=== PATIENT | female | born 1930 | race Caucasian/White ===

== ENCOUNTER 2019-09-23 18:20 | Inpatient (IN) | payer MEDICARE, BC ==
[~2019-09-23] VITALS: Ht 154.9 cm; Wt 51.6 kg
[2019-09-23 18:20] VITALS: BP 178/72
[~2019-09-23 18:20] MED LIST: AMLO5TAB10 PO; CALC1TAB PO; CHOL10003 PO; HYDR-2761 PO; IBUP-1060 PO; LEVO50TA5 PO; LOSA-73 PO; LYSI500T3 PO; MULT1TAB6 PO; NITR50CA11 PO; OMEG-33 PO; RALO60TA PO; TRIA15OI TP; VITA100T5 PO; VITA1TAB19 PO
--- NOTE | 2019-09-23 18:55 | PDOC1 ---
History and Physical Date of Admission Date of Admission DATE: 09/23/19 TIME: 18:54 Identification/Chief Complaint Chief Complaint direct admit [facility] due to severe anemia hgb 6.3, transfused and transferred Past Medical History Past Medical History november 2015 pt had a left hip replacement at [facility]. During her post-hospital stay at [place] she developed a pressure ulcer of the sacrum. Cardiovascular: HTN CENTRAL NERVOUS SYSTEM: Dementia Psych: Depression Renal/: No pertinent hx Family History Family History: Hypertension Social History Smoke: No ALCOHOL: none Drugs: None Current Medications Current Medications Active Scripts Active Reported Macrodantin (Nitrofurantoin Macrocrystal) 50 Mg Capsule 1 Cap PO DAILY Evista (Raloxifene Hcl) 60 Mg Tablet 1 Tab PO DAILY Triamcinolone Acetonide 0.1% Oint (Triamcinolone Acetonide) 15 Gm Oint...g. 1 Gregg TP BID MIX WITH EUCERIN DIRECTED BY PHYSICIAN Ibuprofen 800 Mg Tablet 800 Mg PO PRN Q6HRS PRN B Complex (Vitamin B Complex) 1 Each Tablet 1 Each PO Yorkshire 3 1,000 Mg Softgel (Yorkshire-3 Fatty Acids/Fish Oil) 1 Each Capsule 1 Each PO Vitamin E (Vitamin E Acid Succinate) 100 Unit Tablet 100 Unit PO Lysine 500 Mg Tablet 500 Mg PO Vitamin D3 (Cholecalciferol (Vitamin D3)) 1,000 Unit Tablet 1,000 Unit PO Centrum Complete Multivit Tab (Multivitamin/Iron/Folic Acid) 1 Each Tablet 1 Each PO Caltrate 600 + D Tablet (Calcium Carbonate/Vitamin D3) 1 Each Tablet 1 Each PO Losartan Potassium 50 Mg Tablet 50 Mg PO DAILY Evista (Raloxifene Hcl) 60 Mg Tablet 60 Mg PO DAILY Hydrocodone-Apap 5-325 (Hydrocodone Bit/Acetaminophen) 1 Each Tablet 1-2 Tab PO Q4-6HRS Levothyroxine Sodium 50 Mcg Tablet 50 Mcg PO DAILYAC Allergies Allergies: Coded Allergies: Penicillins (Unverified Allergy, Intermediate, 08/29/14) Sulfa (Sulfonamide Antibiotics) (Unverified Allergy, Intermediate, 08/29/14) clarithromycin (Unverified Allergy, Intermediate, 08/29/14) morphine (Unverified Allergy, Intermediate, 08/29/14) ROS Review of System notes some weight loss , 14 PT ROS OTHERWISE NEG General: YES: Fatigue, Malaise, Appetite; No: Chills, Night Sweats, Other PSYCHOLOGICAL ROS: YES: Anxiety; No: Behavioral Disorder, Concentration difficultie, Decreased libido, Depression, Disorientation, Hallucinations, Hostility, Irritablity, Memory difficulties, Mood Swings, Obsessive thoughts, Physical abuse, Sexual abuse, Sleep disturbances, Suicidal ideation, Other HEENT: No: Heacaches, Visual Changes, Hearing change, Nasal congestion, Nasal discharge, Oral lesions, Sinus pain, Sore Throat, Epistaxis, Sneezing, Snoring, Tinnitus, Vertigo, Vocal changes, Other Hematological and Lymphatic: No: Bleeding Problems, Blood Clots, Blood Transfusions, Brusing, Night Sweats, Pallor, Swollen Lymph Nodes, Other ENDOCRINE: No: Breast Changes, Galactorrhea, Hair Pattern Changes, Hot Flashes, Malaise/lethargy, Mood Swings, Palpitations, Polydipsia/polyuria, Skin Changes, Temperature Intolerance, Unexpected Weight Changes, Other Breast: No New/Changing Breast Lumps, No Nipple changes, No Nipple discharge, No Other Respiratory: No: Cough, Hemoptysis, Orthopnea, Pleuritic Pain, Shortness of breath, SOB with excertion, Sputum Changes, Stridor, Tachypnea, Wheezing, Other Cardiovascular: No Chest Pain, No Palpitations, No Orthopnea, No Paroxysmal Noc. Dyspnea, No Edema, No Lt Headedness, No Other Gastrointestinal: No Nausea, No Vomiting, No Abdominal Pain, No Diarrhea, No Constipation, No Melena, No Hematochezia, No Other Genitourinary: No Dysuria, No Frequency, No Incontinence, No Hematuria, No Retention, No Discharge, No Urgency, No Pain, No Flank Pain, No Other, No , No , No , No , No , No , No Musculoskeletal: Yes Joint Stiffness Neurological: No Behavorial Changes, No Bowel/Bladder ControlChng, No Confusion, No Dizziness, No Gait Disturbance, No Headaches, No Impaired Coord/balance, No Memory Loss, No Numbness/Tingling, No Seizures, No Speech Problems, No Tremors, No Visual Changes, No Weakness, No Other Skin: Yes Dry Skin; No Eczema, No Hair Changes, No Lumps, No Mole Changes, No Mottling, No Nail Changes, No Pruritus, No Rash, No Skin Lesion Changes, No Other, No Acne Physical Exam Physical Exam mild cachexia, supra clavicular wasting General: Alert, Oriented X3, Cooperative, No acute distress HEENT: Atraumatic, PERRLA Lungs: Clear to auscultation Heart: S1S2, RRR, no thrills Breasts: Not examined Abdomen: Normal bowel sounds, Soft, Other (thin) Rectal Exam: not examined PELVIC: Examination not indicated Extremities: No cyanosis, No edema Neuro: Normal speech, Cranial nerves 3-12 NL Psych/Mental Status: Mental status NL, Mood NL VTE Prophylaxis Ordered VTE Prophylaxis Devices: Yes VTE Pharmacological Prophylaxi: Contraindicated Assessment/Plan Assessment/Plan impression 1. severe anemia GUIAC STOOL NEG X 1 IN ER 2. weight loss 3. Generalized weakness 4. COGNITIVE DECLINE, cannot recall transfusion 2 hrs ago in [place] plan transfuse GI CONSULT IV PROTONIX IV FLUIDS CT ABDOMEN // PELVIS EXCLUDE MASS CEA fe panel RETIC COUNT CVC BED pt/ot D/W ER DR [place] of Admission Dx: Justifications for Admission: Justification of Admission Dx: Yes CHF: Hemodynamic Instability Comminuty Aquired Pneumonia: Dehydration Chronic Renal Failure: Intravenous Infusions Sepsis: Dehydration TWILA KULKARNI MD Sep 23, 2019 18:54
[2019-09-23 19:00] VITALS: BP 178/72
[2019-09-23] MEDS ORDERED: guaiFENesin ORAL 200 MG/10 ML LIQUID. PO PRN (19:00)
[2019-09-23] MEDS ORDERED: ALBUTEROL SULFATE 2.5 MG/3 ML NEBU. NEB PRN (19:00)
[2019-09-23] MEDS ORDERED: ONDANSETRON PF 4 MG/2 ML VIAL. IV PRN (19:00)
[2019-09-23] MEDS ORDERED: 0.9 % SODIUM CHLORIDE 10 ML DISP.SYRIN. IV PRN (19:00)
[2019-09-23] MEDS ORDERED: DOCUSATE SODIUM 100 MG CAPSULE. PO PRN (19:00)
--- NOTE | 2019-09-23 19:30 | NUR ---
Admit from [facility] via EMS prior to shift change. Alert. Forgetful. Pleasant. Denies complaints. Lives at [facility] in [place]. Admit for anemia. Hgb 6.3, Hct 20 at [facility]. 1unit PRBC given at [facility]. Dr Chadwick here to see patient and write orders. Orientated to room and call light. Reviewed POC to include Lab draws, Tele monitor and not to get out of bed without assist. Patient verbalized understanding. Resting in bed with call light at hand.
[2019-09-23] MEDS ORDERED: ACET325T9 PO (20:22)
[2019-09-23] MEDS ORDERED: hydrALAZINE 20 MG/ML VIAL. IVP PRN (22:45)
[2019-09-23 23:00] VITALS: BP 122/58
[2019-09-23] MEDS: IV NORMAL SALINE 1000ML BAG 1,000 ML IV SCH (23:25)
[2019-09-24 02:54] LABS: HEMATOCRIT 22.9 % (36.0-47.0); HEMOGLOBIN 7.6 g/dL (12.0-15.5); MEAN CORPUSCULAR HEMOGLOBIN 26 pg (25-35); MEAN CORPUSCULAR HGB CONC 33 g/dL (31-37); MEAN CORPUSCULAR VOLUME 77 fL (79-100); PLATELET COUNT 564 x10^3/uL (140-400); RED BLOOD COUNT 2.96 x10^6/uL (3.50-5.40); WHITE BLOOD COUNT 11.1 x10^3/uL (4.0-11.0)
[2019-09-24 03:01] VITALS: BP 148/69
[2019-09-24 03:34] LABS: % EOS 1 % (0-5); % LYMPHS 24 % (24-48); % MONOS 8 % (0-10); % SEGS 67 % (35-66); CALCIUM 8.3 mg/dL (8.5-10.1); CREATININE 0.8 mg/dL (0.6-1.0); GFR 67.7; PLT ESTIMATE INCREASED (ADEQUATE)
[2019-09-24 03:35] LABS: ANISOCYTOSIS MOD; HYPOCHROMIA SLIGHT
[2019-09-24 07:00] VITALS: BP 131/60
[2019-09-24] MEDS: PANTOPRAZOLE IV PUSH 40 MG VIAL. IVP SCH (07:21)
[2019-09-24] MEDS: ACETAMINOPHEN 325 MG TABLET. PO PRN (07:25)
[2019-09-24] MEDS: LEVOTHYROXINE 50 MCG TABLET PO SCH (07:26)
[2019-09-24] MEDS: VITAMIN B COMPLEX TABLET. PO SCH (08:00)
[2019-09-24] MEDS: CHOLECALCIFEROL (VITAMIN D3) 1,000 UNIT TABLET PO SCH (08:00)
[2019-09-24] MEDS: CALCIUM CARB/VIT D3 500/200 TABLET. PO SCH ×2 (08:00→17:00)
[2019-09-24] MEDS: MULTIVITAMIN with MINERAL TABLET. PO SCH (09:00)
[2019-09-24] MEDS: LOSARTAN POTASSIUM 50 MG TABLET. PO SCH (09:00)
[2019-09-24] MEDS: OMEGA-3 FATTY ACIDS/FISH OIL 1,000 MG CAPSULE. PO SCH (09:00)
[2019-09-24] MEDS: RALOXIFENE 60 MG TABLET. PO SCH (09:00)
--- NOTE | 2019-09-24 09:03 | NUR ---
AM meds: held am meds as pt is scheduled for CT. Will continue to monitor.
[2019-09-24] MEDS ORDERED: CONTRAST GIVEN. MC PRN (09:30)
[2019-09-24] MEDS ORDERED: IOHEXOL 240 MG/ML 50ML VIAL. IV ONE (09:30)
[2019-09-24] MEDS ORDERED: IOHEXOL 240 MG/ML 50ML VIAL. PO ONE (10:30)
--- NOTE | 2019-09-24 10:50 | PDOC2 ---
GI CONSULT Date of Service: DATE: 09/24/19 TIME: 10:50 Reason For Consult: anemia HPI: HPI: 89 y/o female transferred from [facility]. Presented there for evaluation of lower abdominal pain. Noted w/ DELORES. Pain (she describes as "just in my abdomen") has occurred off and on for a couple months. No aggravating or alleviating factors (except maybe Tylenol for a short period). Lost weight, then gained some, then lost some. No reflux/heartburn, dysphagia, n/v. change in appetite, diarrhea, constipation, hematochezia, melena, or bloating. No previous EGD or colonoscopy. No GB, liver, pancreas, or PUD history. Doesn't think she takes NSAIDs. Not forthcoming with history but answers questions appropriately. Says she uses oxygen at home but is unclear of any pulmonary diagnosis. Some mention of cognitive decline in chart; A & O x 3 during interview. Drinking contrast for CT when I saw - since has been done w/ report noting large ascending colonic mass without bowel obstruction showing findings suspicious for extracolonic tumoral spread. Additional findings include cholelithiasis, splenic calcifications, mild nodular fullness of left adrenal gland, mild right hydroureter and hydronephrosis w/ nonobstructing 2 mm right kidney stone. PMH: PMH: per chart - HTN, COPD, pulm fibrosis, osteoporosis, depression, hypothyroidism, rosacea, ?dementia L hip fx/surgery, unilateral salpingectomy and appendectomy FH: Family History: No pertinent hx Social History: Smoke: Quit ALCOHOL: none Drugs: None ROS: GEN: Denies fevers, chills, sweats HEENT: Denies blurred vision, sore throat CV: Denies chest pain RESP: Denies shortness of air, cough GI: Per HPI : Denies hematuria, dysuria ENDO: +weight loss NEURO: Denies confusion, dizziness MSK: Denies weakness, joint pain/swelling SKIN: Denies jaundice, pruritus Vitals: Vitals: Vital Signs Date Time Temp Pulse Resp B/P (MAP) Pulse Ox O2 Delivery O2 Flow Rate FiO2 09/24/19 07:00 98.1 92 18 131/60 (83) 97 Nasal Cannula 1.0 98.1 Labs: Labs: Laboratory Tests Test 09/24/19 02:00 White Blood Count 11.1 x10^3/uL (4.0-11.0) Red Blood Count 2.96 x10^6/uL (3.50-5.40) Hemoglobin 7.6 g/dL (12.0-15.5) Hematocrit 22.9 % (36.0-47.0) Mean Corpuscular Volume 77 fL (79-100) Mean Corpuscular Hemoglobin 26 pg (25-35) Mean Corpuscular Hemoglobin Concent 33 g/dL (31-37) Red Cell Distribution Width 21.0 % (11.5-14.5) Platelet Count 564 x10^3/uL (140-400) Neutrophils (%) (Auto) % (31-73) Lymphocytes (%) (Auto) % (24-48) Monocytes (%) (Auto) % (0-9) Eosinophils (%) (Auto) % (0-3) Basophils (%) (Auto) % (0-3) Neutrophils # (Auto) x10^3/uL (1.8-7.7) Lymphocytes # (Auto) x10^3/uL (1.0-4.8) Monocytes # (Auto) x10^3/uL (0.0-1.1) Eosinophils # (Auto) x10^3/uL (0.0-0.7) Basophils # (Auto) x10^3/uL (0.0-0.2) Segmented Neutrophils % 67 % (35-66) Lymphocytes % 24 % (24-48) Monocytes % 8 % (0-10) Eosinophils % 1 % (0-5) Platelet Estimate Increased (ADEQUATE) Hypochromasia Slight Anisocytosis Mod Absolute Reticulocyte Count 0.053 x10^6/uL (0.020-0.120) Percent Reticulocyte Count 1.8 % (0.5-2.3) Immature Reticulocyte Fraction 0.51 (0.20-0.60) Sodium Level 132 mmol/L (136-145) Potassium Level 4.0 mmol/L (3.5-5.1) Chloride Level 100 mmol/L (98-107) Carbon Dioxide Level 28 mmol/L (21-32) Anion Gap 4 (6-14) Blood Urea Nitrogen 13 mg/dL (7-20) Creatinine 0.8 mg/dL (0.6-1.0) Estimated GFR (Cockcroft-Gault) 67.7 Glucose Level 70 mg/dL (70-99) Calcium Level 8.3 mg/dL (8.5-10.1) Iron Level 27 ug/dL (50-170) Total Iron Binding Capacity 269 ug/dL (250-450) Iron Saturation 10 % (15-34) Allergies: Coded Allergies: Penicillins (Verified Allergy, Intermediate, 09/24/19) Sulfa (Sulfonamide Antibiotics) (Verified Allergy, Intermediate, 09/24/19) clarithromycin (Verified Allergy, Intermediate, 09/24/19) morphine (Verified Allergy, Intermediate, 09/24/19) Medications: Current Medications Medications (Trade) Dose Ordered Sig/Elier Route PRN Reason Start Time Stop Time Status Last Admin Dose Admin Sodium Chloride 1,000 ml @ 55 mls/hr [id number] IV 09/23/19 18:55 09/23/19 23:25 Acetaminophen (Tylenol) 650 mg PRN Q4HRS PRN PO TEMP OVER 100.4F OR MILD PAIN 09/23/19 19:00 09/24/19 07:25 Pantoprazole Sodium (PROTONIX VIAL for IV PUSH) 40 mg DAILYAC IVP 09/24/19 07:30 09/24/19 07:21 Levothyroxine Sodium (Synthroid) 50 mcg DAILYAC PO 09/24/19 07:30 09/24/19 07:26 Iohexol (Omnipaque 240 Mg/ml) 30 ml 1X ONCE PO 09/24/19 10:30 09/24/19 10:35 DC 09/24/19 10:37 Imaging: Imaging: CT A/P FINDINGS: The absence of IV contrast limits evaluation of soft tissue pathology. LOWER CHEST: Small bilateral pleural effusions. LIVER: Unremarkable BILIARY SYSTEM: Gallbladder contains a 1 cm stone at its neck.. Bile ducts are not dilated. PANCREAS: Unremarkable SPLEEN: Scattered splenic calcifications. Normal size. ADRENALS: Mild diffuse nodular fullness of the left adrenal gland, suggestive of an abnormal measuring 1.5 cm diameter. Normal-appearing right adrenal gland. KIDNEYS & URETERS: Mild right hydroureter and hydronephrosis. Nonobstructing 2 mm stone in the inferior pole right kidney. Left kidney and ureter are unremarkable. BLADDER: Unremarkable REPRODUCTIVE ORGANS: Unremarkable GASTROINTESTINAL: There is abnormal wall thickening in the ascending colon with pericolonic soft tissue stranding and luminal narrowing, suspicious for a large ascending colonic mass and extracolonic mesenteric soft tissuespread. The appendix is not well seen. No evidence of bowel obstruction or perforation with abscess formation. . MESENTERY/PERITONEUM/RETROPERITONEUM: Trace intraperitoneal free fluid. No free air. VASCULAR: Unremarkable LYMPH NODES: No adenopathy OSSEOUS & SOFT TISSUES: Unremarkable IMPRESSION: Large ascending colonic mass without bowel obstruction showing findings suspicious for extracolonic tumoral spread. Further characterization by abdominal MRI or contrast-enhanced CT imaging can be pursued if clinically jessica anted. Differential considerations include lymphoma versus adenocarcinoma of the large bowel. PE: GEN: NAD HEENT: Atraumatic, PERRL LUNGS: diminished HEART: RRR ABD: decreased BS, fullness/firmness to right lower/mid abdomen, uncomfortable mostly to right EXTREMITY: No edema SKIN: No rashes, no jaundice NEURO/PSYCH: A & O 3, quiet, anxious A/P: A/P: Abd pain, weight loss DELORES - improved w/ transfusion Ascending colon mass - additional CT findings as above CRC screen - none Cholelithiasis - incidental finding -- Will review CT w/ Dr. Covington. DAVID BURGOS Sep 24, 2019 10:50
[2019-09-24 11:00] VITALS: BP 122/60
--- NOTE | 2019-09-24 11:04 | RAD ---
EXAM: CT Abdomen and Pelvis without IV contrast INDICATION: Reason: abnormal weight loss, anemia / Spl. Instructions: OMNI 240 30 MLS / History: TECHNIQUE: Multi-detector row CT images were acquired from the lung bases through the abdomen and pelvis without the use of IV contrast. Sagittal and coronal images were acquired from the transaxial data. All CT scans performed at this facility utilize dose optimization techniques as appropriate to the exam, including the following: Automated exposure control and adjustment of the mA and/or KV according to patient size (this includes techniques or standardized protocols for targeted exams where dose is indication/reason for exam). ORAL CONTRAST: Administered COMPARISON: None FINDINGS: The absence of IV contrast limits evaluation of soft tissue pathology. LOWER CHEST: Small bilateral pleural effusions. LIVER: Unremarkable BILIARY SYSTEM: Gallbladder contains a 1 cm stone at its neck.. Bile ducts are not dilated. PANCREAS: Unremarkable SPLEEN: Scattered splenic calcifications. Normal size. ADRENALS: Mild diffuse nodular fullness of the left adrenal gland, suggestive of an abnormal measuring 1.5 cm diameter. Normal-appearing right adrenal gland. KIDNEYS & URETERS: Mild right hydroureter and hydronephrosis. Nonobstructing 2 mm stone in the inferior pole right kidney. Left kidney and ureter are unremarkable. BLADDER: Unremarkable REPRODUCTIVE ORGANS: Unremarkable GASTROINTESTINAL: There is abnormal wall thickening in the ascending colon with pericolonic soft tissue stranding and luminal narrowing, suspicious for a large ascending colonic mass and extracolonic mesenteric soft tissue spread. The appendix is not well seen. No evidence of bowel obstruction or perforation with abscess formation. . MESENTERY/PERITONEUM/RETROPERITONEUM: Trace intraperitoneal free fluid. No free air. VASCULAR: Unremarkable LYMPH NODES: No adenopathy OSSEOUS & SOFT TISSUES: Unremarkable IMPRESSION: Large ascending colonic mass without bowel obstruction showing findings suspicious for extracolonic tumoral spread. Further characterization by abdominal MRI or contrast-enhanced CT imaging can be pursued if clinically warranted. Differential considerations include lymphoma versus adenocarcinoma of the large bowel. Electronically signed by: Bettina Arauz MD (09/24/2019 11:01 AM) [id number]
--- NOTE | 2019-09-24 11:12 | NUR ---
AM meds: Pt asked to wait until after she ate to take her meds. Took meds to patient after she ate cereal, she refused medicine. Will continue to monitor pt.
--- NOTE | 2019-09-24 12:40 | NUR ---
SS following for discharge planning. SS reviewed pt chart and discussed with pt RN. Pt is from [facility], , and is currently requiring oxygen. Pt has home oxygen. PT/OT evaluated and recommended home. [facility] requesting COVID19 test prior to returning. Pt having CT scan today. SS will continue to follow for discharge planning.
--- NOTE | 2019-09-24 13:39 | PDOC ---
[employer] PROGRESS NOTE Date of Service DOS: DATE: 09/24/19 TIME: 12:54 Chief Complaint Chief Complaint Acute blood loss anemia - likely 2/2 potential GI malignancy Right colon mass Small bilateral pleural effusions Cholelilthiasis - Gallbladder contains a 1 cm stone at its neck Hyponatremia Nephrolithiasis nonobstructive Adrenal mass History of Present Illness History of Present Illness Mr Henson 89 y/o female with PMHc COPD, pulmonary fibrosis on home O2, HTN, Osteoporosis, depression, hypothyroidism, mild cognitive impairment who lives in Assisted Living in [place], [place] who was transferred from [facility] for evaluation of lower abdominal pain and low hemoglobin that was 5 outpatient, was noted to be 6.3 inpatient at [facility]. As she was tachycardic and symptomatic she was given 1 unit packed red blood cell transfusion and transferred to [facility] for further care as they do not have GI services [facility]. Labs upon arrival to [facility] after transfusion WBC 1.1, Hb 7.6, platelets 564, MCV 70, NA 132, K4, BUN 13, CR 0.8, glucose 70. She does c/o abdominal pain intermittently for 2 months. No previous EGD or colonoscopy. No cancer history in her mother father, her sister did have breast cancer and her brother has history of lymphoma non- Hodgkin's type. No prostate or colon cancer history in her family but she does not know all of their history. CT abdomen reveals large ascending colonic mass without bowel obstruction showing findings suspicious for extracolonic tumoral spread. Additional findings include cholelithiasis, splenic calcifications, mild nodular fullness of left adrenal gland, mild right hydroureter and hydronephrosis w/ nonobstructing 2 mm right kidney stone. She has no obstructive symptoms and no pain currently. She tolerated p.o. well. I discussed bedtime bedside with Angela the findings on her CT and offered options of biopsy and discussed risk and benefits. She is hesitant go through with a diagnostic procedure given that she is also hesitant to have surgery or chemotherapy if this is indeed a malignancy and wants her sons Toro and Finn involved in the decision-making. She has also made it clear that she is a DNR/DNI. She is more worried about having pain and controlling that and is leaning toward not having a diagnostic procedure. I have discussed with radiology the findings and they note that even though there is some invasion outside the lumen of the colon is very thick and very high risk for bowel perforation if biopsied from external IR approach and he would recommend pursuing colonoscopy if patient and family wish for a pathologic diagnosis. Vitals/I&O Vitals/I&O: Vital Signs Date Time Temp Pulse Resp B/P (MAP) Pulse Ox O2 Delivery O2 Flow Rate FiO2 09/24/19 11:00 98.5 96 18 122/60 (80) 99 Nasal Cannula 1.0 98.5 I & O 09/23/19 09/23/19 09/24/19 15:00 23:00 07:00 Intake Total 100 ml 400 ml Balance 100 ml 400 ml Physical Exam General: Alert, Oriented X3, Cooperative, No acute distress Heart: Regular rate, Normal S1, Normal S2 Lungs: Clear Abdomen: Normal bowel sounds, Soft, Other (thin) Extremities: No cyanosis, No edema Labs Labs: Laboratory Tests Test 09/24/19 02:00 White Blood Count 11.1 x10^3/uL (4.0-11.0) Red Blood Count 2.96 x10^6/uL (3.50-5.40) Hemoglobin 7.6 g/dL (12.0-15.5) Hematocrit 22.9 % (36.0-47.0) Mean Corpuscular Volume 77 fL (79-100) Mean Corpuscular Hemoglobin 26 pg (25-35) Mean Corpuscular Hemoglobin Concent 33 g/dL (31-37) Red Cell Distribution Width 21.0 % (11.5-14.5) Platelet Count 564 x10^3/uL (140-400) Neutrophils (%) (Auto) % (31-73) Lymphocytes (%) (Auto) % (24-48) Monocytes (%) (Auto) % (0-9) Eosinophils (%) (Auto) % (0-3) Basophils (%) (Auto) % (0-3) Neutrophils # (Auto) x10^3/uL (1.8-7.7) Lymphocytes # (Auto) x10^3/uL (1.0-4.8) Monocytes # (Auto) x10^3/uL (0.0-1.1) Eosinophils # (Auto) x10^3/uL (0.0-0.7) Basophils # (Auto) x10^3/uL (0.0-0.2) Segmented Neutrophils % 67 % (35-66) Lymphocytes % 24 % (24-48) Monocytes % 8 % (0-10) Eosinophils % 1 % (0-5) Platelet Estimate Increased (ADEQUATE) Hypochromasia Slight Anisocytosis Mod Absolute Reticulocyte Count 0.053 x10^6/uL (0.020-0.120) Percent Reticulocyte Count 1.8 % (0.5-2.3) Immature Reticulocyte Fraction 0.51 (0.20-0.60) Sodium Level 132 mmol/L (136-145) Potassium Level 4.0 mmol/L (3.5-5.1) Chloride Level 100 mmol/L (98-107) Carbon Dioxide Level 28 mmol/L (21-32) Anion Gap 4 (6-14) Blood Urea Nitrogen 13 mg/dL (7-20) Creatinine 0.8 mg/dL (0.6-1.0) Estimated GFR (Cockcroft-Gault) 67.7 Glucose Level 70 mg/dL (70-99) Calcium Level 8.3 mg/dL (8.5-10.1) Iron Level 27 ug/dL (50-170) Total Iron Binding Capacity 269 ug/dL (250-450) Iron Saturation 10 % (15-34) Comment Review of Relevant I have reviewed the following items kun (where applicable) has been applied. Medications: Current Medications Medications (Trade) Dose Ordered Sig/Elier Route PRN Reason Start Time Stop Time Status Last Admin Dose Admin Sodium Chloride 1,000 ml @ 55 mls/hr [id number] IV 09/23/19 18:55 09/23/19 23:25 Acetaminophen (Tylenol) 650 mg PRN Q4HRS PRN PO TEMP OVER 100.4F OR MILD PAIN 09/23/19 19:00 09/24/19 07:25 Pantoprazole Sodium (PROTONIX VIAL for IV PUSH) 40 mg DAILYAC IVP 09/24/19 07:30 09/24/19 07:21 Levothyroxine Sodium (Synthroid) 50 mcg DAILYAC PO 09/24/19 07:30 09/24/19 07:26 Iohexol (Omnipaque 240 Mg/ml) 30 ml 1X ONCE PO 09/24/19 10:30 09/24/19 10:35 DC 09/24/19 10:37 Justicifation of Admission Dx: Justifications for Admission: Justification of Admission Dx: Yes CHF: Hemodynamic Instability Comminuty Aquired Pneumonia: Dehydration Chronic Renal Failure: Intravenous Infusions Sepsis: Dehydration DEX DAVALOS MD Sep 24, 2019 13:39
[2019-09-24 15:00] VITALS: BP 157/67
--- NOTE | 2019-09-24 16:45 | NUR ---
Assumed care of patient this afternoon. Patient has family at bedside discussing POC. No complaints of pain or SOB.
[2019-09-24] MEDS: IV NORMAL SALINE 1000ML BAG 1,000 ML IV SCH (17:12)
[2019-09-24 19:35] VITALS: BP 128/59
[2019-09-24 23:00] VITALS: BP 141/63
[2019-09-25 03:00] VITALS: BP 131/73
[2019-09-25] MEDS: ACETAMINOPHEN 325 MG TABLET. PO PRN ×2 (03:59→17:14)
[2019-09-25 05:03] LABS: ALBUMIN 2.2 g/dL (3.4-5.0); ALBUMIN/GLOBULIN RATIO 0.6 (1.0-1.7); CALCIUM 8.1 mg/dL (8.5-10.1); CREATININE 0.6 mg/dL (0.6-1.0); GFR 94.3; POTASSIUM 3.6 mmol/L (3.5-5.1); TOTAL BILIRUBIN 0.5 mg/dL (0.2-1.0); TOTAL PROTEIN 5.9 g/dL (6.4-8.2)
[2019-09-25 06:57] LABS: HEMATOCRIT 26.6 % (36.0-47.0); HEMOGLOBIN 8.5 g/dL (12.0-15.5); MEAN CORPUSCULAR HEMOGLOBIN 25 pg (25-35); MEAN CORPUSCULAR HGB CONC 32 g/dL (31-37); MEAN CORPUSCULAR VOLUME 77 fL (79-100); PLATELET COUNT 630 x10^3/uL (140-400); RED BLOOD COUNT 3.44 x10^6/uL (3.50-5.40); RED CELL DISTRIBUTION WIDTH 21.5 % (11.5-14.5); WHITE BLOOD COUNT 11.5 x10^3/uL (4.0-11.0)
[2019-09-25 07:00] VITALS: BP 134/61
[2019-09-25 08:28] LABS: % EOS 1 % (0-5); % LYMPHS 24 % (24-48); % MONOS 7 % (0-10); % SEGS 68 % (35-66); PLT ESTIMATE INCREASED (ADEQUATE)
[2019-09-25] MEDS: VITAMIN B COMPLEX TABLET. PO SCH (09:17)
[2019-09-25] MEDS: RALOXIFENE 60 MG TABLET. PO SCH (09:17)
[2019-09-25] MEDS: MULTIVITAMIN with MINERAL TABLET. PO SCH (09:17)
[2019-09-25] MEDS: OMEGA-3 FATTY ACIDS/FISH OIL 1,000 MG CAPSULE. PO SCH (09:17)
[2019-09-25] MEDS: LEVOTHYROXINE 50 MCG TABLET PO SCH (09:17)
[2019-09-25] MEDS: LOSARTAN POTASSIUM 50 MG TABLET. PO SCH (09:17)
[2019-09-25] MEDS: CHOLECALCIFEROL (VITAMIN D3) 1,000 UNIT TABLET PO SCH (09:18)
[2019-09-25] MEDS: PANTOPRAZOLE IV PUSH 40 MG VIAL. IVP SCH (09:18)
[2019-09-25] MEDS: CALCIUM CARB/VIT D3 500/200 TABLET. PO SCH ×2 (09:18→17:14)
[2019-09-25 10:33] VITALS: BP 152/77
[2019-09-25] MEDS: IV NORMAL SALINE 1000ML BAG 1,000 ML IV SCH (11:32)
--- NOTE | 2019-09-25 12:32 | PDOC ---
[employer] PROGRESS NOTE Date of Service DOS: DATE: 09/25/19 TIME: 12:29 Chief Complaint Chief Complaint Acute blood loss anemia - likely 2/2 potential GI malignancy Right colon mass - plans for surgery Small bilateral pleural effusions Cholelilthiasis - Gallbladder contains a 1 cm stone at its neck Hyponatremia Nephrolithiasis nonobstructive Adrenal mass History of Present Illness History of Present Illness Mr Henson 89 y/o female with PMHc COPD, pulmonary fibrosis on home O2, HTN, Osteoporosis, depression, hypothyroidism, mild cognitive impairment who lives in Assisted Living in [place], [place] who was transferred from [facility] for evaluation of lower abdominal pain and low hemoglobin that was 5 outpatient, was noted to be 6.3 inpatient at [facility]. As she was tachycardic and symptomatic she was given 1 unit packed red blood cell transfusion and transferred to [facility] for further care as they do not have GI services [facility]. Labs upon arrival to [facility] after transfusion WBC 1.1, Hb 7. 6, platelets 564, MCV 70, NA 132, K4, BUN 13, CR 0.8, glucose 70. She does c/o abdominal pain intermittently for 2 months. No previous EGD or colonoscopy. No cancer history in her mother father, her sister did have breast cancer and her brother has history of lymphoma non- Hodgkin's type. No prostate or colon cancer history in her family but she does not know all of their history. CT abdomen reveals large ascending colonic mass without bowel obstruction showing findings suspicious for extracolonic tumoral spread. Additional findings include cholelithiasis, splenic calcifications, mild nodular fullness of left adrenal gland, mild right hydroureter and hydronephrosis w/ nonobstructing 2 mm right kidney stone. 09/23: She has no obstructive symptoms and no pain currently. She tolerated p.o. well. I discussed bedtime bedside with Angela the findings on her CT and offered options of biopsy and discussed risk and benefits. She is hesitant go through with a diagnostic procedure given that she is also hesitant to have surgery or chemotherapy if this is indeed a malignancy and wants her sons Toro and Finn involved in the decision-making. She has also made it clear that she is a DNR/DNI. She is more worried about having pain and controlling that and is leaning toward not having a diagnostic procedure. I have discussed with radiology the findings and they note that even though there is some invasion outside the lumen of the colon is very thick and very high risk for bowel perforation if biopsied from external IR approach and he would recommend pursuing colonoscopy if patient and family wish for a pathologic diagnosis. Still tachycardic. Hb 8.5. Hypoxic on 1L NCO2. Has an appetite and passing flatus. Pain is controlled. I discussed with surgery that is feasible and plan to do a right hemicolectomy, during the week, and should remain inpatient for monitoring of her hemoglobin. Plan: Cont inpatient Tentative plans for surgery in the next 4 days Tentative plans for family meeting Friday with Surgery - will coordinate this Finn Jared Vitals/I&O Vitals/I&O: Vital Signs Date Time Temp Pulse Resp B/P (MAP) Pulse Ox O2 Delivery O2 Flow Rate FiO2 09/25/19 10:33 98.1 102 18 152/77 (102) 98 Nasal Cannula 1.0 98.1 I & O 09/24/19 09/24/19 09/25/19 15:00 23:00 07:00 Intake Total 480 ml 240 ml 200 ml Balance 480 ml 240 ml 200 ml Physical Exam General: Alert, Oriented X3, Cooperative, No acute distress Heart: Regular rate, Normal S1, Normal S2 Lungs: Clear Abdomen: Normal bowel sounds, Soft, Other (thin) Extremities: No cyanosis, No edema Labs Labs: Laboratory Tests Test 09/25/19 04:00 White Blood Count 11.5 x10^3/uL (4.0-11.0) Red Blood Count 3.44 x10^6/uL (3.50-5.40) Hemoglobin 8.5 g/dL (12.0-15.5) Hematocrit 26.6 % (36.0-47.0) Mean Corpuscular Volume 77 fL (79-100) Mean Corpuscular Hemoglobin 25 pg (25-35) Mean Corpuscular Hemoglobin Concent 32 g/dL (31-37) Red Cell Distribution Width 21.5 % (11.5-14.5) Platelet Count 630 x10^3/uL (140-400) Neutrophils (%) (Auto) % (31-73) Lymphocytes (%) (Auto) % (24-48) Monocytes (%) (Auto) % (0-9) Eosinophils (%) (Auto) % (0-3) Basophils (%) (Auto) % (0-3) Neutrophils # (Auto) x10^3/uL (1.8-7.7) Lymphocytes # (Auto) x10^3/uL (1.0-4.8) Monocytes # (Auto) x10^3/uL (0.0-1.1) Eosinophils # (Auto) x10^3/uL (0.0-0.7) Basophils # (Auto) x10^3/uL (0.0-0.2) Segmented Neutrophils % 68 % (35-66) Lymphocytes % 24 % (24-48) Monocytes % 7 % (0-10) Eosinophils % 1 % (0-5) Platelet Estimate Increased (ADEQUATE) Sodium Level 133 mmol/L (136-145) Potassium Level 3.6 mmol/L (3.5-5.1) Chloride Level 99 mmol/L (98-107) Carbon Dioxide Level 26 mmol/L (21-32) Anion Gap 8 (6-14) Blood Urea Nitrogen 7 mg/dL (7-20) Creatinine 0.6 mg/dL (0.6-1.0) Estimated GFR (Cockcroft-Gault) 94.3 BUN/Creatinine Ratio 12 (6-20) Glucose Level 84 mg/dL (70-99) Calcium Level 8.1 mg/dL (8.5-10.1) Total Bilirubin 0.5 mg/dL (0.2-1.0) Aspartate Amino Transf (AST/SGOT) 27 U/L (15-37) Alanine Aminotransferase (ALT/SGPT) 26 U/L (14-59) Alkaline Phosphatase 290 U/L (46-116) Total Protein 5.9 g/dL (6.4-8.2) Albumin 2.2 g/dL (3.4-5.0) Albumin/Globulin Ratio 0.6 (1.0-1.7) Comment Review of Relevant I have reviewed the following items kun (where applicable) has been applied. Justicifation of Admission Dx: Justifications for Admission: Justification of Admission Dx: Yes CHF: Hemodynamic Instability Comminuty Aquired Pneumonia: Dehydration Chronic Renal Failure: Intravenous Infusions Sepsis: Dehydration DEX DAVALOS MD Sep 25, 2019 12:32
[2019-09-25 14:35] VITALS: BP 151/67
--- NOTE | 2019-09-25 16:25 | PDOC2 ---
CONSULT Date of Consult Date of Consult DATE: 09/25/19 TIME: 16:20 Reason for Consult Reason for Consult: colon mass Referring Physician Referring Physician: Dr Chacon Identification/Chief Complaint Chief Complaint anemia Source Source: Chart review, Patient History of Present Illness Reason for Visit: Tx from [facility] with anemia and abdominal pain. Imaging showing colonic mass. Surgical eval for ostomy. Dr Partida reviewed with Pt Currently denies abdominal pain No previous endoscopy Past Medical History Cardiovascular: HTN CENTRAL NERVOUS SYSTEM: Dementia Psych: Depression Renal/: No pertinent hx Family History Family History: Hypertension Social History Quit ALCOHOL: none Drugs: None Current Medications Current Medications Current Medications Sodium Chloride (Normal Saline Flush) 3 ml QSHIFT PRN IV AFTER MEDS AND BLOOD DRAWS; Start 09/23/19 at 19:00 Sodium Chloride 1,000 ml @ 55 mls/hr [id number] IV Last administered on 09/25/19at 11:32; Start 09/23/19 at 18:55 Ondansetron HCl (Zofran) 4 mg PRN Q4HRS PRN IV NAUSEA/VOMITING; Start 09/23/19 at 19:00 Acetaminophen (Tylenol) 650 mg PRN Q4HRS PRN PO TEMP OVER 100.4F OR MILD PAIN Last administered on 09/25/19at 03:59; Start 09/23/19 at 19:00 Docusate Sodium (Colace) 100 mg PRN BID PRN PO HARD STOOLS; Start 09/23/19 at 19:00 Albuterol Sulfate (Ventolin Neb Soln) 2.5 mg PRN Q4HRS PRN NEB SHORTNESS OF BREATH; Start 09/23/19 at 19:00 Guaifenesin (Robitussin) 200 mg PRN Q4HRS PRN PO COUGH; Start 09/23/19 at 19:00 Pantoprazole Sodium (PROTONIX VIAL for IV PUSH) 40 mg DAILYAC IVP Last administered on 09/25/19 09:18; Start 09/24/19 at 07:30; Stop 09/25/19 at 10:49; Status DC Vitamin D (Vitamin D3) 1,000 unit DAILY08 PO Last administered on 09/25/19 09:18; Start 09/24/19 at 08:00 Levothyroxine Sodium (Synthroid) 50 mcg DAILYAC PO Last administered on 09/25/19 09:17; Start 09/24/19 at 07:30 Losartan Potassium (Cozaar) 50 mg DAILY PO Last administered on 09/25/19 09:17; Start 09/24/19 at 09:00 Raloxifene HCl (Evista) 60 mg DAILY PO Last administered on 09/25/19 09:17; Start 09/24/19 at 09:00 Vitamin B Complex (Joseph B) 1 tab DAILY08 PO Last administered on 09/25/19 09:17; Start 09/24/19 at 08:00 Calcium/Vitamin D (Oscal D 500mg/ 200uts) 1 tab BIDWMEALS PO Last administered on 09/25/19 09:18; Start 09/24/19 at 08:00 Multivitamins (Thera M Plus) 1 tab DAILY PO Last administered on 09/25/19 09:17; Start 09/24/19 at 09:00 Fish Oil (Fish Oil) 1,000 mg DAILY PO Last administered on 09/25/19 09:17; Start 09/24/19 at 09:00 Hydralazine HCl (Apresoline Inj) 10 mg PRN Q4HRS PRN IVP ELEVATED BP, SEE COMMENTS; Start 09/23/19 at 22:45 Iohexol (Omnipaque 240 Mg/ml) 30 ml 1X ONCE IV ; Start 09/24/19 at 09:30; Stop 09/24/19 at 09:31; Status Cancel Info (CONTRAST GIVEN -- Rx MONITORING) 1 each PRN DAILY PRN MC SEE COMMENTS; Start 09/24/19 at 09:30; Stop 09/26/19 at 09:29; Status Cancel Iohexol (Omnipaque 240 Mg/ml) 30 ml 1X ONCE PO Last administered on 09/24/19at 10:37; Start 09/24/19 at 10:30; Stop 09/24/19 at 10:35; Status DC Pantoprazole Sodium (Protonix) 40 mg DAILYAC PO ; Start 09/26/19 at 07:30 Active Scripts Active Reported Tylenol (Acetaminophen) 325 Mg Tablet 650 Mg PO Q4HRS PRN Macrodantin (Nitrofurantoin Macrocrystal) 50 Mg Capsule 1 Cap PO DAILY Evista (Raloxifene Hcl) 60 Mg Tablet 1 Tab PO DAILY Triamcinolone Acetonide 0.1% Oint (Triamcinolone Acetonide) 15 Gm Oint...g. 1 Gregg TP BID MIX WITH EUCERIN DIRECTED BY PHYSICIAN Ibuprofen 800 Mg Tablet 800 Mg PO PRN Q6HRS PRN B Complex (Vitamin B Complex) 1 Each Tablet 1 Each PO [place] 3 1,000 Mg Softgel ([place]-3 Fatty Acids/Fish Oil) 1 Each Capsule 1 Each PO Vitamin E (Vitamin E Acid Succinate) 100 Unit Tablet 100 Unit PO Lysine 500 Mg Tablet 500 Mg PO Vitamin D3 (Cholecalciferol (Vitamin D3)) 1,000 Unit Tablet 1,000 Unit PO Centrum Complete Multivit Tab (Multivitamin/Iron/Folic Acid) 1 Each Tablet 1 Each PO Caltrate 600 + D Tablet (Calcium Carbonate/Vitamin D3) 1 Each Tablet 1 Each PO Losartan Potassium 50 Mg Tablet 50 Mg PO DAILY Evista (Raloxifene Hcl) 60 Mg Tablet 60 Mg PO DAILY Hydrocodone-Apap 5-325 (Hydrocodone Bit/Acetaminophen) 1 Each Tablet 1-2 Tab PO Q4-6HRS Levothyroxine Sodium 50 Mcg Tablet 50 Mcg PO DAILYAC Allergies Allergies: Coded Allergies: Penicillins (Verified Allergy, Intermediate, 09/24/19) Sulfa (Sulfonamide Antibiotics) (Verified Allergy, Intermediate, 09/24/19) clarithromycin (Verified Allergy, Intermediate, 09/24/19) morphine (Verified Allergy, Intermediate, 09/24/19) ROS General: No: Chills, Other (fevers) PSYCHOLOGICAL ROS: No: Anxiety, Depression Eyes: No Blurry vision, No Double vision HEENT: No: Heacaches, Sore Throat Hematological and Lymphatic: YES: Bleeding Problems; No: Blood Clots Respiratory: No: Cough, Shortness of breath Cardiovascular: No Chest Pain, No Palpitations Gastrointestinal: Yes Other (see hpi) Genitourinary: No Dysuria, No Hematuria Musculoskeletal: Yes Joint Pain, Yes Muscular Weakness Neurological: Yes Memory Loss; No Impaired Coord/balance Skin: No Pruritus, No Rash Physical Exam General: Alert, Cooperative, No acute distress HEENT: Atraumatic, PERRLA Lungs: Clear to auscultation, Normal air movement Heart: Regular rate, Normal S1, Normal S2 Abdomen: Soft, No tenderness, No hepatosplenomegaly Extremities: No clubbing, No cyanosis Skin: No rashes, No breakdown Neuro: Normal speech, Sensation intact Psych/Mental Status: Mental status NL, Mood NL MUSCULOSKELETAL: No deformity, No swelling Vitals VITALS Vital Signs Date Time Temp Pulse Resp B/P (MAP) Pulse Ox O2 Delivery O2 Flow Rate FiO2 09/25/19 14:35 98.4 101 18 151/67 (95) 97 Room Air 98.4 09/25/19 10:33 1.0 Labs Labs Laboratory Tests Test 09/24/19 02:00 09/25/19 04:00 White Blood Count 11.1 x10^3/uL (4.0-11.0) 11.5 x10^3/uL (4.0-11.0) Red Blood Count 2.96 x10^6/uL (3.50-5.40) 3.44 x10^6/uL (3.50-5.40) Hemoglobin 7.6 g/dL (12.0-15.5) 8.5 g/dL (12.0-15.5) Hematocrit 22.9 % (36.0-47.0) 26.6 % (36.0-47.0) Mean Corpuscular Volume 77 fL (79-100) 77 fL (79-100) Mean Corpuscular Hemoglobin 26 pg (25-35) 25 pg (25-35) Mean Corpuscular Hemoglobin Concent 33 g/dL (31-37) 32 g/dL (31-37) Red Cell Distribution Width 21.0 % (11.5-14.5) 21.5 % (11.5-14.5) Platelet Count 564 x10^3/uL (140-400) 630 x10^3/uL (140-400) Neutrophils (%) (Auto) % (31-73) % (31-73) Lymphocytes (%) (Auto) % (24-48) % (24-48) Monocytes (%) (Auto) % (0-9) % (0-9) Eosinophils (%) (Auto) % (0-3) % (0-3) Basophils (%) (Auto) % (0-3) % (0-3) Neutrophils # (Auto) x10^3/uL (1.8-7.7) x10^3/uL (1.8-7.7) Lymphocytes # (Auto) x10^3/uL (1.0-4.8) x10^3/uL (1.0-4.8) Monocytes # (Auto) x10^3/uL (0.0-1.1) x10^3/uL (0.0-1.1) Eosinophils # (Auto) x10^3/uL (0.0-0.7) x10^3/uL (0.0-0.7) Basophils # (Auto) x10^3/uL (0.0-0.2) x10^3/uL (0.0-0.2) Segmented Neutrophils % 67 % (35-66) 68 % (35-66) Lymphocytes % 24 % (24-48) 24 % (24-48) Monocytes % 8 % (0-10) 7 % (0-10) Eosinophils % 1 % (0-5) 1 % (0-5) Platelet Estimate Increased (ADEQUATE) Increased (ADEQUATE) Hypochromasia Slight Anisocytosis Mod Absolute Reticulocyte Count 0.053 x10^6/uL (0.020-0.120) Percent Reticulocyte Count 1.8 % (0.5-2.3) Immature Reticulocyte Fraction 0.51 (0.20-0.60) Sodium Level 132 mmol/L (136-145) 133 mmol/L (136-145) Potassium Level 4.0 mmol/L (3.5-5.1) 3.6 mmol/L (3.5-5.1) Chloride Level 100 mmol/L (98-107) 99 mmol/L (98-107) Carbon Dioxide Level 28 mmol/L (21-32) 26 mmol/L (21-32) Anion Gap 4 (6-14) 8 (6-14) Blood Urea Nitrogen 13 mg/dL (7-20) 7 mg/dL (7-20) Creatinine 0.8 mg/dL (0.6-1.0) 0.6 mg/dL (0.6-1.0) Estimated GFR (Cockcroft-Gault) 67.7 94.3 Glucose Level 70 mg/dL (70-99) 84 mg/dL (70-99) Calcium Level 8.3 mg/dL (8.5-10.1) 8.1 mg/dL (8.5-10.1) Iron Level 27 ug/dL (50-170) Total Iron Binding Capacity 269 ug/dL (250-450) Iron Saturation 10 % (15-34) BUN/Creatinine Ratio 12 (6-20) Total Bilirubin 0.5 mg/dL (0.2-1.0) Aspartate Amino Transf (AST/SGOT) 27 U/L (15-37) Alanine Aminotransferase (ALT/SGPT) 26 U/L (14-59) Alkaline Phosphatase 290 U/L (46-116) Total Protein 5.9 g/dL (6.4-8.2) Albumin 2.2 g/dL (3.4-5.0) Albumin/Globulin Ratio 0.6 (1.0-1.7) Laboratory Tests Test 09/25/19 04:00 White Blood Count 11.5 x10^3/uL (4.0-11.0) Red Blood Count 3.44 x10^6/uL (3.50-5.40) Hemoglobin 8.5 g/dL (12.0-15.5) Hematocrit 26.6 % (36.0-47.0) Mean Corpuscular Volume 77 fL (79-100) Mean Corpuscular Hemoglobin 25 pg (25-35) Mean Corpuscular Hemoglobin Concent 32 g/dL (31-37) Red Cell Distribution Width 21.5 % (11.5-14.5) Platelet Count 630 x10^3/uL (140-400) Neutrophils (%) (Auto) % (31-73) Lymphocytes (%) (Auto) % (24-48) Monocytes (%) (Auto) % (0-9) Eosinophils (%) (Auto) % (0-3) Basophils (%) (Auto) % (0-3) Neutrophils # (Auto) x10^3/uL (1.8-7.7) Lymphocytes # (Auto) x10^3/uL (1.0-4.8) Monocytes # (Auto) x10^3/uL (0.0-1.1) Eosinophils # (Auto) x10^3/uL (0.0-0.7) Basophils # (Auto) x10^3/uL (0.0-0.2) Segmented Neutrophils % 68 % (35-66) Lymphocytes % 24 % (24-48) Monocytes % 7 % (0-10) Eosinophils % 1 % (0-5) Platelet Estimate Increased (ADEQUATE) Sodium Level 133 mmol/L (136-145) Potassium Level 3.6 mmol/L (3.5-5.1) Chloride Level 99 mmol/L (98-107) Carbon Dioxide Level 26 mmol/L (21-32) Anion Gap 8 (6-14) Blood Urea Nitrogen 7 mg/dL (7-20) Creatinine 0.6 mg/dL (0.6-1.0) Estimated GFR (Cockcroft-Gault) 94.3 BUN/Creatinine Ratio 12 (6-20) Glucose Level 84 mg/dL (70-99) Calcium Level 8.1 mg/dL (8.5-10.1) Total Bilirubin 0.5 mg/dL (0.2-1.0) Aspartate Amino Transf (AST/SGOT) 27 U/L (15-37) Alanine Aminotransferase (ALT/SGPT) 26 U/L (14-59) Alkaline Phosphatase 290 U/L (46-116) Total Protein 5.9 g/dL (6.4-8.2) Albumin 2.2 g/dL (3.4-5.0) Albumin/Globulin Ratio 0.6 (1.0-1.7) Assessment/Plan Assessment/Plan Colon mass Dr Partida reviewed with pt, will attempt to meet with family friday to discuss surgical option for right colon DANTE VALDIVIA MECH[employer]ICAL SERVICE SPECIALIST Sep 25, 2019 16:25
[2019-09-25 19:59] VITALS: BP 141/63
[2019-09-25 23:02] VITALS: BP 139/70
[2019-09-26 03:15] VITALS: BP 148/60
[2019-09-26] MEDS: ACETAMINOPHEN 325 MG TABLET. PO PRN ×2 (03:31→20:10)
[2019-09-26] MEDS: IV NORMAL SALINE 1000ML BAG 1,000 ML IV SCH ×2 (03:31→04:56)
[2019-09-26 07:00] VITALS: BP 114/63
--- NOTE | 2019-09-26 08:34 | PDOC ---
[employer] PROGRESS NOTE Date of Service DOS: DATE: 09/26/19 TIME: 08:33 Chief Complaint Chief Complaint Acute blood loss anemia - likely 2/2 potential GI malignancy Right colon mass - plans for surgery Small bilateral pleural effusions Cholelilthiasis - Gallbladder contains a 1 cm stone at its neck Hyponatremia - will monitor Nephrolithiasis nonobstructive Adrenal mass FEN - general diet PPX - lovenox CODE - DNR/DNI Dispo -inpatient for pre-operative care History of Present Illness History of Present Illness Mr Henson 89 y/o female with PMHc COPD, pulmonary fibrosis on home O2, HTN, Osteoporosis, depression, hypothyroidism, mild cognitive impairment who lives in Assisted Living in [place], [place] who was transferred from [facility] for evaluation of lower abdominal pain and low hemoglobin that was 5 outpatient, was noted to be 6.3 inpatient at [facility]. As she was tachycardic and symptomatic she was given 1 unit packed red blood cell transfusion and transferred to [facility] for further care as they do not have GI services [facility]. Labs upon arrival to [facility] after transfusion WBC 1.1, Hb 7.6, platelets 564, MCV 70, NA 132, K4, BUN 13, CR 0.8, glucose 70. She does c/o abdominal pain intermittently for 2 months. No previous EGD or colonoscopy. No cancer history in her mother father, her sister did have breast cancer and her brother has history of lymphoma non-Hodgk in's type. No prostate or colon cancer history in her family but she does not know all of their history. CT abdomen reveals large ascending colonic mass without bowel obstruction showing findings suspicious for extracolonic tumoral spread. Additional findings include cholelithiasis, splenic calcifications, mild nodular fullness of left adrenal gland, mild right hydroureter and hydronephrosis w/ nonobstructing 2 mm right kidney stone. 09/23: She has no obstructive symptoms and no pain currently. She tolerated p.o. well. She has also made it clear that she is a DNR/DNI. 09/24: Still tachycardic. Hb 8.5. Hypoxic on 1L NCO2. Has an appetite and passing flatus. Pain is controlled. D/w general surgery possible plans later this week for surgery Afebrile. Overnight no events. Has a voracious appetite. Family notes that she has been taking 15 mg of Remeron and they think that she started having memory issues recently after starting this. Plan: Cont inpatient Tentative plans for surgery in the next 3 days Tentative plans for family meeting Friday with Surgery - will coordinate this Finn Jared Vitals/I&O Vitals/I&O: Vital Signs Date Time Temp Pulse Resp B/P (MAP) Pulse Ox O2 Delivery O2 Flow Rate FiO2 09/26/19 07:00 98.4 87 16 114/63 (80) 100 Nasal Cannula 2.0 98.4 I & O0 09/25/19 09/25/19 09/26/19 15:00 23:00 07:00 Intake Total 180 ml 550 ml Output Total 400 ml Balance 180 ml 150 ml Physical Exam General: Alert, Cooperative, No acute distress Heart: Regular rate, Normal S1, Normal S2 Lungs: Clear Abdomen: Soft, No tenderness, No hepatosplenomegaly Extremities: No clubbing, No cyanosis Skin: No rashes, No breakdown Comment Review of Relevant I have reviewed the following items kun (where applicable) has been applied. Justicifation of Admission Dx: Justifications for Admission: Justification of Admission Dx: Yes CHF: Hemodynamic Instability Comminuty Aquired Pneumonia: Dehydration Chronic Renal Failure: Intravenous Infusions Sepsis: Dehydration DEX DAVALOS MD Sep 26, 2019 08:34
[2019-09-26] MEDS: OMEGA-3 FATTY ACIDS/FISH OIL 1,000 MG CAPSULE. PO SCH (08:37)
[2019-09-26] MEDS: VITAMIN B COMPLEX TABLET. PO SCH (08:37)
[2019-09-26] MEDS: MULTIVITAMIN with MINERAL TABLET. PO SCH (08:37)
[2019-09-26] MEDS: LOSARTAN POTASSIUM 50 MG TABLET. PO SCH (08:37)
[2019-09-26] MEDS: PANTOPRAZOLE 40 MG TABLET.DR. PO SCH (08:37)
[2019-09-26] MEDS: CALCIUM CARB/VIT D3 500/200 TABLET. PO SCH ×2 (08:37→18:07)
[2019-09-26] MEDS: RALOXIFENE 60 MG TABLET. PO SCH (08:37)
[2019-09-26] MEDS: CHOLECALCIFEROL (VITAMIN D3) 1,000 UNIT TABLET PO SCH (08:37)
[2019-09-26] MEDS: LEVOTHYROXINE 50 MCG TABLET PO SCH (08:38)
[2019-09-26 10:53] VITALS: BP 147/69
--- NOTE | 2019-09-26 12:57 | PDOC ---
DANTE VALDIVIA SCALEMAN 09/26/19 1257: SURGICAL PROGRESS NOTE DATE: 09/26/19 TIME: 12:56 Subjective no complaints has been sleeping Vital Signs Vital Signs Date Time Temp Pulse Resp B/P (MAP) Pulse Ox O2 Delivery O2 Flow Rate FiO2 09/26/19 10:53 97.9 90 20 147/69 (95) 100 Nasal Cannula 3.0 97.9 I&O Intake and Output 09/26/19 07:00 Intake Total 730 ml Output Total 400 ml Balance 330 ml Intake Oral 730 ml Output Urine Total 400 ml # Voids 4 General: Alert, Cooperative Abdomen: Soft, No tenderness Labs Laboratory Tests Test 09/25/19 04:00 09/26/19 10:40 White Blood Count 11.5 x10^3/uL (4.0-11.0) Red Blood Count 3.44 x10^6/uL (3.50-5.40) Hemoglobin 8.5 g/dL (12.0-15.5) Hematocrit 26.6 % (36.0-47.0) Mean Corpuscular Volume 77 fL (79-100) Mean Corpuscular Hemoglobin 25 pg (25-35) Mean Corpuscular Hemoglobin Concent 32 g/dL (31-37) Red Cell Distribution Width 21.5 % (11.5-14.5) Platelet Count 630 x10^3/uL (140-400) Neutrophils (%) (Auto) % (31-73) Lymphocytes (%) (Auto) % (24-48) Monocytes (%) (Auto) % (0-9) Eosinophils (%) (Auto) % (0-3) Basophils (%) (Auto) % (0-3) Neutrophils # (Auto) x10^3/uL (1.8-7.7) Lymphocytes # (Auto) x10^3/uL (1.0-4.8) Monocytes # (Auto) x10^3/uL (0.0-1.1) Eosinophils # (Auto) x10^3/uL (0.0-0.7) Basophils # (Auto) x10^3/uL (0.0-0.2) Segmented Neutrophils % 68 % (35-66) Lymphocytes % 24 % (24-48) Monocytes % 7 % (0-10) Eosinophils % 1 % (0-5) Platelet Estimate Increased (ADEQUATE) Sodium Level 133 mmol/L (136-145) Potassium Level 3.6 mmol/L (3.5-5.1) Chloride Level 99 mmol/L (98-107) Carbon Dioxide Level 26 mmol/L (21-32) Anion Gap 8 (6-14) Blood Urea Nitrogen 7 mg/dL (7-20) Creatinine 0.6 mg/dL (0.6-1.0) Estimated GFR (Cockcroft-Gault) 94.3 BUN/Creatinine Ratio 12 (6-20) Glucose Level 84 mg/dL (70-99) Calcium Level 8.1 mg/dL (8.5-10.1) Total Bilirubin 0.5 mg/dL (0.2-1.0) Aspartate Amino Transf (AST/SGOT) 27 U/L (15-37) Alanine Aminotransferase (ALT/SGPT) 26 U/L (14-59) Alkaline Phosphatase 290 U/L (46-116) Total Protein 5.9 g/dL (6.4-8.2) Albumin 2.2 g/dL (3.4-5.0) Albumin/Globulin Ratio 0.6 (1.0-1.7) SARS-CoV-2 Antigen (Rapid) Negative (NEGATIVE) Laboratory Tests Test 09/26/19 10:40 SARS-CoV-2 Antigen (Rapid) Negative (NEGATIVE) Assessment/Plan Dr Partida will discuss with family tomorrow Justicifation of Admission Dx: Justifications for Admission: Justification of Admission Dx: Yes CHF: Hemodynamic Instability Comminuty Aquired Pneumonia: Dehydration Chronic Renal Failure: Intravenous Infusions Sepsis: Dehydration NANDA PARTIDA MD 09/27/19 1324: SURGICAL PROGRESS NOTE Assessment/Plan Agree with above DANTE VALDIVIA SCALEMAN Sep 26, 2019 12:57 NANDA PARTIDA MD Sep 27, 2019 13:24
[2019-09-26 15:00] VITALS: BP 133/57
[2019-09-26 19:30] VITALS: BP 135/63
[2019-09-26 23:00] VITALS: BP 155/76
[2019-09-27 03:10] VITALS: BP 146/77
[2019-09-27 04:59] LABS: BASO # 0.1 x10^3/uL (0.0-0.2); BASO % 1 % (0-3); EOS % 0 % (0-3); HEMATOCRIT 24.7 % (36.0-47.0); HEMOGLOBIN 8.3 g/dL (12.0-15.5); LYMPH # 4.7 x10^3/uL (1.0-4.8); LYMPH % 49 % (24-48); MEAN CORPUSCULAR HEMOGLOBIN 26 pg (25-35); MEAN CORPUSCULAR HGB CONC 34 g/dL (31-37); MEAN CORPUSCULAR VOLUME 77 fL (79-100); MONO # 0.7 x10^3/uL (0.0-1.1); MONO % 7 % (0-9); NEUT # 4.2 x10^3/uL (1.8-7.7); NEUT % 43 % (31-73); PLATELET COUNT 544 x10^3/uL (140-400); RED BLOOD COUNT 3.21 x10^6/uL (3.50-5.40); RED CELL DISTRIBUTION WIDTH 22.6 % (11.5-14.5); WHITE BLOOD COUNT 9.7 x10^3/uL (4.0-11.0)
[2019-09-27 05:17] LABS: ALBUMIN/GLOBULIN RATIO 0.6 (1.0-1.7); CALCIUM 7.7 mg/dL (8.5-10.1); CREATININE 0.7 mg/dL (0.6-1.0); POTASSIUM 3.6 mmol/L (3.5-5.1); TOTAL BILIRUBIN 0.4 mg/dL (0.2-1.0); TOTAL PROTEIN 5.5 g/dL (6.4-8.2)
[2019-09-27 07:00] VITALS: BP 155/78
[2019-09-27] MEDS: CHOLECALCIFEROL (VITAMIN D3) 1,000 UNIT TABLET PO SCH (08:53)
[2019-09-27] MEDS: LOSARTAN POTASSIUM 50 MG TABLET. PO SCH (08:54)
[2019-09-27] MEDS: CALCIUM CARB/VIT D3 500/200 TABLET. PO SCH ×2 (08:54→21:48)
[2019-09-27] MEDS: OMEGA-3 FATTY ACIDS/FISH OIL 1,000 MG CAPSULE. PO SCH (08:54)
[2019-09-27] MEDS: VITAMIN B COMPLEX TABLET. PO SCH (08:54)
[2019-09-27] MEDS: MULTIVITAMIN with MINERAL TABLET. PO SCH (08:54)
[2019-09-27] MEDS: LEVOTHYROXINE 50 MCG TABLET PO SCH (08:54)
[2019-09-27] MEDS: PANTOPRAZOLE 40 MG TABLET.DR. PO SCH (08:54)
[2019-09-27] MEDS: RALOXIFENE 60 MG TABLET. PO SCH (08:55)
--- NOTE | 2019-09-27 10:16 | PDOC ---
Date of Service: DATE: 09/27/19 TIME: 10:14 Subjective: Subjective: Says pain is better. Is eating and stooling. Objective: Vital Signs: Vital Signs Date Time Temp Pulse Resp B/P (MAP) Pulse Ox O2 Delivery O2 Flow Rate FiO2 09/27/19 08:54 90 09/27/19 07:00 98.0 20 155/78 (103) 95 Nasal Cannula 2.0 98.0 Labs: Laboratory Tests Test 09/26/19 10:40 09/27/19 04:35 SARS-CoV-2 Antigen (Rapid) Negative White Blood Count 9.7 x10^3/uL Red Blood Count 3.21 x10^6/uL Hemoglobin 8.3 g/dL Hematocrit 24.7 % Mean Corpuscular Volume 77 fL Mean Corpuscular Hemoglobin 26 pg Mean Corpuscular Hemoglobin Concent 34 g/dL Red Cell Distribution Width 22.6 % Platelet Count 544 x10^3/uL Neutrophils (%) (Auto) 43 % Lymphocytes (%) (Auto) 49 % Monocytes (%) (Auto) 7 % Eosinophils (%) (Auto) 0 % Basophils (%) (Auto) 1 % Neutrophils # (Auto) 4.2 x10^3/uL Lymphocytes # (Auto) 4.7 x10^3/uL Monocytes # (Auto) 0.7 x10^3/uL Eosinophils # (Auto) 0.0 x10^3/uL Basophils # (Auto) 0.1 x10^3/uL Sodium Level 134 mmol/L Potassium Level 3.6 mmol/L Chloride Level 102 mmol/L Carbon Dioxide Level 28 mmol/L Anion Gap 4 Blood Urea Nitrogen 7 mg/dL Creatinine 0.7 mg/dL Estimated GFR (Cockcroft-Gault) 79.0 BUN/Creatinine Ratio 10 Glucose Level 77 mg/dL Calcium Level 7.7 mg/dL Total Bilirubin 0.4 mg/dL Aspartate Amino Transf (AST/SGOT) 34 U/L Alanine Aminotransferase (ALT/SGPT) 25 U/L Alkaline Phosphatase 277 U/L Total Protein 5.5 g/dL Albumin 2.0 g/dL Albumin/Globulin Ratio 0.6 PE: GEN: NAD LUNGS: CTAB HEART: RRR ABD: non-tender NEURO/PSYCH: A & O 3, calm A/P: DELORES, right colon mass - declines colonoscopy COVID negative -- Await discussion w/ surgery/family. Justicifation of Admission Dx: Justifications for Admission: Justification of Admission Dx: Yes CHF: Hemodynamic Instability Comminuty Aquired Pneumonia: Dehydration Chronic Renal Failure: Intravenous Infusions Sepsis: Dehydration DAVID BURGOS Sep 27, 2019 10:16
[2019-09-27 11:00] VITALS: BP 148/57
[2019-09-27] MEDS: HYDROcodone/APAP 5/325MG 1 TAB TABLET PO PRN (11:07)
--- NOTE | 2019-09-27 12:06 | NUR ---
SS following up with discharge planning. SS reviewed pt chart and discussed with pt RN. Pt is currently requiring oxygen. COVID19 negative. Pt is from [facility]. PT/OT recommended long-term unit. Per RN, possible need for surgery for right colon mass and ileostomy. Surgery to meet with family today to discuss. SS will continue to follow for discharge planning.
--- NOTE | 2019-09-27 12:20 | PDOC ---
[employer] PROGRESS NOTE Date of Service DOS: DATE: 09/27/19 TIME: 12:11 Chief Complaint Chief Complaint Acute blood loss anemia - likely 2/2 potential GI malignancy Right colon mass - plans for surgery Small bilateral pleural effusions Cholelilthiasis - Gallbladder contains a 1 cm stone at its neck Hyponatremia - will monitor Nephrolithiasis nonobstructive Adrenal mass History of Present Illness History of Present Illness 09/27/2019 Patient seen and examined Laying in bed, NAD Plans for surgery discussed with patient Hgb 8.3 Chart reviewed Discussed with RN Mr Henson 89 y/o female with PMHc COPD, pulmonary fibrosis on home O2, HTN, Osteoporosis, depression, hypothyroidism, mild cognitive impairment who lives in Assisted Living in [place], [place] who was transferred from [facility] for evaluation of lower abdominal pain and low hemoglobin that was 5 outpatient, was noted to be 6.3 inpatient at [facility]. As she was tachycardic and symptomatic she was given 1 unit packed red blood cell transfusion and transferred to [facility] for further care as they do not have GI services [facility]. Labs upon arrival to [facility] after transfusion WBC 1.1, Hb 7.6, platelets 564, MCV 70, NA 132, K4, BUN 13, CR 0.8, glucose 70. She does c/o abdominal pain intermittently for 2 months. No previous EGD or colonoscopy. No cancer history in her mother father, her sister did have breast cancer and her brother has history of lymphoma non- Hodgkin's type. No prostate or colon cancer history in her family but she does not know all of their history. CT abdomen reveals large ascending colonic mass without bowel obstruction showing findings suspicious for extracolonic tumoral spread. Additional findings include cholelithiasis, splenic calcifications, mild nodular fullness of left adrenal gland, mild right hydroureter and hydronephrosis w/ nonobstructing 2 mm right kidney stone. 09/23: She has no obstructive symptoms and no pain currently. She tolerated p.o. well. She has also made it clear that she is a DNR/DNI. 09/24: Still tachycardic. Hb 8.5. Hypoxic on 1L NCO2. Has an appetite and passing flatus. Pain is controlled. D/w general surgery possible plans later this week for surgery Afebrile. Overnight no events. Has a voracious appetite. Family notes that she has been taking 15 mg of Remeron and they think that she started having memory issues recently after starting this. Plan: Cont inpatient Tentative plans for surgery in the next 3 days Tentative plans for family meeting Friday with Surgery - will coordinate this Finn Jared Vitals/I&O Vitals/I&O: Vital Signs Date Time Temp Pulse Resp B/P (MAP) Pulse Ox O2 Delivery O2 Flow Rate FiO2 09/27/19 11:00 98.2 64 20 148/57 (87) 100 Nasal Cannula 2.0 98.2 I & O 09/26/19 09/26/19 09/27/19 15:00 23:00 07:00 Intake Total 270 ml 100 ml Balance 270 ml 100 ml Physical Exam General: Alert, Cooperative, No acute distress Heart: Regular rate, Normal S1, Normal S2 Lungs: Clear Abdomen: Soft, No tenderness Extremities: No clubbing, No cyanosis Skin: No rashes, No breakdown Labs Labs: Laboratory Tests Test 09/27/19 04:35 White Blood Count 9.7 x10^3/uL (4.0-11.0) Red Blood Count 3.21 x10^6/uL (3.50-5.40) Hemoglobin 8.3 g/dL (12.0-15.5) Hematocrit 24.7 % (36.0-47.0) Mean Corpuscular Volume 77 fL (79-100) Mean Corpuscular Hemoglobin 26 pg (25-35) Mean Corpuscular Hemoglobin Concent 34 g/dL (31-37) Red Cell Distribution Width 22.6 % (11.5-14.5) Platelet Count 544 x10^3/uL (140-400) Neutrophils (%) (Auto) 43 % (31-73) Lymphocytes (%) (Auto) 49 % (24-48) Monocytes (%) (Auto) 7 % (0-9) Eosinophils (%) (Auto) 0 % (0-3) Basophils (%) (Auto) 1 % (0-3) Neutrophils # (Auto) 4.2 x10^3/uL (1.8-7.7) Lymphocytes # (Auto) 4.7 x10^3/uL (1.0-4.8) Monocytes # (Auto) 0.7 x10^3/uL (0.0-1.1) Eosinophils # (Auto) 0.0 x10^3/uL (0.0-0.7) Basophils # (Auto) 0.1 x10^3/uL (0.0-0.2) Sodium Level 134 mmol/L (136-145) Potassium Level 3.6 mmol/L (3.5-5.1) Chloride Level 102 mmol/L (98-107) Carbon Dioxide Level 28 mmol/L (21-32) Anion Gap 4 (6-14) Blood Urea Nitrogen 7 mg/dL (7-20) Creatinine 0.7 mg/dL (0.6-1.0) Estimated GFR (Cockcroft-Gault) 79.0 BUN/Creatinine Ratio 10 (6-20) Glucose Level 77 mg/dL (70-99) Calcium Level 7.7 mg/dL (8.5-10.1) Total Bilirubin 0.4 mg/dL (0.2-1.0) Aspartate Amino Transf (AST/SGOT) 34 U/L (15-37) Alanine Aminotransferase (ALT/SGPT) 25 U/L (14-59) Alkaline Phosphatase 277 U/L (46-116) Total Protein 5.5 g/dL (6.4-8.2) Albumin 2.0 g/dL (3.4-5.0) Albumin/Globulin Ratio 0.6 (1.0-1.7) Review of Systems Review of Systems: Pertinent as per HPI, otherwise 10 point review of systems is negative. Assessment and Plan Assessmemt and Plan ASSESSMENT Acute blood loss anemia - likely 2/2 potential GI malignancy Right colon mass - plans for surgery Small bilateral pleural effusions Cholelilthiasis - Gallbladder contains a 1 cm stone at its neck Hyponatremia - will monitor Nephrolithiasis nonobstructive Adrenal mass PLAN Cardiac monitoring Surgery for right colon mass Trend labs DVT prophylaxis PT/OT Appreciate subspecialist input DNR/DNI Comment Review of Relevant I have reviewed the following items kun (where applicable) has been applied. Medications: Current Medications Medications (Trade) Dose Ordered Sig/Elier Route PRN Reason Start Time Stop Time Status Last Admin Dose Admin Acetaminophen/ Hydrocodone Bitart (Lortab 5/325) 1 tab PRN Q4HRS PRN PO MODERATE PAIN 8/10/20 10:45 09/27/19 11:07 Justicifation of Admission Dx: Justifications for Admission: Justification of Admission Dx: Yes CHF: Hemodynamic Instability Comminuty Aquired Pneumonia: Dehydration Chronic Renal Failure: Intravenous Infusions Sepsis: Dehydration YARED AKINS III DO Sep 27, 2019 12:20
--- NOTE | 2019-09-27 12:35 | PDOC ---
DANTE VALDIVIA [employer] TECHNICIAN 09/27/19 1235: SURGICAL PROGRESS NOTE DATE: 09/27/19 TIME: 12:33 Subjective resting some abdominal pain nurse called son to come for meeting today to discuss surgery Vital Signs Vital Signs Date Time Temp Pulse Resp B/P (MAP) Pulse Ox O2 Delivery O2 Flow Rate FiO2 09/27/19 11:00 98.2 64 20 148/57 (87) 100 Nasal Cannula 2.0 98.2 I&O Intake and Output 09/27/19 07:00 Intake Total 370 ml Balance 370 ml Intake Oral 370 ml # Voids 5 General: Alert, Oriented X3, Cooperative Abdomen: Soft, Other (mild ttp lower abdomen ) Labs Laboratory Tests Test 09/26/19 10:40 09/27/19 04:35 Coronavirus (PCR) Not detected (Not Detected) SARS-CoV-2 Antigen (Rapid) Negative (NEGATIVE) White Blood Count 9.7 x10^3/uL (4.0-11.0) Red Blood Count 3.21 x10^6/uL (3.50-5.40) Hemoglobin 8.3 g/dL (12.0-15.5) Hematocrit 24.7 % (36.0-47.0) Mean Corpuscular Volume 77 fL (79-100) Mean Corpuscular Hemoglobin 26 pg (25-35) Mean Corpuscular Hemoglobin Concent 34 g/dL (31-37) Red Cell Distribution Width 22.6 % (11.5-14.5) Platelet Count 544 x10^3/uL (140-400) Neutrophils (%) (Auto) 43 % (31-73) Lymphocytes (%) (Auto) 49 % (24-48) Monocytes (%) (Auto) 7 % (0-9) Eosinophils (%) (Auto) 0 % (0-3) Basophils (%) (Auto) 1 % (0-3) Neutrophils # (Auto) 4.2 x10^3/uL (1.8-7.7) Lymphocytes # (Auto) 4.7 x10^3/uL (1.0-4.8) Monocytes # (Auto) 0.7 x10^3/uL (0.0-1.1) Eosinophils # (Auto) 0.0 x10^3/uL (0.0-0.7) Basophils # (Auto) 0.1 x10^3/uL (0.0-0.2) Sodium Level 134 mmol/L (136-145) Potassium Level 3.6 mmol/L (3.5-5.1) Chloride Level 102 mmol/L (98-107) Carbon Dioxide Level 28 mmol/L (21-32) Anion Gap 4 (6-14) Blood Urea Nitrogen 7 mg/dL (7-20) Creatinine 0.7 mg/dL (0.6-1.0) Estimated GFR (Cockcroft-Gault) 79.0 BUN/Creatinine Ratio 10 (6-20) Glucose Level 77 mg/dL (70-99) Calcium Level 7.7 mg/dL (8.5-10.1) Total Bilirubin 0.4 mg/dL (0.2-1.0) Aspartate Amino Transf (AST/SGOT) 34 U/L (15-37) Alanine Aminotransferase (ALT/SGPT) 25 U/L (14-59) Alkaline Phosphatase 277 U/L (46-116) Total Protein 5.5 g/dL (6.4-8.2) Albumin 2.0 g/dL (3.4-5.0) Albumin/Globulin Ratio 0.6 (1.0-1.7) Laboratory Tests Test 09/27/19 04:35 White Blood Count 9.7 x10^3/uL (4.0-11.0) Red Blood Count 3.21 x10^6/uL (3.50-5.40) Hemoglobin 8.3 g/dL (12.0-15.5) Hematocrit 24.7 % (36.0-47.0) Mean Corpuscular Volume 77 fL (79-100) Mean Corpuscular Hemoglobin 26 pg (25-35) Mean Corpuscular Hemoglobin Concent 34 g/dL (31-37) Red Cell Distribution Width 22.6 % (11.5-14.5) Platelet Count 544 x10^3/uL (140-400) Neutrophils (%) (Auto) 43 % (31-73) Lymphocytes (%) (Auto) 49 % (24-48) Monocytes (%) (Auto) 7 % (0-9) Eosinophils (%) (Auto) 0 % (0-3) Basophils (%) (Auto) 1 % (0-3) Neutrophils # (Auto) 4.2 x10^3/uL (1.8-7.7) Lymphocytes # (Auto) 4.7 x10^3/uL (1.0-4.8) Monocytes # (Auto) 0.7 x10^3/uL (0.0-1.1) Eosinophils # (Auto) 0.0 x10^3/uL (0.0-0.7) Basophils # (Auto) 0.1 x10^3/uL (0.0-0.2) Sodium Level 134 mmol/L (136-145) Potassium Level 3.6 mmol/L (3.5-5.1) Chloride Level 102 mmol/L (98-107) Carbon Dioxide Level 28 mmol/L (21-32) Anion Gap 4 (6-14) Blood Urea Nitrogen 7 mg/dL (7-20) Creatinine 0.7 mg/dL (0.6-1.0) Estimated GFR (Cockcroft-Gault) 79.0 BUN/Creatinine Ratio 10 (6-20) Glucose Level 77 mg/dL (70-99) Calcium Level 7.7 mg/dL (8.5-10.1) Total Bilirubin 0.4 mg/dL (0.2-1.0) Aspartate Amino Transf (AST/SGOT) 34 U/L (15-37) Alanine Aminotransferase (ALT/SGPT) 25 U/L (14-59) Alkaline Phosphatase 277 U/L (46-116) Total Protein 5.5 g/dL (6.4-8.2) Albumin 2.0 g/dL (3.4-5.0) Albumin/Globulin Ratio 0.6 (1.0-1.7) Assessment/Plan d/w GI would rec colonoscopy prior to surgery--tentative Wed or --Dr Partida will discuss with family today Justicifation of Admission Dx: Justifications for Admission: Justification of Admission Dx: Yes CHF: Hemodynamic Instability Comminuty Aquired Pneumonia: Dehydration Chronic Renal Failure: Intravenous Infusions Sepsis: Dehydration NANDA PARTIDA MD 09/27/19 1520: SURGICAL PROGRESS NOTE Assessment/Plan Pt seen and examined by myself; comfortable, denies pain, having stools, abdomen soft, nontender; Family present; I discussed current situation and options including surgery vs observation. The patient is interested in an attempted resection if possible. I discussed with Dr Covington and recommend preoperative colonoscopy; he will try to do tomorrow; Plan for surgery to follow (Fri or pending OR availability) DANTE VALDIVIA APRN Sep 27, 2019 12:35 NANDA PARTIDA MD Sep 27, 2019 15:20
[2019-09-27] MEDS ORDERED: MAGNESIUM CITRATE 296 ML SOLUTION. PO ONE (14:00)
[2019-09-27 15:00] VITALS: BP 143/67
[2019-09-27] MEDS: IV NORMAL SALINE 1000ML BAG 1,000 ML IV SCH (15:22)
[2019-09-27] MEDS ORDERED: POLYETHYLENE GLYCOL 3350 BTL 238 GM POWDER PO ONE (16:00)
[2019-09-27] MEDS ORDERED: BISACODYL 5 MG TABLET.DR. PO ONE (16:00)
[2019-09-27 19:40] VITALS: BP 154/69
[2019-09-27 23:15] VITALS: BP 160/78
[2019-09-28] VITALS (12 sets, daily range): BP systolic 92–176; BP diastolic 47–79
[2019-09-28 05:26] LABS: BASO # 0.1 x10^3/uL (0.0-0.2); BASO % 0 % (0-3); EOS % 0 % (0-3); HEMATOCRIT 23.7 % (36.0-47.0); HEMOGLOBIN 7.7 g/dL (12.0-15.5); LYMPH # 4.6 x10^3/uL (1.0-4.8); LYMPH % 36 % (24-48); MEAN CORPUSCULAR HEMOGLOBIN 25 pg (25-35); MEAN CORPUSCULAR HGB CONC 32 g/dL (31-37); MEAN CORPUSCULAR VOLUME 77 fL (79-100); MONO # 0.8 x10^3/uL (0.0-1.1); MONO % 7 % (0-9); NEUT # 7.3 x10^3/uL (1.8-7.7); NEUT % 57 % (31-73); PLATELET COUNT 525 x10^3/uL (140-400); RED BLOOD COUNT 3.07 x10^6/uL (3.50-5.40); RED CELL DISTRIBUTION WIDTH 22.3 % (11.5-14.5); WHITE BLOOD COUNT 12.8 x10^3/uL (4.0-11.0)
[2019-09-28 05:44] LABS: CALCIUM 7.6 mg/dL (8.5-10.1); CREATININE 0.6 mg/dL (0.6-1.0); GFR 94.3; POTASSIUM 3.2 mmol/L (3.5-5.1)
[2019-09-28] MEDS ORDERED: IV RINGERS,LACTATED 1000ML 1,000 ML IV SCH (07:00)
[2019-09-28] MEDS ORDERED: PROCHLORPERAZINE 10 MG/2 ML VIAL. IV PRN (07:00)
[2019-09-28] MEDS: PANTOPRAZOLE 40 MG TABLET.DR. PO SCH (07:30)
[2019-09-28] MEDS: LEVOTHYROXINE 50 MCG TABLET PO SCH (07:30)
[2019-09-28] MEDS: VITAMIN B COMPLEX TABLET. PO SCH (08:00)
[2019-09-28] MEDS: CHOLECALCIFEROL (VITAMIN D3) 1,000 UNIT TABLET PO SCH (08:00)
[2019-09-28] MEDS ORDERED: IV RINGERS,LACTATED 1000ML 1,000 ML IV ONE (08:00)
[2019-09-28] MEDS: CALCIUM CARB/VIT D3 500/200 TABLET. PO SCH ×2 (08:00→17:00)
[2019-09-28] MEDS: OMEGA-3 FATTY ACIDS/FISH OIL 1,000 MG CAPSULE. PO SCH (09:00)
[2019-09-28] MEDS: RALOXIFENE 60 MG TABLET. PO SCH (09:00)
[2019-09-28] MEDS: MULTIVITAMIN with MINERAL TABLET. PO SCH (09:00)
[2019-09-28] MEDS: LOSARTAN POTASSIUM 50 MG TABLET. PO SCH (09:00)
[2019-09-28] MEDS: IV NORMAL SALINE 1000ML BAG 1,000 ML IV SCH (09:28)
--- NOTE | 2019-09-28 10:13 | PDOC ---
SURGICAL PROGRESS NOTE DATE: 09/28/19 TIME: 10:12 Subjective unable to articulate where she is or date Vital Signs Vital Signs Date Time Temp Pulse Resp B/P (MAP) Pulse Ox O2 Delivery O2 Flow Rate FiO2 09/28/19 07:00 97.9 91 20 135/63 (87) 100 Nasal Cannula 2.0 97.9 I&O Intake and Output 09/28/19 07:00 Intake Total 650 ml Balance 650 ml Intake Oral 650 ml # Voids 10 # Bowel Movements 14 General: No acute distress, Other (confusion) Abdomen: Soft, No tenderness Labs Laboratory Tests Test 09/26/19 10:40 09/27/19 04:35 09/28/19 04:00 Coronavirus (PCR) Not detected (Not Detected) SARS-CoV-2 Antigen (Rapid) Negative (NEGATIVE) White Blood Count 9.7 x10^3/uL (4.0-11.0) 12.8 x10^3/uL (4.0-11.0) Red Blood Count 3.21 x10^6/uL (3.50-5.40) 3.07 x10^6/uL (3.50-5.40) Hemoglobin 8.3 g/dL (12.0-15.5) 7.7 g/dL (12.0-15.5) Hematocrit 24.7 % (36.0-47.0) 23.7 % (36.0-47.0) Mean Corpuscular Volume 77 fL (79-100) 77 fL (79-100) Mean Corpuscular Hemoglobin 26 pg (25-35) 25 pg (25-35) Mean Corpuscular Hemoglobin Concent 34 g/dL (31-37) 32 g/dL (31-37) Red Cell Distribution Width 22.6 % (11.5-14.5) 22.3 % (11.5-14.5) Platelet Count 544 x10^3/uL (140-400) 525 x10^3/uL (140-400) Neutrophils (%) (Auto) 43 % (31-73) 57 % (31-73) Lymphocytes (%) (Auto) 49 % (24-48) 36 % (24-48) Monocytes (%) (Auto) 7 % (0-9) 7 % (0-9) Eosinophils (%) (Auto) 0 % (0-3) 0 % (0-3) Basophils (%) (Auto) 1 % (0-3) 0 % (0-3) Neutrophils # (Auto) 4.2 x10^3/uL (1.8-7.7) 7.3 x10^3/uL (1.8-7.7) Lymphocytes # (Auto) 4.7 x10^3/uL (1.0-4.8) 4.6 x10^3/uL (1.0-4.8) Monocytes # (Auto) 0.7 x10^3/uL (0.0-1.1) 0.8 x10^3/uL (0.0-1.1) Eosinophils # (Auto) 0.0 x10^3/uL (0.0-0.7) 0.0 x10^3/uL (0.0-0.7) Basophils # (Auto) 0.1 x10^3/uL (0.0-0.2) 0.1 x10^3/uL (0.0-0.2) Sodium Level 134 mmol/L (136-145) 135 mmol/L (136-145) Potassium Level 3.6 mmol/L (3.5-5.1) 3.2 mmol/L (3.5-5.1) Chloride Level 102 mmol/L (98-107) 102 mmol/L (98-107) Carbon Dioxide Level 28 mmol/L (21-32) 28 mmol/L (21-32) Anion Gap 4 (6-14) 5 (6-14) Blood Urea Nitrogen 7 mg/dL (7-20) 7 mg/dL (7-20) Creatinine 0.7 mg/dL (0.6-1.0) 0.6 mg/dL (0.6-1.0) Estimated GFR (Cockcroft-Gault) 79.0 94.3 BUN/Creatinine Ratio 10 (6-20) Glucose Level 77 mg/dL (70-99) 87 mg/dL (70-99) Calcium Level 7.7 mg/dL (8.5-10.1) 7.6 mg/dL (8.5-10.1) Total Bilirubin 0.4 mg/dL (0.2-1.0) Aspartate Amino Transf (AST/SGOT) 34 U/L (15-37) Alanine Aminotransferase (ALT/SGPT) 25 U/L (14-59) Alkaline Phosphatase 277 U/L (46-116) Total Protein 5.5 g/dL (6.4-8.2) Albumin 2.0 g/dL (3.4-5.0) Albumin/Globulin Ratio 0.6 (1.0-1.7) Laboratory Tests Test 09/28/19 04:00 White Blood Count 12.8 x10^3/uL (4.0-11.0) Red Blood Count 3.07 x10^6/uL (3.50-5.40) Hemoglobin 7.7 g/dL (12.0-15.5) Hematocrit 23.7 % (36.0-47.0) Mean Corpuscular Volume 77 fL (79-100) Mean Corpuscular Hemoglobin 25 pg (25-35) Mean Corpuscular Hemoglobin Concent 32 g/dL (31-37) Red Cell Distribution Width 22.3 % (11.5-14.5) Platelet Count 525 x10^3/uL (140-400) Neutrophils (%) (Auto) 57 % (31-73) Lymphocytes (%) (Auto) 36 % (24-48) Monocytes (%) (Auto) 7 % (0-9) Eosinophils (%) (Auto) 0 % (0-3) Basophils (%) (Auto) 0 % (0-3) Neutrophils # (Auto) 7.3 x10^3/uL (1.8-7.7) Lymphocytes # (Auto) 4.6 x10^3/uL (1.0-4.8) Monocytes # (Auto) 0.8 x10^3/uL (0.0-1.1) Eosinophils # (Auto) 0.0 x10^3/uL (0.0-0.7) Basophils # (Auto) 0.1 x10^3/uL (0.0-0.2) Sodium Level 135 mmol/L (136-145) Potassium Level 3.2 mmol/L (3.5-5.1) Chloride Level 102 mmol/L (98-107) Carbon Dioxide Level 28 mmol/L (21-32) Anion Gap 5 (6-14) Blood Urea Nitrogen 7 mg/dL (7-20) Creatinine 0.6 mg/dL (0.6-1.0) Estimated GFR (Cockcroft-Gault) 94.3 Glucose Level 87 mg/dL (70-99) Calcium Level 7.6 mg/dL (8.5-10.1) Assessment/Plan colonoscopy today tentative plan for OR later this week Justicifation of Admission Dx: Justifications for Admission: Justification of Admission Dx: Yes CHF: Hemodynamic Instability Comminuty Aquired Pneumonia: Dehydration Chronic Renal Failure: Intravenous Infusions Sepsis: Dehydration DANTE VALDIVIA WOOL WASHER Sep 28, 2019 10:13
[2019-09-28] MEDS ORDERED: PROPOFOL 10 MG/ML (20ML) VIAL. IV ONE (11:51)
--- NOTE | 2019-09-28 12:35 | PDOC4 ---
PROCEDURE Procedure Colonoscopy with biopsies/tattooing Indication: DELORES/abnormal CT/right colon lesion Meds: per anesthesia Findings: ZACHARY normal. -'Scope advanced to ~hepatic flexure. At this point near-obstructing mass; hard to appreciate totally due to angulation. Biopsies taken and 2 tattoos placed distal to lesion ~2cm. Mucosa normal to this level. Scattered diverticula throughout. Retroflex normal. We were not able to reach the cecum. Pankaj. well. 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 Diverticulosis. REC: continue clears. Await path. OR at discretion of surgical service. BOZENA RYAN MD Sep 28, 2019 12:35
--- NOTE | 2019-09-28 12:41 | PDOC ---
PROGRESS NOTES Date of Service: DATE: 09/28/19 TIME: 12:40 Chief Complaint Chief Complaint Acute blood loss anemia - likely 2/2 potential GI malignancy Right colon mass - plans for surgery Small bilateral pleural effusions Cholelilthiasis - Gallbladder contains a 1 cm stone at its neck Hyponatremia - will monitor Nephrolithiasis nonobstructive Adrenal mass History of Present Illness History of Present Illness 09/27, surg planned this week, cont current, 09/27/2019 Patient seen and examined Laying in bed, NAD Plans for surgery discussed with patient Hgb 8.3 Chart reviewed Discussed with RN Mr Henson 89 y/o female with PMHc COPD, pulmonary fibrosis on home O2, HTN, Osteoporosis, depression, hypothyroidism, mild cognitive impairment who lives in [facility]isted Living in [place], [place] who was transferred from [facility] for evaluation of lower abdominal pain and low hemoglobin that was 5 outpatient, was noted to be 6.3 inpatient at [facility]. As she was tachycardic and symptomatic she was given 1 unit packed red blood cell transfusion and transferred to [facility] for further care as they do not have GI services [facility]. Labs upon arrival to [facility] after transfusion WBC 1.1, Hb 7.6, platelets 564, MCV 70, NA 132, K4, BUN 13, CR 0.8, glucose 70. She does c/o abdominal pain intermittently for 2 months. No previous EGD or colonoscopy. No cancer history in her mother father, her sister did have breast cancer and her brother has history of lymphoma non- Hodgkin's type. No prostate or colon cancer history in her family but she does not know all of their history. CT abdomen reveals large ascending colonic mass without bowel obstruction mario wing findings suspicious for extracolonic tumoral spread. Additional findings include cholelithiasis, splenic calcifications, mild nodular fullness of left adrenal gland, mild right hydroureter and hydronephrosis w/ nonobstructing 2 mm right kidney stone. 09/23: She has no obstructive symptoms and no pain currently. She tolerated p.o. well. She has also made it clear that she is a DNR/DNI. 09/24: Still tachycardic. Hb 8.5. Hypoxic on 1L NCO2. Has an appetite and passing flatus. Pain is controlled. D/w general surgery possible plans later this week for surgery Afebrile. Overnight no events. Has a voracious appetite. Family notes that she has been taking 15 mg of Remeron and they think that she started having memory issues recently after starting this. Plan: Cont inpatient Tentative plans for surgery in the next 3 days Tentative plans for family meeting Friday with Surgery - will coordinate this Finn Jared Vitals Vitals Vital Signs Date Time Temp Pulse Resp B/P (MAP) Pulse Ox O2 Delivery O2 Flow Rate FiO2 09/28/19 12:28 98 87 18 125/58 97 Nasal Cannula 98.0 09/28/19 10:52 2.0 Physical Exam General: No acute distress, Other (confusion) Heart: Regular rate, Normal S1, Normal S2 Lungs: Clear Abdomen: Soft, No tenderness Extremities: No clubbing, No cyanosis Skin: No rashes, No breakdown Labs LABS Laboratory Tests Test 09/28/19 04:00 White Blood Count 12.8 x10^3/uL (4.0-11.0) Red Blood Count 3.07 x10^6/uL (3.50-5.40) Hemoglobin 7.7 g/dL (12.0-15.5) Hematocrit 23.7 % (36.0-47.0) Mean Corpuscular Volume 77 fL (79-100) Mean Corpuscular Hemoglobin 25 pg (25-35) Mean Corpuscular Hemoglobin Concent 32 g/dL (31-37) Red Cell Distribution Width 22.3 % (11.5-14.5) Platelet Count 525 x10^3/uL (140-400) Neutrophils (%) (Auto) 57 % (31-73) Lymphocytes (%) (Auto) 36 % (24-48) Monocytes (%) (Auto) 7 % (0-9) Eosinophils (%) (Auto) 0 % (0-3) Basophils (%) (Auto) 0 % (0-3) Neutrophils # (Auto) 7.3 x10^3/uL (1.8-7.7) Lymphocytes # (Auto) 4.6 x10^3/uL (1.0-4.8) Monocytes # (Auto) 0.8 x10^3/uL (0.0-1.1) Eosinophils # (Auto) 0.0 x10^3/uL (0.0-0.7) Basophils # (Auto) 0.1 x10^3/uL (0.0-0.2) Sodium Level 135 mmol/L (136-145) Potassium Level 3.2 mmol/L (3.5-5.1) Chloride Level 102 mmol/L (98-107) Carbon Dioxide Level 28 mmol/L (21-32) Anion Gap 5 (6-14) Blood Urea Nitrogen 7 mg/dL (7-20) Creatinine 0.6 mg/dL (0.6-1.0) Estimated GFR (Cockcroft-Gault) 94.3 Glucose Level 87 mg/dL (70-99) Calcium Level 7.6 mg/dL (8.5-10.1) Comment Review of Relevant I have reviewed the following items kun (where applicable) has been applied. Labs Laboratory Tests Test 09/27/19 04:35 09/28/19 04:00 White Blood Count 9.7 x10^3/uL (4.0-11.0) 12.8 x10^3/uL (4.0-11.0) Red Blood Count 3.21 x10^6/uL (3.50-5.40) 3.07 x10^6/uL (3.50-5.40) Hemoglobin 8.3 g/dL (12.0-15.5) 7.7 g/dL (12.0-15.5) Hematocrit 24.7 % (36.0-47.0) 23.7 % (36.0-47.0) Mean Corpuscular Volume 77 fL (79-100) 77 fL (79-100) Mean Corpuscular Hemoglobin 26 pg (25-35) 25 pg (25-35) Mean Corpuscular Hemoglobin Concent 34 g/dL (31-37) 32 g/dL (31-37) Red Cell Distribution Width 22.6 % (11.5-14.5) 22.3 % (11.5-14.5) Platelet Count 544 x10^3/uL (140-400) 525 x10^3/uL (140-400) Neutrophils (%) (Auto) 43 % (31-73) 57 % (31-73) Lymphocytes (%) (Auto) 49 % (24-48) 36 % (24-48) Monocytes (%) (Auto) 7 % (0-9) 7 % (0-9) Eosinophils (%) (Auto) 0 % (0-3) 0 % (0-3) Basophils (%) (Auto) 1 % (0-3) 0 % (0-3) Neutrophils # (Auto) 4.2 x10^3/uL (1.8-7.7) 7.3 x10^3/uL (1.8-7.7) Lymphocytes # (Auto) 4.7 x10^3/uL (1.0-4.8) 4.6 x10^3/uL (1.0-4.8) Monocytes # (Auto) 0.7 x10^3/uL (0.0-1.1) 0.8 x10^3/uL (0.0-1.1) Eosinophils # (Auto) 0.0 x10^3/uL (0.0-0.7) 0.0 x10^3/uL (0.0-0.7) Basophils # (Auto) 0.1 x10^3/uL (0.0-0.2) 0.1 x10^3/uL (0.0-0.2) Sodium Level 134 mmol/L (136-145) 135 mmol/L (136-145) Potassium Level 3.6 mmol/L (3.5-5.1) 3.2 mmol/L (3.5-5.1) Chloride Level 102 mmol/L (98-107) 102 mmol/L (98-107) Carbon Dioxide Level 28 mmol/L (21-32) 28 mmol/L (21-32) Anion Gap 4 (6-14) 5 (6-14) Blood Urea Nitrogen 7 mg/dL (7-20) 7 mg/dL (7-20) Creatinine 0.7 mg/dL (0.6-1.0) 0.6 mg/dL (0.6-1.0) Estimated GFR (Cockcroft-Gault) 79.0 94.3 BUN/Creatinine Ratio 10 (6-20) Glucose Level 77 mg/dL (70-99) 87 mg/dL (70-99) Calcium Level 7.7 mg/dL (8.5-10.1) 7.6 mg/dL (8.5-10.1) Total Bilirubin 0.4 mg/dL (0.2-1.0) Aspartate Amino Transf (AST/SGOT) 34 U/L (15-37) Alanine Aminotransferase (ALT/SGPT) 25 U/L (14-59) Alkaline Phosphatase 277 U/L (46-116) Total Protein 5.5 g/dL (6.4-8.2) Albumin 2.0 g/dL (3.4-5.0) Albumin/Globulin Ratio 0.6 (1.0-1.7) Laboratory Tests Test 09/28/19 04:00 White Blood Count 12.8 x10^3/uL (4.0-11.0) Red Blood Count 3.07 x10^6/uL (3.50-5.40) Hemoglobin 7.7 g/dL (12.0-15.5) Hematocrit 23.7 % (36.0-47.0) Mean Corpuscular Volume 77 fL (79-100) Mean Corpuscular Hemoglobin 25 pg (25-35) Mean Corpuscular Hemoglobin Concent 32 g/dL (31-37) Red Cell Distribution Width 22.3 % (11.5-14.5) Platelet Count 525 x10^3/uL (140-400) Neutrophils (%) (Auto) 57 % (31-73) Lymphocytes (%) (Auto) 36 % (24-48) Monocytes (%) (Auto) 7 % (0-9) Eosinophils (%) (Auto) 0 % (0-3) Basophils (%) (Auto) 0 % (0-3) Neutrophils # (Auto) 7.3 x10^3/uL (1.8-7.7) Lymphocytes # (Auto) 4.6 x10^3/uL (1.0-4.8) Monocytes # (Auto) 0.8 x10^3/uL (0.0-1.1) Eosinophils # (Auto) 0.0 x10^3/uL (0.0-0.7) Basophils # (Auto) 0.1 x10^3/uL (0.0-0.2) Sodium Level 135 mmol/L (136-145) Potassium Level 3.2 mmol/L (3.5-5.1) Chloride Level 102 mmol/L (98-107) Carbon Dioxide Level 28 mmol/L (21-32) Anion Gap 5 (6-14) Blood Urea Nitrogen 7 mg/dL (7-20) Creatinine 0.6 mg/dL (0.6-1.0) Estimated GFR (Cockcroft-Gault) 94.3 Glucose Level 87 mg/dL (70-99) Calcium Level 7.6 mg/dL (8.5-10.1) Medications Current Medications Sodium Chloride (Normal Saline Flush) 3 ml QSHIFT PRN IV AFTER MEDS AND BLOOD DRAWS; Start 09/23/19 at 19:00 Sodium Chloride 1,000 ml @ 55 mls/hr [id number] IV Last administered on 09/28/19 09:28; Start 09/23/19 at 18:55 Ondansetron HCl (Zofran) 4 mg PRN Q4HRS PRN IV NAUSEA/VOMITING; Start 09/23/19 at 19:00 Acetaminophen (Tylenol) 650 mg PRN Q4HRS PRN PO TEMP OVER 100.4F OR MILD PAIN Last administered on 09/26/19at 20:10; Start 09/23/19 at 19:00 Docusate Sodium (Colace) 100 mg PRN BID PRN PO HARD STOOLS; Start 09/23/19 at 19:00 Albuterol Sulfate (Ventolin Neb Soln) 2.5 mg PRN Q4HRS PRN NEB SHORTNESS OF BREATH; Start 09/23/19 at 19:00 Guaifenesin (Robitussin) 200 mg PRN Q4HRS PRN PO COUGH; Start 09/23/19 at 19:00 Pantoprazole Sodium (PROTONIX VIAL for IV PUSH) 40 mg DAILYAC IVP Last administered on 09/25/19 09:18; Start 09/24/19 at 07:30; Stop 09/25/19 at 10:49; Status DC Vitamin D (Vitamin D3) 1,000 unit DAILY08 PO Last administered on 09/27/19 08:53; Start 09/24/19 at 08:00 Levothyroxine Sodium (Synthroid) 50 mcg DAILYAC PO Last administered on 09/27/19 08:54; Start 09/24/19 at 07:30 Losartan Potassium (Cozaar) 50 mg DAILY PO Last administered on 09/27/19 08:54; Start 09/24/19 at 09:00 Raloxifene HCl (Evista) 60 mg DAILY PO Last administered on 09/27/19 08:55; Start 09/24/19 at 09:00 Vitamin B Complex (Joseph B) 1 tab DAILY08 PO Last administered on 09/27/19 08:54; Start 09/24/19 at 08:00 Calcium/Vitamin D (Oscal D 500mg/ 200uts) 1 tab BIDWMEALS PO Last administered on 09/27/19 21:48; Start 09/24/19 at 08:00 Multivitamins (Thera M Plus) 1 tab DAILY PO Last administered on 09/27/19 08:54; Start 09/24/19 at 09:00 Fish Oil (Fish Oil) 1,000 mg DAILY PO Last administered on 09/27/19 08:54; Start 09/24/19 at 09:00 Hydralazine HCl (Apresoline Inj) 10 mg PRN Q4HRS PRN IVP ELEVATED BP, SEE COMMENTS; Start 09/23/19 at 22:45 Iohexol (Omnipaque 240 Mg/ml) 30 ml 1X ONCE IV ; Start 09/24/19 at 09:30; Stop 09/24/19 at 09:31; Status Cancel Info (CONTRAST GIVEN -- Rx MONITORING) 1 each PRN DAILY PRN MC SEE COMMENTS; Start 09/24/19 at 09:30; Stop 09/26/19 at 09:29; Status Cancel Iohexol (Omnipaque 240 Mg/ml) 30 ml 1X ONCE PO Last administered on 09/24/19at 10:37; Start 09/24/19 at 10:30; Stop 09/24/19 at 10:35; Status DC Pantoprazole Sodium (Protonix) 40 mg DAILYAC PO Last administered on 09/27/19 08:54; Start 09/26/19 at 07:30 Acetaminophen/ Hydrocodone Bitart (Lortab 5/325) 1 tab PRN Q4HRS PRN PO MODERATE PAIN Last administered on 09/27/19 11:07; Start 09/27/19 at 10:45 Magnesium Citrate (Citroma) 296 ml 1X ONCE PO Last administered on 09/27/19at 15:22; Start 09/27/19 at 14:00; Stop 09/27/19 at 14:01; Status DC Polyethylene Glycol (miraLAX Powder BULK BOTTLE) 238 gm 1X ONCE PO Last administered on 09/27/19at 16:14; Start 09/27/19 at 16:00; Stop 09/27/19 at 16:01; Status DC Bisacodyl (Dulcolax Tab) 10 mg 1X ONCE PO Last administered on 09/27/19at 21:48; Start 09/27/19 at 16:00; Stop 09/27/19 at 16:01; Status DC Ringer's Solution 1,000 ml @ 30 mls/hr Q24H IV Last administered on 09/28/19at 10:56; Start 09/28/19 at 07:00; Stop 09/28/19 at 18:59 Prochlorperazine Edisylate (Compazine) 5 mg PACU PRN PRN IV NAUSEA, MRX1; Start 09/28/19 at 07:00; Stop 09/28/19 at 20:00 Ringer's Solution 1,000 ml @ 75 mls/hr 1X ONCE IV ; Start 09/28/19 at 08:00; Stop 09/28/19 at 21:19 Propofol (Diprivan) 200 mg STK-MED ONCE IV ; Start 09/28/19 at 11:51; Stop 09/28/19 at 11:51; Status DC Active Scripts Active Reported Tylenol (Acetaminophen) 325 Mg Tablet 650 Mg PO Q4HRS PRN Macrodantin (Nitrofurantoin Macrocrystal) 50 Mg Capsule 1 Cap PO DAILY Evista (Raloxifene Hcl) 60 Mg Tablet 1 Tab PO DAILY Triamcinolone Acetonide 0.1% Oint (Triamcinolone Acetonide) 15 Gm Oint...g. 1 Gregg TP BID MIX WITH EUCERIN DIRECTED BY PHYSICIAN Ibuprofen 800 Mg Tablet 800 Mg PO PRN Q6HRS PRN B Complex (Vitamin B Complex) 1 Each Tablet 1 Each PO Goodspring 3 1,000 Mg Softgel (Goodspring-3 Fatty Acids/Fish Oil) 1 Each Capsule 1 Each PO Vitamin E (Vitamin E Acid Succinate) 100 Unit Tablet 100 Unit PO Lysine 500 Mg Tablet 500 Mg PO Vitamin D3 (Cholecalciferol (Vitamin D3)) 1,000 Unit Tablet 1,000 Unit PO Centrum Complete Multivit Tab (Multivitamin/Iron/Folic Acid) 1 Each Tablet 1 Each PO Caltrate 600 + D Tablet (Calcium Carbonate/Vitamin D3) 1 Each Tablet 1 Each PO Losartan Potassium 50 Mg Tablet 50 Mg PO DAILY Evista (Raloxifene Hcl) 60 Mg Tablet 60 Mg PO DAILY Hydrocodone-Apap 5-325 (Hydrocodone Bit/Acetaminophen) 1 Each Tablet 1-2 Tab PO Q4-6HRS Levothyroxine Sodium 50 Mcg Tablet 50 Mcg PO DAILYAC Vitals/I & O Vital Sign - Last 24 Hours 09/27/19 09/27/19 09/27/19 09/27/19 15:00 19:40 20:00 23:15 Temp 98.2 98.3 98.2 98.2 98.3 98.2 Pulse 112 93 93 Resp 24 22 20 B/P (MAP) 143/67 (92) 154/69 (97) 160/78 (105) Pulse Ox 99 96 97 O2 Delivery Nasal Cannula Nasal Cannula Nasal Cannula Nasal Cannula O2 Flow Rate 2.0 2.0 2.0 2.0 09/28/19 09/28/19 09/28/19 09/28/19 03:15 07:00 08:00 10:52 Temp 98.3 97.9 98.3 97.9 Pulse 105 91 Resp 20 B/P (MAP) 169/76 (107) 135/63 (87) Pulse Ox 97 100 O2 Delivery Nasal Cannula Nasal Cannula Nasal Cannula Nasal Cannula O2 Flow Rate 2.0 2.0 2.0 2.0 09/28/19 09/28/19 10:54 12:28 Temp 99.4 98 99.4 98.0 Pulse 112 87 Resp 18 B/P (MAP) 125/58 Pulse Ox 100 97 O2 Delivery Nasal Cannula Intake and Output 09/27/19 09/27/19 09/28/19 14:59 22:59 06:59 Intake Total 350 ml 300 ml Balance 350 ml 300 ml Nutrition Consultation Dietary Evaluation: Recommendations by RD: Dietary education by RD, Increase Calorie Intake, Prot ein supplementation Comments: REC continue w/regular diet as ordered as liberalized diet may promote increased calorie/protein intake, honor food preferences, and provide snacks as requested REC Ensure (chocolate) w/dinner trays (per pt preference) Expected Outcomes/Goals: PO intake to meet >75% est needs Malnutrition Findings: Food and Nutrition Intake (Sev: <50% est energy req 5days Body Fat Depletion (Non Severe: Mod to Severe Weight Status: Appropriate Justicifation of Admission Dx: Justifications for Admission: Justification of Admission Dx: Yes CHF: Hemodynamic Instability Comminuty Aquired Pneumonia: Dehydration Chronic Renal Failure: Intravenous Infusions Sepsis: Dehydration CUAUHTEMOC ANGEL MD Sep 28, 2019 12:41
--- NOTE | 2019-09-28 14:27 | NUR ---
SS following up with discharge planning. SS reviewed pt chart and discussed with pt RN. COVID19 negative. Pt had colonoscopy today and scheduled for surgery potentially tomorrow. Pt currently requiring oxygen. SS will continue to follow for discharge planning.
--- NOTE | 2019-09-28 15:57 | NUR ---
Have reviewed and agree with documentation by Ana Sarabia, biology intern
[2019-09-29] VITALS (17 sets, daily range): BP systolic 136–202; BP diastolic 55–86
[2019-09-29] MEDS: IV NORMAL SALINE 1000ML BAG 1,000 ML IV SCH ×2 (03:23→18:17)
[2019-09-29 06:03] LABS: BASO # 0.1 x10^3/uL (0.0-0.2); BASO % 1 % (0-3); EOS % 0 % (0-3); HEMATOCRIT 23.1 % (36.0-47.0); HEMOGLOBIN 7.5 g/dL (12.0-15.5); LYMPH # 4.9 x10^3/uL (1.0-4.8); LYMPH % 50 % (24-48); MEAN CORPUSCULAR HEMOGLOBIN 25 pg (25-35); MEAN CORPUSCULAR HGB CONC 32 g/dL (31-37); MEAN CORPUSCULAR VOLUME 77 fL (79-100); MONO # 0.5 x10^3/uL (0.0-1.1); MONO % 5 % (0-9); NEUT # 4.4 x10^3/uL (1.8-7.7); NEUT % 44 % (31-73); PLATELET COUNT 518 x10^3/uL (140-400); RED BLOOD COUNT 2.99 x10^6/uL (3.50-5.40); RED CELL DISTRIBUTION WIDTH 22.6 % (11.5-14.5); WHITE BLOOD COUNT 9.8 x10^3/uL (4.0-11.0)
[2019-09-29 06:18] LABS: CALCIUM 7.7 mg/dL (8.5-10.1); CREATININE 0.6 mg/dL (0.6-1.0); GFR 94.3; POTASSIUM 3.7 mmol/L (3.5-5.1)
[2019-09-29] MEDS ORDERED: MORPHINE SULFATE 2 MG/ML VIAL. IV PRN (07:00)
[2019-09-29] MEDS ORDERED: fentaNYL PF VIAL 100 MCG/2 ML VIAL IV PRN ×2 (07:00)
[2019-09-29] MEDS ORDERED: IV RINGERS,LACTATED 1000ML 1,000 ML IV SCH (07:00)
[2019-09-29] MEDS ORDERED: HYDROmorphone 2 MG/ML VIAL IV PRN (07:00)
[2019-09-29] MEDS ORDERED: PROCHLORPERAZINE 10 MG/2 ML VIAL. IV PRN (07:00)
[2019-09-29] MEDS: LEVOTHYROXINE 50 MCG TABLET PO SCH (07:30)
[2019-09-29] MEDS: PANTOPRAZOLE 40 MG TABLET.DR. PO SCH (07:30)
[2019-09-29] MEDS: CHOLECALCIFEROL (VITAMIN D3) 1,000 UNIT TABLET PO SCH (08:00)
[2019-09-29] MEDS: VITAMIN B COMPLEX TABLET. PO SCH (08:00)
[2019-09-29] MEDS: CALCIUM CARB/VIT D3 500/200 TABLET. PO SCH ×2 (08:00→16:32)
[2019-09-29] MEDS ORDERED: ePHEDrine PF IN SALINE 50 MG/10 ML SYRINGE. IV ONE (08:40)
[2019-09-29] MEDS ORDERED: PHENYLEPHRINE in 0.9% NACL PF 1 MG/10 ML SYRINGE. IV ONE (08:40)
[2019-09-29] MEDS ORDERED: LIDOCAINE 2% PF 5 ML VIAL. ONE (08:40)
[2019-09-29] MEDS ORDERED: ONDANSETRON PF 4 MG/2 ML VIAL. ONE (08:40)
[2019-09-29] MEDS ORDERED: PROPOFOL 10 MG/ML (20ML) VIAL. IV ONE (08:40)
[2019-09-29] MEDS ORDERED: DEXAMETHASONE SOD PHOS 4 MG/ML VIAL ONE (08:40)
[2019-09-29] MEDS ORDERED: ETOMIDATE 20 MG/10 ML VIAL. IV ONE (08:40)
[2019-09-29] MEDS ORDERED: fentaNYL PF VIAL 100 MCG/2 ML VIAL ONE (08:41)
[2019-09-29] MEDS ORDERED: ROCURONIUM 50 MG/5 ML VIAL. ONE (08:41)
[2019-09-29] MEDS ORDERED: SUCCINYLCHOLINE 200 MG/10 ML VIAL. ONE (08:41)
[2019-09-29] MEDS ORDERED: PHENYLEPHRINE 10 MG/ML VIAL. ONE (08:41)
[2019-09-29] MEDS: MULTIVITAMIN with MINERAL TABLET. PO SCH (09:00)
[2019-09-29] MEDS: RALOXIFENE 60 MG TABLET. PO SCH (09:00)
[2019-09-29] MEDS: LOSARTAN POTASSIUM 50 MG TABLET. PO SCH (09:00)
[2019-09-29] MEDS: OMEGA-3 FATTY ACIDS/FISH OIL 1,000 MG CAPSULE. PO SCH (09:00)
--- NOTE | 2019-09-29 09:38 | NUR ---
SW following. Discussed with RN, pt having surgery today. PT/OT to work with pt after surgery. SW will continue to follow.
[2019-09-29 09:52] LABS: % BANDS 2 % (0-9); % EOS 1 % (0-5); % LYMPHS 26 % (24-48); % MONOS 1 % (0-10); % SEGS 70 % (35-66); PLT ESTIMATE INCREASED (ADEQUATE)
--- NOTE | 2019-09-29 10:25 | PDOC ---
Date of Service: DATE: 09/29/19 TIME: 10:23 Subjective: Subjective: Waiting for surgery. Objective: Vital Signs: Vital Signs Date Time Temp Pulse Resp B/P (MAP) Pulse Ox O2 Delivery O2 Flow Rate FiO2 09/29/19 07:00 97.8 94 16 138/66 (90) 97 Nasal Cannula 2.0 97.8 Labs: Laboratory Tests Test 09/29/19 05:00 White Blood Count 9.8 x10^3/uL Red Blood Count 2.99 x10^6/uL Hemoglobin 7.5 g/dL Hematocrit 23.1 % Mean Corpuscular Volume 77 fL Mean Corpuscular Hemoglobin 25 pg Mean Corpuscular Hemoglobin Concent 32 g/dL Red Cell Distribution Width 22.6 % Platelet Count 518 x10^3/uL Neutrophils (%) (Auto) 44 % Lymphocytes (%) (Auto) 50 % Monocytes (%) (Auto) 5 % Eosinophils (%) (Auto) 0 % Basophils (%) (Auto) 1 % Neutrophils # (Auto) 4.4 x10^3/uL Lymphocytes # (Auto) 4.9 x10^3/uL Monocytes # (Auto) 0.5 x10^3/uL Eosinophils # (Auto) 0.0 x10^3/uL Basophils # (Auto) 0.1 x10^3/uL Segmented Neutrophils % 70 % Band Neutrophils % 2 % Lymphocytes % 26 % Monocytes % 1 % Eosinophils % 1 % Platelet Estimate Increased Sodium Level 138 mmol/L Potassium Level 3.7 mmol/L Chloride Level 104 mmol/L Carbon Dioxide Level 27 mmol/L Anion Gap 7 Blood Urea Nitrogen 6 mg/dL Creatinine 0.6 mg/dL Estimated GFR (Cockcroft-Gault) 94.3 Glucose Level 65 mg/dL Calcium Level 7.7 mg/dL Imaging: Colonoscopy with biopsies/tattooing Indication: DELORES/abnormal CT/right colon lesion ZACHARY normal. -'Scope advanced to ~hepatic flexure. At this point near-obstructing mass; hard to appreciate totally due to angulation. Biopsies taken and 2 tattoos placed distal to lesion ~2cm. Mucosa normal to this level. Scattered diverticula throughout. Retroflex normal. We were not able to reach the cecum. 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 Diverticulosis. REC: continue clears. Await path. OR at discretion of surgical service. 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 Justicifation of Admission Dx: Justifications for Admission: Justification of Admission Dx: Yes CHF: Hemodynamic Instability Comminuty Aquired Pneumonia: Dehydration Chronic Renal Failure: Intravenous Infusions Sepsis: Dehydration DAVID BURGOS Sep 29, 2019 10:25
--- NOTE | 2019-09-29 11:33 | PDOC ---
PROGRESS NOTES Date of Service: DATE: 09/29/19 TIME: 11:31 Chief Complaint Chief Complaint Acute blood loss anemia - likely 2/2 potential GI malignancy Right colon mass - plans for surgery Small bilateral pleural effusions Cholelilthiasis - Gallbladder contains a 1 cm stone at its neck Hyponatremia - will monitor Nephrolithiasis nonobstructive Adrenal mass History of Present Illness History of Present Illness 09/28, hgb stable - in surg for colon resection, ostomy placement Mr Henson 89 y/o female with PMHc COPD, pulmonary fibrosis on home O2, HTN, Osteoporosis, depression, hypothyroidism, mild cognitive impairment who lives in Assisted Living in [place], [place] who was transferred from [facility] for evaluation of lower abdominal pain and low hemoglobin that was 5 outpatient, was noted to be 6.3 inpatient at [facility]. As she was tachycardic and symptomatic she was given 1 unit packed red blood cell transfusion and transferred to [facility] for further care as they do not have GI services [facility]. Labs upon arrival to [facility] after transfusion WBC 1.1, Hb 7.6, platelets 564, MCV 70, NA 132, K4, BUN 13, CR 0.8, glucose 70. She does c/o abdominal pain intermittently for 2 months. No previous EGD or colonoscopy. No cancer history in her mother father, her sister did have breast cancer and her brother has history of lymphoma non- Hodgkin's type. No prostate or colon cancer history in her family but she does not know all of their history. CT abdomen reveals large ascending colonic mass without bowel obstruction showing findings suspicious for extracolonic tumoral spread. Additional findings include cholelithiasis, splenic calcifications, mild nodular fullness of left adrenal gland, mild right hydroureter and hydronephrosis w/ nonobstructing 2 mm right kidney stone. Finn Jared Vitals Vitals Vital Signs Date Time Temp Pulse Resp B/P (MAP) Pulse Ox O2 Delivery O2 Flow Rate FiO2 09/29/19 10:48 97.8 97 18 170/73 (105) 96 Nasal Cannula 2.0 97.8 Physical Exam General: Alert, No acute distress, Other (confusion) Heart: Regular rate, Normal S1, Normal S2 Lungs: Clear Abdomen: Soft, No tenderness Extremities: No clubbing, No cyanosis Skin: No rashes, No breakdown Labs LABS Laboratory Tests Test 09/29/19 05:00 White Blood Count 9.8 x10^3/uL (4.0-11.0) Red Blood Count 2.99 x10^6/uL (3.50-5.40) Hemoglobin 7.5 g/dL (12.0-15.5) Hematocrit 23.1 % (36.0-47.0) Mean Corpuscular Volume 77 fL (79-100) Mean Corpuscular Hemoglobin 25 pg (25-35) Mean Corpuscular Hemoglobin Concent 32 g/dL (31-37) Red Cell Distribution Width 22.6 % (11.5-14.5) Platelet Count 518 x10^3/uL (140-400) Neutrophils (%) (Auto) 44 % (31-73) Lymphocytes (%) (Auto) 50 % (24-48) Monocytes (%) (Auto) 5 % (0-9) Eosinophils (%) (Auto) 0 % (0-3) Basophils (%) (Auto) 1 % (0-3) Neutrophils # (Auto) 4.4 x10^3/uL (1.8-7.7) Lymphocytes # (Auto) 4.9 x10^3/uL (1.0-4.8) Monocytes # (Auto) 0.5 x10^3/uL (0.0-1.1) Eosinophils # (Auto) 0.0 x10^3/uL (0.0-0.7) Basophils # (Auto) 0.1 x10^3/uL (0.0-0.2) Segmented Neutrophils % 70 % (35-66) Band Neutrophils % 2 % (0-9) Lymphocytes % 26 % (24-48) Monocytes % 1 % (0-10) Eosinophils % 1 % (0-5) Platelet Estimate Increased (ADEQUATE) Sodium Level 138 mmol/L (136-145) Potassium Level 3.7 mmol/L (3.5-5.1) Chloride Level 104 mmol/L (98-107) Carbon Dioxide Level 27 mmol/L (21-32) Anion Gap 7 (6-14) Blood Urea Nitrogen 6 mg/dL (7-20) Creatinine 0.6 mg/dL (0.6-1.0) Estimated GFR (Cockcroft-Gault) 94.3 Glucose Level 65 mg/dL (70-99) Calcium Level 7.7 mg/dL (8.5-10.1) Comment Review of Relevant I have reviewed the following items kun (where applicable) has been applied. Labs Laboratory Tests Test 09/28/19 04:00 09/29/19 05:00 White Blood Count 12.8 x10^3/uL (4.0-11.0) 9.8 x10^3/uL (4.0-11.0) Red Blood Count 3.07 x10^6/uL (3.50-5.40) 2.99 x10^6/uL (3.50-5.40) Hemoglobin 7.7 g/dL (12.0-15.5) 7.5 g/dL (12.0-15.5) Hematocrit 23.7 % (36.0-47.0) 23.1 % (36.0-47.0) Mean Corpuscular Volume 77 fL (79-100) 77 fL (79-100) Mean Corpuscular Hemoglobin 25 pg (25-35) 25 pg (25-35) Mean Corpuscular Hemoglobin Concent 32 g/dL (31-37) 32 g/dL (31-37) Red Cell Distribution Width 22.3 % (11.5-14.5) 22.6 % (11.5-14.5) Platelet Count 525 x10^3/uL (140-400) 518 x10^3/uL (140-400) Neutrophils (%) (Auto) 57 % (31-73) 44 % (31-73) Lymphocytes (%) (Auto) 36 % (24-48) 50 % (24-48) Monocytes (%) (Auto) 7 % (0-9) 5 % (0-9) Eosinophils (%) (Auto) 0 % (0-3) 0 % (0-3) Basophils (%) (Auto) 0 % (0-3) 1 % (0-3) Neutrophils # (Auto) 7.3 x10^3/uL (1.8-7.7) 4.4 x10^3/uL (1.8-7.7) Lymphocytes # (Auto) 4.6 x10^3/uL (1.0-4.8) 4.9 x10^3/uL (1.0-4.8) Monocytes # (Auto) 0.8 x10^3/uL (0.0-1.1) 0.5 x10^3/uL (0.0-1.1) Eosinophils # (Auto) 0.0 x10^3/uL (0.0-0.7) 0.0 x10^3/uL (0.0-0.7) Basophils # (Auto) 0.1 x10^3/uL (0.0-0.2) 0.1 x10^3/uL (0.0-0.2) Sodium Level 135 mmol/L (136-145) 138 mmol/L (136-145) Potassium Level 3.2 mmol/L (3.5-5.1) 3.7 mmol/L (3.5-5.1) Chloride Level 102 mmol/L (98-107) 104 mmol/L (98-107) Carbon Dioxide Level 28 mmol/L (21-32) 27 mmol/L (21-32) Anion Gap 5 (6-14) 7 (6-14) Blood Urea Nitrogen 7 mg/dL (7-20) 6 mg/dL (7-20) Creatinine 0.6 mg/dL (0.6-1.0) 0.6 mg/dL (0.6-1.0) Estimated GFR (Cockcroft-Gault) 94.3 94.3 Glucose Level 87 mg/dL (70-99) 65 mg/dL (70-99) Calcium Level 7.6 mg/dL (8.5-10.1) 7.7 mg/dL (8.5-10.1) Segmented Neutrophils % 70 % (35-66) Band Neutrophils % 2 % (0-9) Lymphocytes % 26 % (24-48) Monocytes % 1 % (0-10) Eosinophils % 1 % (0-5) Platelet Estimate Increased (ADEQUATE) Laboratory Tests Test 09/29/19 05:00 White Blood Count 9.8 x10^3/uL (4.0-11.0) Red Blood Count 2.99 x10^6/uL (3.50-5.40) Hemoglobin 7.5 g/dL (12.0-15.5) Hematocrit 23.1 % (36.0-47.0) Mean Corpuscular Volume 77 fL (79-100) Mean Corpuscular Hemoglobin 25 pg (25-35) Mean Corpuscular Hemoglobin Concent 32 g/dL (31-37) Red Cell Distribution Width 22.6 % (11.5-14.5) Platelet Count 518 x10^3/uL (140-400) Neutrophils (%) (Auto) 44 % (31-73) Lymphocytes (%) (Auto) 50 % (24-48) Monocytes (%) (Auto) 5 % (0-9) Eosinophils (%) (Auto) 0 % (0-3) Basophils (%) (Auto) 1 % (0-3) Neutrophils # (Auto) 4.4 x10^3/uL (1.8-7.7) Lymphocytes # (Auto) 4.9 x10^3/uL (1.0-4.8) Monocytes # (Auto) 0.5 x10^3/uL (0.0-1.1) Eosinophils # (Auto) 0.0 x10^3/uL (0.0-0.7) Basophils # (Auto) 0.1 x10^3/uL (0.0-0.2) Segmented Neutrophils % 70 % (35-66) Band Neutrophils % 2 % (0-9) Lymphocytes % 26 % (24-48) Monocytes % 1 % (0-10) Eosinophils % 1 % (0-5) Platelet Estimate Increased (ADEQUATE) Sodium Level 138 mmol/L (136-145) Potassium Level 3.7 mmol/L (3.5-5.1) Chloride Level 104 mmol/L (98-107) Carbon Dioxide Level 27 mmol/L (21-32) Anion Gap 7 (6-14) Blood Urea Nitrogen 6 mg/dL (7-20) Creatinine 0.6 mg/dL (0.6-1.0) Estimated GFR (Cockcroft-Gault) 94.3 Glucose Level 65 mg/dL (70-99) Calcium Level 7.7 mg/dL (8.5-10.1) Medications Current Medications Sodium Chloride (Normal Saline Flush) 3 ml QSHIFT PRN IV AFTER MEDS AND BLOOD DRAWS; Start 09/23/19 at 19:00 Sodium Chloride 1,000 ml @ 55 mls/hr [id number] IV Last administered on 09/29/19 03:23; Start 09/23/19 at 18:55 Ondansetron HCl (Zofran) 4 mg PRN Q4HRS PRN IV NAUSEA/VOMITING; Start 09/23/19 at 19:00 Acetaminophen (Tylenol) 650 mg PRN Q4HRS PRN PO TEMP OVER 100.4F OR MILD PAIN Last administered on 09/26/19at 20:10; Start 09/23/19 at 19:00 Docusate Sodium (Colace) 100 mg PRN BID PRN PO HARD STOOLS; Start 09/23/19 at 19:00 Albuterol Sulfate (Ventolin Neb Soln) 2.5 mg PRN Q4HRS PRN NEB SHORTNESS OF BREATH; Start 09/23/19 at 19:00 Guaifenesin (Robitussin) 200 mg PRN Q4HRS PRN PO COUGH; Start 09/23/19 at 19:00 Pantoprazole Sodium (PROTONIX VIAL for IV PUSH) 40 mg DAILYAC IVP Last administered on 09/25/19 09:18; Start 09/24/19 at 07:30; Stop 09/25/19 at 10:49; Status DC Vitamin D (Vitamin D3) 1,000 unit DAILY08 PO Last administered on 09/27/19 08:53; Start 09/24/19 at 08:00 Levothyroxine Sodium (Synthroid) 50 mcg DAILYAC PO Last administered on 09/27/19 08:54; Start 09/24/19 at 07:30 Losartan Potassium (Cozaar) 50 mg DAILY PO Last administered on 09/27/19 08:54; Start 09/24/19 at 09:00 Raloxifene HCl (Evista) 60 mg DAILY PO Last administered on 09/27/19 08:55; Start 09/24/19 at 09:00 Vitamin B Complex (Joseph B) 1 tab DAILY08 PO Last administered on 09/27/19 08:54; Start 09/24/19 at 08:00 Calcium/Vitamin D (Oscal D 500mg/ 200uts) 1 tab BIDWMEALS PO Last administered on 09/27/19 21:48; Start 09/24/19 at 08:00 Multivitamins (Thera M Plus) 1 tab DAILY PO Last administered on 09/27/19at 08:54; Start 09/24/19 at 09:00 Fish Oil (Fish Oil) 1,000 mg DAILY PO Last administered on 09/27/19at 08:54; Start 09/24/19 at 09:00 Hydralazine HCl (Apresoline Inj) 10 mg PRN Q4HRS PRN IVP ELEVATED BP, SEE COMMENTS; Start 09/23/19 at 22:45 Iohexol (Omnipaque 240 Mg/ml) 30 ml 1X ONCE IV ; Start 09/24/19 at 09:30; Stop 09/24/19 at 09:31; Status Cancel Info (CONTRAST GIVEN -- Rx MONITORING) 1 each PRN DAILY PRN MC SEE COMMENTS; Start 09/24/19 at 09:30; Stop 09/26/19 at 09:29; Status Cancel Iohexol (Omnipaque 240 Mg/ml) 30 ml 1X ONCE PO Last administered on 09/24/19at 10:37; Start 09/24/19 at 10:30; Stop 09/24/19 at 10:35; Status DC Pantoprazole Sodium (Protonix) 40 mg DAILYAC PO Last administered on 09/27/19at 08:54; Start 09/26/19 at 07:30 Acetaminophen/ Hydrocodone Bitart (Lortab 5/325) 1 tab PRN Q4HRS PRN PO MODERATE PAIN Last administered on 09/27/19at 11:07; Start 09/27/19 at 10:45 Magnesium Citrate (Citroma) 296 ml 1X ONCE PO Last administered on 09/27/19at 15:22; Start 09/27/19 at 14:00; Stop 09/27/19 at 14:01; Status DC Polyethylene Glycol (miraLAX Powder BULK BOTTLE) 238 gm 1X ONCE PO Last administered on 09/27/19at 16:14; Start 09/27/19 at 16:00; Stop 09/27/19 at 16:01; Status DC Bisacodyl (Dulcolax Tab) 10 mg 1X ONCE PO Last administered on 09/27/19at 21:48; Start 09/27/19 at 16:00; Stop 09/27/19 at 16:01; Status DC Ringer's Solution 1,000 ml @ 30 mls/hr Q24H IV Last administered on 09/28/19at 10:56; Start 09/28/19 at 07:00; Stop 09/28/19 at 18:59; Status DC Prochlorperazine Edisylate (Compazine) 5 mg PACU PRN PRN IV NAUSEA, MRX1; Start 09/28/19 at 07:00; Stop 09/28/19 at 20:00; Status DC Ringer's Solution 1,000 ml @ 75 mls/hr 1X ONCE IV ; Start 09/28/19 at 08:00; Stop 09/28/19 at 21:19; Status DC Propofol (Diprivan) 200 mg STK-MED ONCE IV ; Start 09/28/19 at 11:51; Stop 09/28/19 at 11:51; Status DC Fentanyl Citrate (Fentanyl 2ml Vial) 25 mcg PRN Q5MIN PRN IV MILD PAIN 1-3; Start 09/29/19 at 07:00; Stop 09/30/19 at 06:59 Fentanyl Citrate (Fentanyl 2ml Vial) 50 mcg PRN Q5MIN PRN IV MODERATE TO SEVERE PAIN; Start 09/29/19 at 07:00; Stop 09/30/19 at 06:59 Morphine Sulfate (Morphine Sulfate) 1 mg PRN Q10MIN PRN IV SEVERE PAIN 7-10; Start 09/29/19 at 07:00; Stop 09/30/19 at 06:59 Ringer's Solution 1,000 ml @ 30 mls/hr Q24H IV ; Start 09/29/19 at 07:00; Stop 09/29/19 at 18:59 Hydromorphone HCl (Dilaudid) 0.5 mg PRN Q10MIN PRN IV SEV PAIN, Second choice; Start 09/29/19 at 07:00; Stop 09/30/19 at 06:59 Prochlorperazine Edisylate (Compazine) 5 mg PACU PRN PRN IV NAUSEA, MRX1; Start 09/29/19 at 07:00; Stop 09/30/19 at 06:59 Levofloxacin/ Dextrose 100 ml @ 100 mls/hr 1X PREOP PRN IV PRIOR TO PROCEDURE; Start 09/29/19 at 06:00; Stop 09/29/19 at 18:00 Metronidazole 100 ml @ 100 mls/hr 1X PREOP PRN IV PRIOR TO PROCEDURE; Start 09/29/19 at 06:00; Stop 09/29/19 at 18:00 Propofol (Diprivan) 200 mg STK-MED ONCE IV ; Start 09/29/19 at 08:40; Stop 09/29/19 at 08:40; Status DC Lidocaine HCl (Lidocaine Pf 2% Vial) 5 ml STK-MED ONCE .ROUTE ; Start 09/29/19 at 08:40; Stop 09/29/19 at 08:40; Status DC Etomidate (Amidate) 20 mg STK-MED ONCE IV ; Start 09/29/19 at 08:40; Stop 09/29/19 at 08:41; Status DC Dexamethasone Sodium Phosphate (Decadron) 4 mg STK-MED ONCE .ROUTE ; Start 09/29/19 at 08:40; Stop 09/29/19 at 08:41; Status DC Ondansetron HCl (Zofran) 4 mg STK-MED ONCE .ROUTE ; Start 09/29/19 at 08:40; Stop 09/29/19 at 08:41; Status DC Phenylephrine HCl (PHENYLEPHRINE in 0.9% NACL PF) 1 mg STK-MED ONCE IV ; Start 09/29/19 at 08:40; Stop 09/29/19 at 08:41; Status DC Ephedrine Sulfate (ePHEDrine PF IN SALINE SYRINGE) 50 mg STK-MED ONCE IV ; Start 09/29/19 at 08:40; Stop 09/29/19 at 08:41; Status DC Succinylcholine Chloride (Anectine) 200 mg STK-MED ONCE .ROUTE ; Start 09/29/19 at 08:41; Stop 09/29/19 at 08:41; Status DC Rocuronium Ernest (Zemuron) 50 mg STK-MED ONCE .ROUTE ; Start 09/29/19 at 08:41; Stop 09/29/19 at 08:41; Status DC Fentanyl Citrate (Fentanyl 2ml Vial) 100 mcg STK-MED ONCE .ROUTE ; Start 09/29/19 at 08:41; Stop 09/29/19 at 08:42; Status DC Phenylephrine HCl (Cas-Synephrine Inj) 10 mg STK-MED ONCE .ROUTE ; Start 09/29/19 at 08:41; Stop 09/29/19 at 08:42; Status DC Active Scripts Active Reported Tylenol (Acetaminophen) 325 Mg Tablet 650 Mg PO Q4HRS PRN Macrodantin (Nitrofurantoin Macrocrystal) 50 Mg Capsule 1 Cap PO DAILY Evista (Raloxifene Hcl) 60 Mg Tablet 1 Tab PO DAILY Triamcinolone Acetonide 0.1% Oint (Triamcinolone Acetonide) 15 Gm Oint...g. 1 Gregg TP BID MIX WITH EUCERIN DIRECTED BY PHYSICIAN Ibuprofen 800 Mg Tablet 800 Mg PO PRN Q6HRS PRN B Complex (Vitamin B Complex) 1 Each Tablet 1 Each PO [place] 3 1,000 Mg Softgel ([place]-3 Fatty Acids/Fish Oil) 1 Each Capsule 1 Each PO Vitamin E (Vitamin E Acid Succinate) 100 Unit Tablet 100 Unit PO Lysine 500 Mg Tablet 500 Mg PO Vitamin D3 (Cholecalciferol (Vitamin D3)) 1,000 Unit Tablet 1,000 Unit PO Centrum Complete Multivit Tab (Multivitamin/Iron/Folic Acid) 1 Each Tablet 1 Each PO Caltrate 600 + D Tablet (Calcium Carbonate/Vitamin D3) 1 Each Tablet 1 Each PO Losartan Potassium 50 Mg Tablet 50 Mg PO DAILY Evista (Raloxifene Hcl) 60 Mg Tablet 60 Mg PO DAILY Hydrocodone-Apap 5-325 (Hydrocodone Bit/Acetaminophen) 1 Each Tablet 1-2 Tab PO Q4-6HRS Levothyroxine Sodium 50 Mcg Tablet 50 Mcg PO DAILYAC Vitals/I & O Vital Sign - Last 24 Hours 09/28/19 09/28/19 09/28/19 09/28/19 12:28 12:44 12:55 13:12 Temp 98 98.0 Pulse 87 96 96 94 Resp 18 18 18 B/P (MAP) 125/58 144/65 155/67 140/64 (89) Pulse Ox 97 100 100 O2 Delivery Nasal Cannula Nasal Cannula Nasal Cannula O2 Flow Rate 2.0 2.0 09/28/19 09/28/19 09/28/19 09/28/19 13:27 13:42 13:57 14:12 Pulse 88 84 90 92 B/P (MAP) 153/64 (93) 143/64 (90) 150/66 (94) 142/61 (88) 09/28/19 09/28/19 09/28/19 09/28/19 14:42 15:00 19:00 20:00 Temp 98.0 98.0 98.0 98.0 Pulse 100 95 98 Resp 20 18 B/P (MAP) 155/71 (99) 138/67 (90) 176/79 (111) Pulse Ox 99 99 O2 Delivery Nasal Cannula Nasal Cannula Nasal Cannula O2 Flow Rate 2.0 2.0 2.0 09/28/19 09/29/19 09/29/19 09/29/19 23:20 03:50 07:00 08:00 Temp 98.4 98.6 97.8 98.4 98.6 97.8 Pulse 96 103 94 Resp 18 18 16 B/P (MAP) 131/61 (84) 136/68 (90) 138/66 (90) Pulse Ox 99 97 97 O2 Delivery Nasal Cannula Nasal Cannula Nasal Cannula Nasal Cannula O2 Flow Rate 2.0 2.0 2.0 2.0 09/29/19 09/29/19 10:44 10:48 Temp 99.1 97.8 99.1 97.8 Pulse 95 97 Resp 18 18 B/P (MAP) 171/78 170/73 (105) Pulse Ox 98 96 O2 Delivery Nasal Cannula Nasal Cannula O2 Flow Rate 2.0 2.0 Intake and Output 09/28/19 09/28/19 09/29/19 15:00 23:00 07:00 Intake Total 400 ml 1000 ml Balance 400 ml 1000 ml Nutrition Consultation Dietary Evaluation: Recommendations by RD: Dietary education by RD, Increase Calorie Intake, Protein supplementation Comments: Add Ensure Clear to dinner tray tonight. REC resume regular diet with chocolate Ensure as able p/s Expected Outcomes/Goals: PO intake to meet >75% est needs- goal met at times, goal on-going Malnutrition Findings: Food and Nutrition Intake (Sev: <50% est energy req 5days Body Fat Depletion (Non Severe: Mod to Severe Weight Status: Appropriate Justicifation of Admission Dx: Justifications for Admission: Justification of Admission Dx: Yes CHF: Hemodynamic Instability Comminuty Aquired Pneumonia: Dehydration Chronic Renal Failure: Intravenous Infusions Sepsis: Dehydration CUAUHTEMOC ANGEL MD Sep 29, 2019 11:33
[2019-09-29] MEDS ORDERED: HYDROmorphone 2 MG/ML VIAL ONE (12:03)
[2019-09-29] MEDS ORDERED: SEVOFLURANE > 120 MINUTES. IH ONE (13:04)
[2019-09-29] MEDS ORDERED: GLYCOPYRROLATE 1 MG/5 ML VIAL. ONE (13:23)
[2019-09-29] MEDS ORDERED: NEOSTIGMINE METHYLSULFATE 5 MG/5 ML SYRINGE. ONE (13:23)
--- NOTE | 2019-09-29 13:49 | PDOC4 ---
Operative Note Operative Note Operative Note: Preoperative Diagnosis: Right colon tumor Postoperative Diagnosis: Same Procedure: Right colon resection Surgeon: Jaquan [employer] Worker: WESLEY Servin Anesthesia: General EBL: 50 mL Specimen: Right colon to pathology Drains: Yale drain to subcutaneous tissue Complications: None Indication: The patient is an 89-year-old female presented with abdominal pain. Her evaluation revealed a large a sending colon tumor. The plan is to proceed to surgery for resection of the tumor. The risks of surgery were discussed at length with her and the family. The risks include bleeding, infection, anastomotic leak, pain, anesthetic risk, hernia formation, potential need for additional surgery procedure. She understands and would like to proceed. Description: The patient was taken to the operating room and placed supine in the operating table. General anesthesia was performed. The abdomen was prepped with ChloraPrep and draped in a standard surgical manner. A vertical midline incision was made the skin with a scalpel. Cautery dissection was carried down to the fascia. The fascia and peritoneum were opened for the length of the incision. The Omni retractor was used for the remainder of the case to facilitate exposure. As expected there was a large tumor involving the right colon. There was no clear hepatic or omental metastasis. We began freeing up the lateral peritoneal attachments of the right colon. The hepatic flexure attachments were taken down using the LigaSure. The distal ileum was divided with a GALLO-75 stapling device. The transverse colon was similarly divided distal to the tumor with a GALLO-75. The mesentery of the right colon was then dissected. Blood vessels were ligated with 2-0 Vicryl and divided. The LigaSure device assisted with mesenteric dissection. The right colon was then completely excised and sent to pathology. Gross pathologic evaluation confirmed a large tumor involving the right colon with some extension directly into the proximal transverse colon. A side to side, functional end-to-end anastomosis was then developed between the distal ileum and transverse colon. Openings were made in the antimesenteric side of both limbs of the bowel. A GALLO-75 stapling device was then placed into the bowel and deployed creating the anastomosis. The common enterotomy was closed with 3-0 PDS in a running fashion. All of the padma were reinforced with 3-0 Vicryls placed in the seromuscular layer. The mesenteric defect was closed with 2-0 Vicryl. The abdominal cavity was irrigated sterile saline which was then suctioned. The anastomosis appeared patent under no tension. Hemostasis was good and no other abnormalities were noted. The fascia was approximated with 1 PDS. A Yale drain was left in subcutaneous tissue which exited inferiorly. This was secured to the skin with 3-0 Vicryl. The subcutaneous tissues were closed with 3-0 Vicryl and skin approximated with 4-0 Monocryl. A sterile dressing was then applied. The patient tolerated the procedure well and was sent to the recovery room in stable condition. At the end of the case all counts were correct. NANDA MILLER MD Sep 29, 2019 13:49
--- NOTE | 2019-09-29 14:50 | NUR ---
Patient arrived back to room after surgery at 1450. Patient drowsy. Midline abdominal incision dressing CDI. Family at bedside. Will continue to monitor.
[2019-09-29] MEDS: HYDROmorphone 2 MG/ML VIAL IVP PRN ×2 (18:24→22:00)
[2019-09-30] MEDS: HYDROmorphone 2 MG/ML VIAL IVP PRN ×4 (02:35→19:43)
[2019-09-30 03:18] VITALS: BP 113/52
[2019-09-30 05:28] LABS: BASO # 0.1 x10^3/uL (0.0-0.2); BASO % 0 % (0-3); EOS % 0 % (0-3); HEMATOCRIT 26.6 % (36.0-47.0); HEMOGLOBIN 8.2 g/dL (12.0-15.5); LYMPH # 3.1 x10^3/uL (1.0-4.8); LYMPH % 18 % (24-48); MEAN CORPUSCULAR HEMOGLOBIN 25 pg (25-35); MEAN CORPUSCULAR HGB CONC 31 g/dL (31-37); MEAN CORPUSCULAR VOLUME 80 fL (79-100); MONO # 1.1 x10^3/uL (0.0-1.1); MONO % 6 % (0-9); NEUT % 75 % (31-73); PLATELET COUNT 489 x10^3/uL (140-400); WHITE BLOOD COUNT 17.3 x10^3/uL (4.0-11.0)
[2019-09-30 05:42] LABS: CALCIUM 8.3 mg/dL (8.5-10.1); CREATININE 0.6 mg/dL (0.6-1.0); GFR 94.3; POTASSIUM 4.2 mmol/L (3.5-5.1)
[2019-09-30 07:00] VITALS: BP 129/59
[2019-09-30] MEDS: PANTOPRAZOLE 40 MG TABLET.DR. PO SCH (07:30)
[2019-09-30] MEDS: LEVOTHYROXINE 50 MCG TABLET PO SCH (07:30)
[2019-09-30] MEDS: CALCIUM CARB/VIT D3 500/200 TABLET. PO SCH ×2 (07:43→14:24)
[2019-09-30] MEDS: CHOLECALCIFEROL (VITAMIN D3) 1,000 UNIT TABLET PO SCH (07:43)
[2019-09-30] MEDS: VITAMIN B COMPLEX TABLET. PO SCH (07:43)
[2019-09-30] MEDS: LOSARTAN POTASSIUM 50 MG TABLET. PO SCH (07:44)
[2019-09-30] MEDS: RALOXIFENE 60 MG TABLET. PO SCH (07:44)
[2019-09-30] MEDS: MULTIVITAMIN with MINERAL TABLET. PO SCH (07:45)
[2019-09-30] MEDS: OMEGA-3 FATTY ACIDS/FISH OIL 1,000 MG CAPSULE. PO SCH (07:45)
--- NOTE | 2019-09-30 10:14 | NUR ---
SS following up with discharge planning. SS reviewed pt chart and discussed with pt RN. Pt is from [facility]. Pt had right colon resection on 09/29/2019. Pt is currently requiring oxygen and is COVID19 negative. Pt currently NPO. PT/OT being ordered for re-evaluation. SS will phone and fax referral to [facility] once PT/OT re-evaluations are completed. SS will continue to follow for discharge planning.
--- NOTE | 2019-09-30 10:17 | PDOC ---
DANTE VALDIVIA ADMINISTRATIVE PROJECT COORDINATOR 09/30/19 1017: SURGICAL PROGRESS NOTE DATE: 09/30/19 TIME: 10:16 Subjective denies pain no nausea Vital Signs Vital Signs Date Time Temp Pulse Resp B/P (MAP) Pulse Ox O2 Delivery O2 Flow Rate FiO2 09/30/19 08:58 16 100 Nasal Cannula 2.0 09/30/19 07:44 101 129/59 09/30/19 07:00 98.8 98.8 I&O Intake and Output 09/30/19 07:00 Intake Total 1100 ml Output Total 425 ml Balance 675 ml Intake Oral 0 ml IV Total 1100 ml Output Urine Total 375 ml Estimated Blood Loss 50 ml PATIENT HAS A GELLER: Yes General: Alert, Cooperative, No acute distress Abdomen: Soft, Other (ND, dressing dry) Labs Laboratory Tests Test 09/29/19 05:00 09/30/19 04:35 White Blood Count 9.8 x10^3/uL (4.0-11.0) 17.3 x10^3/uL (4.0-11.0) Red Blood Count 2.99 x10^6/uL (3.50-5.40) 3.30 x10^6/uL (3.50-5.40) Hemoglobin 7.5 g/dL (12.0-15.5) 8.2 g/dL (12.0-15.5) Hematocrit 23.1 % (36.0-47.0) 26.6 % (36.0-47.0) Mean Corpuscular Volume 77 fL (79-100) 80 fL (79-100) Mean Corpuscular Hemoglobin 25 pg (25-35) 25 pg (25-35) Mean Corpuscular Hemoglobin Concent 32 g/dL (31-37) 31 g/dL (31-37) Red Cell Distribution Width 22.6 % (11.5-14.5) 23.0 % (11.5-14.5) Platelet Count 518 x10^3/uL (140-400) 489 x10^3/uL (140-400) Neutrophils (%) (Auto) 44 % (31-73) 75 % (31-73) Lymphocytes (%) (Auto) 50 % (24-48) 18 % (24-48) Monocytes (%) (Auto) 5 % (0-9) 6 % (0-9) Eosinophils (%) (Auto) 0 % (0-3) 0 % (0-3) Basophils (%) (Auto) 1 % (0-3) 0 % (0-3) Neutrophils # (Auto) 4.4 x10^3/uL (1.8-7.7) 13.0 x10^3/uL (1.8-7.7) Lymphocytes # (Auto) 4.9 x10^3/uL (1.0-4.8) 3.1 x10^3/uL (1.0-4.8) Monocytes # (Auto) 0.5 x10^3/uL (0.0-1.1) 1.1 x10^3/uL (0.0-1.1) Eosinophils # (Auto) 0.0 x10^3/uL (0.0-0.7) 0.0 x10^3/uL (0.0-0.7) Basophils # (Auto) 0.1 x10^3/uL (0.0-0.2) 0.1 x10^3/uL (0.0-0.2) Segmented Neutrophils % 70 % (35-66) Band Neutrophils % 2 % (0-9) Lymphocytes % 26 % (24-48) Monocytes % 1 % (0-10) Eosinophils % 1 % (0-5) Platelet Estimate Increased (ADEQUATE) Sodium Level 138 mmol/L (136-145) 140 mmol/L (136-145) Potassium Level 3.7 mmol/L (3.5-5.1) 4.2 mmol/L (3.5-5.1) Chloride Level 104 mmol/L (98-107) 106 mmol/L (98-107) Carbon Dioxide Level 27 mmol/L (21-32) 25 mmol/L (21-32) Anion Gap 7 (6-14) 9 (6-14) Blood Urea Nitrogen 6 mg/dL (7-20) 11 mg/dL (7-20) Creatinine 0.6 mg/dL (0.6-1.0) 0.6 mg/dL (0.6-1.0) Estimated GFR (Cockcroft-Gault) 94.3 94.3 Glucose Level 65 mg/dL (70-99) 78 mg/dL (70-99) Calcium Level 7.7 mg/dL (8.5-10.1) 8.3 mg/dL (8.5-10.1) Laboratory Tests Test 09/30/19 04:35 White Blood Count 17.3 x10^3/uL (4.0-11.0) Red Blood Count 3.30 x10^6/uL (3.50-5.40) Hemoglobin 8.2 g/dL (12.0-15.5) Hematocrit 26.6 % (36.0-47.0) Mean Corpuscular Volume 80 fL (79-100) Mean Corpuscular Hemoglobin 25 pg (25-35) Mean Corpuscular Hemoglobin Concent 31 g/dL (31-37) Red Cell Distribution Width 23.0 % (11.5-14.5) Platelet Count 489 x10^3/uL (140-400) Neutrophils (%) (Auto) 75 % (31-73) Lymphocytes (%) (Auto) 18 % (24-48) Monocytes (%) (Auto) 6 % (0-9) Eosinophils (%) (Auto) 0 % (0-3) Basophils (%) (Auto) 0 % (0-3) Neutrophils # (Auto) 13.0 x10^3/uL (1.8-7.7) Lymphocytes # (Auto) 3.1 x10^3/uL (1.0-4.8) Monocytes # (Auto) 1.1 x10^3/uL (0.0-1.1) Eosinophils # (Auto) 0.0 x10^3/uL (0.0-0.7) Basophils # (Auto) 0.1 x10^3/uL (0.0-0.2) Sodium Level 140 mmol/L (136-145) Potassium Level 4.2 mmol/L (3.5-5.1) Chloride Level 106 mmol/L (98-107) Carbon Dioxide Level 25 mmol/L (21-32) Anion Gap 9 (6-14) Blood Urea Nitrogen 11 mg/dL (7-20) Creatinine 0.6 mg/dL (0.6-1.0) Estimated GFR (Cockcroft-Gault) 94.3 Glucose Level 78 mg/dL (70-99) Calcium Level 8.3 mg/dL (8.5-10.1) Problem List POD#1 right colon resection await bowel function Justicifation of Admission Dx: Justifications for Admission: Justification of Admission Dx: Yes CHF: Hemodynamic Instability Comminuty Aquired Pneumonia: Dehydration Chronic Renal Failure: Intravenous Infusions Sepsis: Dehydration NANDA MILLER MD 09/30/19 1139: SURGICAL PROGRESS NOTE Assessment/Plan Agree with above DANTE VALDIVIA ADMINISTRATIVE PROJECT COORDINATOR Sep 30, 2019 10:17 NANDA MILLER MD Sep 30, 2019 11:39
[2019-09-30 10:37] VITALS: BP 181/71
[2019-09-30] MEDS: IV NORMAL SALINE 1000ML BAG 1,000 ML IV SCH (12:04)
--- NOTE | 2019-09-30 12:24 | PDOC ---
Date of Service: DATE: 09/30/19 TIME: 12:22 Subjective: Subjective: Doing the best she can. Has pain. Objective: Vital Signs: Vital Signs Date Time Temp Pulse Resp B/P (MAP) Pulse Ox O2 Delivery O2 Flow Rate FiO2 09/30/19 12:03 100 Nasal Cannula 2.0 09/30/19 10:37 98.4 98 16 181/71 (107) 98.4 Labs: Laboratory Tests Test 09/30/19 04:35 White Blood Count 17.3 x10^3/uL Red Blood Count 3.30 x10^6/uL Hemoglobin 8.2 g/dL Hematocrit 26.6 % Mean Corpuscular Volume 80 fL Mean Corpuscular Hemoglobin 25 pg Mean Corpuscular Hemoglobin Concent 31 g/dL Red Cell Distribution Width 23.0 % Platelet Count 489 x10^3/uL Neutrophils (%) (Auto) 75 % Lymphocytes (%) (Auto) 18 % Monocytes (%) (Auto) 6 % Eosinophils (%) (Auto) 0 % Basophils (%) (Auto) 0 % Neutrophils # (Auto) 13.0 x10^3/uL Lymphocytes # (Auto) 3.1 x10^3/uL Monocytes # (Auto) 1.1 x10^3/uL Eosinophils # (Auto) 0.0 x10^3/uL Basophils # (Auto) 0.1 x10^3/uL Sodium Level 140 mmol/L Potassium Level 4.2 mmol/L Chloride Level 106 mmol/L Carbon Dioxide Level 25 mmol/L Anion Gap 9 Blood Urea Nitrogen 11 mg/dL Creatinine 0.6 mg/dL Estimated GFR (Cockcroft-Gault) 94.3 Glucose Level 78 mg/dL Calcium Level 8.3 mg/dL PE: GEN: NAD, son present LUNGS: CTAB HEART: RRR ABD: soft NEURO/PSYCH: A & O 3 A/P: 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 Justicifation of Admission Dx: Justifications for Admission: Justification of Admission Dx: Yes CHF: Hemodynamic Instability Comminuty Aquired Pneumonia: Dehydration Chronic Renal Failure: Intravenous Infusions Sepsis: Dehydration DAVID BURGOS Sep 30, 2019 12:24
--- NOTE | 2019-09-30 12:48 | PDOC ---
PROGRESS NOTES Date of Service: DATE: 09/30/19 TIME: 12:47 Chief Complaint Chief Complaint Acute blood loss anemia - likely 2/2 potential GI malignancy Right colon mass - plans for surgery Small bilateral pleural effusions Cholelilthiasis - Gallbladder contains a 1 cm stone at its neck Hyponatremia - will monitor Nephrolithiasis nonobstructive Adrenal mass History of Present Illness History of Present Illness 09/29,. pain OK, dry mouth, looks comfortable lefft hand swollen today, IV changed to the right, no event otherwsie surg yesterday will given venofer IV today, DELORES 09/28, hgb stable - in surg for colon resection, ostomy placement Mr Henson 89 y/o female with PMHc COPD, pulmonary fibrosis on home O2, HTN, Osteoporosis, depression, hypothyroidism, mild cognitive impairment who lives in Assisted Living in [place], [place] who was transferred from [facility] for evaluation of lower abdominal pain and low hemoglobin that was 5 outpatient, was noted to be 6.3 inpatient at [facility]. As she was tachycardic and symptomatic she was given 1 unit packed red blood cell transfusion and transferred to [facility] for further care as they do not have GI services [facility]. Labs upon arrival to [facility] after transfusion WBC 1.1, Hb 7.6, platelets 564, MCV 70, NA 132, K4, BUN 13, CR 0.8, glucose 70. She does c/o abdominal pain intermittently for 2 months. No previous EGD or colonoscopy. No cancer history in her mother father, her sister did have breast cancer and her brother has history of lymphoma non-H odgkin's type. No prostate or colon cancer history in her family but she does not know all of their history. CT abdomen reveals large ascending colonic mass without bowel obstruction showing findings suspicious for extracolonic tumoral spread. Additional findings include cholelithiasis, splenic calcifications, mild nodular fullness of left adrenal gland, mild right hydroureter and hydronephrosis w/ nonobstructing 2 mm right kidney stone. Finn Jared Vitals Vitals Vital Signs Date Time Temp Pulse Resp B/P (MAP) Pulse Ox O2 Delivery O2 Flow Rate FiO2 09/30/19 12:33 16 100 Nasal Cannula 2.0 09/30/19 10:37 98.4 98 181/71 (107) 98.4 Physical Exam General: Alert, Cooperative, No acute distress Heart: Regular rate, Normal S1, Normal S2 Lungs: Clear Abdomen: Soft, Other (ND, dressing dry) Extremities: No clubbing, No cyanosis Skin: No rashes, No breakdown Labs LABS Laboratory Tests Test 09/30/19 04:35 White Blood Count 17.3 x10^3/uL (4.0-11.0) Red Blood Count 3.30 x10^6/uL (3.50-5.40) Hemoglobin 8.2 g/dL (12.0-15.5) Hematocrit 26.6 % (36.0-47.0) Mean Corpuscular Volume 80 fL (79-100) Mean Corpuscular Hemoglobin 25 pg (25-35) Mean Corpuscular Hemoglobin Concent 31 g/dL (31-37) Red Cell Distribution Width 23.0 % (11.5-14.5) Platelet Count 489 x10^3/uL (140-400) Neutrophils (%) (Auto) 75 % (31-73) Lymphocytes (%) (Auto) 18 % (24-48) Monocytes (%) (Auto) 6 % (0-9) Eosinophils (%) (Auto) 0 % (0-3) Basophils (%) (Auto) 0 % (0-3) Neutrophils # (Auto) 13.0 x10^3/uL (1.8-7.7) Lymphocytes # (Auto) 3.1 x10^3/uL (1.0-4.8) Monocytes # (Auto) 1.1 x10^3/uL (0.0-1.1) Eosinophils # (Auto) 0.0 x10^3/uL (0.0-0.7) Basophils # (Auto) 0.1 x10^3/uL (0.0-0.2) Sodium Level 140 mmol/L (136-145) Potassium Level 4.2 mmol/L (3.5-5.1) Chloride Level 106 mmol/L (98-107) Carbon Dioxide Level 25 mmol/L (21-32) Anion Gap 9 (6-14) Blood Urea Nitrogen 11 mg/dL (7-20) Creatinine 0.6 mg/dL (0.6-1.0) Estimated GFR (Cockcroft-Gault) 94.3 Glucose Level 78 mg/dL (70-99) Calcium Level 8.3 mg/dL (8.5-10.1) Comment Review of Relevant I have reviewed the following items kun (where applicable) has been applied. Labs Laboratory Tests Test 09/29/19 05:00 09/30/19 04:35 White Blood Count 9.8 x10^3/uL (4.0-11.0) 17.3 x10^3/uL (4.0-11.0) Red Blood Count 2.99 x10^6/uL (3.50-5.40) 3.30 x10^6/uL (3.50-5.40) Hemoglobin 7.5 g/dL (12.0-15.5) 8.2 g/dL (12.0-15.5) Hematocrit 23.1 % (36.0-47.0) 26.6 % (36.0-47.0) Mean Corpuscular Volume 77 fL (79-100) 80 fL (79-100) Mean Corpuscular Hemoglobin 25 pg (25-35) 25 pg (25-35) Mean Corpuscular Hemoglobin Concent 32 g/dL (31-37) 31 g/dL (31-37) Red Cell Distribution Width 22.6 % (11.5-14.5) 23.0 % (11.5-14.5) Platelet Count 518 x10^3/uL (140-400) 489 x10^3/uL (140-400) Neutrophils (%) (Auto) 44 % (31-73) 75 % (31-73) Lymphocytes (%) (Auto) 50 % (24-48) 18 % (24-48) Monocytes (%) (Auto) 5 % (0-9) 6 % (0-9) Eosinophils (%) (Auto) 0 % (0-3) 0 % (0-3) Basophils (%) (Auto) 1 % (0-3) 0 % (0-3) Neutrophils # (Auto) 4.4 x10^3/uL (1.8-7.7) 13.0 x10^3/uL (1.8-7.7) Lymphocytes # (Auto) 4.9 x10^3/uL (1.0-4.8) 3.1 x10^3/uL (1.0-4.8) Monocytes # (Auto) 0.5 x10^3/uL (0.0-1.1) 1.1 x10^3/uL (0.0-1.1) Eosinophils # (Auto) 0.0 x10^3/uL (0.0-0.7) 0.0 x10^3/uL (0.0-0.7) Basophils # (Auto) 0.1 x10^3/uL (0.0-0.2) 0.1 x10^3/uL (0.0-0.2) Segmented Neutrophils % 70 % (35-66) Band Neutrophils % 2 % (0-9) Lymphocytes % 26 % (24-48) Monocytes % 1 % (0-10) Eosinophils % 1 % (0-5) Platelet Estimate Increased (ADEQUATE) Sodium Level 138 mmol/L (136-145) 140 mmol/L (136-145) Potassium Level 3.7 mmol/L (3.5-5.1) 4.2 mmol/L (3.5-5.1) Chloride Level 104 mmol/L (98-107) 106 mmol/L (98-107) Carbon Dioxide Level 27 mmol/L (21-32) 25 mmol/L (21-32) Anion Gap 7 (6-14) 9 (6-14) Blood Urea Nitrogen 6 mg/dL (7-20) 11 mg/dL (7-20) Creatinine 0.6 mg/dL (0.6-1.0) 0.6 mg/dL (0.6-1.0) Estimated GFR (Cockcroft-Gault) 94.3 94.3 Glucose Level 65 mg/dL (70-99) 78 mg/dL (70-99) Calcium Level 7.7 mg/dL (8.5-10.1) 8.3 mg/dL (8.5-10.1) Laboratory Tests Test 09/30/19 04:35 White Blood Count 17.3 x10^3/uL (4.0-11.0) Red Blood Count 3.30 x10^6/uL (3.50-5.40) Hemoglobin 8.2 g/dL (12.0-15.5) Hematocrit 26.6 % (36.0-47.0) Mean Corpuscular Volume 80 fL (79-100) Mean Corpuscular Hemoglobin 25 pg (25-35) Mean Corpuscular Hemoglobin Concent 31 g/dL (31-37) Red Cell Distribution Width 23.0 % (11.5-14.5) Platelet Count 489 x10^3/uL (140-400) Neutrophils (%) (Auto) 75 % (31-73) Lymphocytes (%) (Auto) 18 % (24-48) Monocytes (%) (Auto) 6 % (0-9) Eosinophils (%) (Auto) 0 % (0-3) Basophils (%) (Auto) 0 % (0-3) Neutrophils # (Auto) 13.0 x10^3/uL (1.8-7.7) Lymphocytes # (Auto) 3.1 x10^3/uL (1.0-4.8) Monocytes # (Auto) 1.1 x10^3/uL (0.0-1.1) Eosinophils # (Auto) 0.0 x10^3/uL (0.0-0.7) Basophils # (Auto) 0.1 x10^3/uL (0.0-0.2) Sodium Level 140 mmol/L (136-145) Potassium Level 4.2 mmol/L (3.5-5.1) Chloride Level 106 mmol/L (98-107) Carbon Dioxide Level 25 mmol/L (21-32) Anion Gap 9 (6-14) Blood Urea Nitrogen 11 mg/dL (7-20) Creatinine 0.6 mg/dL (0.6-1.0) Estimated GFR (Cockcroft-Gault) 94.3 Glucose Level 78 mg/dL (70-99) Calcium Level 8.3 mg/dL (8.5-10.1) Medications Current Medications Sodium Chloride (Normal Saline Flush) 3 ml QSHIFT PRN IV AFTER MEDS AND BLOOD DRAWS; Start 09/23/19 at 19:00 Sodium Chloride 1,000 ml @ 55 mls/hr [id number] IV Last administered on 09/30/19at 12:04; Start 09/23/19 at 18:55 Ondansetron HCl (Zofran) 4 mg PRN Q4HRS PRN IV NAUSEA/VOMITING; Start 09/23/19 at 19:00 Acetaminophen (Tylenol) 650 mg PRN Q4HRS PRN PO TEMP OVER 100.4F OR MILD PAIN Last administered on 09/26/19 20:10; Start 09/23/19 at 19:00 Docusate Sodium (Colace) 100 mg PRN BID PRN PO HARD STOOLS; Start 09/23/19 at 19:00 Albuterol Sulfate (Ventolin Neb Soln) 2.5 mg PRN Q4HRS PRN NEB SHORTNESS OF BREATH; Start 09/23/19 at 19:00 Guaifenesin (Robitussin) 200 mg PRN Q4HRS PRN PO COUGH; Start 09/23/19 at 19:00 Pantoprazole Sodium (PROTONIX VIAL for IV PUSH) 40 mg DAILYAC IVP Last administered on 09/25/19 09:18; Start 09/24/19 at 07:30; Stop 09/25/19 at 10:49; Status DC Vitamin D (Vitamin D3) 1,000 unit DAILY08 PO Last administered on 09/27/19 08:53; Start 09/24/19 at 08:00 Levothyroxine Sodium (Synthroid) 50 mcg DAILYAC PO Last administered on 09/27/19 08:54; Start 09/24/19 at 07:30 Losartan Potassium (Cozaar) 50 mg DAILY PO Last administered on 09/27/19 08:54; Start 09/24/19 at 09:00 Raloxifene HCl (Evista) 60 mg DAILY PO Last administered on 09/27/19 08:55; Start 09/24/19 at 09:00 Vitamin B Complex (Joseph B) 1 tab DAILY08 PO Last administered on 09/27/19 08:5 4; Start 09/24/19 at 08:00 Calcium/Vitamin D (Oscal D 500mg/ 200uts) 1 tab BIDWMEALS PO Last administered on 09/27/19 21:48; Start 09/24/19 at 08:00 Multivitamins (Thera M Plus) 1 tab DAILY PO Last administered on 09/27/19 08:54; Start 09/24/19 at 09:00 Fish Oil (Fish Oil) 1,000 mg DAILY PO Last administered on 8/10/20at 08:54; Start 09/24/19 at 09:00 Hydralazine HCl (Apresoline Inj) 10 mg PRN Q4HRS PRN IVP ELEVATED BP, SEE COMMENTS; Start 09/23/19 at 22:45 Iohexol (Omnipaque 240 Mg/ml) 30 ml 1X ONCE IV ; Start 09/24/19 at 09:30; Stop 09/24/19 at 09:31; Status Cancel Info (CONTRAST GIVEN -- Rx MONITORING) 1 each PRN DAILY PRN MC SEE COMMENTS; Start 09/24/19 at 09:30; Stop 09/26/19 at 09:29; Status Cancel Iohexol (Omnipaque 240 Mg/ml) 30 ml 1X ONCE PO Last administered on 09/24/19at 10:37; Start 09/24/19 at 10:30; Stop 09/24/19 at 10:35; Status DC Pantoprazole Sodium (Protonix) 40 mg DAILYAC PO Last administered on 09/27/19at 08:54; Start 09/26/19 at 07:30 Acetaminophen/ Hydrocodone Bitart (Lortab 5/325) 1 tab PRN Q4HRS PRN PO MODERATE PAIN Last administered on 09/27/19at 11:07; Start 09/27/19 at 10:45 Magnesium Citrate (Citroma) 296 ml 1X ONCE PO Last administered on 09/27/19at 15:22; Start 09/27/19 at 14:00; Stop 09/27/19 at 14:01; Status DC Polyethylene Glycol (miraLAX Powder BULK BOTTLE) 238 gm 1X ONCE PO Last administered on 09/27/19at 16:14; Start 09/27/19 at 16:00; Stop 09/27/19 at 16:01; Status DC Bisacodyl (Dulcolax Tab) 10 mg 1X ONCE PO Last administered on 09/27/19at 21:48; Start 09/27/19 at 16:00; Stop 09/27/19 at 16:01; Status DC Ringer's Solution 1,000 ml @ 30 mls/hr Q24H IV Last administered on 09/28/19at 10:56; Start 09/28/19 at 07:00; Stop 09/28/19 at 18:59; Status DC Prochlorperazine Edisylate (Compazine) 5 mg PACU PRN PRN IV NAUSEA, MRX1; Start 09/28/19 at 07:00; Stop 09/28/19 at 20:00; Status DC Ringer's Solution 1,000 ml @ 75 mls/hr 1X ONCE IV ; Start 09/28/19 at 08:00; Stop 09/28/19 at 21:19; Status DC Propofol (Diprivan) 200 mg STK-MED ONCE IV ; Start 09/28/19 at 11:51; Stop 09/17 03/08 at 11:51; Status DC Fentanyl Citrate (Fentanyl 2ml Vial) 25 mcg PRN Q5MIN PRN IV MILD PAIN 1-3; Start 09/29/19 at 07:00; Stop 09/30/19 at 06:59; Status DC Fentanyl Citrate (Fentanyl 2ml Vial) 50 mcg PRN Q5MIN PRN IV MODERATE TO SEVERE PAIN; Start 09/29/19 at 07:00; Stop 09/30/19 at 06:59; Status DC Morphine Sulfate (Morphine Sulfate) 1 mg PRN Q10MIN PRN IV SEVERE PAIN 7-10; Start 09/29/19 at 07:00; Stop 09/30/19 at 06:59; Status DC Ringer's Solution 1,000 ml @ 30 mls/hr Q24H IV ; Start 09/29/19 at 07:00; Stop 09/29/19 at 18:59; Status DC Hydromorphone HCl (Dilaudid) 0.5 mg PRN Q10MIN PRN IV SEV PAIN, Second choice; Start 09/29/19 at 07:00; Stop 09/30/19 at 06:59; Status DC Prochlorperazine Edisylate (Compazine) 5 mg PACU PRN PRN IV NAUSEA, MRX1; Start 09/29/19 at 07:00; Stop 09/30/19 at 06:59; Status DC Levofloxacin/ Dextrose 100 ml @ 100 mls/hr 1X PREOP PRN IV PRIOR TO PROCEDURE Last administered on 09/29/19at 11:57; Start 09/29/19 at 06:00; Stop 09/29/19 at 18:00; Status DC Metronidazole 100 ml @ 100 mls/hr 1X PREOP PRN IV PRIOR TO PROCEDURE Last administered on 09/29/19at 11:23; Start 09/29/19 at 06:00; Stop 09/29/19 at 18:00; Status DC Propofol (Diprivan) 200 mg STK-MED ONCE IV ; Start 09/29/19 at 08:40; Stop 09/29/19 at 08:40; Status DC Lidocaine HCl (Lidocaine Pf 2% Vial) 5 ml STK-MED ONCE .ROUTE ; Start 09/29/19 at 08:40; Stop 09/29/19 at 08:40; Status DC Etomidate (Amidate) 20 mg STK-MED ONCE IV ; Start 09/29/19 at 08:40; Stop 09/29/19 at 08:41; Status DC Dexamethasone Sodium Phosphate (Decadron) 4 mg STK-MED ONCE .ROUTE ; Start 09/29/19 at 08:40; Stop 09/29/19 at 08:41; Status DC Ondansetron HCl (Zofran) 4 mg STK-MED ONCE .ROUTE ; Start 09/29/19 at 08:40; Stop 09/29/19 at 08:41; Status DC Phenylephrine HCl (PHENYLEPHRINE in 0.9% NACL PF) 1 mg STK-MED ONCE IV ; Start 09/29/19 at 08:40; Stop 09/29/19 at 08:41; Status DC Ephedrine Sulfate (ePHEDrine PF IN SALINE SYRINGE) 50 mg STK-MED ONCE IV ; Start 09/29/19 at 08:40; Stop 09/29/19 at 08:41; Status DC Succinylcholine Chloride (Anectine) 200 mg STK-MED ONCE .ROUTE ; Start 09/29/19 at 08:41; Stop 09/29/19 at 08:41; Status DC Rocuronium [place] (Zemuron) 50 mg STK-MED ONCE .ROUTE ; Start 09/29/19 at 08:41; Stop 09/29/19 at 08:41; Status DC Fentanyl Citrate (Fentanyl 2ml Vial) 100 mcg STK-MED ONCE .ROUTE ; Start 09/29/19 at 08:41; Stop 09/29/19 at 08:42; Status DC Phenylephrine HCl (Cas-Synephrine Inj) 10 mg STK-MED ONCE .ROUTE ; Start 09/29/19 at 08:41; Stop 09/29/19 at 08:42; Status DC Hydromorphone HCl (Dilaudid) 2 mg STK-MED ONCE .ROUTE ; Start 09/29/19 at 12:03; Stop 09/29/19 at 12:03; Status DC Sevoflurane (Ultane) 90 ml STK-MED ONCE IH ; Start 09/29/19 at 13:04; Stop 09/29/19 at 13:04; Status DC Glycopyrrolate (Robinul) 1 mg STK-MED ONCE .ROUTE ; Start 09/29/19 at 13:23; Stop 09/29/19 at 13:23; Status DC Neostigmine [place] (Neostigmine Methylsulfate) 5 mg STK-MED ONCE .ROUTE ; Start 09/29/19 at 13:23; Stop 09/29/19 at 13:23; Status DC Hydromorphone HCl (Dilaudid) 0.2 mg PRN Q4HRS PRN IVP MODERATE PAIN Last administered on 09/30/19at 08:28; Start 09/29/19 at 14:00 Hydromorphone HCl (Dilaudid) 0.5 mg PRN Q4HRS PRN IVP SEVERE PAIN Last administered on 09/30/19at 12:03; Start 09/29/19 at 14:00 Active Scripts Active Reported Tylenol (Acetaminophen) 325 Mg Tablet 650 Mg PO Q4HRS PRN Macrodantin (Nitrofurantoin Macrocrystal) 50 Mg Capsule 1 Cap PO DAILY Evista (Raloxifene Hcl) 60 Mg Tablet 1 Tab PO DAILY Triamcinolone Acetonide 0.1% Oint (Triamcinolone Acetonide) 15 Gm Oint...g. 1 Gregg TP BID MIX WITH EUCERIN DIRECTED BY PHYSICIAN Ibuprofen 800 Mg Tablet 800 Mg PO PRN Q6HRS PRN B Complex (Vitamin B Complex) 1 Each Tablet 1 Each PO Russell 3 1,000 Mg Softgel (Russell-3 Fatty Acids/Fish Oil) 1 Each Capsule 1 Each PO Vitamin E (Vitamin E Acid Succinate) 100 Unit Tablet 100 Unit PO Lysine 500 Mg Tablet 500 Mg PO Vitamin D3 (Cholecalciferol (Vitamin D3)) 1,000 Unit Tablet 1,000 Unit PO Centrum Complete Multivit Tab (Multivitamin/Iron/Folic Acid) 1 Each Tablet 1 Each PO Caltrate 600 + D Tablet (Calcium Carbonate/Vitamin D3) 1 Each Tablet 1 Each PO Losartan Potassium 50 Mg Tablet 50 Mg PO DAILY Evista (Raloxifene Hcl) 60 Mg Tablet 60 Mg PO DAILY Hydrocodone-Apap 5-325 (Hydrocodone Bit/Acetaminophen) 1 Each Tablet 1-2 Tab PO Q4-6HRS Levothyroxine Sodium 50 Mcg Tablet 50 Mcg PO DAILYAC Vitals/I & O Vital Sign - Last 24 Hours 09/29/19 09/29/19 09/29/19 09/29/19 13:58 13:58 13:58 14:10 Temp 98.5 98.5 Pulse 98 Resp 17 B/P (MAP) 161/55 (90) 173/77 159/60 (93) Pulse Ox 100 O2 Delivery Mask Simple Mask O2 Flow Rate 10 10 09/29/19 09/29/19 09/29/19 09/29/19 14:10 14:25 14:36 14:40 Temp 98.2 98.2 Pulse 99 100 100 Resp 16 16 16 B/P (MAP) 158/69 170/68 156/68 Pulse Ox 100 100 94 O2 Delivery Simple Mask Simple Mask Nasal Cannula Nasal Cannula O2 Flow Rate 10 10 2 2 09/29/19 09/29/19 09/29/19 09/29/19 14:52 14:56 15:26 15:41 Pulse 100 98 104 98 B/P (MAP) 202/86 (124) 176/74 (108) 172/81 (111) 158/70 (99) Pulse Ox 99 97 98 O2 Delivery Nasal Cannula Nasal Cannula Nasal Cannula Nasal Cannula O2 Flow Rate 2.0 2.0 2.0 2.0 09/29/19 09/29/19 09/29/19 09/29/19 15:56 16:26 16:56 17:26 Pulse 98 98 116 100 Resp 16 B/P (MAP) 157/67 (97) 160/70 (100) 162/71 (101) 166/74 (104) Pulse Ox 94 100 100 100 O2 Delivery Nasal Cannula Nasal Cannula Nasal Cannula Nasal Cannula O2 Flow Rate 4.0 3.0 2.0 2.0 09/29/19 09/29/19 09/29/19 09/29/19 17:56 18:24 18:26 18:54 Pulse 98 104 B/P (MAP) 170/73 (105) 160/72 (101) Pulse Ox 100 2 100 O2 Delivery Nasal Cannula Nasal Cannula Nasal Cannula Nasal Cannula O2 Flow Rate 2.0 2.0 2.0 09/29/19 09/29/19 09/29/19 09/29/19 19:15 19:38 22:00 22:26 Temp 97.8 97.7 97.8 97.7 Pulse 102 104 Resp 16 18 16 B/P (MAP) 151/67 (95) 137/62 (87) Pulse Ox 100 100 100 O2 Delivery Nasal Cannula Nasal Cannula Nasal Cannula Nasal Cannula O2 Flow Rate 2.0 2.0 2.0 2.0 09/29/19 09/30/19 09/30/19 09/30/19 22:30 02:35 03:05 03:18 Temp 98.2 98.2 Pulse 100 Resp 18 20 18 16 B/P (MAP) 113/52 (72) Pulse Ox 100 100 100 100 O2 Delivery Nasal Cannula Nasal Cannula Nasal Cannula Nasal Cannula O2 Flow Rate 2.0 2.0 2.0 2.0 09/30/19 09/30/19 09/30/19 09/30/19 07:00 07:44 08:00 08:17 Temp 98.8 98.8 Pulse 101 101 Resp 16 B/P (MAP) 129/59 (82) 129/59 Pulse Ox 100 100 O2 Delivery Nasal Cannula Nasal Cannula Nasal Cannula O2 Flow Rate 2.0 2.0 2.0 09/30/19 09/30/19 09/30/19 09/30/19 08:28 08:58 10:37 12:03 Temp 98.4 98.4 Pulse 98 Resp 16 16 16 B/P (MAP) 181/71 (107) Pulse Ox 100 100 100 100 O2 Delivery Nasal Cannula Nasal Cannula Nasal Cannula Nasal Cannula O2 Flow Rate 2.0 2.0 2.0 2.0 09/30/19 12:33 Resp 16 Pulse Ox 100 O2 Delivery Nasal Cannula O2 Flow Rate 2.0 Intake and Output 09/29/19 09/29/19 09/30/19 15:00 23:00 07:00 Intake Total 1100 ml 0 ml 0 ml Output Total 200 ml 225 ml Balance 900 ml 0 ml -225 ml Nutrition Consultation Dietary Evaluation: Recommendations by RD: Dietary education by RD, Increase Calorie Intake, Protein supplementation Comments: Add Ensure Clear to dinner tray tonight. REC resume regular diet with chocolate Ensure as able p/s Expected Outcomes/Goals: PO intake to meet >75% est needs- goal met at times, goal on-going Malnutrition Findings: Food and Nutrition Intake (Sev: <50% est energy req 5days Body Fat Depletion (Non Severe: Mod to Severe Weight Status: Appropriate Justicifation of Admission Dx: Justifications for Admission: Justification of Admission Dx: Yes CHF: Hemodynamic Instability Comminuty Aquired Pneumonia: Dehydration Chronic Renal Failure: Intravenous Infusions Sepsis: Dehydration CUAUHTEMOC ANGEL MD Sep 30, 2019 12:48
[2019-09-30] MEDS ORDERED: SALIVA STIMULANT AGENT 44ML SPRAY BOTTLE. PO PRN (13:00)
[2019-09-30] MEDS: AMINO AC 3%/ELECTROLYTE/GLYCER 1,000 ML IV SCH (13:12)
[2019-09-30] MEDS ORDERED: IRON SUCROSE COMPLEX 200 MG in IV NORMAL SALINE 100ML 100 ML IV ONE (14:00)
[2019-09-30 14:34] VITALS: BP 140/63
--- NOTE | 2019-09-30 15:07 | PATHOLOGY ---
[facility] Accession Number: [id number] . 01 Material submitted: . hepatic flexure - BIOPSY HEPATIC FLEXURE MASS . 01 Clinical history: . Abnormal ct scan, anemia . 02 Diagnosis: Colon biopsies, hepatic flexure mass: - ADENOCARCINOMA, MODERATELY TO POORLY DIFFERENTIATED. SEE COMMENT. ([facility] 09/30/2019) [facility] 09/30/2019 1432 Local . 02 Comment: Sections of the hepatic flexure mass biopsy reveal a malignant epithelial neoplasm. One of the biopsy segments reveals crowded glands in addition to solid clusters and nests of malignant cells which infiltrate a reactive desmoplastic stroma. The malignant cells have eosinophilic cytoplasm, and possess enlarged rounded to ovoid moderately pleomorphic nuclei containing prominent nucleoli. There are scattered tumor cells which appear to contain intracytoplasmic mucin vacuoles. Mitotic figures are readily demonstrated. There are also segments of polyp showing mixed hyperplastic and adenomatous features. The findings are supportive of the diagnosis of a moderately to poorly differentiated colorectal adenocarcinoma. The case is also examined by Dr. Marie, who concurs with the diagnosis. ([facility] 09/30/2019) . 02 Electronically signed: . Kemal Vargas MD, Pathologist NPI- [id number] . 01 Gross description: . The specimen is received in formalin, labeled "Angela Henson, BX hepatic flexure mass" and consists of multiple friable fragments of lincoln tissue measuring 1.1 x 1.1 x 0.3 cm in aggregate which are entirely submitted in A1. ([facility]; 09/29/2019) SYU/SYU 09/29/2019 1149 Local . 02 Pathologist provided ICD-10: C18.3 . 02 CPT . 553201 Specimen Comment: A courtesy copy of this report has been sent to [phone] Specimen Comment: [id number], Specimen Comment: Report sent to ,DR DAVALOS / DR HALEY Performed at: [address] [id number] MD Manny Vallejo MD Phone: [phone] Performed at: 02 [facility] [address] [place], [place] [id number] MD Kemal Vargas MD Phone: [phone]
--- NOTE | 2019-09-30 16:20 | NUR ---
SS following up with discharge planning. PT/OT evaluated and recommended alf unit. SS spoke with pt and pt's son in room to discuss discharge planning and alf unit. Pt and pt's [facility], ; fax [phone]. SS phoned and faxed [facility] to [facility]. SS will continue to follow for discharge planning.
[2019-09-30 19:20] VITALS: BP 156/65
[2019-09-30 23:55] VITALS: BP 150/61
[2019-10-01] VITALS (10 sets, daily range): BP systolic 130–149; BP diastolic 60–71
[2019-10-01] MEDS: AMINO AC 3%/ELECTROLYTE/GLYCER 1,000 ML IV SCH ×2 (02:22→17:48)
[2019-10-01] MEDS: HYDROmorphone 2 MG/ML VIAL IVP PRN (02:36)
[2019-10-01 05:44] LABS: BASO % 0 % (0-3); EOS % 0 % (0-3); HEMATOCRIT 21.6 % (36.0-47.0); LYMPH # 2.1 x10^3/uL (1.0-4.8); LYMPH % 18 % (24-48); MEAN CORPUSCULAR HEMOGLOBIN 25 pg (25-35); MEAN CORPUSCULAR HGB CONC 32 g/dL (31-37); MEAN CORPUSCULAR VOLUME 78 fL (79-100); MONO # 0.9 x10^3/uL (0.0-1.1); MONO % 8 % (0-9); NEUT # 8.4 x10^3/uL (1.8-7.7); NEUT % 74 % (31-73); PLATELET COUNT 432 x10^3/uL (140-400); RED BLOOD COUNT 2.78 x10^6/uL (3.50-5.40); RED CELL DISTRIBUTION WIDTH 23.1 % (11.5-14.5); WHITE BLOOD COUNT 11.5 x10^3/uL (4.0-11.0)
[2019-10-01 05:48] LABS: CALCIUM 8.2 mg/dL (8.5-10.1); CREATININE 0.6 mg/dL (0.6-1.0); GFR 94.3
[2019-10-01 06:22] LABS: HEMOGLOBIN 6.9 g/dL (12.0-15.5)
[2019-10-01] MEDS: LEVOTHYROXINE 50 MCG TABLET PO SCH (07:30)
[2019-10-01] MEDS: PANTOPRAZOLE 40 MG TABLET.DR. PO SCH (07:30)
[2019-10-01] MEDS: CALCIUM CARB/VIT D3 500/200 TABLET. PO SCH ×2 (08:00→17:00)
[2019-10-01] MEDS: VITAMIN B COMPLEX TABLET. PO SCH (08:00)
[2019-10-01] MEDS: CHOLECALCIFEROL (VITAMIN D3) 1,000 UNIT TABLET PO SCH (08:00)
[2019-10-01] MEDS: OMEGA-3 FATTY ACIDS/FISH OIL 1,000 MG CAPSULE. PO SCH (09:00)
[2019-10-01] MEDS: LOSARTAN POTASSIUM 50 MG TABLET. PO SCH (09:00)
[2019-10-01] MEDS: RALOXIFENE 60 MG TABLET. PO SCH (09:00)
[2019-10-01] MEDS: MULTIVITAMIN with MINERAL TABLET. PO SCH (09:00)
--- NOTE | 2019-10-01 10:59 | PDOC ---
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 10/01/19 1059: SURGICAL PROGRESS NOTE DATE: 10/01/19 TIME: 10:56 Subjective up in chair no flatus family present Vital Signs Vital Signs Date Time Temp Pulse Resp B/P (MAP) Pulse Ox O2 Delivery O2 Flow Rate FiO2 10/01/19 10:35 98.4 99 20 140/65 98.4 10/01/19 08:00 Nasal Cannula 2.0 10/01/19 07:00 97 I&O Intake and Output 10/01/19 07:00 Intake Total 0 ml Output Total 550 ml Balance -550 ml Intake Oral 0 ml Output Urine Total 550 ml PATIENT HAS A GELLER: Yes (dc today) General: Alert, Cooperative Abdomen: Soft, Other (dressing dry) Labs Laboratory Tests Test 09/30/19 04:35 10/01/19 05:00 White Blood Count 17.3 x10^3/uL (4.0-11.0) 11.5 x10^3/uL (4.0-11.0) Red Blood Count 3.30 x10^6/uL (3.50-5.40) 2.78 x10^6/uL (3.50-5.40) Hemoglobin 8.2 g/dL (12.0-15.5) 6.9 g/dL (12.0-15.5) Hematocrit 26.6 % (36.0-47.0) 21.6 % (36.0-47.0) Mean Corpuscular Volume 80 fL (79-100) 78 fL (79-100) Mean Corpuscular Hemoglobin 25 pg (25-35) 25 pg (25-35) Mean Corpuscular Hemoglobin Concent 31 g/dL (31-37) 32 g/dL (31-37) Red Cell Distribution Width 23.0 % (11.5-14.5) 23.1 % (11.5-14.5) Platelet Count 489 x10^3/uL (140-400) 432 x10^3/uL (140-400) Neutrophils (%) (Auto) 75 % (31-73) 74 % (31-73) Lymphocytes (%) (Auto) 18 % (24-48) 18 % (24-48) Monocytes (%) (Auto) 6 % (0-9) 8 % (0-9) Eosinophils (%) (Auto) 0 % (0-3) 0 % (0-3) Basophils (%) (Auto) 0 % (0-3) 0 % (0-3) Neutrophils # (Auto) 13.0 x10^3/uL (1.8-7.7) 8.4 x10^3/uL (1.8-7.7) Lymphocytes # (Auto) 3.1 x10^3/uL (1.0-4.8) 2.1 x10^3/uL (1.0-4.8) Monocytes # (Auto) 1.1 x10^3/uL (0.0-1.1) 0.9 x10^3/uL (0.0-1.1) Eosinophils # (Auto) 0.0 x10^3/uL (0.0-0.7) 0.0 x10^3/uL (0.0-0.7) Basophils # (Auto) 0.1 x10^3/uL (0.0-0.2) 0.0 x10^3/uL (0.0-0.2) Sodium Level 140 mmol/L (136-145) 138 mmol/L (136-145) Potassium Level 4.2 mmol/L (3.5-5.1) 4.0 mmol/L (3.5-5.1) Chloride Level 106 mmol/L (98-107) 105 mmol/L (98-107) Carbon Dioxide Level 25 mmol/L (21-32) 30 mmol/L (21-32) Anion Gap 9 (6-14) 3 (6-14) Blood Urea Nitrogen 11 mg/dL (7-20) 16 mg/dL (7-20) Creatinine 0.6 mg/dL (0.6-1.0) 0.6 mg/dL (0.6-1.0) Estimated GFR (Cockcroft-Gault) 94.3 94.3 Glucose Level 78 mg/dL (70-99) 113 mg/dL (70-99) Calcium Level 8.3 mg/dL (8.5-10.1) 8.2 mg/dL (8.5-10.1) Magnesium Level 1.8 mg/dL (1.8-2.4) Laboratory Tests Test 10/01/19 05:00 White Blood Count 11.5 x10^3/uL (4.0-11.0) Red Blood Count 2.78 x10^6/uL (3.50-5.40) Hemoglobin 6.9 g/dL (12.0-15.5) Hematocrit 21.6 % (36.0-47.0) Mean Corpuscular Volume 78 fL (79-100) Mean Corpuscular Hemoglobin 25 pg (25-35) Mean Corpuscular Hemoglobin Concent 32 g/dL (31-37) Red Cell Distribution Width 23.1 % (11.5-14.5) Platelet Count 432 x10^3/uL (140-400) Neutrophils (%) (Auto) 74 % (31-73) Lymphocytes (%) (Auto) 18 % (24-48) Monocytes (%) (Auto) 8 % (0-9) Eosinophils (%) (Auto) 0 % (0-3) Basophils (%) (Auto) 0 % (0-3) Neutrophils # (Auto) 8.4 x10^3/uL (1.8-7.7) Lymphocytes # (Auto) 2.1 x10^3/uL (1.0-4.8) Monocytes # (Auto) 0.9 x10^3/uL (0.0-1.1) Eosinophils # (Auto) 0.0 x10^3/uL (0.0-0.7) Basophils # (Auto) 0.0 x10^3/uL (0.0-0.2) Sodium Level 138 mmol/L (136-145) Potassium Level 4.0 mmol/L (3.5-5.1) Chloride Level 105 mmol/L (98-107) Carbon Dioxide Level 30 mmol/L (21-32) Anion Gap 3 (6-14) Blood Urea Nitrogen 16 mg/dL (7-20) Creatinine 0.6 mg/dL (0.6-1.0) Estimated GFR (Cockcroft-Gault) 94.3 Glucose Level 113 mg/dL (70-99) Calcium Level 8.2 mg/dL (8.5-10.1) Assessment/Plan s/p right colon await bowel function 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
--- NOTE | 2019-10-01 11:39 | NUR ---
SS following up with discharge planning. SS reviewed pt chart and discussed with pt RN. Pt accepted at [facility] for skilled rehabilitation. Pt having blood transfusion today for low hemoglobin. Pt needs to have bowel movement. Pt continuing NPO per surgery. [facility] notified. SS will continue to follow for discharge planning.
[2019-10-01 11:57] LABS: ART BE ISTAT -3 mmol/L (0-3); ART GLUC ISTAT 91 mg/dL (70-99); ART HCO3 ISTAT 23 mmol/L (21-28); ART HCT ISTAT 28 % (36-40); ART HGB ISTAT 9.5 g/dL (12-15); ART ION CA ISTAT 1.22 mmol/L (1.13-1.32); ART K ISTAT 3.4 mmol/L (3.5-5.0); ART NA ISTAT 137 mmol/L (135-145); ART PCO2 ISTAT 43 mmHg (35-45); ART PH ISTAT 7.33 (7.35-7.45); ART PO2 ISTAT 201 mmHg (75-100); ART SAT O2 SAT 100 % (95-99); ART TCO2 ISTAT 24 mmol/L (21-32); CORRECTED PCO2 41 mmHg; CORRECTED PH 7.35; CORRECTED PO2 196 mmHg
--- NOTE | 2019-10-01 12:36 | PDOC ---
Date of Service: DATE: 10/01/19 TIME: 12:34 Objective: Objective: No gas/stool per nurse. Vital Signs: Vital Signs Date Time Temp Pulse Resp B/P (MAP) Pulse Ox O2 Delivery O2 Flow Rate FiO2 10/01/19 12:28 98.2 100 18 146/68 98.2 10/01/19 11:08 95 Nasal Cannula 2.0 Labs: Laboratory Tests Test 10/01/19 05:00 White Blood Count 11.5 x10^3/uL Red Blood Count 2.78 x10^6/uL Hemoglobin 6.9 g/dL Hematocrit 21.6 % Mean Corpuscular Volume 78 fL Mean Corpuscular Hemoglobin 25 pg Mean Corpuscular Hemoglobin Concent 32 g/dL Red Cell Distribution Width 23.1 % Platelet Count 432 x10^3/uL Neutrophils (%) (Auto) 74 % Lymphocytes (%) (Auto) 18 % Monocytes (%) (Auto) 8 % Eosinophils (%) (Auto) 0 % Basophils (%) (Auto) 0 % Neutrophils # (Auto) 8.4 x10^3/uL Lymphocytes # (Auto) 2.1 x10^3/uL Monocytes # (Auto) 0.9 x10^3/uL Eosinophils # (Auto) 0.0 x10^3/uL Basophils # (Auto) 0.0 x10^3/uL Sodium Level 138 mmol/L Potassium Level 4.0 mmol/L Chloride Level 105 mmol/L Carbon Dioxide Level 30 mmol/L Anion Gap 3 Blood Urea Nitrogen 16 mg/dL Creatinine 0.6 mg/dL Estimated GFR (Cockcroft-Gault) 94.3 Glucose Level 113 mg/dL Calcium Level 8.2 mg/dL Material submitted: . hepatic flexure - BIOPSY HEPATIC FLEXURE MASS Clinical history: . Abnormal ct scan, anemia Diagnosis: Colon biopsies, hepatic flexure mass: - ADENOCARCINOMA, MODERATELY TO POORLY DIFFERENTIATED. SEE COMMENT. Comment: Sections of the hepatic flexure mass biopsy reveal a malignant epithelial neoplasm. One of the biopsy segments reveals crowded glands in addition to solid clusters and nests of malignant cells which infiltrate a reactive desmo plastic stroma. The malignant cells have eosinophilic cytoplasm, and possess enlarged rounded to ovoid moderately pleomorphic nuclei containing prominent nucleoli. There are scattered tumor cells which appear to contain intracytoplasmic mucin vacuoles. Mitotic figures are readily demonstrated. There are also segments of polyp showing mixed hyperplastic and adenomatous features. The findings are supportive of the diagnosis of a moderately to poorly differentiated colorectal adenocarcinoma. The case is also examined by Dr. Marie, who concurs with the diagnosis. PE: GEN: NAD - in recliner, transfusion in process NEURO/PSYCH: asleep A/P: Right colon tumor (adenocarcinoma) s/p right colon resection DELORES -- Continue per surgery. Justicifation of Admission Dx: Justifications for Admission: Justification of Admission Dx: Yes CHF: Hemodynamic Instability Comminuty Aquired Pneumonia: Dehydration Chronic Renal Failure: Intravenous Infusions Sepsis: Dehydration DAVID BURGOS Oct 01, 2019 12:36
--- NOTE | 2019-10-01 13:39 | PDOC ---
PROGRESS NOTES Date of Service: DATE: 10/01/19 TIME: 13:37 Chief Complaint Chief Complaint Acute blood loss anemia - likely 2/2 potential GI malignancy Right colon mass - plans for surgery Small bilateral pleural effusions Cholelilthiasis - Gallbladder contains a 1 cm stone at its neck Hyponatremia - will monitor Nephrolithiasis nonobstructive Adrenal mass History of Present Illness History of Present Illness 09/30. back is sore from the bed pain OK, no flatus yet, her son is here and has been very helpful with her care, cont current 09/29,. pain OK, dry mouth, looks comfortable lefft hand swollen today, IV changed to the right, no event otherwsie surg yesterday will given venofer IV today, DELORES 09/28, hgb stable - in surg for colon resection, ostomy placement Mr Henson 89 y/o female with PMHc COPD, pulmonary fibrosis on home O2, HTN, Osteoporosis, depression, hypothyroidism, mild cognitive impairment who lives in Assisted Living in [place], [place] who was transferred from [facility] for evaluation of lower abdominal pain and low hemoglobin No previous EGD or colonoscopy. No cancer history in her mother father, her sister did have breast cancer and her brother has history of lymphoma non- Hodgkin's type. No prostate or colon cancer history in her family but she does not know all of their history. CT abdomen reveals large ascending colonic mass without bowel obstruction showing findings suspicious for extracolonic tumoral spread. Additional findings include cholelithiasis, splenic calcifications, mild nodular fullness of left adrenal gland, mild right hydroureter and hydronephrosis w/ nonobstructing 2 mm right kidney stone. Vitals Vitals Vital Signs Date Time Temp Pulse Resp B/P (MAP) Pulse Ox O2 Delivery O2 Flow Rate FiO2 10/01/19 12:28 98.2 100 18 146/68 98.2 10/01/19 11:08 95 Nasal Cannula 2.0 Physical Exam General: Alert, Cooperative Heart: Regular rate, Normal S1, Normal S2 Lungs: Clear Abdomen: Soft, Other (dressing dry) Extremities: No clubbing, No cyanosis Skin: No rashes, No breakdown Labs LABS Laboratory Tests Test 10/01/19 05:00 White Blood Count 11.5 x10^3/uL (4.0-11.0) Red Blood Count 2.78 x10^6/uL (3.50-5.40) Hemoglobin 6.9 g/dL (12.0-15.5) Hematocrit 21.6 % (36.0-47.0) Mean Corpuscular Volume 78 fL (79-100) Mean Corpuscular Hemoglobin 25 pg (25-35) Mean Corpuscular Hemoglobin Concent 32 g/dL (31-37) Red Cell Distribution Width 23.1 % (11.5-14.5) Platelet Count 432 x10^3/uL (140-400) Neutrophils (%) (Auto) 74 % (31-73) Lymphocytes (%) (Auto) 18 % (24-48) Monocytes (%) (Auto) 8 % (0-9) Eosinophils (%) (Auto) 0 % (0-3) Basophils (%) (Auto) 0 % (0-3) Neutrophils # (Auto) 8.4 x10^3/uL (1.8-7.7) Lymphocytes # (Auto) 2.1 x10^3/uL (1.0-4.8) Monocytes # (Auto) 0.9 x10^3/uL (0.0-1.1) Eosinophils # (Auto) 0.0 x10^3/uL (0.0-0.7) Basophils # (Auto) 0.0 x10^3/uL (0.0-0.2) Sodium Level 138 mmol/L (136-145) Potassium Level 4.0 mmol/L (3.5-5.1) Chloride Level 105 mmol/L (98-107) Carbon Dioxide Level 30 mmol/L (21-32) Anion Gap 3 (6-14) Blood Urea Nitrogen 16 mg/dL (7-20) Creatinine 0.6 mg/dL (0.6-1.0) Estimated GFR (Cockcroft-Gault) 94.3 Glucose Level 113 mg/dL (70-99) Calcium Level 8.2 mg/dL (8.5-10.1) Comment Review of Relevant I have reviewed the following items kun (where applicable) has been applied. Labs Laboratory Tests Test 09/30/19 04:35 10/01/19 05:00 White Blood Count 17.3 x10^3/uL (4.0-11.0) 11.5 x10^3/uL (4.0-11.0) Red Blood Count 3.30 x10^6/uL (3.50-5.40) 2.78 x10^6/uL (3.50-5.40) Hemoglobin 8.2 g/dL (12.0-15.5) 6.9 g/dL (12.0-15.5) Hematocrit 26.6 % (36.0-47.0) 21.6 % (36.0-47.0) Mean Corpuscular Volume 80 fL (79-100) 78 fL (79-100) Mean Corpuscular Hemoglobin 25 pg (25-35) 25 pg (25-35) Mean Corpuscular Hemoglobin Concent 31 g/dL (31-37) 32 g/dL (31-37) Red Cell Distribution Width 23.0 % (11.5-14.5) 23.1 % (11.5-14.5) Platelet Count 489 x10^3/uL (140-400) 432 x10^3/uL (140-400) Neutrophils (%) (Auto) 75 % (31-73) 74 % (31-73) Lymphocytes (%) (Auto) 18 % (24-48) 18 % (24-48) Monocytes (%) (Auto) 6 % (0-9) 8 % (0-9) Eosinophils (%) (Auto) 0 % (0-3) 0 % (0-3) Basophils (%) (Auto) 0 % (0-3) 0 % (0-3) Neutrophils # (Auto) 13.0 x10^3/uL (1.8-7.7) 8.4 x10^3/uL (1.8-7.7) Lymphocytes # (Auto) 3.1 x10^3/uL (1.0-4.8) 2.1 x10^3/uL (1.0-4.8) Monocytes # (Auto) 1.1 x10^3/uL (0.0-1.1) 0.9 x10^3/uL (0.0-1.1) Eosinophils # (Auto) 0.0 x10^3/uL (0.0-0.7) 0.0 x10^3/uL (0.0-0.7) Basophils # (Auto) 0.1 x10^3/uL (0.0-0.2) 0.0 x10^3/uL (0.0-0.2) Sodium Level 140 mmol/L (136-145) 138 mmol/L (136-145) Potassium Level 4.2 mmol/L (3.5-5.1) 4.0 mmol/L (3.5-5.1) Chloride Level 106 mmol/L (98-107) 105 mmol/L (98-107) Carbon Dioxide Level 25 mmol/L (21-32) 30 mmol/L (21-32) Anion Gap 9 (6-14) 3 (6-14) Blood Urea Nitrogen 11 mg/dL (7-20) 16 mg/dL (7-20) Creatinine 0.6 mg/dL (0.6-1.0) 0.6 mg/dL (0.6-1.0) Estimated GFR (Cockcroft-Gault) 94.3 94.3 Glucose Level 78 mg/dL (70-99) 113 mg/dL (70-99) Calcium Level 8.3 mg/dL (8.5-10.1) 8.2 mg/dL (8.5-10.1) Magnesium Level 1.8 mg/dL (1.8-2.4) Laboratory Tests Test 10/01/19 05:00 White Blood Count 11.5 x10^3/uL (4.0-11.0) Red Blood Count 2.78 x10^6/uL (3.50-5.40) Hemoglobin 6.9 g/dL (12.0-15.5) Hematocrit 21.6 % (36.0-47.0) Mean Corpuscular Volume 78 fL (79-100) Mean Corpuscular Hemoglobin 25 pg (25-35) Mean Corpuscular Hemoglobin Concent 32 g/dL (31-37) Red Cell Distribution Width 23.1 % (11.5-14.5) Platelet Count 432 x10^3/uL (140-400) Neutrophils (%) (Auto) 74 % (31-73) Lymphocytes (%) (Auto) 18 % (24-48) Monocytes (%) (Auto) 8 % (0-9) Eosinophils (%) (Auto) 0 % (0-3) Basophils (%) (Auto) 0 % (0-3) Neutrophils # (Auto) 8.4 x10^3/uL (1.8-7.7) Lymphocytes # (Auto) 2.1 x10^3/uL (1.0-4.8) Monocytes # (Auto) 0.9 x10^3/uL (0.0-1.1) Eosinophils # (Auto) 0.0 x10^3/uL (0.0-0.7) Basophils # (Auto) 0.0 x10^3/uL (0.0-0.2) Sodium Level 138 mmol/L (136-145) Potassium Level 4.0 mmol/L (3.5-5.1) Chloride Level 105 mmol/L (98-107) Carbon Dioxide Level 30 mmol/L (21-32) Anion Gap 3 (6-14) Blood Urea Nitrogen 16 mg/dL (7-20) Creatinine 0.6 mg/dL (0.6-1.0) Estimated GFR (Cockcroft-Gault) 94.3 Glucose Level 113 mg/dL (70-99) Calcium Level 8.2 mg/dL (8.5-10.1) Medications Current Medications Sodium Chloride (Normal Saline Flush) 3 ml QSHIFT PRN IV AFTER MEDS AND BLOOD DRAWS; Start 09/23/19 at 19:00 Sodium Chloride 1,000 ml @ 55 mls/hr [id number] IV Last administered on 09/30/19at 12:04; Start 09/23/19 at 18:55; Stop 09/30/19 at 12:44; Status DC Ondansetron HCl (Zofran) 4 mg PRN Q4HRS PRN IV NAUSEA/VOMITING; Start 09/23/19 at 19:00 Acetaminophen (Tylenol) 650 mg PRN Q4HRS PRN PO TEMP OVER 100.4F OR MILD PAIN Last administered on 09/26/19at 20:10; Start 09/23/19 at 19:00 Docusate Sodium (Colace) 100 mg PRN BID PRN PO HARD STOOLS; Start 09/23/19 at 19:00 Albuterol Sulfate (Ventolin Neb Soln) 2.5 mg PRN Q4HRS PRN NEB SHORTNESS OF BREATH; Start 09/23/19 at 19:00 Guaifenesin (Robitussin) 200 mg PRN Q4HRS PRN PO COUGH; Start 09/23/19 at 19:00 Pantoprazole Sodium (PROTONIX VIAL for IV PUSH) 40 mg DAILYAC IVP Last administered on 09/25/19 09:18; Start 09/24/19 at 07:30; Stop 09/25/19 at 10:49; Status DC Vitamin D (Vitamin D3) 1,000 unit DAILY08 PO Last administered on 09/27/19 08:53; Start 09/24/19 at 08:00 Levothyroxine Sodium (Synthroid) 50 mcg DAILYAC PO Last administered on 09/27/19 08:54; Start 09/24/19 at 07:30 Losartan Potassium (Cozaar) 50 mg DAILY PO Last administered on 09/27/19 08:54; Start 09/24/19 at 09:00 Raloxifene HCl (Evista) 60 mg DAILY PO Last administered on 09/27/19 08:55; Start 09/24/19 at 09:00 Vitamin B Complex (Joseph B) 1 tab DAILY08 PO Last administered on 09/27/19 08:54; Start 09/24/19 at 08:00 Calcium/Vitamin D (Oscal D 500mg/ 200uts) 1 tab BIDWMEALS PO Last administered on 09/27/19 21:48; Start 09/24/19 at 08:00 Multivitamins (Thera M Plus) 1 tab DAILY PO Last administered on 09/27/19 08:54; Start 09/24/19 at 09:00 Fish Oil (Fish Oil) 1,000 mg DAILY PO Last administered on 09/27/19 08:54; Start 09/24/19 at 09:00 Hydralazine HCl (Apresoline Inj) 10 mg PRN Q4HRS PRN IVP ELEVATED BP, SEE COMMENTS; Start 09/23/19 at 22:45 Iohexol (Omnipaque 240 Mg/ml) 30 ml 1X ONCE IV ; Start 09/24/19 at 09:30; Stop 09/24/19 at 09:31; Status Cancel Info (CONTRAST GIVEN -- Rx MONITORING) 1 each PRN DAILY PRN MC SEE COMMENTS; Start 09/24/19 at 09:30; Stop 09/26/19 at 09:29; Status Cancel Iohexol (Omnipaque 240 Mg/ml) 30 ml 1X ONCE PO Last administered on 09/24/19at 10:37; Start 09/24/19 at 10:30; Stop 09/24/19 at 10:35; Status DC Pantoprazole Sodium (Protonix) 40 mg DAILYAC PO Last administered on 09/27/19at 08:54; Start 09/26/19 at 07:30 Acetaminophen/ Hydrocodone Bitart (Lortab 5/325) 1 tab PRN Q4HRS PRN PO MO DERATE PAIN Last administered on 09/27/19at 11:07; Start 09/27/19 at 10:45 Magnesium Citrate (Citroma) 296 ml 1X ONCE PO Last administered on 09/27/19at 15:22; Start 09/27/19 at 14:00; Stop 09/27/19 at 14:01; Status DC Polyethylene Glycol (miraLAX Powder BULK BOTTLE) 238 gm 1X ONCE PO Last administered on 09/27/19at 16:14; Start 09/27/19 at 16:00; Stop 09/27/19 at 16:01; Status DC Bisacodyl (Dulcolax Tab) 10 mg 1X ONCE PO Last administered on 09/27/19at 21:48; Start 09/27/19 at 16:00; Stop 09/27/19 at 16:01; Status DC Ringer's Solution 1,000 ml @ 30 mls/hr Q24H IV Last administered on 09/28/19at 10:56; Start 09/28/19 at 07:00; Stop 09/28/19 at 18:59; Status DC Prochlorperazine Edisylate (Compazine) 5 mg PACU PRN PRN IV NAUSEA, MRX1; Start 09/28/19 at 07:00; Stop 09/28/19 at 20:00; Status DC Ringer's Solution 1,000 ml @ 75 mls/hr 1X ONCE IV ; Start 09/28/19 at 08:00; Stop 09/28/19 at 21:19; Status DC Propofol (Diprivan) 200 mg STK-MED ONCE IV ; Start 09/28/19 at 11:51; Stop 09/28/19 at 11:51; Status DC Fentanyl Citrate (Fentanyl 2ml Vial) 25 mcg PRN Q5MIN PRN IV MILD PAIN 1-3; Start 09/29/19 at 07:00; Stop 09/30/19 at 06:59; Status DC Fentanyl Citrate (Fentanyl 2ml Vial) 50 mcg PRN Q5MIN PRN IV MODERATE TO SEVERE PAIN; Start 09/29/19 at 07:00; Stop 09/30/19 at 06:59; Status DC Morphine Sulfate (Morphine Sulfate) 1 mg PRN Q10MIN PRN IV SEVERE PAIN 7-10; Start 09/29/19 at 07:00; Stop 09/30/19 at 06:59; Status DC Ringer's Solution 1,000 ml @ 30 mls/hr Q24H IV ; Start 09/29/19 at 07:00; Stop 09/29/19 at 18:59; Status DC Hydromorphone HCl (Dilaudid) 0.5 mg PRN Q10MIN PRN IV SEV PAIN, Second choice; Start 09/29/19 at 07:00; Stop 09/30/19 at 06:59; Status DC Prochlorperazine Edisylate (Compazine) 5 mg PACU PRN PRN IV NAUSEA, MRX1; Start 09/29/19 at 07:00; Stop 09/30/19 at 06:59; Status DC Levofloxacin/ Dextrose 100 ml @ 100 mls/hr 1X PREOP PRN IV PRIOR TO PROCEDURE Last administered on 09/29/19at 11:57; Start 09/29/19 at 06:00; Stop 09/29/19 at 18:00; Status DC Metronidazole 100 ml @ 100 mls/hr 1X PREOP PRN IV PRIOR TO PROCEDURE Last administered on 09/29/19at 11:23; Start 09/29/19 at 06:00; Stop 09/29/19 at 18:00; Status DC Propofol (Diprivan) 200 mg STK-MED ONCE IV ; Start 09/29/19 at 08:40; Stop 09/29/19 at 08:40; Status DC Lidocaine HCl (Lidocaine Pf 2% Vial) 5 ml STK-MED ONCE .ROUTE ; Start 09/29/19 at 08:40; Stop 09/29/19 at 08:40; Status DC Etomidate (Amidate) 20 mg STK-MED ONCE IV ; Start 09/29/19 at 08:40; Stop 09/29/19 at 08:41; Status DC Dexamethasone Sodium Phosphate (Decadron) 4 mg STK-MED ONCE .ROUTE ; Start 09/29/19 at 08:40; Stop 09/29/19 at 08:41; Status DC Ondansetron HCl (Zofran) 4 mg STK-MED ONCE .ROUTE ; Start 09/29/19 at 08:40; Stop 09/29/19 at 08:41; Status DC Phenylephrine HCl (PHENYLEPHRINE in 0.9% NACL PF) 1 mg STK-MED ONCE IV ; Start 09/29/19 at 08:40; Stop 09/29/19 at 08:41; Status DC Ephedrine Sulfate (ePHEDrine PF IN SALINE SYRINGE) 50 mg STK-MED ONCE IV ; Start 09/29/19 at 08:40; Stop 09/29/19 at 08:41; Status DC Succinylcholine Chloride (Anectine) 200 mg STK-MED ONCE .ROUTE ; Start 09/29/19 at 08:41; Stop 09/29/19 at 08:41; Status DC Rocuronium [place] (Zemuron) 50 mg STK-MED ONCE .ROUTE ; Start 09/29/19 at 08:41; Stop 09/29/19 at 08:41; Status DC Fentanyl Citrate (Fentanyl 2ml Vial) 100 mcg STK-MED ONCE .ROUTE ; Start 09/29/19 at 08:41; Stop 09/29/19 at 08:42; Status DC Phenylephrine HCl (Cas-Synephrine Inj) 10 mg STK-MED ONCE .ROUTE ; Start 09/29/19 at 08:41; Stop 09/29/19 at 08:42; Status DC Hydromorphone HCl (Dilaudid) 2 mg STK-MED ONCE .ROUTE ; Start 09/29/19 at 12:03; Stop 09/29/19 at 12:03; Status DC Sevoflurane (Ultane) 90 ml STK-MED ONCE IH ; Start 09/29/19 at 13:04; Stop 09/29/19 at 13:04; Status DC Glycopyrrolate (Robinul) 1 mg STK-MED ONCE .ROUTE ; Start 09/29/19 at 13:23; Stop 09/29/19 at 13:23; Status DC Neostigmine [place] (Neostigmine Methylsulfate) 5 mg STK-MED ONCE .ROUTE ; Start 09/29/19 at 13:23; Stop 09/29/19 at 13:23; Status DC Hydromorphone HCl (Dilaudid) 0.2 mg PRN Q4HRS PRN IVP MODERATE PAIN Last administered on 09/30/19at 08:28; Start 09/29/19 at 14:00 Hydromorphone HCl (Dilaudid) 0.5 mg PRN Q4HRS PRN IVP SEVERE PAIN Last administered on 10/01/19at 02:36; Start 09/29/19 at 14:00 Iron Sucrose 200 mg/Sodium Chloride 110 ml @ 55 mls/hr 1X ONCE IV Last administered on 09/30/19at 14:21; Start 09/30/19 at 14:00; Stop 09/30/19 at 15:59; Status DC Amino Acids/ Glycerin/ Electrolytes 1,000 ml @ 80 mls/hr [id number] IV Last administered on 10/01/19at 02:22; Start 09/30/19 at 12:45 Saliva Substitute (Biotene Moisturizing Mouth) 2 spray PRN Q15MIN PRN PO DRY MOUTH; Start 09/30/19 at 13:00 Active Scripts Active Reported Tylenol (Acetaminophen) 325 Mg Tablet 650 Mg PO Q4HRS PRN Macrodantin (Nitrofurantoin Macrocrystal) 50 Mg Capsule 1 Cap PO DAILY Evista (Raloxifene Hcl) 60 Mg Tablet 1 Tab PO DAILY Triamcinolone Acetonide 0.1% Oint (Triamcinolone Acetonide) 15 Gm Oint...g. 1 Gregg TP BID MIX WITH EUCERIN DIRECTED BY PHYSICIAN Ibuprofen 800 Mg Tablet 800 Mg PO PRN Q6HRS PRN B Complex (Vitamin B Complex) 1 Each Tablet 1 Each PO [place] 3 1,000 Mg Softgel ([place]-3 Fatty Acids/Fish Oil) 1 Each Capsule 1 Each PO Vitamin E (Vitamin E Acid Succinate) 100 Unit Tablet 100 Unit PO Lysine 500 Mg Tablet 500 Mg PO Vitamin D3 (Cholecalciferol (Vitamin D3)) 1,000 Unit Tablet 1,000 Unit PO Centrum Complete Multivit Tab (Multivitamin/Iron/Folic Acid) 1 Each Tablet 1 Each PO Caltrate 600 + D Tablet (Calcium Carbonate/Vitamin D3) 1 Each Tablet 1 Each PO Losartan Potassium 50 Mg Tablet 50 Mg PO DAILY Evista (Raloxifene Hcl) 60 Mg Tablet 60 Mg PO DAILY Hydrocodone-Apap 5-325 (Hydrocodone Bit/Acetaminophen) 1 Each Tablet 1-2 Tab PO Q4-6HRS Levothyroxine Sodium 50 Mcg Tablet 50 Mcg PO DAILYAC Vitals/I & O Vital Sign - Last 24 Hours 09/30/19 09/30/19 09/30/19 09/30/19 14:34 19:20 19:43 20:00 Temp 99.2 98.0 99.2 98.0 Pulse 95 100 Resp 16 16 18 B/P (MAP) 140/63 (88) 156/65 (95) Pulse Ox 100 94 O2 Delivery Nasal Cannula Room Air Nasal Cannula Nasal Cannula O2 Flow Rate 2.0 2.0 2.0 09/30/19 09/30/19 10/01/19 10/01/19 20:13 23:55 02:36 03:06 Temp 98.6 98.6 Pulse 102 Resp 20 B/P (MAP) 150/61 (90) Pulse Ox 95 O2 Delivery Nasal Cannula Nasal Cannula Nasal Cannula Room Air O2 Flow Rate 2.0 2.0 2.0 10/01/19 10/01/19 10/01/19 10/01/19 03:34 07:00 08:00 10:20 Temp 98.9 98.7 98.4 98.9 98.7 98.4 Pulse 99 96 110 Resp 16 18 18 B/P (MAP) 130/71 (90) 145/65 (91) 133/60 Pulse Ox 98 97 O2 Delivery Nasal Cannula Nasal Cannula Nasal Cannula O2 Flow Rate 2.0 2.0 2.0 10/01/19 10/01/19 10/01/19 10/01/19 10:35 11:08 11:35 12:28 Temp 98.4 98.4 98.4 98.2 98.4 98.4 98.4 98.2 Pulse 99 110 103 100 Resp 20 18 18 18 B/P (MAP) 140/65 133/60 (84) 149/68 146/68 Pulse Ox 95 O2 Delivery Nasal Cannula O2 Flow Rate 2.0 Intake and Output 09/30/19 09/30/19 10/01/19 15:00 23:00 07:00 Intake Total 0 ml 0 ml 0 ml Output Total 250 ml 300 ml Balance 0 ml -250 ml -300 ml Nutrition Consultation Dietary Evaluation: Recommendations by RD: Dietary education by RD, Increase Calorie Intake, Protein supplementation, PPN/TPN Comments: Continue w/PPN for short-term non-oral, non-enteral nutrition needs while pt is on bowel rest s/p colon resection and awaiting diet advancement REC advance diet as able per surgery, goal diet regular diet with chocolate Ensure as able p/s Expected Outcomes/Goals: PO intake to meet >75% est needs- not met, new goal established New goal 09/30: diet advancement Malnutrition Findings: Food and Nutrition Intake (Sev: <50% est energy req 5days Body Fat Depletion (Non Severe: Mod to Severe Weight Status: Appropriate Justicifation of Admission Dx: Justifications for Admission: Justification of Admission Dx: Yes CHF: Hemodynamic Instability Comminuty Aquired Pneumonia: Dehydration Chronic Renal Failure: Intravenous Infusions Sepsis: Dehydration CUAUHTEMOC ANGEL MD Oct 01, 2019 13:38
[2019-10-02 03:30] VITALS: BP 154/70
[2019-10-02 05:39] LABS: BASO % 0 % (0-3); EOS % 0 % (0-3); HEMATOCRIT 25.4 % (36.0-47.0); HEMOGLOBIN 8.6 g/dL (12.0-15.5); LYMPH # 1.4 x10^3/uL (1.0-4.8); LYMPH % 15 % (24-48); MEAN CORPUSCULAR HEMOGLOBIN 27 pg (25-35); MEAN CORPUSCULAR HGB CONC 34 g/dL (31-37); MEAN CORPUSCULAR VOLUME 80 fL (79-100); MONO # 0.7 x10^3/uL (0.0-1.1); MONO % 8 % (0-9); NEUT # 7.2 x10^3/uL (1.8-7.7); NEUT % 77 % (31-73); PLATELET COUNT 375 x10^3/uL (140-400); RED BLOOD COUNT 3.18 x10^6/uL (3.50-5.40); RED CELL DISTRIBUTION WIDTH 22.9 % (11.5-14.5); WHITE BLOOD COUNT 9.4 x10^3/uL (4.0-11.0)
[2019-10-02] MEDS: AMINO AC 3%/ELECTROLYTE/GLYCER 1,000 ML IV SCH ×2 (05:51→19:49)
[2019-10-02 05:57] LABS: ALBUMIN 1.6 g/dL (3.4-5.0); ALBUMIN/GLOBULIN RATIO 0.5 (1.0-1.7); CALCIUM 7.7 mg/dL (8.5-10.1); CREATININE 0.5 mg/dL (0.6-1.0); GFR 116.4; TOTAL BILIRUBIN 0.6 mg/dL (0.2-1.0)
[2019-10-02] MEDS: HYDROmorphone 2 MG/ML VIAL IVP PRN ×2 (06:40→11:46)
[2019-10-02 07:00] VITALS: BP 155/70
[2019-10-02] MEDS: LEVOTHYROXINE 50 MCG TABLET PO SCH (07:30)
[2019-10-02] MEDS: PANTOPRAZOLE 40 MG TABLET.DR. PO SCH (07:30)
[2019-10-02] MEDS: VITAMIN B COMPLEX TABLET. PO SCH (08:00)
[2019-10-02] MEDS: CALCIUM CARB/VIT D3 500/200 TABLET. PO SCH ×2 (08:00→17:00)
[2019-10-02] MEDS: CHOLECALCIFEROL (VITAMIN D3) 1,000 UNIT TABLET PO SCH (08:00)
[2019-10-02] MEDS: LOSARTAN POTASSIUM 50 MG TABLET. PO SCH (09:00)
[2019-10-02] MEDS: OMEGA-3 FATTY ACIDS/FISH OIL 1,000 MG CAPSULE. PO SCH (09:00)
[2019-10-02] MEDS: RALOXIFENE 60 MG TABLET. PO SCH (09:00)
[2019-10-02] MEDS: MULTIVITAMIN with MINERAL TABLET. PO SCH (09:00)
--- NOTE | 2019-10-02 09:02 | PDOC ---
SURGICAL PROGRESS NOTE DATE: 10/02/19 TIME: 09:01 Subjective Patient states she is feeling pretty good denies passing any flatus or stool as of yet no nausea Vital Signs Vital Signs Date Time Temp Pulse Resp B/P (MAP) Pulse Ox O2 Delivery O2 Flow Rate FiO2 10/02/19 07:10 16 Room Air 10/02/19 07:00 98.0 89 155/70 (98) 98 2.0 98.0 I&O Intake and Output 10/02/19 07:00 Intake Total 150 ml Output Total 925 ml Balance -775 ml Blood Product IV Normal Saline Flush 150 ml Output Urine Total 925 ml PATIENT HAS A GELLER: No General: Alert, Oriented X3, Cooperative, No acute distress Abdomen: Normal bowel sounds, Soft, Other (Mild incisional tenderness wounds clean dry and intact) Labs Laboratory Tests Test 10/01/19 05:00 10/02/19 04:30 White Blood Count 11.5 x10^3/uL (4.0-11.0) 9.4 x10^3/uL (4.0-11.0) Red Blood Count 2.78 x10^6/uL (3.50-5.40) 3.18 x10^6/uL (3.50-5.40) Hemoglobin 6.9 g/dL (12.0-15.5) 8.6 g/dL (12.0-15.5) Hematocrit 21.6 % (36.0-47.0) 25.4 % (36.0-47.0) Mean Corpuscular Volume 78 fL (79-100) 80 fL (79-100) Mean Corpuscular Hemoglobin 25 pg (25-35) 27 pg (25-35) Mean Corpuscular Hemoglobin Concent 32 g/dL (31-37) 34 g/dL (31-37) Red Cell Distribution Width 23.1 % (11.5-14.5) 22.9 % (11.5-14.5) Platelet Count 432 x10^3/uL (140-400) 375 x10^3/uL (140-400) Neutrophils (%) (Auto) 74 % (31-73) 77 % (31-73) Lymphocytes (%) (Auto) 18 % (24-48) 15 % (24-48) Monocytes (%) (Auto) 8 % (0-9) 8 % (0-9) Eosinophils (%) (Auto) 0 % (0-3) 0 % (0-3) Basophils (%) (Auto) 0 % (0-3) 0 % (0-3) Neutrophils # (Auto) 8.4 x10^3/uL (1.8-7.7) 7.2 x10^3/uL (1.8-7.7) Lymphocytes # (Auto) 2.1 x10^3/uL (1.0-4.8) 1.4 x10^3/uL (1.0-4.8) Monocytes # (Auto) 0.9 x10^3/uL (0.0-1.1) 0.7 x10^3/uL (0.0-1.1) Eosinophils # (Auto) 0.0 x10^3/uL (0.0-0.7) 0.0 x10^3/uL (0.0-0.7) Basophils # (Auto) 0.0 x10^3/uL (0.0-0.2) 0.0 x10^3/uL (0.0-0.2) Sodium Level 138 mmol/L (136-145) 137 mmol/L (136-145) Potassium Level 4.0 mmol/L (3.5-5.1) 4.0 mmol/L (3.5-5.1) Chloride Level 105 mmol/L (98-107) 103 mmol/L (98-107) Carbon Dioxide Level 30 mmol/L (21-32) 30 mmol/L (21-32) Anion Gap 3 (6-14) 4 (6-14) Blood Urea Nitrogen 16 mg/dL (7-20) 15 mg/dL (7-20) Creatinine 0.6 mg/dL (0.6-1.0) 0.5 mg/dL (0.6-1.0) Estimated GFR (Cockcroft-Gault) 94.3 116.4 Glucose Level 113 mg/dL (70-99) 105 mg/dL (70-99) Calcium Level 8.2 mg/dL (8.5-10.1) 7.7 mg/dL (8.5-10.1) BUN/Creatinine Ratio 30 (6-20) Total Bilirubin 0.6 mg/dL (0.2-1.0) Aspartate Amino Transf (AST/SGOT) 19 U/L (15-37) Alanine Aminotransferase (ALT/SGPT) 14 U/L (14-59) Alkaline Phosphatase 136 U/L (46-116) Total Protein 5.0 g/dL (6.4-8.2) Albumin 1.6 g/dL (3.4-5.0) Albumin/Globulin Ratio 0.5 (1.0-1.7) Laboratory Tests Test 10/02/19 04:30 White Blood Count 9.4 x10^3/uL (4.0-11.0) Red Blood Count 3.18 x10^6/uL (3.50-5.40) Hemoglobin 8.6 g/dL (12.0-15.5) Hematocrit 25.4 % (36.0-47.0) Mean Corpuscular Volume 80 fL (79-100) Mean Corpuscular Hemoglobin 27 pg (25-35) Mean Corpuscular Hemoglobin Concent 34 g/dL (31-37) Red Cell Distribution Width 22.9 % (11.5-14.5) Platelet Count 375 x10^3/uL (140-400) Neutrophils (%) (Auto) 77 % (31-73) Lymphocytes (%) (Auto) 15 % (24-48) Monocytes (%) (Auto) 8 % (0-9) Eosinophils (%) (Auto) 0 % (0-3) Basophils (%) (Auto) 0 % (0-3) Neutrophils # (Auto) 7.2 x10^3/uL (1.8-7.7) Lymphocytes # (Auto) 1.4 x10^3/uL (1.0-4.8) Monocytes # (Auto) 0.7 x10^3/uL (0.0-1.1) Eosinophils # (Auto) 0.0 x10^3/uL (0.0-0.7) Basophils # (Auto) 0.0 x10^3/uL (0.0-0.2) Sodium Level 137 mmol/L (136-145) Potassium Level 4.0 mmol/L (3.5-5.1) Chloride Level 103 mmol/L (98-107) Carbon Dioxide Level 30 mmol/L (21-32) Anion Gap 4 (6-14) Blood Urea Nitrogen 15 mg/dL (7-20) Creatinine 0.5 mg/dL (0.6-1.0) Estimated GFR (Cockcroft-Gault) 116.4 BUN/Creatinine Ratio 30 (6-20) Glucose Level 105 mg/dL (70-99) Calcium Level 7.7 mg/dL (8.5-10.1) Total Bilirubin 0.6 mg/dL (0.2-1.0) Aspartate Amino Transf (AST/SGOT) 19 U/L (15-37) Alanine Aminotransferase (ALT/SGPT) 14 U/L (14-59) Alkaline Phosphatase 136 U/L (46-116) Total Protein 5.0 g/dL (6.4-8.2) Albumin 1.6 g/dL (3.4-5.0) Albumin/Globulin Ratio 0.5 (1.0-1.7) Assessment/Plan Status post colectomy awaiting return of bowel function prior to advancing diet Continue supportive care Justicifation of Admission Dx: Justifications for Admission: Justification of Admission Dx: Yes CHF: Hemodynamic Instability Comminuty Aquired Pneumonia: Dehydration Chronic Renal Failure: Intravenous Infusions Sepsis: Dehydration TWILA ORTEGA MD Oct 02, 2019 09:02
[2019-10-02 10:57] VITALS: BP 137/67
--- NOTE | 2019-10-02 14:11 | PDOC ---
PROGRESS NOTES Date of Service: DATE: 10/02/19 TIME: 14:10 Chief Complaint Chief Complaint Acute blood loss anemia - likely 2/2 potential GI malignancy Right colon mass - plans for surgery Small bilateral pleural effusions Cholelilthiasis - Gallbladder contains a 1 cm stone at its neck Hyponatremia - will monitor Nephrolithiasis nonobstructive Adrenal mass History of Present Illness History of Present Illness 10/01. pain better, up and to chair doing well, family here [facility] is back, I discussed ADENO carcinoma diagnosis, will consult Onc to follow after discharge. she feels well still NPO, cont PPN 09/30. back is sore from the bed pain OK, no flatus yet, her son is here and has been very helpful with her care, cont current 09/29,. pain OK, dry mouth, looks comfortable lefft hand swollen today, IV changed to the right, no event otherwsie surg yesterday will given venofer IV today, DELORES 09/28, hgb stable - in surg for colon resection, ostomy placement Mr Henson 89 y/o female with PMHc COPD, pulmonary fibrosis on home O2, HTN, Osteoporosis, depression, hypothyroidism, mild cognitive impairment who lives in Assisted Living in [place], [place] who was transferred from [facility] for evaluation of lower abdominal pain and low hemoglobin No previous EGD or colonoscopy. No cancer history in her mother father, her sister did have breast cancer and her brother has history of lymphoma non-Hodgkin's type. No prostate or colon cancer history in her family but she does not know all of their history. CT abdomen reveals large ascending colonic mass without bowel obstruction showing findings suspicious for extracolonic tumoral spread. Additional findings include cholelithiasis, splenic calcifications, mild nodular fullness of left adrenal gland, mild right hydroureter and hydronephrosis w/ nonobstructing 2 mm right kidney stone. Vitals Vitals Vital Signs Date Time Temp Pulse Resp B/P (MAP) Pulse Ox O2 Delivery O2 Flow Rate FiO2 10/02/19 12:16 18 Nasal Cannula 2.0 10/02/19 10:57 98.2 91 137/67 (90) 99 98.2 Physical Exam General: Alert, Oriented X3, Cooperative, No acute distress Heart: Regular rate, Normal S1, Normal S2 Lungs: Clear Abdomen: Normal bowel sounds, Soft, Other (Mild incisional tenderness wounds clean dry and intact) Extremities: No clubbing, No cyanosis Skin: No rashes, No breakdown Labs LABS Laboratory Tests Test 10/02/19 04:30 White Blood Count 9.4 x10^3/uL (4.0-11.0) Red Blood Count 3.18 x10^6/uL (3.50-5.40) Hemoglobin 8.6 g/dL (12.0-15.5) Hematocrit 25.4 % (36.0-47.0) Mean Corpuscular Volume 80 fL (79-100) Mean Corpuscular Hemoglobin 27 pg (25-35) Mean Corpuscular Hemoglobin Concent 34 g/dL (31-37) Red Cell Distribution Width 22.9 % (11.5-14.5) Platelet Count 375 x10^3/uL (140-400) Neutrophils (%) (Auto) 77 % (31-73) Lymphocytes (%) (Auto) 15 % (24-48) Monocytes (%) (Auto) 8 % (0-9) Eosinophils (%) (Auto) 0 % (0-3) Basophils (%) (Auto) 0 % (0-3) Neutrophils # (Auto) 7.2 x10^3/uL (1.8-7.7) Lymphocytes # (Auto) 1.4 x10^3/uL (1.0-4.8) Monocytes # (Auto) 0.7 x10^3/uL (0.0-1.1) Eosinophils # (Auto) 0.0 x10^3/uL (0.0-0.7) Basophils # (Auto) 0.0 x10^3/uL (0.0-0.2) Sodium Level 137 mmol/L (136-145) Potassium Level 4.0 mmol/L (3.5-5.1) Chloride Level 103 mmol/L (98-107) Carbon Dioxide Level 30 mmol/L (21-32) Anion Gap 4 (6-14) Blood Urea Nitrogen 15 mg/dL (7-20) Creatinine 0.5 mg/dL (0.6-1.0) Estimated GFR (Cockcroft-Gault) 116.4 BUN/Creatinine Ratio 30 (6-20) Glucose Level 105 mg/dL (70-99) Calcium Level 7.7 mg/dL (8.5-10.1) Total Bilirubin 0.6 mg/dL (0.2-1.0) Aspartate Amino Transf (AST/SGOT) 19 U/L (15-37) Alanine Aminotransferase (ALT/SGPT) 14 U/L (14-59) Alkaline Phosphatase 136 U/L (46-116) Total Protein 5.0 g/dL (6.4-8.2) Albumin 1.6 g/dL (3.4-5.0) Albumin/Globulin Ratio 0.5 (1.0-1.7) Comment Review of Relevant I have reviewed the following items kun (where applicable) has been applied. Labs Laboratory Tests Test 10/01/19 05:00 10/02/19 04:30 White Blood Count 11.5 x10^3/uL (4.0-11.0) 9.4 x10^3/uL (4.0-11.0) Red Blood Count 2.78 x10^6/uL (3.50-5.40) 3.18 x10^6/uL (3.50-5.40) Hemoglobin 6.9 g/dL (12.0-15.5) 8.6 g/dL (12.0-15.5) Hematocrit 21.6 % (36.0-47.0) 25.4 % (36.0-47.0) Mean Corpuscular Volume 78 fL (79-100) 80 fL (79-100) Mean Corpuscular Hemoglobin 25 pg (25-35) 27 pg (25-35) Mean Corpuscular Hemoglobin Concent 32 g/dL (31-37) 34 g/dL (31-37) Red Cell Distribution Width 23.1 % (11.5-14.5) 22.9 % (11.5-14.5) Platelet Count 432 x10^3/uL (140-400) 375 x10^3/uL (140-400) Neutrophils (%) (Auto) 74 % (31-73) 77 % (31-73) Lymphocytes (%) (Auto) 18 % (24-48) 15 % (24-48) Monocytes (%) (Auto) 8 % (0-9) 8 % (0-9) Eosinophils (%) (Auto) 0 % (0-3) 0 % (0-3) Basophils (%) (Auto) 0 % (0-3) 0 % (0-3) Neutrophils # (Auto) 8.4 x10^3/uL (1.8-7.7) 7.2 x10^3/uL (1.8-7.7) Lymphocytes # (Auto) 2.1 x10^3/uL (1.0-4.8) 1.4 x10^3/uL (1.0-4.8) Monocytes # (Auto) 0.9 x10^3/uL (0.0-1.1) 0.7 x10^3/uL (0.0-1.1) Eosinophils # (Auto) 0.0 x10^3/uL (0.0-0.7) 0.0 x10^3/uL (0.0-0.7) Basophils # (Auto) 0.0 x10^3/uL (0.0-0.2) 0.0 x10^3/uL (0.0-0.2) Sodium Level 138 mmol/L (136-145) 137 mmol/L (136-145) Potassium Level 4.0 mmol/L (3.5-5.1) 4.0 mmol/L (3.5-5.1) Chloride Level 105 mmol/L (98-107) 103 mmol/L (98-107) Carbon Dioxide Level 30 mmol/L (21-32) 30 mmol/L (21-32) Anion Gap 3 (6-14) 4 (6-14) Blood Urea Nitrogen 16 mg/dL (7-20) 15 mg/dL (7-20) Creatinine 0.6 mg/dL (0.6-1.0) 0.5 mg/dL (0.6-1.0) Estimated GFR (Cockcroft-Gault) 94.3 116.4 Glucose Level 113 mg/dL (70-99) 105 mg/dL (70-99) Calcium Level 8.2 mg/dL (8.5-10.1) 7.7 mg/dL (8.5-10.1) BUN/Creatinine Ratio 30 (6-20) Total Bilirubin 0.6 mg/dL (0.2-1.0) Aspartate Amino Transf (AST/SGOT) 19 U/L (15-37) Alanine Aminotransferase (ALT/SGPT) 14 U/L (14-59) Alkaline Phosphatase 136 U/L (46-116) Total Protein 5.0 g/dL (6.4-8.2) Albumin 1.6 g/dL (3.4-5.0) Albumin/Globulin Ratio 0.5 (1.0-1.7) Laboratory Tests Test 10/02/19 04:30 White Blood Count 9.4 x10^3/uL (4.0-11.0) Red Blood Count 3.18 x10^6/uL (3.50-5.40) Hemoglobin 8.6 g/dL (12.0-15.5) Hematocrit 25.4 % (36.0-47.0) Mean Corpuscular Volume 80 fL (79-100) Mean Corpuscular Hemoglobin 27 pg (25-35) Mean Corpuscular Hemoglobin Concent 34 g/dL (31-37) Red Cell Distribution Width 22.9 % (11.5-14.5) Platelet Count 375 x10^3/uL (140-400) Neutrophils (%) (Auto) 77 % (31-73) Lymphocytes (%) (Auto) 15 % (24-48) Monocytes (%) (Auto) 8 % (0-9) Eosinophils (%) (Auto) 0 % (0-3) Basophils (%) (Auto) 0 % (0-3) Neutrophils # (Auto) 7.2 x10^3/uL (1.8-7.7) Lymphocytes # (Auto) 1.4 x10^3/uL (1.0-4.8) Monocytes # (Auto) 0.7 x10^3/uL (0.0-1.1) Eosinophils # (Auto) 0.0 x10^3/uL (0.0-0.7) Basophils # (Auto) 0.0 x10^3/uL (0.0-0.2) Sodium Level 137 mmol/L (136-145) Potassium Level 4.0 mmol/L (3.5-5.1) Chloride Level 103 mmol/L (98-107) Carbon Dioxide Level 30 mmol/L (21-32) Anion Gap 4 (6-14) Blood Urea Nitrogen 15 mg/dL (7-20) Creatinine 0.5 mg/dL (0.6-1.0) Estimated GFR (Cockcroft-Gault) 116.4 BUN/Creatinine Ratio 30 (6-20) Glucose Level 105 mg/dL (70-99) Calcium Level 7.7 mg/dL (8.5-10.1) Total Bilirubin 0.6 mg/dL (0.2-1.0) Aspartate Amino Transf (AST/SGOT) 19 U/L (15-37) Alanine Aminotransferase (ALT/SGPT) 14 U/L (14-59) Alkaline Phosphatase 136 U/L (46-116) Total Protein 5.0 g/dL (6.4-8.2) Albumin 1.6 g/dL (3.4-5.0) Albumin/Globulin Ratio 0.5 (1.0-1.7) Medications Current Medications Sodium Chloride (Normal Saline Flush) 3 ml QSHIFT PRN IV AFTER MEDS AND BLOOD DRAWS; Start 09/23/19 at 19:00 Sodium Chloride 1,000 ml @ 55 mls/hr [id number] IV Last administered on 09/30/19at 12:04; Start 09/23/19 at 18:55; Stop 09/30/19 at 12:44; Status DC Ondansetron HCl (Zofran) 4 mg PRN Q4HRS PRN IV NAUSEA/VOMITING; Start 09/23/19 at 19:00 Acetaminophen (Tylenol) 650 mg PRN Q4HRS PRN PO TEMP OVER 100.4F OR MILD PAIN Last administered on 09/26/19at 20:10; Start 09/23/19 at 19:00 Docusate Sodium (Colace) 100 mg PRN BID PRN PO HARD STOOLS; Start 09/23/19 at 19:00 Albuterol Sulfate (Ventolin Neb Soln) 2.5 mg PRN Q4HRS PRN NEB SHORTNESS OF BREATH; Start 09/23/19 at 19:00 Guaifenesin (Robitussin) 200 mg PRN Q4HRS PRN PO COUGH; Start 09/23/19 at 19:00 Pantoprazole Sodium (PROTONIX VIAL for IV PUSH) 40 mg DAILYAC IVP Last a dministered on 09/25/19at 09:18; Start 09/24/19 at 07:30; Stop 09/25/19 at 10:49; Status DC Vitamin D (Vitamin D3) 1,000 unit [id number] PO Last administered on 09/27/19 08:53; Start 09/24/19 at 08:00 Levothyroxine Sodium (Synthroid) 50 mcg DAILYAC PO Last administered on 09/27/19 08:54; Start 09/24/19 at 07:30; Stop 10/02/19 at 14:01; Status DC Losartan Potassium (Cozaar) 50 mg DAILY PO Last administered on 09/27/19 08:54; Start 09/24/19 at 09:00 Raloxifene HCl (Evista) 60 mg DAILY PO Last administered on 09/27/19 08:55; Start 09/24/19 at 09:00 Vitamin B Complex (Joseph B) 1 tab DAILY08 PO Last administered on 09/27/19 08:54; Start 09/24/19 at 08:00 Calcium/Vitamin D (Oscal D 500mg/ 200uts) 1 tab BIDWMEALS PO Last administered on 09/27/19 21:48; Start 09/24/19 at 08:00 Multivitamins (Thera M Plus) 1 tab DAILY PO Last administered on 09/27/19 08:54; Start 09/24/19 at 09:00 Fish Oil (Fish Oil) 1,000 mg DAILY PO Last administered on 09/27/19 08:54; Start 09/24/19 at 09:00 Hydralazine HCl (Apresoline Inj) 10 mg PRN Q4HRS PRN IVP ELEVATED BP, SEE COMMENTS; Start 09/23/19 at 22:45 Iohexol (Omnipaque 240 Mg/ml) 30 ml 1X ONCE IV ; Start 09/24/19 at 09:30; Stop 09/24/19 at 09:31; Status Cancel Info (CONTRAST GIVEN -- Rx MONITORING) 1 each PRN DAILY PRN MC SEE COMMENTS; Start 09/24/19 at 09:30; Stop 09/26/19 at 09:29; Status Cancel Iohexol (Omnipaque 240 Mg/ml) 30 ml 1X ONCE PO Last administered on 09/24/19at 10:37; Start 09/24/19 at 10:30; Stop 09/24/19 at 10:35; Status DC Pantoprazole Sodium (Protonix) 40 mg DAILYAC PO Last administered on 8/10/20at 08:54; Start 09/26/19 at 07:30 Acetaminophen/ Hydrocodone Bitart (Lortab 5/325) 1 tab PRN Q4HRS PRN PO MODERATE PAIN Last administered on 09/27/19at 11:07; Start 09/27/19 at 10:45 Magnesium Citrate (Citroma) 296 ml 1X ONCE PO Last administered on 09/27/19at 15:22; Start 09/27/19 at 14:00; Stop 09/27/19 at 14:01; Status DC Polyethylene Glycol (miraLAX Powder BULK BOTTLE) 238 gm 1X ONCE PO Last administered on 09/27/19at 16:14; Start 09/27/19 at 16:00; Stop 09/27/19 at 16:0 1; Status DC Bisacodyl (Dulcolax Tab) 10 mg 1X ONCE PO Last administered on 09/27/19at 21:48; Start 09/27/19 at 16:00; Stop 09/27/19 at 16:01; Status DC Ringer's Solution 1,000 ml @ 30 mls/hr Q24H IV Last administered on 09/28/19at 10:56; Start 09/28/19 at 07:00; Stop 09/28/19 at 18:59; Status DC Prochlorperazine Edisylate (Compazine) 5 mg PACU PRN PRN IV NAUSEA, MRX1; Start 09/28/19 at 07:00; Stop 09/28/19 at 20:00; Status DC Ringer's Solution 1,000 ml @ 75 mls/hr 1X ONCE IV ; Start 09/28/19 at 08:00; Stop 09/28/19 at 21:19; Status DC Propofol (Diprivan) 200 mg STK-MED ONCE IV ; Start 09/28/19 at 11:51; Stop 09/28/19 at 11:51; Status DC Fentanyl Citrate (Fentanyl 2ml Vial) 25 mcg PRN Q5MIN PRN IV MILD PAIN 1-3; Start 09/29/19 at 07:00; Stop 09/30/19 at 06:59; Status DC Fentanyl Citrate (Fentanyl 2ml Vial) 50 mcg PRN Q5MIN PRN IV MODERATE TO SEVERE PAIN; Start 09/29/19 at 07:00; Stop 09/30/19 at 06:59; Status DC Morphine Sulfate (Morphine Sulfate) 1 mg PRN Q10MIN PRN IV SEVERE PAIN 7-10; Start 09/29/19 at 07:00; Stop 09/30/19 at 06:59; Status DC Ringer's Solution 1,000 ml @ 30 mls/hr Q24H IV ; Start 09/29/19 at 07:00; Stop 09/29/19 at 18:59; Status DC Hydromorphone HCl (Dilaudid) 0.5 mg PRN Q10MIN PRN IV SEV PAIN, Second choice; Start 09/29/19 at 07:00; Stop 09/30/19 at 06:59; Status DC Prochlorperazine Edisylate (Compazine) 5 mg PACU PRN PRN IV NAUSEA, MRX1; Sta rt 09/29/19 at 07:00; Stop 09/30/19 at 06:59; Status DC Levofloxacin/ Dextrose 100 ml @ 100 mls/hr 1X PREOP PRN IV PRIOR TO PROCEDURE Last administered on 09/29/19at 11:57; Start 09/29/19 at 06:00; Stop 09/29/19 at 18:00; Status DC Metronidazole 100 ml @ 100 mls/hr 1X PREOP PRN IV PRIOR TO PROCEDURE Last administered on 09/29/19at 11:23; Start 09/29/19 at 06:00; Stop 09/29/19 at 18:00; Status DC Propofol (Diprivan) 200 mg STK-MED ONCE IV ; Start 09/29/19 at 08:40; Stop 09/29/19 at 08:40; Status DC Lidocaine HCl (Lidocaine Pf 2% Vial) 5 ml STK-MED ONCE .ROUTE ; Start 09/29/19 at 08:40; Stop 09/29/19 at 08:40; Status DC Etomidate (Amidate) 20 mg STK-MED ONCE IV ; Start 09/29/19 at 08:40; Stop 09/29/19 at 08:41; Status DC Dexamethasone Sodium Phosphate (Decadron) 4 mg STK-MED ONCE .ROUTE ; Start 09/29/19 at 08:40; Stop 09/29/19 at 08:41; Status DC Ondansetron HCl (Zofran) 4 mg STK-MED ONCE .ROUTE ; Start 09/29/19 at 08:40; Stop 09/29/19 at 08:41; Status DC Phenylephrine HCl (PHENYLEPHRINE in 0.9% NACL PF) 1 mg STK-MED ONCE IV ; Start 09/29/19 at 08:40; Stop 09/29/19 at 08:41; Status DC Ephedrine Sulfate (ePHEDrine PF IN SALINE SYRINGE) 50 mg STK-MED ONCE IV ; Start 09/29/19 at 08:40; Stop 09/29/19 at 08:41; Status DC Succinylcholine Chloride (Anectine) 200 mg STK-MED ONCE .ROUTE ; Start 09/29/19 at 08:41; Stop 09/29/19 at 08:41; Status DC Rocuronium [place] (Zemuron) 50 mg STK-MED ONCE .ROUTE ; Start 09/29/19 at 08:41; Stop 09/29/19 at 08:41; Status DC Fentanyl Citrate (Fentanyl 2ml Vial) 100 mcg STK-MED ONCE .ROUTE ; Start 09/29/19 at 08:41; Stop 09/29/19 at 08:42; Status DC Phenylephrine HCl (Cas-Synephrine Inj) 10 mg STK-MED ONCE .ROUTE ; Start 09/29/19 at 08:41; Stop 09/29/19 at 08:42; Status DC Hydromorphone HCl (Dilaudid) 2 mg STK-MED ONCE .ROUTE ; Start 09/29/19 at 12:03; Stop 09/29/19 at 12:03; Status DC Sevoflurane (Ultane) 90 ml STK-MED ONCE IH ; Start 09/29/19 at 13:04; Stop 09/29/19 at 13:04; Status DC Glycopyrrolate (Robinul) 1 mg STK-MED ONCE .ROUTE ; Start 09/29/19 at 13:23; Stop 09/29/19 at 13:23; Status DC Neostigmine [place] (Neostigmine Methylsulfate) 5 mg STK-MED ONCE .ROUTE ; Start 09/29/19 at 13:23; Stop 09/29/19 at 13:23; Status DC Hydromorphone HCl (Dilaudid) 0.2 mg PRN Q4HRS PRN IVP MODERATE PAIN Last administered on 09/30/19at 08:28; Start 09/29/19 at 14:00 Hydromorphone HCl (Dilaudid) 0.5 mg PRN Q4HRS PRN IVP SEVERE PAIN Last administered on 10/02/19at 11:46; Start 09/29/19 at 14:00 Iron Sucrose 200 mg/Sodium Chloride 110 ml @ 55 mls/hr 1X ONCE IV Last administered on 09/30/19at 14:21; Start 09/30/19 at 14:00; Stop 09/30/19 at 15:59; Status DC Amino Acids/ Glycerin/ Electrolytes 1,000 ml @ 80 mls/hr [id number] IV Last administered on 10/02/19at 05:51; Start 09/30/19 at 12:45 Saliva Substitute (Biotene Moisturizing Mouth) 2 spray PRN Q15MIN PRN PO DRY MOUTH; Start 09/30/19 at 13:00 Active Scripts Active Reported Tylenol (Acetaminophen) 325 Mg Tablet 650 Mg PO Q4HRS PRN Macrodantin (Nitrofurantoin Macrocrystal) 50 Mg Capsule 1 Cap PO DAILY Evista (Raloxifene Hcl) 60 Mg Tablet 1 Tab PO DAILY Triamcinolone Acetonide 0.1% Oint (Triamcinolone Acetonide) 15 Gm Oint...g. 1 Gregg TP BID MIX WITH EUCERIN DIRECTED BY PHYSICIAN Ibuprofen 800 Mg Tablet 800 Mg PO PRN Q6HRS PRN B Complex (Vitamin B Complex) 1 Each Tablet 1 Each PO [place] 3 1,000 Mg Softgel ([place]-3 Fatty Acids/Fish Oil) 1 Each Capsule 1 Each PO Vitamin E (Vitamin E Acid Succinate) 100 Unit Tablet 100 Unit PO Lysine 500 Mg Tablet 500 Mg PO Vitamin D3 (Cholecalciferol (Vitamin D3)) 1,000 Unit Tablet 1,000 Unit PO Centrum Complete Multivit Tab (Multivitamin/Iron/Folic Acid) 1 Each Tablet 1 Each PO Caltrate 600 + D Tablet (Calcium Carbonate/Vitamin D3) 1 Each Tablet 1 Each PO Losartan Potassium 50 Mg Tablet 50 Mg PO DAILY Evista (Raloxifene Hcl) 60 Mg Tablet 60 Mg PO DAILY Hydrocodone-Apap 5-325 (Hydrocodone Bit/Acetaminophen) 1 Each Tablet 1-2 Tab PO Q4-6HRS Levothyroxine Sodium 50 Mcg Tablet 50 Mcg PO DAILYAC Vitals/I & O Vital Sign - Last 24 Hours 8/14/20 8/14/20 8/14/20 8/14/20 15:15 19:36 20:00 23:13 Temp 98.8 97.9 97.7 98.8 97.9 97.7 Pulse 101 104 87 Resp 22 B/P (MAP) 144/64 (90) 143/68 (93) 134/62 (86) Pulse Ox 98 99 99 O2 Delivery Nasal Cannula Nasal Cannula Nasal Cannula Nasal Cannula O2 Flow Rate 2.0 2.0 2.0 2.0 10/02/19 10/02/19 10/02/19 10/02/19 03:30 06:40 07:00 07:10 Temp 98.1 98.0 98.1 98.0 Pulse 82 89 Resp 16 B/P (MAP) 154/70 (98) 155/70 (98) Pulse Ox 99 98 O2 Delivery Nasal Cannula Room Air Nasal Cannula Room Air O2 Flow Rate 2.0 2.0 10/02/19 10/02/19 10/02/19 10/02/19 08:00 10:57 11:46 12:16 Temp 98.2 98.2 Pulse 91 Resp 18 B/P (MAP) 137/67 (90) Pulse Ox 99 O2 Delivery Nasal Cannula Nasal Cannula Nasal Cannula Nasal Cannula O2 Flow Rate 2.0 2.0 2.0 Intake and Output 10/01/19 10/01/19 10/02/19 15:00 23:00 07:00 Intake Total 150 ml Output Total 600 ml 325 ml Balance 150 ml -600 ml -325 ml Nutrition Consultation Dietary Evaluation: Recommendations by RD: Dietary education by RD, Increase Calorie Intake, Protein supplementation, PPN/TPN Comments: Continue w/PPN for short-term non-oral, non-enteral nutrition needs while pt is on bowel rest s/p colon resection and awaiting diet advancement REC advance diet as able per surgery, goal diet regular diet with chocolate Ensure as able p/s Expected Outcomes/Goals: PO intake to meet >75% est needs- not met, new goal established New goal 09/30: diet advancement Malnutrition Findings: Food and Nutrition Intake (Sev: <50% est energy req 5days Body Fat Depletion (Non Severe: Mod to Severe Weight Status: Appropriate Justicifation of Admission Dx: Justifications for Admission: Justification of Admission Dx: Yes CHF: Hemodynamic Instability Comminuty Aquired Pneumonia: Dehydration Chronic Renal Failure: Intravenous Infusions Sepsis: Dehydration CUAUHTEMOC ANGEL MD Oct 02, 2019 14:11
[2019-10-02 15:00] VITALS: BP 177/77
[2019-10-02 19:15] VITALS: BP 166/72
[2019-10-02 23:33] VITALS: BP 147/69
[2019-10-03] MEDS: HYDROmorphone 2 MG/ML VIAL IVP PRN (00:36)
[2019-10-03 03:35] VITALS: BP 137/65
[2019-10-03 06:04] LABS: BASO % 0 % (0-3); EOS # 0.1 x10^3/uL (0.0-0.7); EOS % 1 % (0-3); HEMATOCRIT 28.2 % (36.0-47.0); HEMOGLOBIN 9.3 g/dL (12.0-15.5); LYMPH # 1.9 x10^3/uL (1.0-4.8); LYMPH % 20 % (24-48); MEAN CORPUSCULAR HEMOGLOBIN 27 pg (25-35); MEAN CORPUSCULAR HGB CONC 33 g/dL (31-37); MEAN CORPUSCULAR VOLUME 81 fL (79-100); MONO % 10 % (0-9); NEUT # 6.6 x10^3/uL (1.8-7.7); NEUT % 69 % (31-73); PLATELET COUNT 385 x10^3/uL (140-400); RED CELL DISTRIBUTION WIDTH 22.8 % (11.5-14.5); WHITE BLOOD COUNT 9.5 x10^3/uL (4.0-11.0)
[2019-10-03 06:14] LABS: CALCIUM 7.8 mg/dL (8.5-10.1); CREATININE 0.5 mg/dL (0.6-1.0); GFR 116.4
[2019-10-03 07:00] VITALS: BP 151/66
[2019-10-03] MEDS: PANTOPRAZOLE 40 MG TABLET.DR. PO SCH (07:30)
--- NOTE | 2019-10-03 07:51 | PDOC ---
SURGICAL PROGRESS NOTE DATE: 10/03/19 TIME: 07:50 Subjective Patient resting comfortably passing flatus no nausea vomiting Vital Signs Vital Signs Date Time Temp Pulse Resp B/P (MAP) Pulse Ox O2 Delivery O2 Flow Rate FiO2 10/03/19 03:35 98.7 78 18 137/65 (89) 98 Nasal Cannula 2.0 98.7 I&O Intake and Output 10/03/19 07:00 Intake Total 20 ml Output Total 1375 ml Balance -1355 ml Intake Oral 20 ml Output Urine Total 1375 ml PATIENT HAS A GELLER: No General: Alert, Oriented X3, Cooperative, mild distress Abdomen: Normal bowel sounds, Soft, Other (Mild incisional tenderness wounds clean dry and intact) Labs Laboratory Tests Test 10/02/19 04:30 10/03/19 05:30 White Blood Count 9.4 x10^3/uL (4.0-11.0) 9.5 x10^3/uL (4.0-11.0) Red Blood Count 3.18 x10^6/uL (3.50-5.40) 3.50 x10^6/uL (3.50-5.40) Hemoglobin 8.6 g/dL (12.0-15.5) 9.3 g/dL (12.0-15.5) Hematocrit 25.4 % (36.0-47.0) 28.2 % (36.0-47.0) Mean Corpuscular Volume 80 fL (79-100) 81 fL (79-100) Mean Corpuscular Hemoglobin 27 pg (25-35) 27 pg (25-35) Mean Corpuscular Hemoglobin Concent 34 g/dL (31-37) 33 g/dL (31-37) Red Cell Distribution Width 22.9 % (11.5-14.5) 22.8 % (11.5-14.5) Platelet Count 375 x10^3/uL (140-400) 385 x10^3/uL (140-400) Neutrophils (%) (Auto) 77 % (31-73) 69 % (31-73) Lymphocytes (%) (Auto) 15 % (24-48) 20 % (24-48) Monocytes (%) (Auto) 8 % (0-9) 10 % (0-9) Eosinophils (%) (Auto) 0 % (0-3) 1 % (0-3) Basophils (%) (Auto) 0 % (0-3) 0 % (0-3) Neutrophils # (Auto) 7.2 x10^3/uL (1.8-7.7) 6.6 x10^3/uL (1.8-7.7) Lymphocytes # (Auto) 1.4 x10^3/uL (1.0-4.8) 1.9 x10^3/uL (1.0-4.8) Monocytes # (Auto) 0.7 x10^3/uL (0.0-1.1) 1.0 x10^3/uL (0.0-1.1) Eosinophils # (Auto) 0.0 x10^3/uL (0.0-0.7) 0.1 x10^3/uL (0.0-0.7) Basophils # (Auto) 0.0 x10^3/uL (0.0-0.2) 0.0 x10^3/uL (0.0-0.2) Sodium Level 137 mmol/L (136-145) 134 mmol/L (136-145) Potassium Level 4.0 mmol/L (3.5-5.1) 4.0 mmol/L (3.5-5.1) Chloride Level 103 mmol/L (98-107) 101 mmol/L (98-107) Carbon Dioxide Level 30 mmol/L (21-32) 31 mmol/L (21-32) Anion Gap 4 (6-14) 2 (6-14) Blood Urea Nitrogen 15 mg/dL (7-20) 13 mg/dL (7-20) Creatinine 0.5 mg/dL (0.6-1.0) 0.5 mg/dL (0.6-1.0) Estimated GFR (Cockcroft-Gault) 116.4 116.4 BUN/Creatinine Ratio 30 (6-20) Glucose Level 105 mg/dL (70-99) 94 mg/dL (70-99) Calcium Level 7.7 mg/dL (8.5-10.1) 7.8 mg/dL (8.5-10.1) Total Bilirubin 0.6 mg/dL (0.2-1.0) Aspartate Amino Transf (AST/SGOT) 19 U/L (15-37) Alanine Aminotransferase (ALT/SGPT) 14 U/L (14-59) Alkaline Phosphatase 136 U/L (46-116) Total Protein 5.0 g/dL (6.4-8.2) Albumin 1.6 g/dL (3.4-5.0) Albumin/Globulin Ratio 0.5 (1.0-1.7) Laboratory Tests Test 10/03/19 05:30 White Blood Count 9.5 x10^3/uL (4.0-11.0) Red Blood Count 3.50 x10^6/uL (3.50-5.40) Hemoglobin 9.3 g/dL (12.0-15.5) Hematocrit 28.2 % (36.0-47.0) Mean Corpuscular Volume 81 fL (79-100) Mean Corpuscular Hemoglobin 27 pg (25-35) Mean Corpuscular Hemoglobin Concent 33 g/dL (31-37) Red Cell Distribution Width 22.8 % (11.5-14.5) Platelet Count 385 x10^3/uL (140-400) Neutrophils (%) (Auto) 69 % (31-73) Lymphocytes (%) (Auto) 20 % (24-48) Monocytes (%) (Auto) 10 % (0-9) Eosinophils (%) (Auto) 1 % (0-3) Basophils (%) (Auto) 0 % (0-3) Neutrophils # (Auto) 6.6 x10^3/uL (1.8-7.7) Lymphocytes # (Auto) 1.9 x10^3/uL (1.0-4.8) Monocytes # (Auto) 1.0 x10^3/uL (0.0-1.1) Eosinophils # (Auto) 0.1 x10^3/uL (0.0-0.7) Basophils # (Auto) 0.0 x10^3/uL (0.0-0.2) Sodium Level 134 mmol/L (136-145) Potassium Level 4.0 mmol/L (3.5-5.1) Chloride Level 101 mmol/L (98-107) Carbon Dioxide Level 31 mmol/L (21-32) Anion Gap 2 (6-14) Blood Urea Nitrogen 13 mg/dL (7-20) Creatinine 0.5 mg/dL (0.6-1.0) Estimated GFR (Cockcroft-Gault) 116.4 Glucose Level 94 mg/dL (70-99) Calcium Level 7.8 mg/dL (8.5-10.1) Assessment/Plan Status post colectomy awaiting return of full bowel function Start clear liquid diet Justicifation of Admission Dx: Justifications for Admission: Justification of Admission Dx: Yes CHF: Hemodynamic Instability Comminuty Aquired Pneumonia: Dehydration Chronic Renal Failure: Intravenous Infusions Sepsis: Dehydration TWILA ORTEGA MD Oct 03, 2019 07:50
[2019-10-03] MEDS: VITAMIN B COMPLEX TABLET. PO SCH (08:00)
[2019-10-03] MEDS: CHOLECALCIFEROL (VITAMIN D3) 1,000 UNIT TABLET PO SCH (08:00)
[2019-10-03] MEDS: CALCIUM CARB/VIT D3 500/200 TABLET. PO SCH ×2 (08:00→17:00)
[2019-10-03] MEDS: AMINO AC 3%/ELECTROLYTE/GLYCER 1,000 ML IV SCH ×2 (08:42→23:04)
[2019-10-03] MEDS: OMEGA-3 FATTY ACIDS/FISH OIL 1,000 MG CAPSULE. PO SCH (09:00)
[2019-10-03] MEDS: MULTIVITAMIN with MINERAL TABLET. PO SCH (09:00)
[2019-10-03] MEDS: LOSARTAN POTASSIUM 50 MG TABLET. PO SCH (09:00)
[2019-10-03] MEDS: RALOXIFENE 60 MG TABLET. PO SCH (09:00)
[2019-10-03] MEDS ORDERED: LEVOTHYROXINE SODIUM INJ 25 MCG in NORMAL SALINE 5 ML IV SCH (09:00)
[2019-10-03 11:19] VITALS: BP 161/41
--- NOTE | 2019-10-03 12:01 | PDOC2 ---
CONSULT Date of Consult Date of Consult DATE: 10/03/19 TIME: 11:51 Reason for Consult Reason for Consult: New diagnosis of colon cancer Referring Physician Referring Physician: Dr. Lucero Identification/Chief Complaint Chief Complaint Abdominal pain Problems: (1) Colon cancer (2) Anemia Source Source: Caregiver, Chart review, Patient History of Present Illness Reason for Visit: Angela Dc is a 89-year-old female who has been admitted to the hospital for further evaluation and management of a colonic mass. She reports noticing right-sided abdominal pain for the past few weeks. She sought further attention for it at [facility] in [facility]. Her initial lab evaluation showed severe anemia with a hemoglobin of around 6.5. She was transferred to [facility] for further evaluation. She notes that she had received a colonoscopy with biopsy recently. She denies recent blood in stool, black stool. She received a CT of the abdomen with oral contrast only which showed an ascending colon mass. No associated bowel obstruction was noted. It was suspicious for extracolonic tumoral spread. She received a right hemicolectomy by Dr. Partida on 09/29/2019. She is recovering appropriately at this time. 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 Oncology has been consulted in view of this histologic diagnosis. I met with the patient and her son Finn (who lives in [place]) and his . Patient reports that she lives at an assisted living facility ([facility]) along with her sister who is 92 years of age. She denies recent weight loss. Her prior medical history is significant for COPD for which she is on supplemental oxygen. She no longer smokes tobacco. Past Medical History Cardiovascular: HTN CENTRAL NERVOUS SYSTEM: Dementia Psych: Depression Renal/: No pertinent hx Family History Family History: Hypertension Social History Quit ALCOHOL: none Drugs: None Current Medications Current Medications Current Medications Sodium Chloride (Normal Saline Flush) 3 ml QSHIFT PRN IV AFTER MEDS AND BLOOD DRAWS; Start 09/23/19 at 19:00 Sodium Chloride 1,000 ml @ 55 mls/hr [id number] IV Last administered on 09/30/19at 12:04; Start 09/23/19 at 18:55; Stop 09/30/19 at 12:44; Status DC Ondansetron HCl (Zofran) 4 mg PRN Q4HRS PRN IV NAUSEA/VOMITING; Start 09/23/19 at 19:00 Acetaminophen (Tylenol) 650 mg PRN Q4HRS PRN PO TEMP OVER 100.4F OR MILD PAIN Last administered on 09/26/19at 20:10; Start 09/23/19 at 19:00 Docusate Sodium (Colace) 100 mg PRN BID PRN PO HARD STOOLS; Start 09/23/19 at 19:00 Albuterol Sulfate (Ventolin Neb Soln) 2.5 mg PRN Q4HRS PRN NEB SHORTNESS OF BREATH; Start 09/23/19 at 19:00 Guaifenesin (Robitussin) 200 mg PRN Q4HRS PRN PO COUGH; Start 09/23/19 at 19:00 Pantoprazole Sodium (PROTONIX VIAL for IV PUSH) 40 mg DAILYAC IVP Last administered on 09/25/19 09:18; Start 09/24/19 at 07:30; Stop 09/25/19 at 10:49; Status DC Vitamin D (Vitamin D3) 1,000 unit DAILY08 PO Last administered on 09/27/19 08:53; Start 09/24/19 at 08:00 Levothyroxine Sodium (Synthroid) 50 mcg DAILYAC PO Last administered on 09/27/19 08:54; Start 09/24/19 at 07:30; Stop 10/02/19 at 14:01; Status DC Losartan Potassium (Cozaar) 50 mg DAILY PO Last administered on 09/27/19 08:54; Start 09/24/19 at 09:00 Raloxifene HCl (Evista) 60 mg DAILY PO Last administered on 09/27/19 08:55; Start 09/24/19 at 09:00 Vitamin B Complex (Joseph B) 1 tab DAILY08 PO Last administered on 09/27/19 08:54; Start 09/24/19 at 08:00 Calcium/Vitamin D (Oscal D 500mg/ 200uts) 1 tab BIDWMEALS PO Last administered on 09/27/19 21:48; Start 09/24/19 at 08:00 Multivitamins (Thera M Plus) 1 tab DAILY PO Last administered on 09/27/19 08:54; Start 09/24/19 at 09:00 Fish Oil (Fish Oil) 1,000 mg DAILY PO Last administered on 09/27/19at 08:54; Start 09/24/19 at 09:00 Hydralazine HCl (Apresoline Inj) 10 mg PRN Q4HRS PRN IVP ELEVATED BP, SEE COMMENTS; Start 09/23/19 at 22:45 Iohexol (Omnipaque 240 Mg/ml) 30 ml 1X ONCE IV ; Start 09/24/19 at 09:30; Stop 09/24/19 at 09:31; Status Cancel Info (CONTRAST GIVEN -- Rx MONITORING) 1 each PRN DAILY PRN MC SEE COMMENTS; Start 09/24/19 at 09:30; Stop 09/26/19 at 09:29; Status Cancel Iohexol (Omnipaque 240 Mg/ml) 30 ml 1X ONCE PO Last administered on 09/24/19at 10:37; Start 09/24/19 at 10:30; Stop 09/24/19 at 10:35; Status DC Pantoprazole Sodium (Protonix) 40 mg DAILYAC PO Last administered on 09/27/19at 08:54; Start 09/26/19 at 07:30 Acetaminophen/ Hydrocodone Bitart (Lortab 5/325) 1 tab PRN Q4HRS PRN PO MODERATE PAIN Last administered on 09/27/19at 11:07; Start 09/27/19 at 10:45 Magnesium Citrate (Citroma) 296 ml 1X ONCE PO Last administered on 09/27/19at 15:22; Start 09/27/19 at 14:00; Stop 09/27/19 at 14:01; Status DC Polyethylene Glycol (miraLAX Powder BULK BOTTLE) 238 gm 1X ONCE PO Last administered on 09/27/19at 16:14; Start 09/27/19 at 16:00; Stop 09/27/19 at 16:01; Status DC Bisacodyl (Dulcolax Tab) 10 mg 1X ONCE PO Last administered on 09/27/19at 21:48; Start 09/27/19 at 16:00; Stop 09/27/19 at 16:01; Status DC Ringer's Solution 1,000 ml @ 30 mls/hr Q24H IV Last administered on 09/28/19at 10:56; Start 09/28/19 at 07:00; Stop 09/28/19 at 18:59; Status DC Prochlorperazine Edisylate (Compazine) 5 mg PACU PRN PRN IV NAUSEA, MRX1; Start 09/28/19 at 07:00; Stop 09/28/19 at 20:00; Status DC Ringer's Solution 1,000 ml @ 75 mls/hr 1X ONCE IV ; Start 09/28/19 at 08:00; Stop 09/28/19 at 21:19; Status DC Propofol (Diprivan) 200 mg STK-MED ONCE IV ; Start 09/28/19 at 11:51; Stop 09/28/19 at 11:51; Status DC Fentanyl Citrate (Fentanyl 2ml Vial) 25 mcg PRN Q5MIN PRN IV MILD PAIN 1-3; Start 09/29/19 at 07:00; Stop 09/30/19 at 06:59; Status DC Fentanyl Citrate (Fentanyl 2ml Vial) 50 mcg PRN Q5MIN PRN IV MODERATE TO SEVERE PAIN; Start 09/29/19 at 07:00; Stop 09/30/19 at 06:59; Status DC Morphine Sulfate (Morphine Sulfate) 1 mg PRN Q10MIN PRN IV SEVERE PAIN 7-10; Start 09/29/19 at 07:00; Stop 09/30/19 at 06:59; Status DC Ringer's Solution 1,000 ml @ 30 mls/hr Q24H IV ; Start 09/29/19 at 07:00; Stop 09/29/19 at 18:59; Status DC Hydromorphone HCl (Dilaudid) 0.5 mg PRN Q10MIN PRN IV SEV PAIN, Second choice; Start 09/29/19 at 07:00; Stop 09/30/19 at 06:59; Status DC Prochlorperazine Edisylate (Compazine) 5 mg PACU PRN PRN IV NAUSEA, MRX1; Start 09/29/19 at 07:00; Stop 09/30/19 at 06:59; Status DC Levofloxacin/ Dextrose 100 ml @ 100 mls/hr 1X PREOP PRN IV PRIOR TO PROCEDURE Last administered on 09/29/19at 11:57; Start 09/29/19 at 06:00; Stop 09/29/19 at 18:00; Status DC Metronidazole 100 ml @ 100 mls/hr 1X PREOP PRN IV PRIOR TO PROCEDURE Last administered on 09/29/19at 11:23; Start 09/29/19 at 06:00; Stop 09/29/19 at 18:00; Status DC Propofol (Diprivan) 200 mg STK-MED ONCE IV ; Start 09/29/19 at 08:40; Stop 09/29/19 at 08:40; Status DC Lidocaine HCl (Lidocaine Pf 2% Vial) 5 ml STK-MED ONCE .ROUTE ; Start 09/29/19 at 08:40; Stop 09/29/19 at 08:40; Status DC Etomidate (Amidate) 20 mg STK-MED ONCE IV ; Start 09/29/19 at 08:40; Stop 09/29/19 at 08:41; Status DC Dexamethasone Sodium Phosphate (Decadron) 4 mg STK-MED ONCE .ROUTE ; Start 09/29/19 at 08:40; Stop 09/29/19 at 08:41; Status DC Ondansetron HCl (Zofran) 4 mg STK-MED ONCE .ROUTE ; Start 09/29/19 at 08:40; Stop 09/29/19 at 08:41; Status DC Phenylephrine HCl (PHENYLEPHRINE in 0.9% NACL PF) 1 mg STK-MED ONCE IV ; Start 09/29/19 at 08:40; Stop 09/29/19 at 08:41; Status DC Ephedrine Sulfate (ePHEDrine PF IN SALINE SYRINGE) 50 mg STK-MED ONCE IV ; Start 09/29/19 at 08:40; Stop 09/29/19 at 08:41; Status DC Succinylcholine Chloride (Anectine) 200 mg STK-MED ONCE .ROUTE ; Start 09/29/19 at 08:41; Stop 09/29/19 at 08:41; Status DC Rocuronium [place] (Zemuron) 50 mg STK-MED ONCE .ROUTE ; Start 09/29/19 at 08:41; Stop 09/29/19 at 08:41; Status DC Fentanyl Citrate (Fentanyl 2ml Vial) 100 mcg STK-MED ONCE .ROUTE ; Start 09/29/19 at 08:41; Stop 09/29/19 at 08:42; Status DC Phenylephrine HCl (Cas-Synephrine Inj) 10 mg STK-MED ONCE .ROUTE ; Start 09/29/19 at 08:41; Stop 09/29/19 at 08:42; Status DC Hydromorphone HCl (Dilaudid) 2 mg STK-MED ONCE .ROUTE ; Start 09/29/19 at 12:03; Stop 09/29/19 at 12:03; Status DC Sevoflurane (Ultane) 90 ml STK-MED ONCE IH ; Start 09/29/19 at 13:04; Stop 09/29/19 at 13:04; Status DC Glycopyrrolate (Robinul) 1 mg STK-MED ONCE .ROUTE ; Start 09/29/19 at 13:23; S top 09/29/19 at 13:23; Status DC Neostigmine Green[place] (Neostigmine Methylsulfate) 5 mg STK-MED ONCE .ROUTE ; Start 09/29/19 at 13:23; Stop 09/29/19 at 13:23; Status DC Hydromorphone HCl (Dilaudid) 0.2 mg PRN Q4HRS PRN IVP MODERATE PAIN Last administered on 09/30/19at 08:28; Start 09/29/19 at 14:00 Hydromorphone HCl (Dilaudid) 0.5 mg PRN Q4HRS PRN IVP SEVERE PAIN Last administered on 10/03/19at 00:36; Start 09/29/19 at 14:00 Iron Sucrose 200 mg/Sodium Chloride 110 ml @ 55 mls/hr 1X ONCE IV Last administered on 09/30/19at 14:21; Start 09/30/19 at 14:00; Stop 09/30/19 at 15:59; Status DC Amino Acids/ Glycerin/ Electrolytes 1,000 ml @ 80 mls/hr [id number] IV Last administered on 10/03/19at 08:42; Start 09/30/19 at 12:45 Saliva Substitute (Biotene Moisturizing Mouth) 2 spray PRN Q15MIN PRN PO DRY MOUTH; Start 09/30/19 at 13:00 Levothyroxine Sodium 25 mcg/ Sodium Chloride 5 ml @ 100 mls/hr Q3DAYS IV Last administered on 10/03/19at 08:45; Start 10/03/19 at 09:00 Active Scripts Active Reported Tylenol (Acetaminophen) 325 Mg Tablet 650 Mg PO Q4HRS PRN Macrodantin (Nitrofurantoin Macrocrystal) 50 Mg Capsule 1 Cap PO DAILY Evista (Raloxifene Hcl) 60 Mg Tablet 1 Tab PO DAILY Triamcinolone Acetonide 0.1% Oint (Triamcinolone Acetonide) 15 Gm Oint...g. 1 Gregg TP BID MIX WITH EUCERIN DIRECTED BY PHYSICIAN Ibuprofen 800 Mg Tablet 800 Mg PO PRN Q6HRS PRN B Complex (Vitamin B Complex) 1 Each Tablet 1 Each PO [place] 3 1,000 Mg Softgel ([place]-3 Fatty Acids/Fish Oil) 1 Each Capsule 1 Each PO Vitamin E (Vitamin E Acid Succinate) 100 Unit Tablet 100 Unit PO Lysine 500 Mg Tablet 500 Mg PO Vitamin D3 (Cholecalciferol (Vitamin D3)) 1,000 Unit Tablet 1,000 Unit PO Centrum Complete Multivit Tab (Multivitamin/Iron/Folic Acid) 1 Each Tablet 1 Each PO Caltrate 600 + D Tablet (Calcium Carbonate/Vitamin D3) 1 Each Tablet 1 Each PO Losartan Potassium 50 Mg Tablet 50 Mg PO DAILY Evista (Raloxifene Hcl) 60 Mg Tablet 60 Mg PO DAILY Hydrocodone-Apap 5-325 (Hydrocodone Bit/Acetaminophen) 1 Each Tablet 1-2 Tab PO Q4-6HRS Levothyroxine Sodium 50 Mcg Tablet 50 Mcg PO DAILYAC Allergies Allergies: Coded Allergies: Penicillins (Verified Allergy, Intermediate, 09/28/19) Sulfa (Sulfonamide Antibiotics) (Verified Allergy, Intermediate, 09/28/19) clarithromycin (Verified Allergy, Intermediate, 09/28/19) morphine (Verified Allergy, Intermediate, 09/28/19) ROS General: No: Chills, Night Sweats PSYCHOLOGICAL ROS: YES: Anxiety; No: Behavioral Disorder Eyes: No Eye Pain, No Itchy Eyes HEENT: No: Oral lesions, Sinus pain ALLERGY AND IMMUNOLOGY: No: Hives, Nasal Congestion Hematological and Lymphatic: YES: Blood Transfusions; No: Bleeding Problems, Blood Clots, Brusing ENDOCRINE: YES: Malaise/lethargy; No: Mood Swings Breast: No New/Changing Breast Lumps, No Nipple changes Respiratory: No: Cough, Hemoptysis Gastrointestinal: Yes Abdominal Pain; No Nausea, No Vomiting, No Diarrhea Genitourinary: No Dysuria, No Flank Pain Musculoskeletal: No Gait Disturbance, No Joint Swelling Neurological: No Behavorial Changes, No Confusion Skin: No Dry Skin, No Rash Physical Exam General: Alert, Oriented X3 HEENT: Atraumatic, PERRLA Lungs: Clear to auscultation Heart: Regular rate Abdomen: Normal bowel sounds, Soft Extremities: No clubbing Skin: No rashes Neuro: Normal speech Psych/Mental Status: Mental status NL MUSCULOSKELETAL: No swelling Vitals VITALS Vital Signs Date Time Temp Pulse Resp B/P (MAP) Pulse Ox O2 Delivery O2 Flow Rate FiO2 10/03/19 11:19 98.7 89 18 161/41 (81) 98 Nasal Cannula 3.0 98.7 Labs Labs Laboratory Tests Test 10/02/19 04:30 10/03/19 05:30 White Blood Count 9.4 x10^3/uL (4.0-11.0) 9.5 x10^3/uL (4.0-11.0) Red Blood Count 3.18 x10^6/uL (3.50-5.40) 3.50 x10^6/uL (3.50-5.40) Hemoglobin 8.6 g/dL (12.0-15.5) 9.3 g/dL (12.0-15.5) Hematocrit 25.4 % (36.0-47.0) 28.2 % (36.0-47.0) Mean Corpuscular Volume 80 fL (79-100) 81 fL (79-100) Mean Corpuscular Hemoglobin 27 pg (25-35) 27 pg (25-35) Mean Corpuscular Hemoglobin Concent 34 g/dL (31-37) 33 g/dL (31-37) Red Cell Distribution Width 22.9 % (11.5-14.5) 22.8 % (11.5-14.5) Platelet Count 375 x10^3/uL (140-400) 385 x10^3/uL (140-400) Neutrophils (%) (Auto) 77 % (31-73) 69 % (31-73) Lymphocytes (%) (Auto) 15 % (24-48) 20 % (24-48) Monocytes (%) (Auto) 8 % (0-9) 10 % (0-9) Eosinophils (%) (Auto) 0 % (0-3) 1 % (0-3) Basophils (%) (Auto) 0 % (0-3) 0 % (0-3) Neutrophils # (Auto) 7.2 x10^3/uL (1.8-7.7) 6.6 x10^3/uL (1.8-7.7) Lymphocytes # (Auto) 1.4 x10^3/uL (1.0-4.8) 1.9 x10^3/uL (1.0-4.8) Monocytes # (Auto) 0.7 x10^3/uL (0.0-1.1) 1.0 x10^3/uL (0.0-1.1) Eosinophils # (Auto) 0.0 x10^3/uL (0.0-0.7) 0.1 x10^3/uL (0.0-0.7) Basophils # (Auto) 0.0 x10^3/uL (0.0-0.2) 0.0 x10^3/uL (0.0-0.2) Sodium Level 137 mmol/L (136-145) 134 mmol/L (136-145) Potassium Level 4.0 mmol/L (3.5-5.1) 4.0 mmol/L (3.5-5.1) Chloride Level 103 mmol/L (98-107) 101 mmol/L (98-107) Carbon Dioxide Level 30 mmol/L (21-32) 31 mmol/L (21-32) Anion Gap 4 (6-14) 2 (6-14) Blood Urea Nitrogen 15 mg/dL (7-20) 13 mg/dL (7-20) Creatinine 0.5 mg/dL (0.6-1.0) 0.5 mg/dL (0.6-1.0) Estimated GFR (Cockcroft-Gault) 116.4 116.4 BUN/Creatinine Ratio 30 (6-20) Glucose Level 105 mg/dL (70-99) 94 mg/dL (70-99) Calcium Level 7.7 mg/dL (8.5-10.1) 7.8 mg/dL (8.5-10.1) Total Bilirubin 0.6 mg/dL (0.2-1.0) Aspartate Amino Transf (AST/SGOT) 19 U/L (15-37) Alanine Aminotransferase (ALT/SGPT) 14 U/L (14-59) Alkaline Phosphatase 136 U/L (46-116) Total Protein 5.0 g/dL (6.4-8.2) Albumin 1.6 g/dL (3.4-5.0) Albumin/Globulin Ratio 0.5 (1.0-1.7) Laboratory Tests Test 10/03/19 05:30 White Blood Count 9.5 x10^3/uL (4.0-11.0) Red Blood Count 3.50 x10^6/uL (3.50-5.40) Hemoglobin 9.3 g/dL (12.0-15.5) Hematocrit 28.2 % (36.0-47.0) Mean Corpuscular Volume 81 fL (79-100) Mean Corpuscular Hemoglobin 27 pg (25-35) Mean Corpuscular Hemoglobin Concent 33 g/dL (31-37) Red Cell Distribution Width 22.8 % (11.5-14.5) Platelet Count 385 x10^3/uL (140-400) Neutrophils (%) (Auto) 69 % (31-73) Lymphocytes (%) (Auto) 20 % (24-48) Monocytes (%) (Auto) 10 % (0-9) Eosinophils (%) (Auto) 1 % (0-3) Basophils (%) (Auto) 0 % (0-3) Neutrophils # (Auto) 6.6 x10^3/uL (1.8-7.7) Lymphocytes # (Auto) 1.9 x10^3/uL (1.0-4.8) Monocytes # (Auto) 1.0 x10^3/uL (0.0-1.1) Eosinophils # (Auto) 0.1 x10^3/uL (0.0-0.7) Basophils # (Auto) 0.0 x10^3/uL (0.0-0.2) Sodium Level 134 mmol/L (136-145) Potassium Level 4.0 mmol/L (3.5-5.1) Chloride Level 101 mmol/L (98-107) Carbon Dioxide Level 31 mmol/L (21-32) Anion Gap 2 (6-14) Blood Urea Nitrogen 13 mg/dL (7-20) Creatinine 0.5 mg/dL (0.6-1.0) Estimated GFR (Cockcroft-Gault) 116.4 Glucose Level 94 mg/dL (70-99) Calcium Level 7.8 mg/dL (8.5-10.1) Images Images CT abdomen: IMPRESSION: Large ascending colonic mass without bowel obstruction showing findings suspicious for extracolonic tumoral spread. Further characterization by abdominal MRI or contrast-enhanced CT imaging can be pursued if clinically warranted. Differential considerations include lymphoma versus adenocarcinoma of the large bowel. Assessment/Plan Assessment/Plan Assessment: Colon cancer, right. CEA elevated at 72 Iron deficiency anemia from chronic blood loss Chronic hypoxic respiratory failure COPD Former tobacco use Recommendations: -I discussed the pathology report with the patient and her son Finn and [id number] -I outlined the diagnostic evaluation and staging work-up in patients with colon cancer -I discussed the prognostic and therapeutic significance of lymph node staging and distant metastasis evaluation in patients with newly diagnosed colon cancer -I recommended CT of the chest, abdomen and pelvis with contrast for staging. Reviewed CT abdomen without contrast which shows adrenal nodularity. -Currently awaiting surgical pathology report from hemicolectomy on 09/29/2019 -Continue with supportive care postoperatively at this time per hospitalist service and surgery -She will be set up with follow-up with me following dismissal from the hospital for further care Thank you for the consult Garrett Hayward MD Medical Oncology/Hematology Ph: [phone] NAYELI HAYWARD MD Oct 03, 2019 12:01
--- NOTE | 2019-10-03 12:48 | PDOC ---
[employer] PROGRESS NOTE Date of Service DOS: DATE: 10/03/19 TIME: 12:40 Chief Complaint Chief Complaint Acute blood loss anemia - likely 2/2 potential GI malignancy Right colon mass - plans for surgery Small bilateral pleural effusions Cholelilthiasis - Gallbladder contains a 1 cm stone at its neck Hyponatremia - will monitor Nephrolithiasis nonobstructive Adrenal mass History of Present Illness History of Present Illness 10/03/2019 Patient seen and examined Resting comfortably in bed Receiving PPN with clear liquids Transfused 09/30, Hgb 9.3 today Hem/Onc recommending CT of the chest, abdomen and pelvis with contrast for staging Awaiting surgical pathology report from hemicolectomy on 09/29/2019 Discussed with RN Chart reviewed 10/01. pain better, up and to chair doing well, family here [facility] is back, I discussed ADENO carcinoma diagnosis, will consult Onc to follow after discharge. she feels well still NPO, cont PPN 09/30. back is sore from the bed pain OK, no flatus yet, her son is here and has been very helpful with her care, cont current 09/29,. pain OK, dry mouth, looks comfortable lefft hand swollen today, IV changed to the right, no event otherwsie surg yesterday will given venofer IV today, DELORES 09/28, hgb stable - in surg for colon resection, ostomy placement Mr Henson 89 y/o female with PMHc COPD, pulmonary fibrosis on home O2, HTN, Osteoporosis, depression, hypothyroidism, mild cognitive impairment who lives in Assisted Living in [place], [place] who was transferred from [facility] for evaluation of lower abdominal pain and low hemoglobin No previous EGD or colonoscopy. No cancer history in her mother father, her sister did have breast cancer and her brother has history of lymphoma non- Hodgkin's type. No prostate or colon cancer history in her family but she does not know all of their history. CT abdomen reveals large ascending colonic mass without bowel obstruction showing findings suspicious for extracolonic tumoral spread. Additional findings include cholelithiasis, splenic calcifications, mild nodular fullness of left adrenal gland, mild right hydroureter and hydronephrosis w/ nonobstructing 2 mm right kidney stone. Vitals/I&O Vitals/I&O: Vital Signs Date Time Temp Pulse Resp B/P (MAP) Pulse Ox O2 Delivery O2 Flow Rate FiO2 10/03/19 11:19 98.7 89 18 161/41 (81) 98 Nasal Cannula 3.0 98.7 I & O 10/02/19 10/02/19 10/03/19 15:00 23:00 07:00 Intake Total 20 ml 0 ml Output Total 250 ml 550 ml 575 ml Balance -230 ml -550 ml -575 ml Physical Exam General: Alert, Oriented X3, Cooperative, No acute distress Heart: Regular rate Lungs: Clear Abdomen: Normal bowel sounds, Soft Extremities: No clubbing, No cyanosis Skin: No rashes, No breakdown, Other (abd dressing CDI ) Labs Labs: Laboratory Tests Test 10/03/19 05:30 White Blood Count 9.5 x10^3/uL (4.0-11.0) Red Blood Count 3.50 x10^6/uL (3.50-5.40) Hemoglobin 9.3 g/dL (12.0-15.5) Hematocrit 28.2 % (36.0-47.0) Mean Corpuscular Volume 81 fL (79-100) Mean Corpuscular Hemoglobin 27 pg (25-35) Mean Corpuscular Hemoglobin Concent 33 g/dL (31-37) Red Cell Distribution Width 22.8 % (11.5-14.5) Platelet Count 385 x10^3/uL (140-400) Neutrophils (%) (Auto) 69 % (31-73) Lymphocytes (%) (Auto) 20 % (24-48) Monocytes (%) (Auto) 10 % (0-9) Eosinophils (%) (Auto) 1 % (0-3) Basophils (%) (Auto) 0 % (0-3) Neutrophils # (Auto) 6.6 x10^3/uL (1.8-7.7) Lymphocytes # (Auto) 1.9 x10^3/uL (1.0-4.8) Monocytes # (Auto) 1.0 x10^3/uL (0.0-1.1) Eosinophils # (Auto) 0.1 x10^3/uL (0.0-0.7) Basophils # (Auto) 0.0 x10^3/uL (0.0-0.2) Sodium Level 134 mmol/L (136-145) Potassium Level 4.0 mmol/L (3.5-5.1) Chloride Level 101 mmol/L (98-107) Carbon Dioxide Level 31 mmol/L (21-32) Anion Gap 2 (6-14) Blood Urea Nitrogen 13 mg/dL (7-20) Creatinine 0.5 mg/dL (0.6-1.0) Estimated GFR (Cockcroft-Gault) 116.4 Glucose Level 94 mg/dL (70-99) Calcium Level 7.8 mg/dL (8.5-10.1) Assessment and Plan Assessmemt and Plan ASSESSMENT Acute blood loss anemia - likely 2/2 potential GI malignancy Right colon mass Small bilateral pleural effusions Cholelilthiasis - Gallbladder contains a 1 cm stone at its neck Hyponatremia - will monitor Nephrolithiasis nonobstructive Adrenal mass Iron deficiency anemia from chronic blood loss Chronic hypoxic respiratory failure COPD Former tobacco use PLAN Discharge disposition pending PT/OT Awaiting oncology input PPN with clear liquids Trend hemoglobin Trend labs Home meds DVT prophylaxis DNR Subspecialty input appreciated Comment Review of Relevant I have reviewed the following items kun (where applicable) has been applied. Medications: Current Medications Medications (Trade) Dose Ordered Sig/Elier Route PRN Reason Start Time Stop Time Status Last Admin Dose Admin Levothyroxine Sodium 25 mcg/ Sodium Chloride 5 ml @ 100 mls/hr Q3DAYS IV 10/03/19 09:00 10/03/19 08:45 Justicifation of Admission Dx: Justifications for Admission: Justification of Admission Dx: Yes CHF: Hemodynamic Instability Comminuty Aquired Pneumonia: Dehydration Chronic Renal Failure: Intravenous Infusions Sepsis: Dehydration YARED AKINS III DO Oct 03, 2019 12:48
[2019-10-03] MEDS ORDERED: CONTRAST GIVEN. MC PRN (13:30)
[2019-10-03] MEDS ORDERED: IOHEXOL 300 MG/ML 100ML VIAL. IV ONE (13:30)
[2019-10-03] MEDS ORDERED: IOHEXOL 240 MG/ML 50ML VIAL. PO ONE (13:30)
[2019-10-03 14:44] VITALS: BP 158/78
[2019-10-03 19:30] VITALS: BP 167/75
[2019-10-03 23:15] VITALS: BP 182/82
[2019-10-04] MEDS: HYDROmorphone 2 MG/ML VIAL IVP PRN ×2 (02:24→23:34)
[2019-10-04 03:05] VITALS: BP 142/67
[2019-10-04 05:10] LABS: BASO % 1 % (0-3); EOS % 0 % (0-3); HEMATOCRIT 29.5 % (36.0-47.0); HEMOGLOBIN 9.7 g/dL (12.0-15.5); LYMPH # 1.4 x10^3/uL (1.0-4.8); LYMPH % 16 % (24-48); MEAN CORPUSCULAR HEMOGLOBIN 26 pg (25-35); MEAN CORPUSCULAR HGB CONC 33 g/dL (31-37); MEAN CORPUSCULAR VOLUME 80 fL (79-100); MONO % 12 % (0-9); NEUT # 5.9 x10^3/uL (1.8-7.7); NEUT % 71 % (31-73); PLATELET COUNT 435 x10^3/uL (140-400); RED BLOOD COUNT 3.68 x10^6/uL (3.50-5.40); RED CELL DISTRIBUTION WIDTH 23.3 % (11.5-14.5); WHITE BLOOD COUNT 8.3 x10^3/uL (4.0-11.0)
[2019-10-04 05:31] LABS: CALCIUM 7.9 mg/dL (8.5-10.1); CREATININE 0.5 mg/dL (0.6-1.0); GFR 116.4; POTASSIUM 3.9 mmol/L (3.5-5.1)
[2019-10-04 07:00] VITALS: BP 172/72
--- NOTE | 2019-10-04 09:34 | PDOC ---
DANTE VALDIVIA DIAMOND DIE POLISHER 10/04/19 0934: SURGICAL PROGRESS NOTE DATE: 10/04/19 TIME: 09:33 Subjective up in chair tolerating liquids no n/v Vital Signs Vital Signs Date Time Temp Pulse Resp B/P (MAP) Pulse Ox O2 Delivery O2 Flow Rate FiO2 10/04/19 07:00 98.0 80 20 172/72 (105) 99 Nasal Cannula 3.0 98.0 I&O Intake and Output 10/04/19 07:00 Intake Total 520 ml Output Total 1065 ml Balance -545 ml Intake Oral 520 ml Output Urine Total 1065 ml # Voids 10 General: Alert, Cooperative, No acute distress Abdomen: Soft, Other (ND, incision c/d/i, no erythema ) Labs Laboratory Tests Test 10/03/19 05:30 10/04/19 04:05 White Blood Count 9.5 x10^3/uL (4.0-11.0) 8.3 x10^3/uL (4.0-11.0) Red Blood Count 3.50 x10^6/uL (3.50-5.40) 3.68 x10^6/uL (3.50-5.40) Hemoglobin 9.3 g/dL (12.0-15.5) 9.7 g/dL (12.0-15.5) Hematocrit 28.2 % (36.0-47.0) 29.5 % (36.0-47.0) Mean Corpuscular Volume 81 fL (79-100) 80 fL (79-100) Mean Corpuscular Hemoglobin 27 pg (25-35) 26 pg (25-35) Mean Corpuscular Hemoglobin Concent 33 g/dL (31-37) 33 g/dL (31-37) Red Cell Distribution Width 22.8 % (11.5-14.5) 23.3 % (11.5-14.5) Platelet Count 385 x10^3/uL (140-400) 435 x10^3/uL (140-400) Neutrophils (%) (Auto) 69 % (31-73) 71 % (31-73) Lymphocytes (%) (Auto) 20 % (24-48) 16 % (24-48) Monocytes (%) (Auto) 10 % (0-9) 12 % (0-9) Eosinophils (%) (Auto) 1 % (0-3) 0 % (0-3) Basophils (%) (Auto) 0 % (0-3) 1 % (0-3) Neutrophils # (Auto) 6.6 x10^3/uL (1.8-7.7) 5.9 x10^3/uL (1.8-7.7) Lymphocytes # (Auto) 1.9 x10^3/uL (1.0-4.8) 1.4 x10^3/uL (1.0-4.8) Monocytes # (Auto) 1.0 x10^3/uL (0.0-1.1) 1.0 x10^3/uL (0.0-1.1) Eosinophils # (Auto) 0.1 x10^3/uL (0.0-0.7) 0.0 x10^3/uL (0.0-0.7) Basophils # (Auto) 0.0 x10^3/uL (0.0-0.2) 0.0 x10^3/uL (0.0-0.2) Sodium Level 134 mmol/L (136-145) 134 mmol/L (136-145) Potassium Level 4.0 mmol/L (3.5-5.1) 3.9 mmol/L (3.5-5.1) Chloride Level 101 mmol/L (98-107) 100 mmol/L (98-107) Carbon Dioxide Level 31 mmol/L (21-32) 33 mmol/L (21-32) Anion Gap 2 (6-14) 1 (6-14) Blood Urea Nitrogen 13 mg/dL (7-20) 10 mg/dL (7-20) Creatinine 0.5 mg/dL (0.6-1.0) 0.5 mg/dL (0.6-1.0) Estimated GFR (Cockcroft-Gault) 116.4 116.4 Glucose Level 94 mg/dL (70-99) 98 mg/dL (70-99) Calcium Level 7.8 mg/dL (8.5-10.1) 7.9 mg/dL (8.5-10.1) Laboratory Tests Test 10/04/19 04:05 White Blood Count 8.3 x10^3/uL (4.0-11.0) Red Blood Count 3.68 x10^6/uL (3.50-5.40) Hemoglobin 9.7 g/dL (12.0-15.5) Hematocrit 29.5 % (36.0-47.0) Mean Corpuscular Volume 80 fL (79-100) Mean Corpuscular Hemoglobin 26 pg (25-35) Mean Corpuscular Hemoglobin Concent 33 g/dL (31-37) Red Cell Distribution Width 23.3 % (11.5-14.5) Platelet Count 435 x10^3/uL (140-400) Neutrophils (%) (Auto) 71 % (31-73) Lymphocytes (%) (Auto) 16 % (24-48) Monocytes (%) (Auto) 12 % (0-9) Eosinophils (%) (Auto) 0 % (0-3) Basophils (%) (Auto) 1 % (0-3) Neutrophils # (Auto) 5.9 x10^3/uL (1.8-7.7) Lymphocytes # (Auto) 1.4 x10^3/uL (1.0-4.8) Monocytes # (Auto) 1.0 x10^3/uL (0.0-1.1) Eosinophils # (Auto) 0.0 x10^3/uL (0.0-0.7) Basophils # (Auto) 0.0 x10^3/uL (0.0-0.2) Sodium Level 134 mmol/L (136-145) Potassium Level 3.9 mmol/L (3.5-5.1) Chloride Level 100 mmol/L (98-107) Carbon Dioxide Level 33 mmol/L (21-32) Anion Gap 1 (6-14) Blood Urea Nitrogen 10 mg/dL (7-20) Creatinine 0.5 mg/dL (0.6-1.0) Estimated GFR (Cockcroft-Gault) 116.4 Glucose Level 98 mg/dL (70-99) Calcium Level 7.9 mg/dL (8.5-10.1) Assessment/Plan s/p resection advance to full liquids Justicifation of Admission Dx: Justifications for Admission: Justification of Admission Dx: Yes CHF: Hemodynamic Instability Comminuty Aquired Pneumonia: Dehydration Chronic Renal Failure: Intravenous Infusions Sepsis: Dehydration NANDA MILLER MD 10/04/19 1140: SURGICAL PROGRESS NOTE Assessment/Plan Agree with above DANTE VALDIVIA DIAMOND [employer]ER Oct 04, 2019 09:34 NANDA MILLER MD Oct 04, 2019 11:40
--- NOTE | 2019-10-04 09:36 | PDOC ---
Date of Service: DATE: 10/04/19 TIME: 09:33 Subjective: Subjective: Tolerating clear liquids. No stool but is passing gas. Objective: Objective: Nurse asks about PO meds. Orders for full liquids and another CT (C/A/P) for staging. Vital Signs: Vital Signs Date Time Temp Pulse Resp B/P (MAP) Pulse Ox O2 Delivery O2 Flow Rate FiO2 10/04/19 07:00 98.0 80 20 172/72 (105) 99 Nasal Cannula 3.0 98.0 Labs: Laboratory Tests Test 10/04/19 04:05 White Blood Count 8.3 x10^3/uL Red Blood Count 3.68 x10^6/uL Hemoglobin 9.7 g/dL Hematocrit 29.5 % Mean Corpuscular Volume 80 fL Mean Corpuscular Hemoglobin 26 pg Mean Corpuscular Hemoglobin Concent 33 g/dL Red Cell Distribution Width 23.3 % Platelet Count 435 x10^3/uL Neutrophils (%) (Auto) 71 % Lymphocytes (%) (Auto) 16 % Monocytes (%) (Auto) 12 % Eosinophils (%) (Auto) 0 % Basophils (%) (Auto) 1 % Neutrophils # (Auto) 5.9 x10^3/uL Lymphocytes # (Auto) 1.4 x10^3/uL Monocytes # (Auto) 1.0 x10^3/uL Eosinophils # (Auto) 0.0 x10^3/uL Basophils # (Auto) 0.0 x10^3/uL Sodium Level 134 mmol/L Potassium Level 3.9 mmol/L Chloride Level 100 mmol/L Carbon Dioxide Level 33 mmol/L Anion Gap 1 Blood Urea Nitrogen 10 mg/dL Creatinine 0.5 mg/dL Estimated GFR (Cockcroft-Gault) 116.4 Glucose Level 98 mg/dL Calcium Level 7.9 mg/dL PE: GEN: NAD - up in chair LUNGS: diminished HEART: RRR ABD: non-distended NEURO/PSYCH: A & O 3 A/P: Colon cancer s/p right colon resection DELORES -- Continue per surgery and oncology. Justicifation of Admission Dx: Justifications for Admission: Justification of Admission Dx: Yes CHF: Hemodynamic Instability Comminuty Aquired Pneumonia: Dehydration Chronic Renal Failure: Intravenous Infusions Sepsis: Dehydration DAVID BURGOS Oct 04, 2019 09:36
[2019-10-04] MEDS ORDERED: IOHEXOL 240 MG/ML 50ML VIAL. PO ONE (09:45)
[2019-10-04] MEDS ORDERED: IOHEXOL 300 MG/ML 100ML VIAL. IV ONE (09:45)
[2019-10-04 10:40] VITALS: BP 192/92
--- NOTE | 2019-10-04 10:54 | PDOC ---
[employer] PROGRESS NOTE Date of Service DOS: DATE: 10/04/19 TIME: 10:50 Chief Complaint Chief Complaint Acute blood loss anemia - likely 2/2 potential GI malignancy colon cancer Small bilateral pleural effusions Cholelilthiasis - Gallbladder contains a 1 cm stone at its neck Hyponatremia - will monitor Nephrolithiasis nonobstructive Adrenal mass History of Present Illness History of Present Illness 10/04/2019 Pt seen and examined dw RN and case mgmt reviewed chart 10/03/2019 Patient seen and examined Resting comfortably in bed Receiving PPN with clear liquids Transfused 09/30, Hgb 9.3 today Hem/Onc recommending CT of the chest, abdomen and pelvis with contrast for staging Awaiting surgical pathology report from hemicolectomy on 09/29/2019 Discussed with RN Chart reviewed 10/01. pain better, up and to chair doing well, family here [facility] is back, I discussed ADENO carcinoma diagnosis, will consult Onc to follow after discharge. she feels well still NPO, cont PPN 09/30. back is sore from the bed pain OK, no flatus yet, her son is here and has been very helpful with her care, cont current 09/29,. pain OK, dry mouth, looks comfortable lefft hand swollen today, IV changed to the right, no event otherwsie surg yesterday will given venofer IV today, DELORES 09/28, hgb stable - in surg for colon resection, ostomy placement Mr Henson 89 y/o female with PMHc COPD, pulmonary fibrosis on home O2, HTN, Osteoporosis, depression, hypothyroidism, mild cognitive impairment who lives in Assisted Living in [place], [place] who was transferred from [facility] for evaluation of lower abdominal pain and low hemoglobin No previous EGD or colonoscopy. No cancer history in her mother father, her sister did have breast cancer and her brother has history of lymphoma non-H odgkin's type. No prostate or colon cancer history in her family but she does not know all of their history. CT abdomen reveals large ascending colonic mass without bowel obstruction showing findings suspicious for extracolonic tumoral spread. Additional findings include cholelithiasis, splenic calcifications, mild nodular fullness of left adrenal gland, mild right hydroureter and hydronephrosis w/ nonobstructing 2 mm right kidney stone. Vitals/I&O Vitals/I&O: Vital Signs Date Time Temp Pulse Resp B/P (MAP) Pulse Ox O2 Delivery O2 Flow Rate FiO2 10/04/19 10:40 98.2 92 20 192/92 (125) 99 Nasal Cannula 3.0 98.2 I & O 10/03/19 10/03/19 10/04/19 15:00 23:00 07:00 Intake Total 360 ml 100 ml 60 ml Output Total 375 ml 80 ml 610 ml Balance -15 ml 20 ml -550 ml Physical Exam General: Alert, Cooperative, No acute distress Heart: Regular rate Lungs: Clear Abdomen: Soft, Other (ND, incision c/d/i, no erythema ) Extremities: No clubbing, No cyanosis, Other (r hip with cdi dressing) Skin: No rashes, No breakdown, Other (abd dressing CDI ) Labs Labs: Laboratory Tests Test 10/04/19 04:05 White Blood Count 8.3 x10^3/uL (4.0-11.0) Red Blood Count 3.68 x10^6/uL (3.50-5.40) Hemoglobin 9.7 g/dL (12.0-15.5) Hematocrit 29.5 % (36.0-47.0) Mean Corpuscular Volume 80 fL (79-100) Mean Corpuscular Hemoglobin 26 pg (25-35) Mean Corpuscular Hemoglobin Concent 33 g/dL (31-37) Red Cell Distribution Width 23.3 % (11.5-14.5) Platelet Count 435 x10^3/uL (140-400) Neutrophils (%) (Auto) 71 % (31-73) Lymphocytes (%) (Auto) 16 % (24-48) Monocytes (%) (Auto) 12 % (0-9) Eosinophils (%) (Auto) 0 % (0-3) Basophils (%) (Auto) 1 % (0-3) Neutrophils # (Auto) 5.9 x10^3/uL (1.8-7.7) Lymphocytes # (Auto) 1.4 x10^3/uL (1.0-4.8) Monocytes # (Auto) 1.0 x10^3/uL (0.0-1.1) Eosinophils # (Auto) 0.0 x10^3/uL (0.0-0.7) Basophils # (Auto) 0.0 x10^3/uL (0.0-0.2) Sodium Level 134 mmol/L (136-145) Potassium Level 3.9 mmol/L (3.5-5.1) Chloride Level 100 mmol/L (98-107) Carbon Dioxide Level 33 mmol/L (21-32) Anion Gap 1 (6-14) Blood Urea Nitrogen 10 mg/dL (7-20) Creatinine 0.5 mg/dL (0.6-1.0) Estimated GFR (Cockcroft-Gault) 116.4 Glucose Level 98 mg/dL (70-99) Calcium Level 7.9 mg/dL (8.5-10.1) Review of Systems Review of Systems: co pain co weakness Assessment and Plan Assessmemt and Plan Acute blood loss anemia - likely 2/2 potential GI malignancy Right colon mass POD 5 Small bilateral pleural effusions Cholelilthiasis - Gallbladder contains a 1 cm stone at its neck Hyponatremia - will monitor Nephrolithiasis nonobstructive Adrenal mass Iron deficiency anemia from chronic blood loss Chronic hypoxic respiratory failure COPD Former tobacco use PLAN Discharge disposition pending Trying to advance diet Awaitibg bowel functio PT/OT Awaiting further oncology input PPN with clear liquids Trend hemoglobin Trend labs Home meds DVT prophylaxis DNR Subspecialty input appreciated Probable dc to snu soon Comment Review of Relevant I have reviewed the following items kun (where applicable) has been applied. Justicifation of Admission Dx: Justifications for Admission: Justification of Admission Dx: Yes CHF: Hemodynamic Instability Comminuty Aquired Pneumonia: Dehydration Chronic Renal Failure: Intravenous Infusions Sepsis: Dehydration YARED AKINS III DO Oct 04, 2019 10:54
[2019-10-04] MEDS: CALCIUM CARB/VIT D3 500/200 TABLET. PO SCH ×2 (12:20→16:29)
[2019-10-04] MEDS: LOSARTAN POTASSIUM 50 MG TABLET. PO SCH (12:20)
[2019-10-04] MEDS: CHOLECALCIFEROL (VITAMIN D3) 1,000 UNIT TABLET PO SCH (12:20)
[2019-10-04] MEDS: VITAMIN B COMPLEX TABLET. PO SCH (12:20)
[2019-10-04] MEDS: MULTIVITAMIN with MINERAL TABLET. PO SCH (12:20)
[2019-10-04] MEDS: PANTOPRAZOLE 40 MG TABLET.DR. PO SCH (12:20)
[2019-10-04] MEDS: OMEGA-3 FATTY ACIDS/FISH OIL 1,000 MG CAPSULE. PO SCH (12:20)
[2019-10-04] MEDS: RALOXIFENE 60 MG TABLET. PO SCH (12:20)
--- NOTE | 2019-10-04 13:13 | PDOC ---
[employer] PROGRESS NOTE Date of Service DOS: DATE: 10/04/19 TIME: 13:12 Chief Complaint Chief Complaint Acute blood loss anemia - likely 2/2 potential GI malignancy colon cancer Small bilateral pleural effusions Cholelilthiasis - Gallbladder contains a 1 cm stone at its neck Hyponatremia - will monitor Nephrolithiasis nonobstructive Adrenal mass History of Present Illness History of Present Illness 10/04/2019 Pt seen and examined dw RN and case mgmt reviewed chart 10/03/2019 Patient seen and examined Resting comfortably in bed Receiving PPN with clear liquids Transfused 09/30, Hgb 9.3 today Hem/Onc recommending CT of the chest, abdomen and pelvis with contrast for staging Awaiting surgical pathology report from hemicolectomy on 09/29/2019 Discussed with RN Chart reviewed 10/01. pain better, up and to chair doing well, family here [facility] is back, I discussed ADENO carcinoma diagnosis, will consult Onc to follow after discharge. she feels well still NPO, cont PPN 09/30. back is sore from the bed pain OK, no flatus yet, her son is here and has been very helpful with her care, cont current 09/29,. pain OK, dry mouth, looks comfortable lefft hand swollen today, IV changed to the right, no event otherwsie surg yesterday will given venofer IV today, DELORES 09/28, hgb stable - in surg for colon resection, ostomy placement Mr Henson 89 y/o female with PMHc COPD, pulmonary fibrosis on home O2, HTN, Osteoporosis, depression, hypothyroidism, mild cognitive impairment who lives in Assisted Living in [place], [place] who was transferred from [facility] for evaluation of lower abdominal pain and low hemoglobin No previous EGD or colonoscopy. No cancer history in her mother father, her sister did have breast cancer and her brother has history of lymphoma non-H odgkin's type. No prostate or colon cancer history in her family but she does not know all of their history. CT abdomen reveals large ascending colonic mass without bowel obstruction showing findings suspicious for extracolonic tumoral spread. Additional findings include cholelithiasis, splenic calcifications, mild nodular fullness of left adrenal gland, mild right hydroureter and hydronephrosis w/ nonobstructing 2 mm right kidney stone. Vitals/I&O Vitals/I&O: Vital Signs Date Time Temp Pulse Resp B/P (MAP) Pulse Ox O2 Delivery O2 Flow Rate FiO2 10/04/19 12:20 92 192/92 10/04/19 10:40 98.2 20 99 Nasal Cannula 3.0 98.2 I & O 10/03/19 10/03/19 10/04/19 15:00 23:00 07:00 Intake Total 360 ml 100 ml 60 ml Output Total 375 ml 80 ml 610 ml Balance -15 ml 20 ml -550 ml Physical Exam General: Alert, Cooperative, No acute distress Heart: Regular rate Lungs: Clear Abdomen: Soft, Other (ND, incision c/d/i, no erythema ) Extremities: No clubbing, No cyanosis, Other (r hip with cdi dressing) Skin: No rashes, No breakdown, Other (abd dressing CDI ) Labs Labs: Laboratory Tests Test 10/04/19 04:05 White Blood Count 8.3 x10^3/uL (4.0-11.0) Red Blood Count 3.68 x10^6/uL (3.50-5.40) Hemoglobin 9.7 g/dL (12.0-15.5) Hematocrit 29.5 % (36.0-47.0) Mean Corpuscular Volume 80 fL (79-100) Mean Corpuscular Hemoglobin 26 pg (25-35) Mean Corpuscular Hemoglobin Concent 33 g/dL (31-37) Red Cell Distribution Width 23.3 % (11.5-14.5) Platelet Count 435 x10^3/uL (140-400) Neutrophils (%) (Auto) 71 % (31-73) Lymphocytes (%) (Auto) 16 % (24-48) Monocytes (%) (Auto) 12 % (0-9) Eosinophils (%) (Auto) 0 % (0-3) Basophils (%) (Auto) 1 % (0-3) Neutrophils # (Auto) 5.9 x10^3/uL (1.8-7.7) Lymphocytes # (Auto) 1.4 x10^3/uL (1.0-4.8) Monocytes # (Auto) 1.0 x10^3/uL (0.0-1.1) Eosinophils # (Auto) 0.0 x10^3/uL (0.0-0.7) Basophils # (Auto) 0.0 x10^3/uL (0.0-0.2) Sodium Level 134 mmol/L (136-145) Potassium Level 3.9 mmol/L (3.5-5.1) Chloride Level 100 mmol/L (98-107) Carbon Dioxide Level 33 mmol/L (21-32) Anion Gap 1 (6-14) Blood Urea Nitrogen 10 mg/dL (7-20) Creatinine 0.5 mg/dL (0.6-1.0) Estimated GFR (Cockcroft-Gault) 116.4 Glucose Level 98 mg/dL (70-99) Calcium Level 7.9 mg/dL (8.5-10.1) Assessment and Plan Assessmemt and Plan Acute blood loss anemia - likely 2/2 potential GI malignancy Right colon mass POD 5 Small bilateral pleural effusions Cholelilthiasis - Gallbladder contains a 1 cm stone at its neck Hyponatremia - will monitor Nephrolithiasis nonobstructive Adrenal mass Iron deficiency anemia from chronic blood loss Chronic hypoxic respiratory failure COPD Former tobacco use PLAN Discharge disposition pending Trying to advance diet Awaitibg bowel functio PT/OT Awaiting further oncology input PPN with clear liquids Trend hemoglobin Trend labs Home meds DVT prophylaxis DNR Subspecialty input appreciated Probable dc to snu soon Comment Review of Relevant I have reviewed the following items kun (where applicable) has been applied. Medications: Current Medications Medications (Trade) Dose Ordered Sig/Elier Route PRN Reason Start Time Stop Time Status Last Admin Dose Admin Iohexol (Omnipaque 300 Mg/ml) 75 ml 1X ONCE IV 10/03/19 13:30 10/03/19 13:31 DC 10/03/19 13:30 Iohexol (Omnipaque 240 Mg/ml) 50 ml 1X ONCE PO 10/03/19 13:30 10/03/19 13:31 DC 10/03/19 13:30 Justicifation of Admission Dx: Justifications for Admission: Justification of Admission Dx: Yes CHF: Hemodynamic Instability Comminuty Aquired Pneumonia: Dehydration Chronic Renal Failure: Intravenous Infusions Sepsis: Dehydration YARED AKINS III DO Oct 04, 2019 13:13
--- NOTE | 2019-10-04 13:14 | RAD ---
EXAM: CT OF THE CHEST, ABDOMEN AND PELVIS WITH CONTRAST. HISTORY: Colon cancer staging. TECHNIQUE: Computed tomography of the chest, abdomen and pelvis was performed after the intravenous administration of iodinated contrast. One or more of the following individualized dose reduction techniques were utilized for this examination: 1. Automated exposure control. 2. Adjustment of the mA and/or kV according to patient size. 3. Use of iterative reconstruction technique. COMPARISON: 09/24/2019. FINDINGS: Bone windows reveal no suspicious lesions. There are changes of left total hip arthroplasty. There are no pathologically enlarged mediastinal or axillary lymph nodes. There are small to moderate bilateral pleural effusions. There is no pericardial effusion. The heart is not enlarged. There is pleural parenchymal scarring in both apices. Multiple additional nodules are seen bilaterally in the upper lobes measuring up to 10 x 8 mm medially in the left upper lobe on image 15. Some are cavitary. A groundglass opacity medially in the left upper lobe measures up to 3.3 x 2.6 cm. There is compressive atelectasis in the bases. There are changes of right colectomy. A small amount of retroperitoneal gas persists. A subcutaneous drain is noted along the midline anterior abdominal scar. Small pelvic ascites is not loculated. There is no drainable collection. A gallstone is noted in the gallbladder. There are calcified granulomas throughout the spleen. There are small cysts in the left kidney. There is a 3 mm calculus in the right kidney. There are no suspicious hepatic lesions. The pancreatic duct is at the upper limits of normal caliber at 3 mm. A nodule in the left adrenal gland measures 17 x 12 mm and was consistent with a benign adenoma on the prior noncontrast study. The right adrenal gland is unremarkable. There are no pathologically enlarged lymph nodes. There is no small bowel obstruction. IMPRESSION: 1. Status post right hemicolectomy. No definitive evidence of metastatic disease. 2. Multiple cavitary nodules in both lung apices are indeterminate but most likely postinflammatory. Correlate to exclude mycobacterial infection no other atypical infections. Comparison with any available prior chest CT is recommended to assess chronicity. If none are available, PET/CT or three-month follow-up is recommended. 3. Cholelithiasis. 4. 3 mm right renal calculus. 5. 17 mm left adrenal nodule consistent with a benign adenoma. Electronically signed by: Cecily Ovalles MD (10/04/2019 1:11 PM) [id number]
[2019-10-04 14:47] VITALS: BP 145/68
[2019-10-04 19:00] VITALS: BP 147/73
--- NOTE | 2019-10-04 19:07 | PATHOLOGY ---
[facility] Accession Number: [id number] . 01 Material submitted: . colon - RIGHT COLON FRESH. Modifiers: right . 01 Clinical history: . right colon mass . 02 Frozen section diagnosis: . INTRAOPERATIVE CONSULTATION WITH GROSS IMPRESSION (Kemal Vargas MD) . 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 - Margins of resection grossly free of neoplasm. . . The results are displayed to Dr. Partida in the operating room. Specimen fixed in formalin prior to additional sectioning. . . FROZEN SECTION GROSS DESCRIPTION The specimen is received fresh and is designated "right colon". The specimen consists of a short segment of distal ileum with contiguous cecum and ascending colon and attached mesocolon. The segment is stapled closed at both ends. The segment of distal ileum measures 5.5 cm in length. The cecum and ascending colon is sharply kinked back upon itself such that the proximal arm of the ascending colon is adherent to the distal arm of the ascending colon. The serosa in this area is puckered and has a mtz-lincoln appearance. The remainder of the serosa is pinkish brown and erythematous, with focal tattooing of the serosa of the distal ascending colon. The cecum and ascending colon measure approximately 33 cm in length. The attached mesocolon measures up to 4.0 cm in depth. The puckered mtz-lincoln area of the serosa corresponds to a large palpable colon tumor and is inked with black ink. The specimen is opened longitudinally. Arising approximately 6.5 cm from the closest (distal ileum) margin of resection, there is a circumferential, centrally ulcerated tumor mass of the proximal ascending colon having raised pink borders, measuring 6.0 cm in length. The tumor invades through the muscular wall and invades the distal ascending colon where there is a raised area of the ascending colon mucosa measuring up to 4.5 x 3.8 cm. There is a segment of uninvolved mucosa between the proximal ascending colon tumor and the raised area of the distal ascending colon measuring approximately 5.5 cm in length. The mucosa of the cecum and distal ascending colon is pale yellow to pink-lincoln and transversely folded. There is focal tattooing of the mucosa distal to the tumor. No additional masses or polyps are identified. (JPM:jody/novelty worker 09/29/2019) . Frozen section performed at [facility], [address] [facility] [place] [address]. HERMES/MEDHAT . 02 Diagnosis: Distal ileum, cecum, and ascending colon with attached mesocolon, right colectomy: - Invasive colorectal adenocarcinoma, poorly differentiated, forming a circumferential, centrally ulcerated and partially necrotic tumor mass of the proximal ascending colon measuring up to 6.0 cm in greatest dimension, with tumor invasion through muscularis propria into subserosa, mesocolon, and adjacent distal ileum, and with direct tumor extension and invasion of looped arm of distal ascending colon. - Metastatic adenocarcinoma involving 2 of 24 mesocolic lymph nodes (2/24). - Focal large vessel tumor invasion of mesocolon. - Proximal, distal, and radial mesocolic margins of resection negative for tumor. - Omentum negative for tumor. - Absence of appendix. (JPM:linda; 10/01/2019) . . SURGICAL PATHOLOGY CANCER CASE SUMMARY . COLON AND RECTUM: Resection, Including Transanal Disk Excision of Rectal Neoplasms Procedure ___ Right hemicolectomy Tumor Site ___ Proximal right (ascending) colon and adjacent distal ileum. Tumor Size Greatest dimension: 6.0 cm Macroscopic Tumor Perforation ___ Not identified Histologic Type ___ Adenocarcinoma Histologic Grade ___ G3: Poorly differentiated Tumor Extension ___ Tumor directly invades adjacent structures (distal ileum and looped portion of distal ascending colon) Margins ___ All margins are uninvolved by invasive carcinoma, high-grade dysplasia, intramucosal adenocarcinoma, and adenoma Margins examined: Proximal, distal, and radial mesocolic margins + Distance of invasive carcinoma from closest margin: 6.5 cm + Specify closest margin: Proximal (distal ileum) margin of resection Treatment Effect ___ No known presurgical therapy Lymphovascular Invasion ___ Present + ___ Large vessel (venous) invasion + Type of Polyp in Which Invasive Carcinoma Arose + ___ None identified Tumor Deposits ___ Not identified Regional Lymph Nodes Number of Lymph Nodes Involved: 2 Number of Lymph Nodes Examined: 24 . Pathologic Stage Classification (pTNM, AJCC 8th Edition) Primary Tumor (pT) ___ pT4b: Tumor directly invades or adheres to adjacent organs or structures Regional Lymph Nodes (pN) ___ pN1: One to three regional lymph nodes are positive + Additional Pathologic Findings + ___ Absence of appendix (JPM/db; 10/04/2019) MBR 10/04/2019 1807 Local . 02 Electronically signed: . Kemal Vargas MD, Pathologist NPI- [id number] . 01 Gross description: . SEE GROSS DESCRIPTION DICTATION UNDER FROZEN SECTION HEADING. . Furnace Tender sections are submitted as follows: . A1: Proximal margin A2: Distal margin A3-A4: Mass to black ink serosa A5: Distal ascending colon aspect of mass A6: Mass to radial margin with adjacent lymph node A7-A8: Mass to terminal ileum A9: Mass including proximal and distal "arm" of ascending colon A10: Omentum A11: Bisected lymph node cluster A12: One bisected lymph node A13: One bisected lymph node A14: One bisected lymph node A15: 1 trisected lymph node A16: 2 bisected lymph nodes, one inked black A17: 2 bisected lymph nodes, one inked black A18: Multiple intact lymph node candidates (SDY; 09/30/2019) SYU/QMS 09/30/2019 1604 Local . 02 Pathologist provided ICD-10: C18.2, C77.2 . 02 CPT . 398119, 127963 Specimen Comment: A courtesy copy of this report has been sent to [phone] Specimen Comment: [phone], Specimen Comment: Report sent to ,DR DAVALOS / DR HALEY Performed at: [address], [place], [place] [id number] MD Manny Vallejo MD Phone: [phone] Performed at: 02 [facility] [address] [place], [place] [id number] MD Kemal Vargas MD Phone: [phone]
[2019-10-04 23:00] VITALS: BP 139/65
[2019-10-05 03:51] VITALS: BP 131/100
[2019-10-05 07:00] VITALS: BP 167/73
[2019-10-05] MEDS: OMEGA-3 FATTY ACIDS/FISH OIL 1,000 MG CAPSULE. PO SCH (08:37)
[2019-10-05] MEDS: LOSARTAN POTASSIUM 50 MG TABLET. PO SCH (08:37)
[2019-10-05] MEDS: PANTOPRAZOLE 40 MG TABLET.DR. PO SCH (08:37)
[2019-10-05] MEDS: CALCIUM CARB/VIT D3 500/200 TABLET. PO SCH ×2 (08:38→17:00)
[2019-10-05] MEDS: RALOXIFENE 60 MG TABLET. PO SCH (08:38)
[2019-10-05] MEDS: CHOLECALCIFEROL (VITAMIN D3) 1,000 UNIT TABLET PO SCH (08:38)
[2019-10-05] MEDS: MULTIVITAMIN with MINERAL TABLET. PO SCH (08:39)
[2019-10-05] MEDS: VITAMIN B COMPLEX TABLET. PO SCH (08:39)
[2019-10-05] MEDS: HYDROcodone/APAP 5/325MG 1 TAB TABLET PO PRN ×3 (09:57→19:38)
[2019-10-05 11:00] VITALS: BP 137/63
--- NOTE | 2019-10-05 11:16 | PDOC ---
[employer] PROGRESS NOTE Date of Service DOS: DATE: 10/05/19 TIME: 11:09 Chief Complaint Chief Complaint Acute blood loss anemia - likely 2/2 potential GI malignancy colon cancer Small bilateral pleural effusions Cholelilthiasis - Gallbladder contains a 1 cm stone at its neck Hyponatremia - will monitor Nephrolithiasis nonobstructive Adrenal mass History of Present Illness History of Present Illness 10/05/19 Pt examined, resting in bed, NAD POD 6 Stopped PPN, tolerating advanced diet Had BM this AM Reviewed chart Discussed with RN 10/04/2019 Pt seen and examined dw RN and case mgmt reviewed chart 10/03/2019 Patient seen and examined Resting comfortably in bed Receiving PPN with clear liquids Transfused 09/30, Hgb 9.3 today Hem/Onc recommending CT of the chest, abdomen and pelvis with contrast for staging Awaiting surgical pathology report from hemicolectomy on 09/29/2019 Discussed with RN Chart reviewed 10/01. pain better, up and to chair doing well, family here PATH is back, I discussed ADENO carcinoma diagnosis, will consult Onc to follow after discharge. she feels well still NPO, cont PPN 09/30. back is sore from the bed pain OK, no flatus yet, her son is here and has been very helpful with her care, cont current 09/29,. pain OK, dry mouth, looks comfortable lefft hand swollen today, IV changed to the right, no event otherwsie surg yesterday will given venofer IV today, DELORES 09/28, hgb stable - in surg for colon resection, ostomy placement Mr Henson 89 y/o female with PMHc COPD, pulmonary fibrosis on home O2, HTN, Osteoporosis, depression, hypothyroidism, mild cognitive impairment who lives in Assisted [facility] in [place], [place] who was transferred from [facility] for evaluation of lower abdominal pain and low hemoglobin No previous EGD or colonoscopy. No cancer history in her mother father, her sister did have breast cancer and her brother has history of lymphoma non- Hodgkin's type. No prostate or colon cancer history in her family but she does not know all of their history. CT abdomen reveals large ascending colonic mass without bowel obstruction showing findings suspicious for extracolonic tumoral spread. Additional findings include cholelithiasis, splenic calcifications, mild nodular fullness of left adrenal gland, mild right hydroureter and hydronephrosis w/ nonobstructing 2 mm right kidney stone. Vitals/I&O Vitals/I&O: Vital Signs Date Time Temp Pulse Resp B/P (MAP) Pulse Ox O2 Delivery O2 Flow Rate FiO2 10/05/19 09:57 20 98 Nasal Cannula 3.0 10/05/19 08:37 91 131/100 10/05/19 07:00 97.9 97.9 I & O 10/04/19 10/04/19 10/05/19 15:00 23:00 07:00 Intake Total 720 ml 300 ml 60 ml Output Total 301 ml 400 ml Balance 720 ml -1 ml -340 ml Physical Exam General: No acute distress Heart: Regular rate Lungs: Clear Abdomen: Soft, Other (ND, incision c/d/i, no erythema ) Extremities: No clubbing, No cyanosis, Other (r hip with cdi dressing) Skin: No rashes, No breakdown, Other (abd dressing CDI ) Labs Labs: Laboratory Tests Test 10/05/19 05:00 Magnesium Level 2.0 mg/dL (1.8-2.4) Review of Systems Review of Systems: Pt denies NVD, pt denies pain Assessment and Plan Assessmemt and Plan ASSESSMENT Acute blood loss anemia Right colon mass - new dx colon cancer Small bilateral pleural effusions Cholelilthiasis - Gallbladder contains a 1 cm stone at its neck Hyponatremia - will monitor Nephrolithiasis nonobstructive Adrenal mass Iron deficiency anemia from chronic blood loss Chronic hypoxic respiratory failure COPD Former tobacco use PLAN Continue advancing diet PT/OT Home meds DVT prophylaxis DNR Discharge to [place] tomorrow AM Comment Review of Relevant I have reviewed the following items kun (where applicable) has been applied. Justicifation of Admission Dx: Justifications for Admission: Justification of Admission Dx: Yes CHF: Hemodynamic Instability Comminuty Aquired Pneumonia: Dehydration Chronic Renal Failure: Intravenous Infusions Sepsis: Dehydration THADDEUSLENIAMerlyn K III DO Oct 05, 2019 11:16
--- NOTE | 2019-10-05 11:41 | PDOC ---
DANTE VALDIVIA CLASSIFIED ADVERTISING MANAGER 10/05/19 1141: SURGICAL PROGRESS NOTE DATE: 10/05/19 TIME: 11:30 Subjective family present + stools tolerating liquids Vital Signs Vital Signs Date Time Temp Pulse Resp B/P (MAP) Pulse Ox O2 Delivery O2 Flow Rate FiO2 10/05/19 09:57 20 98 Nasal Cannula 3.0 10/05/19 08:37 91 131/100 10/05/19 07:00 97.9 97.9 I&O Intake and Output 10/05/19 07:00 Intake Total 1080 ml Output Total 701 ml Balance 379 ml Intake Oral 1080 ml Output Urine Total 700 ml Urine/Stool Mix 1 ml # Voids 8 # Bowel Movements 2 General: Cooperative, No acute distress Abdomen: Soft, No tenderness Labs Laboratory Tests Test 10/04/19 04:05 10/05/19 05:00 White Blood Count 8.3 x10^3/uL (4.0-11.0) Red Blood Count 3.68 x10^6/uL (3.50-5.40) Hemoglobin 9.7 g/dL (12.0-15.5) Hematocrit 29.5 % (36.0-47.0) Mean Corpuscular Volume 80 fL (79-100) Mean Corpuscular Hemoglobin 26 pg (25-35) Mean Corpuscular Hemoglobin Concent 33 g/dL (31-37) Red Cell Distribution Width 23.3 % (11.5-14.5) Platelet Count 435 x10^3/uL (140-400) Neutrophils (%) (Auto) 71 % (31-73) Lymphocytes (%) (Auto) 16 % (24-48) Monocytes (%) (Auto) 12 % (0-9) Eosinophils (%) (Auto) 0 % (0-3) Basophils (%) (Auto) 1 % (0-3) Neutrophils # (Auto) 5.9 x10^3/uL (1.8-7.7) Lymphocytes # (Auto) 1.4 x10^3/uL (1.0-4.8) Monocytes # (Auto) 1.0 x10^3/uL (0.0-1.1) Eosinophils # (Auto) 0.0 x10^3/uL (0.0-0.7) Basophils # (Auto) 0.0 x10^3/uL (0.0-0.2) Sodium Level 134 mmol/L (136-145) Potassium Level 3.9 mmol/L (3.5-5.1) Chloride Level 100 mmol/L (98-107) Carbon Dioxide Level 33 mmol/L (21-32) Anion Gap 1 (6-14) Blood Urea Nitrogen 10 mg/dL (7-20) Creatinine 0.5 mg/dL (0.6-1.0) Estimated GFR (Cockcroft-Gault) 116.4 Glucose Level 98 mg/dL (70-99) Calcium Level 7.9 mg/dL (8.5-10.1) Vitamin B12 Level 590 pg/mL (247-911) Magnesium Level 2.0 mg/dL (1.8-2.4) Laboratory Tests Test 10/05/19 05:00 Magnesium Level 2.0 mg/dL (1.8-2.4) Assessment/Plan s/p resection ok to advance diet dc planning Justicifation of Admission Dx: Justifications for Admission: Justification of Admission Dx: Yes CHF: Hemodynamic Instability Comminuty Aquired Pneumonia: Dehydration Chronic Renal Failure: Intravenous Infusions Sepsis: Dehydration NANDA MILLER MD 10/05/19 1719: SURGICAL PROGRESS NOTE Assessment/Plan Agree with above DANTE VALDIVIA CLASSIFIED ADVERTISING MANAGER Oct 05, 2019 11:41 NANDA MILLER MD Oct 05, 2019 17:19
--- NOTE | 2019-10-05 12:42 | PDOC ---
Date of Service: DATE: 10/05/19 TIME: 12:40 Subjective: Subjective: Doing better. Has stooled, was up walking earlier. Objective: Vital Signs: Vital Signs Date Time Temp Pulse Resp B/P (MAP) Pulse Ox O2 Delivery O2 Flow Rate FiO2 10/05/19 11:00 98.2 96 22 137/63 (87) 100 Nasal Cannula 3.0 98.2 Labs: Laboratory Tests Test 10/05/19 05:00 Magnesium Level 2.0 mg/dL Frozen section diagnosis: . INTRAOPERATIVE CONSULTATION WITH GROSS IMPRESSION (Kemal Vargas MD) . 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 - Margins of resection grossly free of neoplasm. . . The results are displayed to Dr. Partida in the operating room. Specimen fixed in formalin prior to additional sectioning. Diagnosis: Distal ileum, cecum, and ascending colon with attached mesocolon, right colectomy: - Invasive colorectal adenocarcinoma, poorly differentiated, forming a circumferential, centrally ulcerated and partially necrotic tumor mass of the proximal ascending colon measuring up to 6.0 cm in greatest dimension, with tumor invasion through muscularis propria into subserosa, mesocolon, and adjacent distal ileum, and with direct tumor extension and invasion of looped arm of distal ascending colon. - Metastatic adenocarcinoma involving 2 of 24 mesocolic lymph nodes (2/24). - Focal large vessel tumor invasion of mesocolon. - Proximal, distal, and radial mesocolic margins of resection negative for tumor. - Omentum negative for tumor. - Absence of appendix. Imaging: C/A/P CT IMPRESSION: 1. Status post right hemicolectomy. No definitive evidence of metastatic disease. 2. Multiple cavitary nodules in both lung apices are indeterminate but most likely postinflammatory. Correlate to exclude mycobacterial infectionno other atypical infections. Comparison with any available prior chest CTis recommended to assess chronicity. If none are available, PET/CT or three-month follow-up is recommended. 3. Cholelithiasis. 4. 3 mm right renal calculus. 5. 17 mm left adrenal nodule consistent with a benign adenoma. PE: GEN: NAD - up in chair LUNGS: CTAB HEART: RRR ABD: BS+, soft NEURO/PSYCH: A & O 3 A/P: Colon cancer s/p right colon resection - path noted above DELORES -- Continue per others. Justicifation of Admission Dx: Justifications for Admission: Justification of Admission Dx: Yes CHF: Hemodynamic Instability Comminuty Aquired Pneumonia: Dehydration Chronic Renal Failure: Intravenous Infusions Sepsis: Dehydration DAVID BURGOS Oct 05, 2019 12:42
[2019-10-05 15:00] VITALS: BP 121/44
--- NOTE | 2019-10-05 15:37 | PDOC ---
PROGRESS NOTES Date of Service DATE: 10/05/19 TIME: 15:28 Subjective Subjective No new symptoms. Angela was seen in follow-up today. Sitting up in chair. Denies fever, chills, N/V, diarrhea, chest pain or SOA. I discussed the results of surgical pathology and CT scans with her. Objective Objective Vital Signs Date Time Temp Pulse Resp B/P (MAP) Pulse Ox O2 Delivery O2 Flow Rate FiO2 10/05/19 11:00 98.2 96 22 137/63 (87) 100 Nasal Cannula 3.0 98.2 Intake and Output 10/05/19 07:00 Intake Total 1080 ml Output Total 701 ml Balance 379 ml Intake Oral 1080 ml Output Urine Total 700 ml Urine/Stool Mix 1 ml # Voids 8 # Bowel Movements 2 Physical Exam Abdomen: Normal bowel sounds, Soft, No tenderness Heart: Regular rate Extremities: No clubbing General: Alert, Oriented X3, Cooperative HEENT: Atraumatic, PERRLA Lungs: Clear to auscultation MUSCULOSKELETAL: No joint tenderness, No deformity Neck: Supple, No JVD Neuro: Normal speech Psych/Mental Status: Mental status NL Skin: No rashes Assessment Assessment Colon adenocarcinoma, 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 She denies a prior hx of tuberculosis or atypical infections. Will discuss PET CT with her as outpatient if CEA is persistently elevated after surgery -Reviewed results of surgical pathology. She had T4bN disease. We discussed that the recurrence risk in patients with stage III colon cancer is ~50% and is modifiable with adjuvant chemotherapy -Given her advanced age and comorbidities, I would like for her to continue with her recovery from her current surgery -She will be set-up to see me in clinic in 2 weeks to continue discussion of the potential benefits and risks of adjuvant chemotherapy. May consider single agent 5FU or 3 months of FOLFOX/XELOX if her PS improves enough to allow it Garrett Hayward MD Medical Oncology/Hematology Ph: [phone] Comment Review of Relevant I have reviewed the following items kun (where applicable) has been applied. Labs Laboratory Tests Test 10/04/19 04:05 10/05/19 05:00 White Blood Count 8.3 x10^3/uL (4.0-11.0) Red Blood Count 3.68 x10^6/uL (3.50-5.40) Hemoglobin 9.7 g/dL (12.0-15.5) Hematocrit 29.5 % (36.0-47.0) Mean Corpuscular Volume 80 fL (79-100) Mean Corpuscular Hemoglobin 26 pg (25-35) Mean Corpuscular Hemoglobin Concent 33 g/dL (31-37) Red Cell Distribution Width 23.3 % (11.5-14.5) Platelet Count 435 x10^3/uL (140-400) Neutrophils (%) (Auto) 71 % (31-73) Lymphocytes (%) (Auto) 16 % (24-48) Monocytes (%) (Auto) 12 % (0-9) Eosinophils (%) (Auto) 0 % (0-3) Basophils (%) (Auto) 1 % (0-3) Neutrophils # (Auto) 5.9 x10^3/uL (1.8-7.7) Lymphocytes # (Auto) 1.4 x10^3/uL (1.0-4.8) Monocytes # (Auto) 1.0 x10^3/uL (0.0-1.1) Eosinophils # (Auto) 0.0 x10^3/uL (0.0-0.7) Basophils # (Auto) 0.0 x10^3/uL (0.0-0.2) Sodium Level 134 mmol/L (136-145) Potassium Level 3.9 mmol/L (3.5-5.1) Chloride Level 100 mmol/L (98-107) Carbon Dioxide Level 33 mmol/L (21-32) Anion Gap 1 (6-14) Blood Urea Nitrogen 10 mg/dL (7-20) Creatinine 0.5 mg/dL (0.6-1.0) Estimated GFR (Cockcroft-Gault) 116.4 Glucose Level 98 mg/dL (70-99) Calcium Level 7.9 mg/dL (8.5-10.1) Vitamin B12 Level 590 pg/mL (247-911) Magnesium Level 2.0 mg/dL (1.8-2.4) Laboratory Tests Test 10/05/19 05:00 Magnesium Level 2.0 mg/dL (1.8-2.4) Medications Current Medications Sodium Chloride (Normal Saline Flush) 3 ml QSHIFT PRN IV AFTER MEDS AND BLOOD DRAWS; Start 09/23/19 at 19:00 Sodium Chloride 1,000 ml @ 55 mls/hr [id number] IV Last administered on 09/30/19at 12:04; Start 09/23/19 at 18:55; Stop 09/30/19 at 12:44; Status DC Ondansetron HCl (Zofran) 4 mg PRN Q4HRS PRN IV NAUSEA/VOMITING; Start 09/23/19 at 19:00 Acetaminophen (Tylenol) 650 mg PRN Q4HRS PRN PO TEMP OVER 100.4F OR MILD PAIN Last administered on 09/26/19at 20:10; Start 09/23/19 at 19:00 Docusate Sodium (Colace) 100 mg PRN BID PRN PO HARD STOOLS; Start 09/23/19 at 19:00 Albuterol Sulfate (Ventolin Neb Soln) 2.5 mg PRN Q4HRS PRN NEB SHORTNESS OF BREATH; Start 09/23/19 at 19:00 Guaifenesin (Robitussin) 200 mg PRN Q4HRS PRN PO COUGH; Start 09/23/19 at 19:00 Pantoprazole Sodium (PROTONIX VIAL for IV PUSH) 40 mg DAILYAC IVP Last administered on 09/25/19 09:18; Start 09/24/19 at 07:30; Stop 09/25/19 at 10:49; Status DC Vitamin D (Vitamin D3) 1,000 unit DAILY08 PO Last administered on 10/05/19 08:38; Start 09/24/19 at 08:00 Levothyroxine Sodium (Synthroid) 50 mcg DAILYAC PO Last administered on 09/27/19 08:54; Start 09/24/19 at 07:30; Stop 10/02/19 at 14:01; Status DC Losartan Potassium (Cozaar) 50 mg DAILY PO Last administered on 10/05/19 08:37; Start 09/24/19 at 09:00 Raloxifene HCl (Evista) 60 mg DAILY PO Last administered on 10/05/19 08:38; Start 09/24/19 at 09:00 Vitamin B Complex (Joseph B) 1 tab DAILY08 PO Last administered on 10/05/19 08:39; Start 09/24/19 at 08:00 Calcium/Vitamin D (Oscal D 500mg/ 200uts) 1 tab BIDWMEALS PO Last administered on 10/05/19 08:38; Start 09/24/19 at 08:00 Multivitamins (Thera M Plus) 1 tab DAILY PO Last administered on 10/05/19 08:39; Start 09/24/19 at 09:00 Fish Oil (Fish Oil) 1,000 mg DAILY PO Last administered on 10/05/19at 08:37; Start 09/24/19 at 09:00 Hydralazine HCl (Apresoline Inj) 10 mg PRN Q4HRS PRN IVP ELEVATED BP, SEE COMMENTS; Start 09/23/19 at 22:45 Iohexol (Omnipaque 240 Mg/ml) 30 ml 1X ONCE IV ; Start 09/24/19 at 09:30; Stop 09/24/19 at 09:31; Status Cancel Info (CONTRAST GIVEN -- Rx MONITORING) 1 each PRN DAILY PRN MC SEE COMMENTS; Start 09/24/19 at 09:30; Stop 09/26/19 at 09:29; Status Cancel Iohexol (Omnipaque 240 Mg/ml) 30 ml 1X ONCE PO Last administered on 09/24/19at 10:37; Start 09/24/19 at 10:30; Stop 09/24/19 at 10:35; Status DC Pantoprazole Sodium (Protonix) 40 mg DAILYAC PO Last administered on 10/05/19at 08:37; Start 09/26/19 at 07:30 Acetaminophen/ Hydrocodone Bitart (Lortab 5/325) 1 tab PRN Q4HRS PRN PO MODERATE PAIN Last administered on 10/05/19at 13:54; Start 09/27/19 at 10:45 Magnesium Citrate (Citroma) 296 ml 1X ONCE PO Last administered on 09/27/19 15:22; Start 09/27/19 at 14:00; Stop 09/27/19 at 14:01; Status DC Polyethylene Glycol (miraLAX Powder BULK BOTTLE) 238 gm 1X ONCE PO Last administered on 09/27/19 16:14; Start 09/27/19 at 16:00; Stop 09/27/19 at 16 :01; Status DC Bisacodyl (Dulcolax Tab) 10 mg 1X ONCE PO Last administered on 09/27/19at 21:48; Start 09/27/19 at 16:00; Stop 09/27/19 at 16:01; Status DC Ringer's Solution 1,000 ml @ 30 mls/hr Q24H IV Last administered on 09/28/19at 10:56; Start 09/28/19 at 07:00; Stop 09/28/19 at 18:59; Status DC Prochlorperazine Edisylate (Compazine) 5 mg PACU PRN PRN IV NAUSEA, MRX1; Sta rt 09/28/19 at 07:00; Stop 09/28/19 at 20:00; Status DC Ringer's Solution 1,000 ml @ 75 mls/hr 1X ONCE IV ; Start 09/28/19 at 08:00; Stop 09/28/19 at 21:19; Status DC Propofol (Diprivan) 200 mg STK-MED ONCE IV ; Start 09/28/19 at 11:51; Stop 09/28/19 at 11:51; Status DC Fentanyl Citrate (Fentanyl 2ml Vial) 25 mcg PRN Q5MIN PRN IV MILD PAIN 1-3; Start 09/29/19 at 07:00; Stop 09/30/19 at 06:59; Status DC Fentanyl Citrate (Fentanyl 2ml Vial) 50 mcg PRN Q5MIN PRN IV MODERATE TO SEVERE PAIN; Start 09/29/19 at 07:00; Stop 09/30/19 at 06:59; Status DC Morphine Sulfate (Morphine Sulfate) 1 mg PRN Q10MIN PRN IV SEVERE PAIN 7-10; Start 09/29/19 at 07:00; Stop 09/30/19 at 06:59; Status DC Ringer's Solution 1,000 ml @ 30 mls/hr Q24H IV ; Start 09/29/19 at 07:00; Stop 09/29/19 at 18:59; Status DC Hydromorphone HCl (Dilaudid) 0.5 mg PRN Q10MIN PRN IV SEV PAIN, Second choice; Start 09/29/19 at 07:00; Stop 09/30/19 at 06:59; Status DC Prochlorperazine Edisylate (Compazine) 5 mg PACU PRN PRN IV NAUSEA, MRX1; S tart 09/29/19 at 07:00; Stop 09/30/19 at 06:59; Status DC Levofloxacin/ Dextrose 100 ml @ 100 mls/hr 1X PREOP PRN IV PRIOR TO PROCEDURE Last administered on 09/29/19at 11:57; Start 09/29/19 at 06:00; Stop 09/29/19 at 18:00; Status DC Metronidazole 100 ml @ 100 mls/hr 1X PREOP PRN IV PRIOR TO PROCEDURE Last administered on 09/29/19at 11:23; Start 09/29/19 at 06:00; Stop 09/29/19 at 18:00; Status DC Propofol (Diprivan) 200 mg STK-MED ONCE IV ; Start 09/29/19 at 08:40; Stop 09/29/19 at 08:40; Status DC Lidocaine HCl (Lidocaine Pf 2% Vial) 5 ml STK-MED ONCE .ROUTE ; Start 09/29/19 at 08:40; Stop 09/29/19 at 08:40; Status DC Etomidate (Amidate) 20 mg STK-MED ONCE IV ; Start 09/29/19 at 08:40; Stop 09/29/19 at 08:41; Status DC Dexamethasone Sodium Phosphate (Decadron) 4 mg STK-MED ONCE .ROUTE ; Start 09/29/19 at 08:40; Stop 09/29/19 at 08:41; Status DC Ondansetron HCl (Zofran) 4 mg STK-MED ONCE .ROUTE ; Start 09/29/19 at 08:40; Stop 09/29/19 at 08:41; Status DC Phenylephrine HCl (PHENYLEPHRINE in 0.9% NACL PF) 1 mg STK-MED ONCE IV ; Start 09/29/19 at 08:40; Stop 09/29/19 at 08:41; Status DC Ephedrine Sulfate (ePHEDrine PF IN SALINE SYRINGE) 50 mg STK-MED ONCE IV ; Start 09/29/19 at 08:40; Stop 09/29/19 at 08:41; Status DC Succinylcholine Chloride (Anectine) 200 mg STK-MED ONCE .ROUTE ; Start 09/29/19 at 08:41; Stop 09/29/19 at 08:41; Status DC Rocuronium [place] (Zemuron) 50 mg STK-MED ONCE .ROUTE ; Start 09/29/19 at 08:41; Stop 09/29/19 at 08:41; Status DC Fentanyl Citrate (Fentanyl 2ml Vial) 100 mcg STK-MED ONCE .ROUTE ; Start 09/29/19 at 08:41; Stop 09/29/19 at 08:42; Status DC Phenylephrine HCl (Cas-Synephrine Inj) 10 mg STK-MED ONCE .ROUTE ; Start 09/29/19 at 08:41; Stop 09/29/19 at 08:42; Status DC Hydromorphone HCl (Dilaudid) 2 mg STK-MED ONCE .ROUTE ; Start 09/29/19 at 12:03; Stop 09/29/19 at 12:03; Status DC Sevoflurane (Ultane) 90 ml STK-MED ONCE IH ; Start 09/29/19 at 13:04; Stop 09/29/19 at 13:04; Status DC Glycopyrrolate (Robinul) 1 mg STK-MED ONCE .ROUTE ; Start 09/29/19 at 13:23; Stop 09/29/19 at 13:23; Status DC Neostigmine [place] (Neostigmine Methylsulfate) 5 mg STK-MED ONCE .ROUTE ; Start 09/29/19 at 13:23; Stop 09/29/19 at 13:23; Status DC Hydromorphone HCl (Dilaudid) 0.2 mg PRN Q4HRS PRN IVP MODERATE PAIN Last administered on 10/04/19at 23:34; Start 09/29/19 at 14:00 Hydromorphone HCl (Dilaudid) 0.5 mg PRN Q4HRS PRN IVP SEVERE PAIN Last administered on 10/04/19at 02:24; Start 09/29/19 at 14:00 Iron Sucrose 200 mg/Sodium Chloride 110 ml @ 55 mls/hr 1X ONCE IV Last administered on 09/30/19at 14:21; Start 09/30/19 at 14:00; Stop 09/30/19 at 15:59; Status DC Amino Acids/ Glycerin/ Electrolytes 1,000 ml @ 80 mls/hr [id number] IV Last administered on 10/03/19at 23:04; Start 09/30/19 at 12:45; Stop 10/04/19 at 15:53; Status DC Saliva Substitute (Biotene Moisturizing Mouth) 2 spray PRN Q15MIN PRN PO DRY MOUTH; Start 09/30/19 at 13:00 Levothyroxine Sodium 25 mcg/ Sodium Chloride 5 ml @ 100 mls/hr Q3DAYS IV Last administered on 10/03/19at 08:45; Start 10/03/19 at 09:00; Stop 10/05/19 at 10: 49; Status DC Iohexol (Omnipaque 300 Mg/ml) 75 ml 1X ONCE IV Last administered on 10/03/19at 13:30; Start 10/03/19 at 13:30; Stop 10/03/19 at 13:31; Status DC Iohexol (Omnipaque 240 Mg/ml) 50 ml 1X ONCE PO Last administered on 10/03/19at 13:30; Start 10/03/19 at 13:30; Stop 10/03/19 at 13:31; Status DC Info (CONTRAST GIVEN -- Rx MONITORING) 1 each PRN DAILY PRN MC SEE COMMENTS; Start 10/03/19 at 13:30; Stop 10/05/19 at 13:29; Status DC Iohexol (Omnipaque 240 Mg/ml) 50 ml 1X ONCE PO Last administered on 10/04/19at 09:45; Start 10/04/19 at 09:45; Stop 10/04/19 at 09:47; Status DC Iohexol (Omnipaque 300 Mg/ml) 75 ml 1X ONCE IV Last administered on 10/04/19at 09:45; Start 10/04/19 at 09:45; Stop 10/04/19 at 09:47; Status DC Levothyroxine Sodium (Synthroid) 50 mcg DAILY06 PO ; Start 10/06/19 at 06:00 Active Scripts Active Reported Tylenol (Acetaminophen) 325 Mg Tablet 650 Mg PO Q4HRS PRN Macrodantin (Nitrofurantoin Macrocrystal) 50 Mg Capsule 1 Cap PO DAILY Evista (Raloxifene Hcl) 60 Mg Tablet 1 Tab PO DAILY Triamcinolone Acetonide 0.1% Oint (Triamcinolone Acetonide) 15 Gm Oint...g. 1 Gregg TP BID MIX WITH EUCERIN DIRECTED BY PHYSICIAN Ibuprofen 800 Mg Tablet 800 Mg PO PRN Q6HRS PRN B Complex (Vitamin B Complex) 1 Each Tablet 1 Each PO [place] 3 1,000 Mg Softgel ([place]-3 Fatty Acids/Fish Oil) 1 Each Capsule 1 Each PO Vitamin E (Vitamin E Acid Succinate) 100 Unit Tablet 100 Unit PO Lysine 500 Mg Tablet 500 Mg PO Vitamin D3 (Cholecalciferol (Vitamin D3)) 1,000 Unit Tablet 1,000 Unit PO Centrum Complete Multivit Tab (Multivitamin/Iron/Folic Acid) 1 Each Tablet 1 Each PO Caltrate 600 + D Tablet (Calcium Carbonate/Vitamin D3) 1 Each Tablet 1 Each PO Losartan Potassium 50 Mg Tablet 50 Mg PO DAILY Evista (Raloxifene Hcl) 60 Mg Tablet 60 Mg PO DAILY Hydrocodone-Apap 5-325 (Hydrocodone Bit/Acetaminophen) 1 Each Tablet 1-2 Tab PO Q4-6HRS Levothyroxine Sodium 50 Mcg Tablet 50 Mcg PO DAILYAC Vitals/I & O Vital Sign - Last 24 Hours 10/04/19 10/04/19 10/04/19 10/04/19 19:00 19:45 23:00 23:34 Temp 98.2 98.1 98.2 98.1 Pulse 100 114 Resp 24 B/P (MAP) 147/73 (97) 139/65 (89) Pulse Ox 100 99 100 O2 Delivery Nasal Cannula Nasal Cannula Nasal Cannula O2 Flow Rate 3.0 3.0 3.0 3.0 10/05/19 10/05/19 10/05/19 10/05/19 00:06 03:51 07:00 08:00 Temp 98.6 97.9 98.6 97.9 Pulse 91 107 Resp 22 B/P (MAP) 131/100 (110) 167/73 (104) Pulse Ox 100 98 O2 Delivery Nasal Cannula Nasal Cannula Nasal Cannula O2 Flow Rate 3.0 3.0 3.0 10/05/19 10/05/19 10/05/19 08:37 09:57 11:00 Temp 98.2 98.2 Pulse 91 96 Resp 22 B/P (MAP) 131/100 137/63 (87) Pulse Ox 98 100 O2 Delivery Nasal Cannula Nasal Cannula O2 Flow Rate 3.0 3.0 Intake and Output 10/04/19 10/04/19 10/05/19 15:00 23:00 07:00 Intake Total 720 ml 300 ml 60 ml Output Total 301 ml 400 ml Balance 720 ml -1 ml -340 ml Images IMPRESSION: 1. Status post right hemicolectomy. No definitive evidence of metastatic disease. 2. Multiple cavitary nodules in both lung apices are indeterminate but most likely postinflammatory. Correlate to exclude mycobacterial infection no other atypical infections. Comparison with any available prior chest CT is recommended to assess chronicity. If none are available, PET/CT or three-month follow-up is recommended. 3. Cholelithiasis. 4. 3 mm right renal calculus. 5. 17 mm left adrenal nodule consistent with a benign adenoma. Justicifation of Admission Dx: Justifications for Admission: Justification of Admission Dx: Yes CHF: Hemodynamic Instability Comminuty Aquired Pneumonia: Dehydration Chronic Renal Failure: Intravenous Infusions Sepsis: Dehydration Nutrition Consultation Dietary Evaluation: Recommendations by RD: Dietary education by RD, Increase Calorie Intake, Protein supplementation Comments: Continue advancing diet as able/tolerated and per MD, goal diet regular w/Ensure (chocolate) TID Expected Outcomes/Goals: New goal 09/30: diet advancement - met, new goal established New goal 10/03: PO intake to meet >75% est needs Malnutrition Findings: Food and Nutrition Intake (Sev: <50% est energy req 5days Body Fat Depletion (Non Severe: Mod to Severe Weight Status: Appropriate NAYELI HAYWARD MD Oct 05, 2019 15:37
[2019-10-05 18:44] VITALS: BP 135/57
[2019-10-05 23:22] VITALS: BP 132/55
[2019-10-06 03:05] VITALS: BP 143/48
[2019-10-06] MEDS ORDERED: LEVOTHYROXINE 50 MCG TABLET PO SCH (06:00)
[2019-10-06 07:00] VITALS: BP 137/53
[2019-10-06] MEDS: CHOLECALCIFEROL (VITAMIN D3) 1,000 UNIT TABLET PO SCH ×2 (07:39→08:00)
[2019-10-06] MEDS: RALOXIFENE 60 MG TABLET. PO SCH (07:39)
[2019-10-06] MEDS: VITAMIN B COMPLEX TABLET. PO SCH ×2 (07:39→08:00)
[2019-10-06] MEDS: CALCIUM CARB/VIT D3 500/200 TABLET. PO SCH ×2 (07:39→08:00)
[2019-10-06] MEDS: MULTIVITAMIN with MINERAL TABLET. PO SCH ×2 (07:39→09:00)
[2019-10-06] MEDS: PANTOPRAZOLE 40 MG TABLET.DR. PO SCH (07:39)
[2019-10-06] MEDS: OMEGA-3 FATTY ACIDS/FISH OIL 1,000 MG CAPSULE. PO SCH ×2 (07:39→09:00)
[2019-10-06] MEDS: LOSARTAN POTASSIUM 50 MG TABLET. PO SCH (09:06)
[2019-10-06 11:00] VITALS: BP 112/67
--- NOTE | 2019-10-06 11:01 | PDOC ---
Date of Service: DATE: 10/06/19 TIME: 10:59 Subjective: Subjective: Tolerating diet, stooling, denies pain, has been up to walk. Objective: Objective: D/w nurse - DC today? Reviewed chart - plans to f/u w/ oncology as outpt to discuss further treatment. Vital Signs: Vital Signs Date Time Temp Pulse Resp B/P (MAP) Pulse Ox O2 Delivery O2 Flow Rate FiO2 10/06/19 09:06 93 137/53 10/06/19 08:13 99 Nasal Cannula 2.0 10/06/19 07:00 98.3 18 98.3 PE: GEN: NAD - up in chair LUNGS: clear HEART: RRR ABD: soft NEURO/PSYCH: A & O 3 A/P: Colon cancer s/p right colon resection DELORES -- Dc per primary. Justicifation of Admission Dx: Justifications for Admission: Justification of Admission Dx: Yes CHF: Hemodynamic Instability Comminuty Aquired Pneumonia: Dehydration Chronic Renal Failure: Intravenous Infusions Sepsis: Dehydration DAVID BURGOS Oct 06, 2019 11:01
[2019-10-06] MEDS ORDERED: HYDR-2761 PO (11:03)
[2019-10-06] MEDS ORDERED: ALBU2.5V8 NEB (11:03)
--- NOTE | 2019-10-06 11:05 | SNU/HH DC ---
DISCHARGE ORDERS DISCHARGE INFORMATION: DISCHARGE DATE: Oct 06, 2019 FINAL DIAGNOSIS Colon Cancer CONDITION ON DISCHARGE: Stable CODE STATUS: Code Status: DNR/DNI SHELTER: SNF STAY <30 DAYS: Yes POST DISCHARGE ORDERS: ACTIVITY ORDERS: Resume previous activity, Activity as tolerated WEIGHT BEARING STATUS: No restrictions DIET AFTER DISCHARGE: Cardiac DISCHARGE MEDICATIONS: Home Meds Active Scripts Hydrocodone Bit/Acetaminophen (HYDROCODONE-APAP 5-325 ) 1 Tab Tablet, 1 TAB PO PRN Q4HRS PRN for MODERATE PAIN for 3 Days, #12 TAB Prov:ZULEIKA MORGAN MD 10/06/19 Albuterol Sulfate (Proair Hfa) 8.5 Gm Hfa.aer.ad, 2.5 MG NEB PRN Q4HRS PRN for SHORTNESS OF BREATH for 30 Days, #1 INHALER Prov:ZULEIKA MORGAN MD 10/06/19 Reported Medications Acetaminophen (TYLENOL) 325 Mg Tablet, 650 MG PO Q4HRS PRN for FEVER > 100.5'F, TAB 09/23/19 Raloxifene Hcl (EVISTA) 60 Mg Tablet, 1 TAB PO DAILY, #30 TAB 11 Refills 02/02/16 Triamcinolone Acetonide (TRIAMCINOLONE ACETONIDE 0.1% OINT) 15 Gm Oint...g., 1 DILSHAD TP BID for WOUND CARE, #1 TUBE MIX WITH EUCERIN DIRECTED BY PHYSICIAN 02/02/16 Vitamin B Complex (B COMPLEX) 1 Each Tablet, 1 EACH PO 08/29/14 [place]-3 Fatty Acids/Fish Oil (OMEGA 3 1,000 MG SOFTGEL) 1 Each Capsule, 1 EACH PO 08/29/14 Vitamin E Acid Succinate (VITAMIN E) 100 Unit Tablet, 100 UNIT PO 08/29/14 Lysine (LYSINE) 500 Mg Tablet, 500 MG PO 08/29/14 Cholecalciferol (Vitamin D3) (VITAMIN D3) 1,000 Unit Tablet, 1000 UNIT PO 08/29/14 Multivitamin/Iron/Folic Acid (CENTRUM COMPLETE MULTIVIT TAB) 1 Each Tablet, 1 EACH PO 08/29/14 Calcium Carbonate/Vitamin D3 (CALTRATE 600 + D TABLET) 1 Each Tablet, 1 EACH PO 08/29/14 Losartan Potassium (LOSARTAN POTASSIUM) 50 Mg Tablet, 50 MG PO DAILY, TAB 08/29/14 Raloxifene Hcl (EVISTA) 60 Mg Tablet, 60 MG PO DAILY, TAB 08/29/14 Hydrocodone Bit/Acetaminophen (HYDROCODONE-APAP 5-325 ) 1 Each Tablet, 1-2 TAB PO Q4-6HRS, #40 TAB 08/29/14 Levothyroxine Sodium (LEVOTHYROXINE SODIUM) 50 Mcg Tablet, 50 MCG PO DAILYAC for THYROID SUPPLEMENT, #30 TAB 0 Refills 08/29/14 Discontinued Reported Medications Nitrofurantoin Macrocrystal (MACRODANTIN) 50 Mg Capsule, 1 CAP PO DAILY, #30 CAP 3 Refills 02/02/16 Ibuprofen (IBUPROFEN) 800 Mg Tablet, 800 MG PO PRN Q6HRS PRN for INFLAMMATION, TAB 02/02/16 ZULEIKA MORGAN MD Oct 06, 2019 11:05
--- NOTE | 2019-10-06 13:23 | NUR ---
Called and gave report to Edgar at [facility].
--- NOTE | 2019-10-06 14:05 | PDOC ---
PROGRESS NOTES Date of Service DATE: 10/06/19 TIME: 14:04 Subjective Subjective doing well, no complaints Objective Objective Vital Signs Date Time Temp Pulse Resp B/P (MAP) Pulse Ox O2 Delivery O2 Flow Rate FiO2 10/06/19 11:00 97.8 92 20 112/67 (82) 99 Nasal Cannula 2.0 97.8 Intake and Output 10/06/19 07:00 Intake Total 1070 ml Output Total 200 ml Balance 870 ml Intake Oral 1070 ml Output Urine Total 200 ml # Voids 6 # Bowel Movements 1 Physical Exam Abdomen: Soft (incision good) Plan Plan of Care DC julee drain; ok to discharge from my standpoint Comment Review of Relevant I have reviewed the following items kun (where applicable) has been applied. Labs Laboratory Tests Test 10/05/19 05:00 Magnesium Level 2.0 mg/dL (1.8-2.4) Medications Current Medications Sodium Chloride (Normal Saline Flush) 3 ml QSHIFT PRN IV AFTER MEDS AND BLOOD DRAWS; Start 09/23/19 at 19:00 Sodium Chloride 1,000 ml @ 55 mls/hr [id number] IV Last administered on 09/30/19at 12:04; Start 09/23/19 at 18:55; Stop 09/30/19 at 12:44; Status DC Ondansetron HCl (Zofran) 4 mg PRN Q4HRS PRN IV NAUSEA/VOMITING; Start 09/23/19 at 19:00 Acetaminophen (Tylenol) 650 mg PRN Q4HRS PRN PO TEMP OVER 100.4F OR MILD PAIN Last administered on 09/26/19at 20:10; Start 09/23/19 at 19:00 Docusate Sodium (Colace) 100 mg PRN BID PRN PO HARD STOOLS; Start 09/23/19 at 19:00 Albuterol Sulfate (Ventolin Neb Soln) 2.5 mg PRN Q4HRS PRN NEB SHORTNESS OF BREATH; Start 09/23/19 at 19:00 Guaifenesin (Robitussin) 200 mg PRN Q4HRS PRN PO COUGH; Start 09/23/19 at 19:00 Pantoprazole Sodium (PROTONIX VIAL for IV PUSH) 40 mg DAILYAC IVP Last administered on 09/25/19at 09:18; Start 09/24/19 at 07:30; Stop 09/25/19 at 10:49; Status DC Vitamin D (Vitamin D3) 1,000 unit DAILY08 PO Last administered on 10/05/19at 08:38; Start 09/24/19 at 08:00 Levothyroxine Sodium (Synthroid) 50 mcg DAILYAC PO Last administered on 09/27/19at 08:54; Start 09/24/19 at 07:30; Stop 10/02/19 at 14:01; Status DC Losartan Potassium (Cozaar) 50 mg DAILY PO Last administered on 10/06/19at 09:06; Start 09/24/19 at 09:00 Raloxifene HCl (Evista) 60 mg DAILY PO Last administered on 10/06/19at 07:39; Start 09/24/19 at 09:00 Vitamin B Complex (Joseph B) 1 tab DAILY08 PO Last administered on 10/05/19at 08:39; Start 09/24/19 at 08:00 Calcium/Vitamin D (Oscal D 500mg/ 200uts) 1 tab BIDWMEALS PO Last administered on 10/05/19at 08:38; Start 09/24/19 at 08:00 Multivitamins (Thera M Plus) 1 tab DAILY PO Last administered on 10/05/19at 08:39; Start 09/24/19 at 09:00 Fish Oil (Fish Oil) 1,000 mg DAILY PO Last administered on 10/05/19at 08:37; Start 09/24/19 at 09:00 Hydralazine HCl (Apresoline Inj) 10 mg PRN Q4HRS PRN IVP ELEVATED BP, SEE COMMENTS; Start 09/23/19 at 22:45 Iohexol (Omnipaque 240 Mg/ml) 30 ml 1X ONCE IV ; Start 09/24/19 at 09:30; Stop 09/24/19 at 09:31; Status Cancel Info (CONTRAST GIVEN -- Rx MONITORING) 1 each PRN DAILY PRN MC SEE COMMENTS; Start 09/24/19 at 09:30; Stop 09/26/19 at 09:29; Status Cancel Iohexol (Omnipaque 240 Mg/ml) 30 ml 1X ONCE PO Last administered on 09/24/19at 10:37; Start 09/24/19 at 10:30; Stop 09/24/19 at 10:35; Status DC Pantoprazole Sodium (Protonix) 40 mg DAILYAC PO Last administered on 10/06/19at 07:39; Start 09/26/19 at 07:30 Acetaminophen/ Hydrocodone Bitart (Lortab 5/325) 1 tab PRN Q4HRS PRN PO MODERATE PAIN Last administered on 10/05/19at 19:38; Start 09/27/19 at 10:45 Magnesium Citrate (Citroma) 296 ml 1X ONCE PO Last administered on 09/27/19at 15:22; Start 09/27/19 at 14:00; Stop 09/27/19 at 14:01; Status DC Polyethylene Glycol (miraLAX Powder BULK BOTTLE) 238 gm 1X ONCE PO Last administered on 09/27/19at 16:14; Start 09/27/19 at 16:00; Stop 09/27/19 at 16:01; Status DC Bisacodyl (Dulcolax Tab) 10 mg 1X ONCE PO Last administered on 09/27/19at 21:48; Start 09/27/19 at 16:00; Stop 09/27/19 at 16:01; Status DC Ringer's Solution 1,000 ml @ 30 mls/hr Q24H IV Last administered on 09/28/19at 10:56; Start 09/28/19 at 07:00; Stop 09/28/19 at 18:59; Status DC Prochlorperazine Edisylate (Compazine) 5 mg PACU PRN PRN IV NAUSEA, MRX1; Start 09/28/19 at 07:00; Stop 09/28/19 at 20:00; Status DC Ringer's Solution 1,000 ml @ 75 mls/hr 1X ONCE IV ; Start 09/28/19 at 08:00; Stop 09/28/19 at 21:19; Status DC Propofol (Diprivan) 200 mg STK-MED ONCE IV ; Start 09/28/19 at 11:51; Stop 09/28/19 at 11:51; Status DC Fentanyl Citrate (Fentanyl 2ml Vial) 25 mcg PRN Q5MIN PRN IV MILD PAIN 1-3; Start 09/29/19 at 07:00; Stop 09/30/19 at 06:59; Status DC Fentanyl Citrate (Fentanyl 2ml Vial) 50 mcg PRN Q5MIN PRN IV MODERATE TO SEVERE PAIN; Start 09/29/19 at 07:00; Stop 09/30/19 at 06:59; Status DC Morphine Sulfate (Morphine Sulfate) 1 mg PRN Q10MIN PRN IV SEVERE PAIN 7-10; Start 09/29/19 at 07:00; Stop 09/30/19 at 06:59; Status DC Ringer's Solution 1,000 ml @ 30 mls/hr Q24H IV ; Start 09/29/19 at 07:00; Stop 09/29/19 at 18:59; Status DC Hydromorphone HCl (Dilaudid) 0.5 mg PRN Q10MIN PRN IV SEV PAIN, Second choice; Start 09/29/19 at 07:00; Stop 09/30/19 at 06:59; Status DC Prochlorperazine Edisylate (Compazine) 5 mg PACU PRN PRN IV NAUSEA, MRX1; Start 09/29/19 at 07:00; Stop 09/30/19 at 06:59; Status DC Levofloxacin/ Dextrose 100 ml @ 100 mls/hr 1X PREOP PRN IV PRIOR TO PROCEDURE Last administered on 09/29/19at 11:57; Start 09/29/19 at 06:00; Stop 09/29/19 at 18:00; Status DC Metronidazole 100 ml @ 100 mls/hr 1X PREOP PRN IV PRIOR TO PROCEDURE Last administered on 09/29/19at 11:23; Start 09/29/19 at 06:00; Stop 09/29/19 at 18:00; Status DC Propofol (Diprivan) 200 mg STK-MED ONCE IV ; Start 09/29/19 at 08:40; Stop 09/29/19 at 08:40; Status DC Lidocaine HCl (Lidocaine Pf 2% Vial) 5 ml STK-MED ONCE .ROUTE ; Start 09/29/19 at 08:40; Stop 09/29/19 at 08:40; Status DC Etomidate (Amidate) 20 mg STK-MED ONCE IV ; Start 09/29/19 at 08:40; Stop 09/29/19 at 08:41; Status DC Dexamethasone Sodium Phosphate (Decadron) 4 mg STK-MED ONCE .ROUTE ; Start 09/29/19 at 08:40; Stop 09/29/19 at 08:41; Status DC Ondansetron HCl (Zofran) 4 mg STK-MED ONCE .ROUTE ; Start 09/29/19 at 08:40; Stop 09/29/19 at 08:41; Status DC Phenylephrine HCl (PHENYLEPHRINE in 0.9% NACL PF) 1 mg STK-MED ONCE IV ; Start 09/29/19 at 08:40; Stop 09/29/19 at 08:41; Status DC Ephedrine Sulfate (ePHEDrine PF IN SALINE SYRINGE) 50 mg STK-MED ONCE IV ; Start 09/29/19 at 08:40; Stop 09/29/19 at 08:41; Status DC Succinylcholine Chloride (Anectine) 200 mg STK-MED ONCE .ROUTE ; Start 09/29/19 at 08:41; Stop 09/29/19 at 08:41; Status DC Rocuronium [place] (Zemuron) 50 mg STK-MED ONCE .ROUTE ; Start 09/29/19 at 08:41; Stop 09/29/19 at 08:41; Status DC Fentanyl Citrate (Fentanyl 2ml Vial) 100 mcg STK-MED ONCE .ROUTE ; Start 09/29/19 at 08:41; Stop 09/29/19 at 08:42; Status DC Phenylephrine HCl (Cas-Synephrine Inj) 10 mg STK-MED ONCE .ROUTE ; Start 09/29/19 at 08:41; Stop 09/29/19 at 08:42; Status DC Hydromorphone HCl (Dilaudid) 2 mg STK-MED ONCE .ROUTE ; Start 09/29/19 at 12:03; Stop 09/29/19 at 12:03; Status DC Sevoflurane (Ultane) 90 ml STK-MED ONCE IH ; Start 09/29/19 at 13:04; Stop 09/29/19 at 13:04; Status DC Glycopyrrolate (Robinul) 1 mg STK-MED ONCE .ROUTE ; Start 09/29/19 at 13:23; Stop 09/29/19 at 13:23; Status DC Neostigmine [place] (Neostigmine Methylsulfate) 5 mg STK-MED ONCE .ROUTE ; Start 09/29/19 at 13:23; Stop 09/29/19 at 13:23; Status DC Hydromorphone HCl (Dilaudid) 0.2 mg PRN Q4HRS PRN IVP MODERATE PAIN Last administered on 10/04/19at 23:34; Start 09/29/19 at 14:00 Hydromorphone HCl (Dilaudid) 0.5 mg PRN Q4HRS PRN IVP SEVERE PAIN Last administered on 10/04/19at 02:24; Start 09/29/19 at 14:00 Iron Sucrose 200 mg/Sodium Chloride 110 ml @ 55 mls/hr 1X ONCE IV Last administered on 09/30/19at 14:21; Start 09/30/19 at 14:00; Stop 09/30/19 at 15:59; Status DC Amino Acids/ Glycerin/ Electrolytes 1,000 ml @ 80 mls/hr [id number] IV Last administered on 10/03/19at 23:04; Start 09/30/19 at 12:45; Stop 10/04/19 at 15:53; Status DC Saliva Substitute (Biotene Moisturizing Mouth) 2 spray PRN Q15MIN PRN PO DRY MOUTH; Start 09/30/19 at 13:00 Levothyroxine Sodium 25 mcg/ Sodium Chloride 5 ml @ 100 mls/hr Q3DAYS IV Last administered on 10/03/19at 08:45; Start 10/03/19 at 09:00; Stop 10/05/19 at 10:49; Status DC Iohexol (Omnipaque 300 Mg/ml) 75 ml 1X ONCE IV Last administered on 10/03/19at 13:30; Start 10/03/19 at 13:30; Stop 10/03/19 at 13:31; Status DC Iohexol (Omnipaque 240 Mg/ml) 50 ml 1X ONCE PO Last administered on 10/03/19at 13:30; Start 10/03/19 at 13:30; Stop 10/03/19 at 13:31; Status DC Info (CONTRAST GIVEN -- Rx MONITORING) 1 each PRN DAILY PRN MC SEE COMMENTS; Start 10/03/19 at 13:30; Stop 10/05/19 at 13:29; Status DC Iohexol (Omnipaque 240 Mg/ml) 50 ml 1X ONCE PO Last administered on 10/04/19at 09:45; Start 10/04/19 at 09:45; Stop 10/04/19 at 09:47; Status DC Iohexol (Omnipaque 300 Mg/ml) 75 ml 1X ONCE IV Last administered on 10/04/19at 09:45; Start 10/04/19 at 09:45; Stop 10/04/19 at 09:47; Status DC Levothyroxine Sodium (Synthroid) 50 mcg DAILY06 PO Last administered on 10/06/19at 07:39; Start 10/06/19 at 06:00 Active Scripts Active Hydrocodone-Apap 5-325 (Hydrocodone Bit/Acetaminophen) 1 Tab Tablet 1 Tab PO PRN Q4HRS PRN 3 Days Proair Hfa (Albuterol Sulfate) 8.5 Gm Hfa.aer.ad 2.5 Mg NEB PRN Q4HRS PRN 30 Days Reported Tylenol (Acetaminophen) 325 Mg Tablet 650 Mg PO Q4HRS PRN Evista (Raloxifene Hcl) 60 Mg Tablet 1 Tab PO DAILY Triamcinolone Acetonide 0.1% Oint (Triamcinolone Acetonide) 15 Gm Oint...g. 1 Gregg TP BID MIX WITH EUCERIN DIRECTED BY PHYSICIAN B Complex (Vitamin B Complex) 1 Each Tablet 1 Each PO [place] 3 1,000 Mg Softgel ([place]-3 Fatty Acids/Fish Oil) 1 Each Capsule 1 Each PO Vitamin E (Vitamin E Acid Succinate) 100 Unit Tablet 100 Unit PO Lysine 500 Mg Tablet 500 Mg PO Vitamin D3 (Cholecalciferol (Vitamin D3)) 1,000 Unit Tablet 1,000 Unit PO Centrum Complete Multivit Tab (Multivitamin/Iron/Folic Acid) 1 Each Tablet 1 Each PO Caltrate 600 + D Tablet (Calcium Carbonate/Vitamin D3) 1 Each Tablet 1 Each PO Losartan Potassium 50 Mg Tablet 50 Mg PO DAILY Evista (Raloxifene Hcl) 60 Mg Tablet 60 Mg PO DAILY Hydrocodone-Apap 5-325 (Hydrocodone Bit/Acetaminophen) 1 Each Tablet 1-2 Tab PO Q4-6HRS Levothyroxine Sodium 50 Mcg Tablet 50 Mcg PO DAILYAC Vitals/I & O Vital Sign - Last 24 Hours 10/05/19 10/05/19 10/05/19 10/05/19 14:55 15:00 18:44 19:35 Temp 97.1 98.8 97.1 98.8 Pulse 91 86 Resp 20 22 22 B/P (MAP) 121/44 (69) 135/57 (83) Pulse Ox 100 100 100 O2 Delivery Nasal Cannula Nasal Cannula Nasal Cannula Nasal Cannula O2 Flow Rate 3.0 3.0 3.0 3.0 10/05/19 10/05/19 10/05/19 10/06/19 19:38 20:38 23:22 03:05 Temp 98.5 97.7 98.5 97.7 Pulse 85 104 Resp 20 32 B/P (MAP) 132/55 (80) 143/48 (79) Pulse Ox 100 96 O2 Delivery Nasal Cannula Nasal Cannula Nasal Cannula Nasal Cannula O2 Flow Rate 3.0 3.0 3.0 3.0 10/06/19 10/06/19 10/06/19 10/06/19 07:00 07:46 08:13 09:06 Temp 98.3 98.3 Pulse 93 93 Resp 18 B/P (MAP) 137/53 (81) 137/53 Pulse Ox 98 99 O2 Delivery Nasal Cannula Nasal Cannula Nasal Cannula O2 Flow Rate 2.0 2.0 2.0 10/06/19 11:00 Temp 97.8 97.8 Pulse 92 Resp 20 B/P (MAP) 112/67 (82) Pulse Ox 99 O2 Delivery Nasal Cannula O2 Flow Rate 2.0 Intake and Output 10/05/19 10/05/19 10/06/19 15:00 23:00 07:00 Intake Total 720 ml 350 ml 0 ml Output Total 200 ml Balance 520 ml 350 ml 0 ml Justicifation of Admission Dx: Justifications for Admission: Justification of Admission Dx: Yes CHF: Hemodynamic Instability Comminuty Aquired Pneumonia: Dehydration Chronic Renal Failure: Intravenous Infusions Sepsis: Dehydration Nutrition Consultation Dietary Evaluation: Recommendations by RD: Dietary education by RD, Increase Calorie Intake, Protein supplementation Comments: Continue advancing diet as able/tolerated and per MD, goal diet regular w/Ensure (chocolate) TID Expected Outcomes/Goals: New goal 09/30: diet advancement - met, new goal established New goal 10/03: PO intake to meet >75% est needs Malnutrition Findings: Food and Nutrition Intake (Sev: <50% est energy req 5days Body Fat Depletion (Non Severe: Mod to Severe Weight Status: Appropriate NANDA MILLER MD Oct 06, 2019 14:05
--- NOTE | 2019-10-06 14:32 | NUR ---
Pt discharged to [facility]. Assisted to wheelchair and was taken to main entrance by transportation. All belongings were sent with the patient including her walker.
--- NOTE | 2019-10-06 15:13 | PDOC3 ---
Discharge Summary Visit Information Date of Admission: Sep 23, 2019 Date of Discharge: Oct 06, 2019 Admitting Diagnosis Comment: 1. severe anemia GUIAC STOOL NEG X 1 IN ER 2. weight loss 3. Generalized weakness 4. 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 Chronic hypoxic respiratory failure COPD Former tobacco use colon cancer Small bilateral pleural effusions Cholelilthiasis - Gallbladder contains a 1 cm stone at its neck Hyponatremia Adrenal mass Brief Hospital Course Allergies Allergies Coded Allergies Type Severity Reaction Last Updated Verified Penicillins Allergy Intermediate 09/28/19 Yes Sulfa (Sulfonamide Antibiotics) Allergy Intermediate 09/28/19 Yes clarithromycin Allergy Intermediate 09/28/19 Yes morphine Allergy Intermediate 09/28/19 Yes Vital Signs Vital Signs Date Time Temp Pulse Resp B/P (MAP) Pulse Ox O2 Delivery O2 Flow Rate FiO2 10/06/19 11:00 97.8 92 20 112/67 (82) 99 Nasal Cannula 2.0 97.8 Lab Results Laboratory Tests Test 10/05/19 05:00 Magnesium Level 2.0 mg/dL (1.8-2.4) Brief Hospital Course 10/06/2019 No acute events were reported overnight. The patient continued to do well and she does seem to have some cognitive impairment her son is at bedside and overall after her prolonged hospital stay she seems to be medically optimized. Her advanced age and also her functional status will determine what kind of therapy she will be able to receive in the near future. The recommendations from our spa consultant were as follows: Plan of Care -Reviewed results of CT CAP with the patient. She denies a prior hx of tuberculosis or atypical infections. Will discuss PET CT with her as outpatient if CEA is persistently elevated after surgery -Reviewed results of surgical pathology. She had T4bN disease. We discussed that the recurrence risk in patients with stage III colon cancer is ~50% and is modifiable with adjuvant chemotherapy -Given her advanced age and comorbidities, I would like for her to continue with her recovery from her current surgery -She will be set-up to see me in clinic in 2 weeks to continue discussion of the potential benefits and risks of adjuvant chemotherapy. May consider single agent 5FU or 3 months of FOLFOX/XELOX if her PS improves enough to allow it Garrett Hayward MD Medical Oncology/Hematology Ph: [phone] Her son was at bedside on the day of discharge and all concerns were addressed to the best of my abilities. Reassurance was provided thank you for allowing [facility] care for the patient greater than 35 minutes were spent in the discharge process with the patient counseling coordination of care and arrangements for a safe transfer 10/05/19 Pt examined, resting in bed, NAD POD 6 Stopped PPN, tolerating advanced diet Had BM this AM Reviewed chart Discussed with RN 10/04/2019 Pt seen and examined dw RN and case mgmt reviewed chart 10/03/2019 Patient seen and examined Resting comfortably in bed Receiving PPN with clear liquids Transfused 09/30, Hgb 9.3 today Hem/Onc recommending CT of the chest, abdomen and pelvis with contrast for staging Awaiting surgical pathology report from hemicolectomy on 09/29/2019 Discussed with RN Chart reviewed 10/01. pain better, up and to chair doing well, family here [facility] is back, I discussed ADENO carcinoma diagnosis, will consult Onc to follow after discharge. she feels well still NPO, cont PPN 09/30. back is sore from the bed pain OK, no flatus yet, her son is here and has been very helpful with her care, cont current 09/29,. pain OK, dry mouth, looks comfortable lefft hand swollen today, IV changed to the right, no event otherwsie surg yesterday will given venofer IV today, DELORES 09/28, hgb stable - in surg for colon resection, ostomy placement Mr Kerr 89 y/o female with PMHc COPD, pulmonary fibrosis on home O2, HTN, Osteoporosis, depression, hypothyroidism, mild cognitive impairment who lives in Assisted Living in [place], [place] who was transferred from [facility] for evaluation of lower abdominal pain and low hemoglobin No previous EGD or colonoscopy. No cancer history in her mother father, her sister did have breast cancer and her brother has history of lymphoma non- Hodgkin's type. No prostate or colon cancer history in her family but she does not know all of their history. CT abdomen reveals large ascending colonic mass without bowel obstruction showing findings suspicious for extracolonic tumoral spread. Additional findings include cholelithiasis, splenic calcifications, mild nodular fullness of left adrenal gland, mild right hydroureter and hydronephrosis w/ nonobstructing 2 mm right kidney stone. Physical exam Heart: Regular rate Extremities: No clubbing General: Alert, Oriented X3, Cooperative HEENT: Atraumatic, PERRLA Lungs: Clear to auscultation MUSCULOSKELETAL: No joint tenderness, No deformity Neck: Supple, No JVD Neuro: Normal speech Psych/Mental Status: Mental status NL Assessment Assessment IMAGING REPORT Signed PATIENT: LEI KERR ACCOUNT: [id number] : 1930 LOCATION: [facility] AGE: 89 SEX: F EXAM STATUS: ADM IN ORD. PHYSICIAN: NAYELI HAYWARD MD REASON: Colon cancer staging PROCEDURE: CT CHEST ABD PELVIS W/CONTRAST EXAM: CT OF THE CHEST, ABDOMEN AND PELVIS WITH CONTRAST. HISTORY: Colon cancer staging. TECHNIQUE: Computed tomography of the chest, abdomen and pelvis was performed after the intravenous administration of iodinated contrast. One or more of the following individualized dose reduction techniques were utilized for this examination: 1. Automated exposure control. 2. Adjustment of the mA and/or kV according to patient size. 3. Use of iterative reconstruction technique. COMPARISON: 09/24/2019. FINDINGS: Bone windows reveal no suspicious lesions. There are changes of left total hip arthroplasty. There are no pathologically enlarged mediastinal or axillary lymph nodes. There are small to moderate bilateral pleural effusions. There is no pericardial effusion. The heart is not enlarged. There is pleural parenchymal scarring in both apices. Multiple additional nodules are seen bilaterally in the upper lobes measuring up to 10 x 8 mm medially in the left upper lobe on image 15. Some are cavitary. A groundglass opacity medially in the left upper lobe measures up to 3.3 x 2.6 cm. There is compressive atelectasis in the bases. There are changes of right colectomy. A small amount of retroperitoneal gas persists. A subcutaneous drain is noted along the midline anterior abdominal scar. Small pelvic ascites is not loculated. There is no drainable collection. A gallstone is noted in the gallbladder. There are calcified granulomas throughout the spleen. There are small cysts in the left kidney. There is a 3 mm calculus in the right kidney. There are no suspicious hepatic lesions. The pancreatic duct is at the upper limits of normal caliber at 3 mm. A nodule in the left adrenal gland measures 17 x 12 mm and was consistent with a benign adenoma on the prior noncontrast study. The right adrenal gland is unremarkable. There are no pathologically enlarged lymph nodes. There is no small bowel obstruction. IMPRESSION: 1. Status post right hemicolectomy. No definitive evidence of metastatic disease. 2. Multiple cavitary nodules in both lung apices are indeterminate but most likely postinflammatory. Correlate to exclude mycobacterial infection no other atypical infections. Comparison with any available prior chest CT is recommended to assess chronicity. If none are available, PET/CT or three-month follow-up is recommended. 3. Cholelithiasis. 4. 3 mm right renal calculus. 5. 17 mm left adrenal nodule consistent with a benign adenoma. Electronically signed by: Cecily Ovalles MD (10/04/2019 1:11 PM) [id number] DICTATED and SIGNED BY: AQUILINO OVALLES MD DATE: 10/04/19 131 Discharge Information Condition at Discharge: Improved Follow Up: Weeks Disposition/Orders: D/C to Home Scheduled Hydrocodone Bit/Acetaminophen (Hydrocodone-Apap 5-325 ) 1 Each Tablet, 1-2 TAB PO Q4-6HRS, #40 (Reported) Entered as Reported by: DILLON LOZA on 08/29/14844 Last Action: HELD on 09/23/191956 by TWILA KULKARNI MD Levothyroxine Sodium (Levothyroxine Sodium) 50 Mcg Tablet, 50 MCG PO DAILYAC for THYROID SUPPLEMENT, #30 Ref 0 (Reported) Entered as Reported by: DILLON LOZA on 08/29/14839 Last Action: Continued on 09/23/191956 by TWILA KULKARNI MD Losartan Potassium (Losartan Potassium) 50 Mg Tablet, 50 MG PO DAILY, (Reported) Entered as Reported by: DILLON LOZA on 08/29/1446 Last Action: Continued on 09/23/191956 by TWILA KULKARNI MD Raloxifene Hcl (Evista) 60 Mg Tablet, 60 MG PO DAILY, (Reported) Entered as Reported by: DILLON LOZA on 08/29/14844 Last Action: HELD on 09/23/191956 by TWILA KULKARNI MD Raloxifene Hcl (Evista) 60 Mg Tablet, 1 TAB PO DAILY, #30 Ref 11 (Reported) Entered as Reported by: Annia Arriaga on 02/02/16 1001 Last Action: Continued on 09/23/191956 by TWILA KULKARNI MD Triamcinolone Acetonide (Triamcinolone Acetonide 0.1% Oint) 15 Gm Oint...g., 1 DILSHAD TP BID for WOUND CARE, #1 (Reported) MIX WITH EUCERIN DIRECTED BY PHYSICIAN Entered as Reported by: Annia Arriaga on 02/02/16 1001 Last Action: HELD on 09/23/191956 by TWILA KULKARNI MD Scheduled PRN Acetaminophen (Tylenol) 325 Mg Tablet, 650 MG PO Q4HRS PRN for FEVER > 100.5'F, (Reported) Entered as Reported by: GERALD DUNBAR on 09/23/192021 Last Action: New Order on 09/23/192021 by GERALD DUNBAR Albuterol Sulfate (Proair Hfa) 8.5 Gm Hfa.aer.ad, 2.5 MG NEB PRN Q4HRS PRN for SHORTNESS OF BREATH for 30 Days, #1 Prescribed by: ZULEIKA MORGAN MD on 10/06/19 1103 Hydrocodone Bit/Acetaminophen (Hydrocodone-Apap 5-325 ) 1 Tab Tablet, 1 TAB PO PRN Q4HRS PRN for MODERATE PAIN for 3 Days, #12 Prescribed by: ZULEIKA MORGAN MD on 10/06/19 1103 Miscellaneous Medications Calcium Carbonate/Vitamin D3 (Caltrate 600 + D Tablet) 1 Each Tablet, 1 EACH PO, (Reported) Entered as Reported by: DILLON LOZA on 08/29/14 0849 Last Action: Converted on 09/23/191956 by TWILA KULKARNI MD Cholecalciferol (Vitamin D3) (Vitamin D3) 1,000 Unit Tablet, 1,000 UNIT PO, (Reported) Entered as Reported by: DILLON LOZA on 08/29/14 0850 Last Action: Continued on 09/23/191956 by TWILA KULKARNI MD Lysine (Lysine) 500 Mg Tablet, 500 MG PO, (Reported) Entered as Reported by: DILLON LOZA on 08/29/14 0859 Multivitamin/Iron/Folic Acid (Centrum Complete Multivit Tab) 1 Each Tablet, 1 EACH PO, (Reported) Entered as Reported by: DILLON LOZA on 08/29/14848 Last Action: Converted on 09/23/191956 by TWILA KULKARNI MD Perry-3 Fatty Acids/Fish Oil ([place] 3 1,000 Mg Softgel) 1 Each Capsule, 1 EACH PO, (Reported) Entered as Reported by: DILLON LOZA on 08/29/14858 Last Action: Converted on 09/23/191956 by TWILA KULKARNI MD Vitamin B Complex (B Complex) 1 Each Tablet, 1 EACH PO, (Reported) Entered as Reported by: DILLON LOZA on 08/29/14858 Last Action: Continued on 09/23/191956 by TWILA KULKARNI MD Vitamin E Acid Succinate (Vitamin E) 100 Unit Tablet, 100 UNIT PO, (Reported) Entered as Reported by: DILLON LOZA on 08/29/14858 Discontinued Medications Ibuprofen (Ibuprofen) 800 Mg Tablet, 800 MG PO PRN Q6HRS PRN for INFLAMMATION, (Reported) Entered as Reported by: Annia Arriaga on 02/02/16 100 Last Action: HELD on 09/23/191956 by TWILA KULKARNI MD Nitrofurantoin Macrocrystal (Macrodantin) 50 Mg Capsule, 1 CAP PO DAILY, #30 Ref 3 (Reported) Entered as Reported by: Annia Arriaga on 02/02/161000 Last Action: HELD on 09/23/191956 by TWILA KULKARNI MD Justicifation of Admission Dx: Justifications for Admission: Justification of Admission Dx: Yes CHF: Hemodynamic Instability Comminuty Aquired Pneumonia: Dehydration Chronic Renal Failure: Intravenous Infusions Sepsis: Dehydration ZULEIKA MORGAN MD Oct 06, 2019 15:13
== END 2019-10-06 14:33 | DRG 329 ==
LOC: 2 SOUTH 18:20
PROVIDERS: ADMIT Internal Medicine; ATTEND Internal Medicine
PROC: 0DBL8ZX Excision of Transverse Colon, Via Natural or Artificial Opening Endoscopic, Diagnostic (ICD-10-PCS; principal; 2019-09-28 11:30)
PROC: 0DTF0ZZ Resection of Right Large Intestine, Open Approach (ICD-10-PCS; 2019-09-28 11:30)
PROC: 0DBF8ZX Excision of Right Large Intestine, Via Natural or Artificial Opening Endoscopic, Diagnostic (ICD-10-PCS; 2019-09-29)
PROC: 30233N1 Transfusion of Nonautologous Red Blood Cells into Peripheral Vein, Percutaneous Approach (ICD-10-PCS; 2019-10-01)
DX: C18.2 Malignant neoplasm of ascending colon (principal); E43 Unspecified severe protein-calorie malnutrition; D62 Acute posthemorrhagic anemia; E87.1 Hypo-osmolality and hyponatremia; I13.0 Hypertensive heart and chronic kidney disease with heart failure and stage 1 through stage 4 chronic kidney disease, or unspecified chronic kidney disease; J96.11 Chronic respiratory failure with hypoxia; J90 Pleural effusion, not elsewhere classified; K63.9 Disease of intestine, unspecified; Z68.21 Body mass index [BMI] 21.0-21.9, adult; E03.9 Hypothyroidism, unspecified; E27.8 Other specified disorders of adrenal gland; F03.90 Unspecified dementia, unspecified severity, without behavioral disturbance, psychotic disturbance, mood disturbance, and anxiety; F32.9 Major depressive disorder, single episode, unspecified; I50.9 Heart failure, unspecified; J44.9 Chronic obstructive pulmonary disease, unspecified; J84.10 Pulmonary fibrosis, unspecified; K57.90 Diverticulosis of intestine, part unspecified, without perforation or abscess without bleeding; M81.0 Age-related osteoporosis without current pathological fracture; Z20.828 Contact with and (suspected) exposure to other viral communicable diseases; Z66 Do not resuscitate; Z82.49 Family history of ischemic heart disease and other diseases of the circulatory system; Z87.891 Personal history of nicotine dependence; Z96.642 Presence of left artificial hip joint; Z88.1 Allergy status to other antibiotic agents; Z88.0 Allergy status to penicillin; Z88.2 Allergy status to sulfonamides; Z88.5 Allergy status to narcotic agent; N20.0 Calculus of kidney
CPT/HCPCS: 36415; 45380; 45381; 71260; 74176; 74177; 80048; 80053; 82378; 82607; 82803; 83540; 83550; 83735; 85007; 85025; 85045; 86850; 86900; 86901; 86920; 87426; 88305; 88309; 94760; A7015; C9113; J0330; J1100; J1170; J1756; J1956; J2370; J2405; J2704; J2710; J3010; J3490; J7030; J7120; P9016; Q9966; Q9967; 97110-GP; 97530-GO; 97530-GP; 97535-GO; G0378; U0003-CS

== ENCOUNTER 2020-08-21 05:30 | Inpatient (IN) | payer MEDICARE, BC ==
[~2020-08-21] VITALS: Ht 154.9 cm; Wt 56.2 kg
[~2020-08-21 05:30] MED LIST changes: +ACET325T9 PO; +ALBU2.5V8 NEB; +AMLO-186 PO; -AMLO5TAB10 PO
[2020-08-21 05:45] VITALS: BP 129/53
[2020-08-21] MEDS ORDERED: POTA20TA84 PO (06:22)
[2020-08-21] MEDS ORDERED: FURO80TA3 PO (06:22)
[2020-08-21] MEDS ORDERED: METO50TA6 PO (06:22)
[2020-08-21] MEDS ORDERED: TOLT2CAP21 PO (06:22)
[2020-08-21] MEDS ORDERED: UMEC1DIS INH (06:22)
[2020-08-21 07:00] VITALS: BP 117/42
[2020-08-21] MEDS: IV NORMAL SALINE 1000ML BAG 1,000 ML IV SCH ×2 (08:04→17:17)
--- NOTE | 2020-08-21 09:30 | PDOC2 ---
CONSULT Date of Consult Date of Consult DATE: 08/21/20 TIME: 09:26 Reason for Consult Reason for Consult: Abdominal distention Referring Physician Referring Physician: Jorge Identification/Chief Complaint Chief Complaint Not eating well Source Source: Caregiver, Chart review, Patient History of Present Illness Reason for Visit: 89-year-old female who states that she is feeling much better this morning after sleeping last night. She is somewhat of a poor historian when asked about if she had any nausea or vomiting she states no but her daughter states that she has had vomiting for the last couple weeks after she eats. Patient denies any abdominal pain. She is brought to the emergency department further evaluation secondary to general malaise and inability to eat. CT scan was performed which showed dilated loops of small bowel consistent with a small bowel obstruction. Previous history of right colon resection. She currently resting comfortably in bed no distress Past Medical History Cardiovascular: HTN CENTRAL NERVOUS SYSTEM: Dementia Heme/Onc: Other (Colon cancer) Psych: Depression Renal/: No pertinent hx Past Surgical History Past Surgical History: Colon Resection Family History Family History: No Significant, Hypertension Social History ALCOHOL: none Drugs: None Current Medications Current Medications Current Medications Sodium Chloride 1,000 ml @ 100 mls/hr Q10H IV Last administered on 08/21/20at 08:04; Start 08/21/20 at 07:00 Fentanyl Citrate (Fentanyl 2ml Vial) 50 mcg PRN Q3HRS PRN IVP SEVERE PAIN 7-10; Start 08/21/20 at 06:45 Ondansetron HCl (Zofran) 4 mg PRN Q4HRS PRN IVP NAUSEA/VOMITING 1ST CHOICE; Start 08/21/20 at 06:45 Active Scripts Active Proair Hfa (Albuterol Sulfate) 8.5 Gm Hfa.aer.ad 2.5 Mg NEB PRN Q4HRS PRN 30 Days Reported Anoro Ellipta 62.5-25 Mcg Inh (Umeclidinium Brm/Vilanterol Tr) 1 Each Disk.w.dev 1 Puff INH DAILY K-Tab ER (Potassium Chloride) 20 Meq Tablet.er 20 Meq PO BID Tolterodine Tartrate Er (Tolterodine Tartrate) 2 Mg Cap.er.24h 1 Cap PO DAILY Furosemide 80 Mg Tablet 1 Tab PO DAILY Metoprolol Tartrate 50 Mg Tablet 1 Tab PO BID Tylenol (Acetaminophen) 325 Mg Tablet 650 Mg PO Q4HRS PRN Triamcinolone Acetonide 0.1% Oint (Triamcinolone Acetonide) 15 Gm Oint...g. 1 Gregg TP BID MIX WITH EUCERIN DIRECTED BY PHYSICIAN B Complex (Vitamin B Complex) 1 Each Tablet 1 Each PO [place] 3 1,000 Mg Softgel ([place]-3 Fatty Acids/Fish Oil) 1 Each Capsule 1 Each PO Vitamin E (Vitamin E Acid Succinate) 100 Unit Tablet 100 Unit PO Lysine 500 Mg Tablet 500 Mg PO Vitamin D3 (Cholecalciferol (Vitamin D3)) 1,000 Unit Tablet 1,000 Unit PO Centrum Complete Multivit Tab (Multivitamin/Iron/Folic Acid) 1 Each Tablet 1 Each PO Caltrate 600 + D Tablet (Calcium Carbonate/Vitamin D3) 1 Each Tablet 1 Each PO Evista (Raloxifene Hcl) 60 Mg Tablet 60 Mg PO DAILY Hydrocodone-Apap 5-325 (Hydrocodone Bit/Acetaminophen) 1 Each Tablet 1-2 Tab PO Q4-6HRS Levothyroxine Sodium 50 Mcg Tablet 50 Mcg PO DAILYAC Allergies Allergies: Coded Allergies: Penicillins (Verified Allergy, Intermediate, 09/28/19) Sulfa (Sulfonamide Antibiotics) (Verified Allergy, Intermediate, 09/28/19) clarithromycin (Verified Allergy, Intermediate, 09/28/19) morphine (Verified Allergy, Intermediate, 09/28/19) ROS General: YES: Malaise Gastrointestinal: Yes Vomiting Physical Exam General: Alert, Cooperative, No acute distress HEENT: Atraumatic, EOMI Lungs: Clear to auscultation, Normal air movement Heart: Regular rate, No murmurs Abdomen: Soft, Other (Mildly distended nontender) Extremities: No edema Skin: No significant lesion Neuro: Normal speech Vitals VITALS Vital Signs Date Time Temp Pulse Resp B/P (MAP) Pulse Ox O2 Delivery O2 Flow Rate FiO2 08/21/20 07:00 98.1 86 16 117/42 (67) 100 Nasal Cannula 2.0 98.1 Assessment/Plan Assessment/Plan Small bowel obstruction versus ileus will maintain n.p.o. bowel rest if patient begins vomiting will need NG tube to low intermittent suction Pulmonary mass by CT scan needs further work-up potentially IR biopsy Repeat abdominal films in TWILA Hartley MD Aug 21, 2020 09:30
[2020-08-21] MEDS ORDERED: ACETAMINOPHEN 325 MG TABLET. PO PRN (09:45)
[2020-08-21] MEDS ORDERED: ALBUTEROL SULFATE 2.5 MG/3 ML NEBU. NEB PRN (09:45)
[2020-08-21] MEDS ORDERED: PHYTONADIONE 10 MG/ML AMPUL. SQ ONE (10:00)
[2020-08-21] MEDS: TRIAMCINOLONE ACETONIDE 0.1% TOPICAL OINTMENT 15GM TUBE. TP SCH ×2 (10:00→20:11)
[2020-08-21] MEDS: METOPROLOL TART IMMED RELEASE 50 MG TABLET. PO SCH ×3 (10:00→20:11)
[2020-08-21] MEDS: CHOLECALCIFEROL (VITAMIN D3) 1,000 UNIT TABLET PO SCH (10:00)
[2020-08-21] MEDS: VITAMIN B COMPLEX TABLET. PO SCH (10:00)
[2020-08-21] MEDS: FUROSEMIDE 80 MG TABLET. PO SCH (10:00)
[2020-08-21] MEDS: RALOXIFENE 60 MG TABLET. PO SCH (10:00)
[2020-08-21 10:14] LABS: HEMATOCRIT 34.1 % (36.0-47.0); HEMOGLOBIN 11.7 g/dL (12.0-15.5); RED BLOOD COUNT 3.9 x10^6/uL (3.50-5.40); RED CELL DISTRIBUTION WIDTH 13.1 % (11.5-14.5)
--- NOTE | 2020-08-21 10:20 | HP ---
ADMIT DATE: 08/21/2020 HISTORY OF PRESENT ILLNESS: The patient is an 89-year-old female patient who was brought to the emergency room of [facility] with a complaint of abdominal pain, anorexia, nausea, and vomiting. Apparently, she has not had any bowel movement or has passed any gas for almost a week now. She was seen last Friday by her primary care physician who thought she might have a bug; however, the last night she had multiple episodes of nausea, vomiting and was brought to the emergency room of [facility] where she was extensively investigated and she was found to have 6.9 x 3.8 cm hypodense mass identified in the left suprahilar lung lesion extending to the mediastinum, likely malignancy or metastases. She has multiple dilated small bowel loops identified throughout the abdomen with transition point identified in the right mid abdomen. Best visualized on CT image 66, likely a small bowel obstruction. Moderately distended gallbladder with 1.2 cm gallstone identified in the proximal gallbladder. She has also scattered nodules identified in the bilateral lungs with the largest measured 9 mm right upper lobe of the lung with tiny cavitation could be metastases. She also mild dilated esophagus with thickened appearance of the distal wall of the esophagus. It could be due to esophagitis, esophageal malignancy is not excluded and therefore, the patient was transferred to [facility] with small bowel obstruction and left suprahilar lung mass that could be malignancy or metastatic. It is worth noting that the patient has had a colon cancer, resected on 09/29/2019. However, the patient did not receive any chemotherapy after that. PAST MEDICAL HISTORY: Significant for hypertension, hypothyroidism, COPD, as well as atrial fibrillation. She also had a history of congestive heart failure. She also has cachexia and underlying dementia. PAST SURGICAL HISTORY: Significant for bilateral cataract extraction. She has left hip fracture status post left total hip arthroplasty and bilateral cataract extraction. ALLERGIES: SHE IS ALLERGIC TO PENICILLIN, SULFA DRUGS, TETANUS VACCINES, TOXOID, ERYTHROMYCIN, AND MORPHINE. MEDICATIONS: She is currently on the following medication: She is on losartan potassium 25 mg once a day, raloxifene 60 mg and Prolia 60 mg subQ every 6 months. FAMILY HISTORY: Her mother of complication of a stroke at age of 74. Father of old age at the age of 92. SOCIAL HISTORY: She lives with her son and [id number]. He has two sons. She is an ex-smoker, quit smoking in 1959. She does not drink alcohol. She worked for [employer]. REVIEW OF SYSTEMS: The patient denied any blurring of vision. She has bilateral cataract extraction, but denied any glaucoma or macular degeneration. Denied any earache, tinnitus, or sensory deafness. Denied any nosebleed, stuffy nose or postnasal drip. Denied any sore throat, sore tongue, toothache, hoarseness of voice or difficulty swallowing. Did complain of nausea and vomiting. She has not had any bowel movement or passed gas for almost a week now according to her. Denied any dysuria, frequency or hematuria. Denied any chest pain, shortness of breath, orthopnea or paroxysmal nocturnal dyspnea. Did have cough, it is mostly dry according to her [id number]. PHYSICAL EXAMINATION: GENERAL: On arrival to the emergency room, there was no pallor, jaundice, cyanosis or thyromegaly. No jugular venous distention. No limb edema. VITAL SIGNS: Her heart rate was 92, blood pressure is 122/60, temperature was 98.3, respiratory rate was 20 and oxygen saturation was 100% on 2 liters of oxygen. HEAD, EYES, EARS, NOSE AND THROAT: Showed she is normocephalic, atraumatic. NECK: Supple. HEART: Showed normal first and second heart sounds, no gallop, rub or murmur. CHEST: Clear to auscultation, no crepitation or rhonchi. ABDOMEN: Soft. Abdomen was distended. Tenderness mostly in the right lower quadrant. There is no guarding or rigidity. No organomegaly. All hernial orifice intact. Bowel sounds are sluggish. NEUROLOGIC: She is hard of hearing, but otherwise all her cranial nerves intact. He moves extremities without difficulty. LABORATORY DATA: On arrival there showed a white cell count of 10,200, hemoglobin 12.8, hematocrit 37.3, MCV 89 and platelet count of 422,000 with a manual differential showed 70% polymorphs, 16% lymphocytes and 4% monocytes. Her serum sodium was 127, potassium 4.5, chloride 86, bicarbonate 34, anion gap of 7, BUN 40, creatinine 1.1. Estimated GFR was 46 mL per minute. Her glucose was 96, calcium was 9.3, total bilirubin, AST, ALT were normal. Alkaline phosphatase is elevated at 232. Her total protein was 7.7, albumin 3.3. Amylase and lipase are all normal. Her prothrombin time is 49.6, INR of 5.1, aPTT was 60. Her urinalysis showed the urine was yellow, clear with a pH of 6, specific gravity of 1.010. Urine was negative for protein, glucose, small amount of ketones, trace of blood, negative for nitrite. There was moderate amount of leukocyte esterase, 1-2 rbc's, more than 40 wbc's, very few bacteria. The acute abdomen series showed multiple air fluid levels identified in the abdomen consistent with small bowel obstruction and ileus, opacity identified in the left suprahilar region measuring 7.1 x 5 cm could be mass or opacity correlate with CT scan finding. CT scan of the chest, abdomen and pelvis showed that the patient has 8.9 x 3.8 cm hypodense mass identified in the left suprahilar lung lesion extending to the mediastinum, likely malignancy or metastases. She has multiple dilated small bowel loops identified throughout the abdomen with transition point identified in the right mid abdomen, best visualized. She has moderately distended gallbladder with a 1.2 cm gallstone identified in the proximal gallbladder or scattered nodules identified in the bilateral lungs with the largest measuring 9 mm right upper lobe of the lung with tiny cavitation could be metastases. She has mild dilated esophagus with thickened appearance with the distal wall of the esophagus could be esophagitis, esophageal malignancy cannot be excluded. ASSESSMENT AND PLAN: The patient was kept n.p.o., transferred to [facility]. Continue with IV fluid in the form of normal saline together with fentanyl and Zofran. We will consult the surgical team as well as the cloth bleaching range tender for bowel obstruction and gallbladder disease. There is also a mass in her left upper hilum, obviously this could be all metastasis from the colon cancer causing obstruction and metastasis to the lungs. This could be a primary lung disease with obstruction due to adhesions. [facility] [place] DR: Xavi TID: [id number]
[2020-08-21 10:29] LABS: PROTHROMBIN TIME PATIENT 13.9 SEC (11.7-14.0)
[2020-08-21] MEDS: LEVOTHYROXINE 50 MCG TABLET PO SCH ×2 (10:30→22:52)
[2020-08-21 10:35] LABS: ALBUMIN 2.8 g/dL (3.4-5.0); ALBUMIN/GLOBULIN RATIO 0.8 (1.0-1.7); CALCIUM 8.6 mg/dL (8.5-10.1); CREATININE 0.9 mg/dL (0.6-1.0); POTASSIUM 3.6 mmol/L (3.5-5.1); TOTAL BILIRUBIN 0.6 mg/dL (0.2-1.0); TOTAL PROTEIN 6.5 g/dL (6.4-8.2)
[2020-08-21 11:00] VITALS: BP 127/46
--- NOTE | 2020-08-21 12:06 | CONS ---
DATE OF CONSULTATION: 08/21/2020 PULMONARY CONSULTATION ATTENDING PHYSICIAN: Dr. Patel. REASON FOR CONSULTATION: Lung mass. HISTORY OF PRESENT ILLNESS: The patient is an 89-year-old female with a BMI of 23.5. The patient smoked for about ____ years, quit ____ years ago. She was brought into the hospital with nausea and vomiting. The patient stated that she has been having vomiting for the last couple of weeks after she eats. She had no abdominal pain initially. She has no cough, no hemoptysis. She has some subjective weight loss during this last 2 weeks. The patient was seen at [facility]. She underwent a CT abdomen and pelvis, which was reviewed by me dated today. The patient has a 6.9 x 3.8 cm necrotic mass in the left suprahilar region extending into the mediastinum. She has also tiny scattered lung nodules. She has multiple dilated small loops of bowel throughout the abdomen. The patient has also dilated esophagus with thickened appearance of the distal wall, which could be esophagitis versus esophageal malignancy. I have been asked to see her for further evaluation. Her nausea and vomiting has improved. PAST MEDICAL HISTORY: Significant for possible COPD, history of dementia, history of colon cancer, history of depression. She although denies any history of colon cancer. PAST SURGICAL HISTORY: Colon resection. FAMILY HISTORY: Hypertension. SOCIAL HISTORY: Smoked for 25 years, but quit 27 years ago. ALLERGIES: PENICILLIN, SULFA, CLARITHROMYCIN, MORPHINE. MEDICATIONS: All reviewed as listed in the MRAD. SYSTEM REVIEW: A 12-point system obtained. Pertinent positives discussed in my presence illness, otherwise noncontributory. All systems that were negative were reviewed as well. PHYSICAL EXAMINATION: VITAL SIGNS: Reviewed. Blood pressure stable, pulse ox 100% on 2 liters. NECK: Supple. LUNGS: Clear. CARDIOVASCULAR: With a regular rate. ABDOMEN: Soft, distended. Nontender. EXTREMITIES: With no pitting edema. LABORATORY DATA: Reviewed. White cell count 8.0, hemoglobin 11.7, platelets are 368. BUN and creatinine 28 and 0.9. IMPRESSION: 1. Abnormal CT chest with a large 6.8 cm necrotic left suprahilar mass with tiny scattered lung nodules, which are likely metastatic. Clinical suspicion is for primary bronchogenic cancer. Tiny lung nodules would be metastatic. 2. Possible underlying chronic obstructive pulmonary disease. 3. Bowel obstruction in a patient who has prior history of colon cancer and resection. She also has abnormal esophagus on CT and esophageal malignancy cannot be ruled out. RECOMMENDATIONS: 1. I have discussed with the patient regarding CT chest findings and concern for primary bronchogenic cancer. I did discuss the options of doing a biopsy versus keeping in view of her advanced age and not doing anything at this point. The patient prefers not to do any invasive testing at this point. She said if she changes her decision down the road, she will notify us. She will also notify her sons as well. 2. Follow General Surgery and GI recommendations. 3. May need EGD. 4. Monitor for improvement in bowel obstruction. 5. We will be available for any further recommendations. GARIMA/FUAD/TRENT DR: Pratik TID: [id number]
[2020-08-21 15:00] VITALS: BP 121/46
[2020-08-21] MEDS: ONDANSETRON PF 4 MG/2 ML VIAL. IVP PRN (17:17)
[2020-08-21 19:00] VITALS: BP 113/53
[2020-08-21 23:38] VITALS: BP 126/55
[2020-08-22] MEDS: ONDANSETRON PF 4 MG/2 ML VIAL. IVP PRN ×3 (01:58→11:11)
[2020-08-22] MEDS: IV NORMAL SALINE 1000ML BAG 1,000 ML IV SCH ×3 (01:58→23:00)
[2020-08-22 03:00] VITALS: BP 127/54
[2020-08-22 04:31] LABS: HEMATOCRIT 36.6 % (36.0-47.0); HEMOGLOBIN 12.4 g/dL (12.0-15.5); RED BLOOD COUNT 4.08 x10^6/uL (3.50-5.40); RED CELL DISTRIBUTION WIDTH 13.5 % (11.5-14.5); WHITE BLOOD COUNT 9.3 x10^3/uL (4.0-11.0)
[2020-08-22 04:40] LABS: PROTHROMBIN TIME PATIENT 13.9 SEC (11.7-14.0)
[2020-08-22 04:58] LABS: ALBUMIN/GLOBULIN RATIO 0.8 (1.0-1.7); CALCIUM 8.7 mg/dL (8.5-10.1); CREATININE 0.9 mg/dL (0.6-1.0); POTASSIUM 3.1 mmol/L (3.5-5.1); TOTAL BILIRUBIN 0.5 mg/dL (0.2-1.0); TOTAL PROTEIN 6.7 g/dL (6.4-8.2)
[2020-08-22 07:00] VITALS: BP 118/45
--- NOTE | 2020-08-22 08:27 | PDOC ---
PULMONARY PROGRESS NOTES DATE: 08/22/20 TIME: 08:25 Subjective Pt. remains on room air no increased SOA or Cough N/V this am Vitals Vital Signs Date Time Temp Pulse Resp B/P (MAP) Pulse Ox O2 Delivery O2 Flow Rate FiO2 08/22/20 03:00 98.4 86 18 127/54 (78) 98 Nasal Cannula 2.0 98.4 ROS: No Chest Pain, No Increase Cough General: Alert, Oriented X4 Lungs: Clear Cardiovascular: S1 Abdomen: Soft Neuro Exam: Alert Extremities: No Edema Skin: Warm Labs Laboratory Tests Test 08/21/20 10:00 08/22/20 03:00 White Blood Count 8.0 x10^3/uL (4.0-11.0) 9.3 x10^3/uL (4.0-11.0) Red Blood Count 3.90 x10^6/uL (3.50-5.40) 4.08 x10^6/uL (3.50-5.40) Hemoglobin 11.7 g/dL (12.0-15.5) 12.4 g/dL (12.0-15.5) Hematocrit 34.1 % (36.0-47.0) 36.6 % (36.0-47.0) Mean Corpuscular Volume 87 fL (79-100) 90 fL (79-100) Mean Corpuscular Hemoglobin 30 pg (25-35) 30 pg (25-35) Mean Corpuscular Hemoglobin Concent 34 g/dL (31-37) 34 g/dL (31-37) Red Cell Distribution Width 13.1 % (11.5-14.5) 13.5 % (11.5-14.5) Platelet Count 368 x10^3/uL (140-400) 378 x10^3/uL (140-400) Prothrombin Time 13.9 SEC (11.7-14.0) 13.9 SEC (11.7-14.0) Prothromb Time International Ratio 1.1 (0.8-1.1) 1.1 (0.8-1.1) Sodium Level 131 mmol/L (136-145) 136 mmol/L (136-145) Potassium Level 3.6 mmol/L (3.5-5.1) 3.1 mmol/L (3.5-5.1) Chloride Level 89 mmol/L (98-107) 94 mmol/L (98-107) Carbon Dioxide Level 34 mmol/L (21-32) 33 mmol/L (21-32) Anion Gap 8 (6-14) 9 (6-14) Blood Urea Nitrogen 28 mg/dL (7-20) 27 mg/dL (7-20) Creatinine 0.9 mg/dL (0.6-1.0) 0.9 mg/dL (0.6-1.0) Estimated GFR (Cockcroft-Gault) 59.0 59.0 BUN/Creatinine Ratio 31 (6-20) 30 (6-20) Glucose Level 85 mg/dL (70-99) 68 mg/dL (70-99) Calcium Level 8.6 mg/dL (8.5-10.1) 8.7 mg/dL (8.5-10.1) Total Bilirubin 0.6 mg/dL (0.2-1.0) 0.5 mg/dL (0.2-1.0) Aspartate Amino Transf (AST/SGOT) 18 U/L (15-37) 21 U/L (15-37) Alanine Aminotransferase (ALT/SGPT) 17 U/L (14-59) 18 U/L (14-59) Alkaline Phosphatase 192 U/L (46-116) 196 U/L (46-116) Total Protein 6.5 g/dL (6.4-8.2) 6.7 g/dL (6.4-8.2) Albumin 2.8 g/dL (3.4-5.0) 3.0 g/dL (3.4-5.0) Albumin/Globulin Ratio 0.8 (1.0-1.7) 0.8 (1.0-1.7) Laboratory Tests Test 08/21/20 10:00 08/22/20 03:00 White Blood Count 8.0 x10^3/uL (4.0-11.0) 9.3 x10^3/uL (4.0-11.0) Red Blood Count 3.90 x10^6/uL (3.50-5.40) 4.08 x10^6/uL (3.50-5.40) Hemoglobin 11.7 g/dL (12.0-15.5) 12.4 g/dL (12.0-15.5) Hematocrit 34.1 % (36.0-47.0) 36.6 % (36.0-47.0) Mean Corpuscular Volume 87 fL (79-100) 90 fL (79-100) Mean Corpuscular Hemoglobin 30 pg (25-35) 30 pg (25-35) Mean Corpuscular Hemoglobin Concent 34 g/dL (31-37) 34 g/dL (31-37) Red Cell Distribution Width 13.1 % (11.5-14.5) 13.5 % (11.5-14.5) Platelet Count 368 x10^3/uL (140-400) 378 x10^3/uL (140-400) Prothrombin Time 13.9 SEC (11.7-14.0) 13.9 SEC (11.7-14.0) Prothromb Time International Ratio 1.1 (0.8-1.1) 1.1 (0.8-1.1) Sodium Level 131 mmol/L (136-145) 136 mmol/L (136-145) Potassium Level 3.6 mmol/L (3.5-5.1) 3.1 mmol/L (3.5-5.1) Chloride Level 89 mmol/L (98-107) 94 mmol/L (98-107) Carbon Dioxide Level 34 mmol/L (21-32) 33 mmol/L (21-32) Anion Gap 8 (6-14) 9 (6-14) Blood Urea Nitrogen 28 mg/dL (7-20) 27 mg/dL (7-20) Creatinine 0.9 mg/dL (0.6-1.0) 0.9 mg/dL (0.6-1.0) Estimated GFR (Cockcroft-Gault) 59.0 59.0 BUN/Creatinine Ratio 31 (6-20) 30 (6-20) Glucose Level 85 mg/dL (70-99) 68 mg/dL (70-99) Calcium Level 8.6 mg/dL (8.5-10.1) 8.7 mg/dL (8.5-10.1) Total Bilirubin 0.6 mg/dL (0.2-1.0) 0.5 mg/dL (0.2-1.0) Aspartate Amino Transf (AST/SGOT) 18 U/L (15-37) 21 U/L (15-37) Alanine Aminotransferase (ALT/SGPT) 17 U/L (14-59) 18 U/L (14-59) Alkaline Phosphatase 192 U/L (46-116) 196 U/L (46-116) Total Protein 6.5 g/dL (6.4-8.2) 6.7 g/dL (6.4-8.2) Albumin 2.8 g/dL (3.4-5.0) 3.0 g/dL (3.4-5.0) Albumin/Globulin Ratio 0.8 (1.0-1.7) 0.8 (1.0-1.7) Medications Active Scripts Medications Dose Route/Sig Max Daily Dose Days Date Category Dose Instructions Anoro Ellipta 62.5-25 Mcg Inh (Umeclidinium Brm/Vilanterol Tr) 1 Each Disk.w.dev 1 Puff INH DAILY 08/21/20 Reported K-Tab ER (Potassium Chloride) 20 Meq Tablet.er 20 Meq PO BID 08/21/20 Reported Tolterodine Tartrate Er (Tolterodine Tartrate) 2 Mg Cap.er.24h 1 Cap PO DAILY 08/21/20 Reported Furosemide 80 Mg Tablet 1 Tab PO DAILY 08/21/20 Reported Metoprolol Tartrate 50 Mg Tablet 1 Tab PO BID 08/21/20 Reported Proair Hfa (Albuterol Sulfate) 8.5 Gm Hfa.aer.ad 2.5 Mg NEB PRN Q4HRS PRN 30 10/06/19 Rx Tylenol (Acetaminophen) 325 Mg Tablet 650 Mg PO Q4HRS PRN 09/23/19 Reported Triamcinolone Acetonide 0.1% Oint (Triamcinolone Acetonide) 15 Gm Oint...g. 1 Gregg TP BID 02/02/16 Reported MIX WITH EUCERIN DIRECTED BY PHYSICIAN B Complex (Vitamin B Complex) 1 Each Tablet 1 Each PO 08/29/14 Reported [place] 3 1,000 Mg Softgel ([place]-3 Fatty Acids/Fish Oil) 1 Each Capsule 1 Each PO 08/29/14 Reported Vitamin E (Vitamin E Acid Succinate) 100 Unit Tablet 100 Unit PO 08/29/14 Reported Lysine 500 Mg Tablet 500 Mg PO 08/29/14 Reported Vitamin D3 (Cholecalciferol (Vitamin D3)) 1,000 Unit Tablet 1,000 Unit PO 08/29/14 Reported Centrum Complete Multivit Tab (Multivitamin/Iron/Folic Acid) 1 Each Tablet 1 Each PO 08/29/14 Reported Caltrate 600 + D Tablet (Calcium Carbonate/Vitamin D3) 1 Each Tablet 1 Each PO 08/29/14 Reported Evista (Raloxifene Hcl) 60 Mg Tablet 60 Mg PO DAILY 08/29/14 Reported Hydrocodone-Apap 5-325 (Hydrocodone Bit/Acetaminophen) 1 Each Tablet 1-2 Tab PO Q4-6HRS 08/29/14 Reported Levothyroxine Sodium 50 Mcg Tablet 50 Mcg PO DAILYAC 08/29/14 Reported Impression . IMPRESSION: 1. Abnormal CT chest with a large 6.8 cm necrotic left suprahilar mass with tiny scattered lung nodules, which are likely metastatic. Clinical suspicion is for primary bronchogenic cancer. Tiny lung nodules would be metastatic. 2. Possible underlying chronic obstructive pulmonary disease. 3. Bowel obstruction in a patient who has prior history of colon cancer and resection. She also has abnormal esophagus on CT and esophageal malignancy cannot be ruled out. Plan . Updated 08/22/20 Continue supplemental oxygen No further work up for left suprahilar mass, per pt. request Follow surgery recs --planned for NG tube placement to suction plan for small bowel follow-through tomorrow Cont. IVF, monitor BMP Follow GI recs DVT/GI PPX D/W RN Discussed with Family and patient, i have given them my business card should they decide they want to proceed with biopsy at later time we will see PRN, please call with any questions or concerns 08/21/20 RECOMMENDATIONS: 1. I have discussed with the patient regarding CT chest findings and concern for primary bronchogenic cancer. I did discuss the options of doing a biopsy versus keeping in view of her advanced age and not doing anything at this point. The patient prefers not to do any invasive testing at this point. She said if she changes her decision down the road, she will notify us. She will also notify her sons as well. 2. Follow General Surgery and GI recommendations. 3. May need EGD. 4. Monitor for improvement in bowel obstruction. 5. We will be available for any further recommendations. ALEC BAEZ MD Aug 22, 2020 08:27
--- NOTE | 2020-08-22 08:46 | PDOC ---
SURGICAL PROGRESS NOTE DATE: 08/22/20 TIME: 08:45 Subjective Patient feeling more uncomfortable this morning did have one episode of emesis no bowel movement Vital Signs Vital Signs Date Time Temp Pulse Resp B/P (MAP) Pulse Ox O2 Delivery O2 Flow Rate FiO2 08/22/20 03:00 98.4 86 18 127/54 (78) 98 Nasal Cannula 2.0 98.4 I&O Intake and Output 08/22/20 07:00 Intake Total 300 ml Output Total 0 ml Balance 300 ml Intake Oral 0 ml IV Total 300 ml Output Urine Total 0 ml # Voids 2 PATIENT HAS A GELLER: No General: Cooperative, mild distress Abdomen: Soft, Other (Hypoactive bowel sounds mildly distended diffusely tender no peritoneal signs) Extremities: No edema Neuro: Normal speech Psych/Mental Status: Mental status NL Labs Laboratory Tests Test 08/21/20 10:00 08/22/20 03:00 White Blood Count 8.0 x10^3/uL (4.0-11.0) 9.3 x10^3/uL (4.0-11.0) Red Blood Count 3.90 x10^6/uL (3.50-5.40) 4.08 x10^6/uL (3.50-5.40) Hemoglobin 11.7 g/dL (12.0-15.5) 12.4 g/dL (12.0-15.5) Hematocrit 34.1 % (36.0-47.0) 36.6 % (36.0-47.0) Mean Corpuscular Volume 87 fL (79-100) 90 fL (79-100) Mean Corpuscular Hemoglobin 30 pg (25-35) 30 pg (25-35) Mean Corpuscular Hemoglobin Concent 34 g/dL (31-37) 34 g/dL (31-37) Red Cell Distribution Width 13.1 % (11.5-14.5) 13.5 % (11.5-14.5) Platelet Count 368 x10^3/uL (140-400) 378 x10^3/uL (140-400) Prothrombin Time 13.9 SEC (11.7-14.0) 13.9 SEC (11.7-14.0) Prothromb Time International Ratio 1.1 (0.8-1.1) 1.1 (0.8-1.1) Sodium Level 131 mmol/L (136-145) 136 mmol/L (136-145) Potassium Level 3.6 mmol/L (3.5-5.1) 3.1 mmol/L (3.5-5.1) Chloride Level 89 mmol/L (98-107) 94 mmol/L (98-107) Carbon Dioxide Level 34 mmol/L (21-32) 33 mmol/L (21-32) Anion Gap 8 (6-14) 9 (6-14) Blood Urea Nitrogen 28 mg/dL (7-20) 27 mg/dL (7-20) Creatinine 0.9 mg/dL (0.6-1.0) 0.9 mg/dL (0.6-1.0) Estimated GFR (Cockcroft-Gault) 59.0 59.0 BUN/Creatinine Ratio 31 (6-20) 30 (6-20) Glucose Level 85 mg/dL (70-99) 68 mg/dL (70-99) Calcium Level 8.6 mg/dL (8.5-10.1) 8.7 mg/dL (8.5-10.1) Total Bilirubin 0.6 mg/dL (0.2-1.0) 0.5 mg/dL (0.2-1.0) Aspartate Amino Transf (AST/SGOT) 18 U/L (15-37) 21 U/L (15-37) Alanine Aminotransferase (ALT/SGPT) 17 U/L (14-59) 18 U/L (14-59) Alkaline Phosphatase 192 U/L (46-116) 196 U/L (46-116) Total Protein 6.5 g/dL (6.4-8.2) 6.7 g/dL (6.4-8.2) Albumin 2.8 g/dL (3.4-5.0) 3.0 g/dL (3.4-5.0) Albumin/Globulin Ratio 0.8 (1.0-1.7) 0.8 (1.0-1.7) Laboratory Tests Test 08/21/20 10:00 08/22/20 03:00 White Blood Count 8.0 x10^3/uL (4.0-11.0) 9.3 x10^3/uL (4.0-11.0) Red Blood Count 3.90 x10^6/uL (3.50-5.40) 4.08 x10^6/uL (3.50-5.40) Hemoglobin 11.7 g/dL (12.0-15.5) 12.4 g/dL (12.0-15.5) Hematocrit 34.1 % (36.0-47.0) 36.6 % (36.0-47.0) Mean Corpuscular Volume 87 fL (79-100) 90 fL (79-100) Mean Corpuscular Hemoglobin 30 pg (25-35) 30 pg (25-35) Mean Corpuscular Hemoglobin Concent 34 g/dL (31-37) 34 g/dL (31-37) Red Cell Distribution Width 13.1 % (11.5-14.5) 13.5 % (11.5-14.5) Platelet Count 368 x10^3/uL (140-400) 378 x10^3/uL (140-400) Prothrombin Time 13.9 SEC (11.7-14.0) 13.9 SEC (11.7-14.0) Prothromb Time International Ratio 1.1 (0.8-1.1) 1.1 (0.8-1.1) Sodium Level 131 mmol/L (136-145) 136 mmol/L (136-145) Potassium Level 3.6 mmol/L (3.5-5.1) 3.1 mmol/L (3.5-5.1) Chloride Level 89 mmol/L (98-107) 94 mmol/L (98-107) Carbon Dioxide Level 34 mmol/L (21-32) 33 mmol/L (21-32) Anion Gap 8 (6-14) 9 (6-14) Blood Urea Nitrogen 28 mg/dL (7-20) 27 mg/dL (7-20) Creatinine 0.9 mg/dL (0.6-1.0) 0.9 mg/dL (0.6-1.0) Estimated GFR (Cockcroft-Gault) 59.0 59.0 BUN/Creatinine Ratio 31 (6-20) 30 (6-20) Glucose Level 85 mg/dL (70-99) 68 mg/dL (70-99) Calcium Level 8.6 mg/dL (8.5-10.1) 8.7 mg/dL (8.5-10.1) Total Bilirubin 0.6 mg/dL (0.2-1.0) 0.5 mg/dL (0.2-1.0) Aspartate Amino Transf (AST/SGOT) 18 U/L (15-37) 21 U/L (15-37) Alanine Aminotransferase (ALT/SGPT) 17 U/L (14-59) 18 U/L (14-59) Alkaline Phosphatase 192 U/L (46-116) 196 U/L (46-116) Total Protein 6.5 g/dL (6.4-8.2) 6.7 g/dL (6.4-8.2) Albumin 2.8 g/dL (3.4-5.0) 3.0 g/dL (3.4-5.0) Albumin/Globulin Ratio 0.8 (1.0-1.7) 0.8 (1.0-1.7) Assessment/Plan Patient more uncomfortable with episode of emesis will have NG tube placed to suction plan for small bowel follow-through tomorrow Justicifation of Admission Dx: Justifications for Admission: Justification of Admission Dx: Yes CHF: Hemodynamic Instability Comminuty Aquired Pneumonia: Dehydration Chronic Renal Failure: Intravenous Infusions Sepsis: Dehydration TWILA ORTEGA MD Aug 22, 2020 08:46
[2020-08-22] MEDS: TRIAMCINOLONE ACETONIDE 0.1% TOPICAL OINTMENT 15GM TUBE. TP SCH ×2 (09:00→19:40)
[2020-08-22] MEDS: VITAMIN B COMPLEX TABLET. PO SCH (09:00)
[2020-08-22] MEDS: CHOLECALCIFEROL (VITAMIN D3) 1,000 UNIT TABLET PO SCH (09:00)
[2020-08-22] MEDS: RALOXIFENE 60 MG TABLET. PO SCH (09:00)
[2020-08-22] MEDS: FUROSEMIDE 80 MG TABLET. PO SCH (09:00)
[2020-08-22] MEDS: METOPROLOL TART IMMED RELEASE 50 MG TABLET. PO SCH ×2 (09:00→19:40)
[2020-08-22] MEDS: fentaNYL PF VIAL 100 MCG/2 ML VIAL IVP PRN (10:29)
--- NOTE | 2020-08-22 10:51 | NUR ---
Attempted insert of NG tube twice in L nare and twice in R nare. Each time Ng was inserted it curled up in throat and came back out of the mouth. Patient vomited each time placement was attempted. Dr. Linton notified and requested I call to possible insert under fluoroscopy.
[2020-08-22 11:00] VITALS: BP 127/45
[2020-08-22] MEDS ORDERED: LIDOCAINE 2% JELLY 6ML IN APPLICATOR. MM ONE (11:00)
--- NOTE | 2020-08-22 11:56 | PN ---
DATE: 08/22/2020 SUBJECTIVE: The patient is resting slightly up in bed, in no apparent respiratory distress. She is complaining of more discomfort and abdominal distention, had also an episode of emesis. So far, she has no bowel movement, no gas. Attempt to place an NG tube has failed so far and she is scheduled for the NG tube to be placed under fluoroscopy. 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 OBJECTIVE: GENERAL: On examining her this afternoon, she was somewhat pale, cachectic, but no jaundiced or cyanosed. No thyromegaly. No jugular venous distention. No lower limb edema. VITAL SIGNS: Her heart rate was 79, blood pressure is 118/45, temperature was 97.7, respiratory rate was 18, and oxygen saturation was 93% on 2 liters of oxygen. HEAD, EYES, EARS, NOSE, AND THROAT: Normocephalic, atraumatic. NECK: Supple. HEART: Normal first and second heart sounds. No gallop, rub or murmur. CHEST: Clear to auscultation. No crepitation or rhonchi. ABDOMEN: Distended, soft, nontender. There is no guarding or rigidity. No organomegaly. Bowel sounds are sluggish. NEUROLOGIC: She is grossly intact. ASSESSMENT: 1. Small bowel obstruction for which she is n.p.o. She is on IV fluid and NG tube is scheduled to be placed under fluoroscopy as multiple attempts have failed to put it in blindly. 2. She has a mass in her left upper hilum, could be primary or secondary. The patient decided not to do anything about it for the time being. 3. She has multiple other medical problems including: A. Hypertension. B. Hypothyroidism. C. Chronic obstructive pulmonary disease. D. Atrial fibrillation. E. Congestive heart failure. F. Cachexia and underlying dementia. RAHEEL/RALPH DR: Xavi TID: [id number]
--- NOTE | 2020-08-22 12:38 | NUR ---
SW following. Discussed with RN, pt from home with son, uses oxygen at home, NPO. Pt having an NG placed and a small bowel follow through. RN plans on ordering therapy tomorrow (08/23/20). SW will continue to follow.
[2020-08-22] MEDS ORDERED: BARIUM SULFATE 60% 355 ML SUSP PO ONE (14:30)
[2020-08-22 15:00] VITALS: BP 121/43
--- NOTE | 2020-08-22 15:45 | NUR ---
Received patient back from radiology, April HOOKS in place. Patient hooked up to LIS
[2020-08-22] MEDS: METOPROLOL IV PUSH 5 MG/5 ML VIAL. IVP PRN ×2 (16:40→21:36)
--- NOTE | 2020-08-22 17:16 | RAD ---
DG FLUOROSCOPIC GUIDED NASOGASTRIC TUBE PLACEMENT 08/22/2020 3:00 PM INDICATION: Small bowel obstruction. COMPARISON: None available. TECHNIQUE: Nasogastric tube advanced through the nasal cavity and into the stomach utilizing fluoros copy. FINDINGS/ IMPRESSION: Successful insertion of nasogastric tube with the side port projecting over the left upper quadrant e xpected region of the stomach. Fluoroscopy time: 0.1 minutes Number of images: 2 Electronically signed by: Lizzy Maza MD (08/22/2020 5:14 PM) [id number]
--- NOTE | 2020-08-22 17:36 | RAD ---
Abdomen 2 views. HISTORY: Small bowel obstruction Supine and upright views were taken of the abdomen. There is no free air on the upright view. Lung ba ses appear clear. Patient appears to be sitting in the lower abdomen was poorly evaluated. There are possible fluid levels in dilated small bowel loops. Supine abdomen shows dilated small bowel consiste nt with a small bowel obstruction. There is a right upper quadrant calcification consistent with a ga llstone. There is a fracture of L2 which is new compared to September 1999. IMPRESSION: 1. Dilated small bowel consistent with small bowel obstruction. 2. Cholelithiasis. Electronically signed by: Anatoliy Ribera MD (08/22/2020 5:34 PM) [id number]
[2020-08-22 19:00] VITALS: BP 154/52
[2020-08-22 23:00] VITALS: BP 139/54
[2020-08-22] MEDS: LEVOTHYROXINE 50 MCG TABLET PO SCH (23:50)
[2020-08-23 03:00] VITALS: BP 134/52
[2020-08-23 06:30] LABS: HEMOGLOBIN 11.8 g/dL (12.0-15.5); RED BLOOD COUNT 4.02 x10^6/uL (3.50-5.40); RED CELL DISTRIBUTION WIDTH 13.6 % (11.5-14.5); WHITE BLOOD COUNT 13.5 x10^3/uL (4.0-11.0)
[2020-08-23 06:57] LABS: ALBUMIN 2.7 g/dL (3.4-5.0); ALBUMIN/GLOBULIN RATIO 0.7 (1.0-1.7); CALCIUM 8.5 mg/dL (8.5-10.1); CREATININE 0.9 mg/dL (0.6-1.0); POTASSIUM 3.1 mmol/L (3.5-5.1); TOTAL BILIRUBIN 0.5 mg/dL (0.2-1.0); TOTAL PROTEIN 6.5 g/dL (6.4-8.2)
[2020-08-23 07:00] VITALS: BP 138/53
[2020-08-23] MEDS: CHOLECALCIFEROL (VITAMIN D3) 1,000 UNIT TABLET PO SCH (09:00)
[2020-08-23] MEDS: VITAMIN B COMPLEX TABLET. PO SCH (09:00)
[2020-08-23] MEDS: FUROSEMIDE 80 MG TABLET. PO SCH (09:00)
[2020-08-23] MEDS: RALOXIFENE 60 MG TABLET. PO SCH (09:00)
[2020-08-23] MEDS: METOPROLOL TART IMMED RELEASE 50 MG TABLET. PO SCH ×2 (09:00→20:44)
[2020-08-23] MEDS: TRIAMCINOLONE ACETONIDE 0.1% TOPICAL OINTMENT 15GM TUBE. TP SCH ×2 (09:00→20:44)
[2020-08-23] MEDS: IV NORMAL SALINE 1000ML BAG 1,000 ML IV SCH (10:01)
[2020-08-23 11:00] VITALS: BP 141/55
[2020-08-23] MEDS: METOPROLOL IV PUSH 5 MG/5 ML VIAL. IVP PRN (11:04)
[2020-08-23] MEDS: ONDANSETRON PF 4 MG/2 ML VIAL. IVP PRN (11:16)
--- NOTE | 2020-08-23 11:25 | PDOC ---
SURGICAL PROGRESS NOTE DATE: 08/23/20 TIME: 11:24 Subjective Patient states she is not feeling well. NG tube in place with thick bilious output Vital Signs Vital Signs Date Time Temp Pulse Resp B/P (MAP) Pulse Ox O2 Delivery O2 Flow Rate FiO2 08/23/20 11:04 95 138/53 08/23/20 07:00 97.9 18 97 Nasal Cannula 2.0 97.9 I&O Intake and Output 08/23/20 07:00 Intake Total 1250 ml Output Total 500 ml Balance 750 ml Intake Oral 0 ml IV Total 1250 ml Gastric Drainage Total 500 ml # Voids 2 PATIENT HAS A GELLER: Yes General: Alert, Cooperative, mild distress Abdomen: Soft, Other (Less distended after NG tube placement diffusely tender but no peritoneal signs hypoactive bowel sounds) Labs Laboratory Tests Test 08/22/20 03:00 08/23/20 06:10 White Blood Count 9.3 x10^3/uL (4.0-11.0) 13.5 x10^3/uL (4.0-11.0) Red Blood Count 4.08 x10^6/uL (3.50-5.40) 4.02 x10^6/uL (3.50-5.40) Hemoglobin 12.4 g/dL (12.0-15.5) 11.8 g/dL (12.0-15.5) Hematocrit 36.6 % (36.0-47.0) 36.0 % (36.0-47.0) Mean Corpuscular Volume 90 fL (79-100) 90 fL (79-100) Mean Corpuscular Hemoglobin 30 pg (25-35) 30 pg (25-35) Mean Corpuscular Hemoglobin Concent 34 g/dL (31-37) 33 g/dL (31-37) Red Cell Distribution Width 13.5 % (11.5-14.5) 13.6 % (11.5-14.5) Platelet Count 378 x10^3/uL (140-400) 377 x10^3/uL (140-400) Prothrombin Time 13.9 SEC (11.7-14.0) Prothromb Time International Ratio 1.1 (0.8-1.1) Sodium Level 136 mmol/L (136-145) 142 mmol/L (136-145) Potassium Level 3.1 mmol/L (3.5-5.1) 3.1 mmol/L (3.5-5.1) Chloride Level 94 mmol/L (98-107) 99 mmol/L (98-107) Carbon Dioxide Level 33 mmol/L (21-32) 33 mmol/L (21-32) Anion Gap 9 (6-14) 10 (6-14) Blood Urea Nitrogen 27 mg/dL (7-20) 19 mg/dL (7-20) Creatinine 0.9 mg/dL (0.6-1.0) 0.9 mg/dL (0.6-1.0) Estimated GFR (Cockcroft-Gault) 59.0 59.0 BUN/Creatinine Ratio 30 (6-20) 21 (6-20) Glucose Level 68 mg/dL (70-99) 81 mg/dL (70-99) Calcium Level 8.7 mg/dL (8.5-10.1) 8.5 mg/dL (8.5-10.1) Total Bilirubin 0.5 mg/dL (0.2-1.0) 0.5 mg/dL (0.2-1.0) Aspartate Amino Transf (AST/SGOT) 21 U/L (15-37) 21 U/L (15-37) Alanine Aminotransferase (ALT/SGPT) 18 U/L (14-59) 14 U/L (14-59) Alkaline Phosphatase 196 U/L (46-116) 175 U/L (46-116) Total Protein 6.7 g/dL (6.4-8.2) 6.5 g/dL (6.4-8.2) Albumin 3.0 g/dL (3.4-5.0) 2.7 g/dL (3.4-5.0) Albumin/Globulin Ratio 0.8 (1.0-1.7) 0.7 (1.0-1.7) Laboratory Tests Test 08/23/20 06:10 White Blood Count 13.5 x10^3/uL (4.0-11.0) Red Blood Count 4.02 x10^6/uL (3.50-5.40) Hemoglobin 11.8 g/dL (12.0-15.5) Hematocrit 36.0 % (36.0-47.0) Mean Corpuscular Volume 90 fL (79-100) Mean Corpuscular Hemoglobin 30 pg (25-35) Mean Corpuscular Hemoglobin Concent 33 g/dL (31-37) Red Cell Distribution Width 13.6 % (11.5-14.5) Platelet Count 377 x10^3/uL (140-400) Sodium Level 142 mmol/L (136-145) Potassium Level 3.1 mmol/L (3.5-5.1) Chloride Level 99 mmol/L (98-107) Carbon Dioxide Level 33 mmol/L (21-32) Anion Gap 10 (6-14) Blood Urea Nitrogen 19 mg/dL (7-20) Creatinine 0.9 mg/dL (0.6-1.0) Estimated GFR (Cockcroft-Gault) 59.0 BUN/Creatinine Ratio 21 (6-20) Glucose Level 81 mg/dL (70-99) Calcium Level 8.5 mg/dL (8.5-10.1) Total Bilirubin 0.5 mg/dL (0.2-1.0) Aspartate Amino Transf (AST/SGOT) 21 U/L (15-37) Alanine Aminotransferase (ALT/SGPT) 14 U/L (14-59) Alkaline Phosphatase 175 U/L (46-116) Total Protein 6.5 g/dL (6.4-8.2) Albumin 2.7 g/dL (3.4-5.0) Albumin/Globulin Ratio 0.7 (1.0-1.7) Assessment/Plan Does not appear to to be progressing will order small bowel follow-through Justicifation of Admission Dx: Justifications for Admission: Justification of Admission Dx: Yes CHF: Hemodynamic Instability Comminuty Aquired Pneumonia: Dehydration Chronic Renal Failure: Intravenous Infusions Sepsis: Dehydration TWILA ORTEGA MD Aug 23, 2020 11:25
--- NOTE | 2020-08-23 12:51 | PN ---
DATE: 08/23/2020 SUBJECTIVE: The patient is resting, slightly propped up in bed, in no apparent distress, awake, alert. On questioning, the patient stated that she is not feeling well; however, she denied any abdominal pain. Denied any nausea or vomiting. PHYSICAL EXAMINATION: GENERAL: When I examined her, she was pale, but no jaundice, cyanosis or thyromegaly. No jugular venous distention. No limb edema. VITAL SIGNS: Her heart rate was 95, blood pressure was 138/53, temperature was 97.9, respiratory rate was 18 and oxygen saturation was 97% on 2 liters of oxygen. HEAD, EYES, EARS, NOSE AND THROAT: Normocephalic, atraumatic. She has an NG tube to the left nostril to intermittent suction. NECK: Supple. HEART: Normal first and second heart sounds, no gallop or murmur. CHEST: Clear to auscultation. No crepitation or rhonchi. ABDOMEN: Distended, soft, nontender. There is no guarding or rigidity. No organomegaly. All hernial orifice intact. Bowel sounds are sluggish. NEUROLOGIC: She is grossly intact. Her intake and output are incompletely recorded. LABORATORY DATA: This morning showed a white cell count of 13,500, hemoglobin 11.8, hematocrit 36, MCV 90 and platelet count 377,000. Her chemistry showed a serum sodium 142, potassium 3.1, chloride 99, bicarbonate 33, anion gap of 10, BUN 19, creatinine 0.9. Estimated GFR was 59 mL per minute. Her glucose was 81, calcium was 8.5. Total bilirubin, AST, ALT were normal. Alkaline phosphatase slightly elevated. Total protein was 6.5, albumin 2.7. ASSESSMENT: This is an 89-year-old female patient with; 1. Bowel obstruction, for which she is now n.p.o. She is on IV fluid and NG tube was placed successfully under fluoroscopy to intermittent suction. 2. She has a mass in the left upper hilum, could be primary or secondary. The patient decided not to pursue any further investigation of the lung finding for the time being. 3. She has multiple other medical problems including: A. Hypertension. B. Hypothyroidism. C. Chronic obstructive pulmonary disease. D. Atrial fibrillation. E. Congestive heart failure. F. Cachexia and underlying dementia. 4. Hypokalemia. PLAN: Is to change the IV fluid into D5 with 40 mEq of potassium chloride at 100 mL per hour. Continue meanwhile NG tube to intermittent suction. Continue with pain management. I will repeat all her lab works tomorrow. RAHEEL/KWESI DR: RAHEEL/[place] TID: [id number]
[2020-08-23] MEDS: POTASSIUM CHLORIDE 40 MEQ in IV DEXTROSE 5% 1,000 ML IV SCH ×2 (13:22→23:06)
[2020-08-23 15:00] VITALS: BP 124/101
[2020-08-23 19:00] VITALS: BP 134/60
[2020-08-23 23:00] VITALS: BP 142/60
[2020-08-24] MEDS: LEVOTHYROXINE 50 MCG TABLET PO SCH (02:45)
[2020-08-24 03:00] VITALS: BP 150/61
[2020-08-24 06:35] LABS: HEMATOCRIT 38.7 % (36.0-47.0); RED BLOOD COUNT 4.32 x10^6/uL (3.50-5.40); RED CELL DISTRIBUTION WIDTH 13.4 % (11.5-14.5); WHITE BLOOD COUNT 11.6 x10^3/uL (4.0-11.0)
[2020-08-24 06:58] LABS: ALBUMIN 2.5 g/dL (3.4-5.0); ALBUMIN/GLOBULIN RATIO 0.6 (1.0-1.7); CALCIUM 8.4 mg/dL (8.5-10.1); CREATININE 0.7 mg/dL (0.6-1.0); GFR 78.8; POTASSIUM 3.9 mmol/L (3.5-5.1); TOTAL BILIRUBIN 0.5 mg/dL (0.2-1.0); TOTAL PROTEIN 6.4 g/dL (6.4-8.2)
[2020-08-24 07:00] VITALS: BP 141/66
[2020-08-24] MEDS ORDERED: SALIVA STIMULANT AGENT 44ML SPRAY BOTTLE. PO PRN (07:30)
--- NOTE | 2020-08-24 08:46 | PDOC ---
DANTE VALDIVIA LIEN SEARCHER 08/24/20 0845: SURGICAL PROGRESS NOTE DATE: 08/24/20 TIME: 08:45 Subjective no bowel function, reports doing ok son present Vital Signs Vital Signs Date Time Temp Pulse Resp B/P (MAP) Pulse Ox O2 Delivery O2 Flow Rate FiO2 08/24/20 03:00 98.6 103 20 150/61 (90) 96 Nasal Cannula 2.0 98.6 I&O Intake and Output 08/24/20 07:00 Intake Total 1620 ml Output Total 2600 ml Balance -980 ml Intake Oral 0 ml IV Total 1020 ml Other 600 ml Gastric Drainage Total 2600 ml General: Alert, Oriented X3, Cooperative HEENT: Other (ng in place) Abdomen: Soft, Other (ND, mild ttp on exam) Labs Laboratory Tests Test 08/23/20 06:10 08/24/20 06:10 White Blood Count 13.5 x10^3/uL (4.0-11.0) 11.6 x10^3/uL (4.0-11.0) Red Blood Count 4.02 x10^6/uL (3.50-5.40) 4.32 x10^6/uL (3.50-5.40) Hemoglobin 11.8 g/dL (12.0-15.5) 13.0 g/dL (12.0-15.5) Hematocrit 36.0 % (36.0-47.0) 38.7 % (36.0-47.0) Mean Corpuscular Volume 90 fL (79-100) 90 fL (79-100) Mean Corpuscular Hemoglobin 30 pg (25-35) 30 pg (25-35) Mean Corpuscular Hemoglobin Concent 33 g/dL (31-37) 34 g/dL (31-37) Red Cell Distribution Width 13.6 % (11.5-14.5) 13.4 % (11.5-14.5) Platelet Count 377 x10^3/uL (140-400) 364 x10^3/uL (140-400) Sodium Level 142 mmol/L (136-145) 139 mmol/L (136-145) Potassium Level 3.1 mmol/L (3.5-5.1) 3.9 mmol/L (3.5-5.1) Chloride Level 99 mmol/L (98-107) 99 mmol/L (98-107) Carbon Dioxide Level 33 mmol/L (21-32) 38 mmol/L (21-32) Anion Gap 10 (6-14) 2 (6-14) Blood Urea Nitrogen 19 mg/dL (7-20) 12 mg/dL (7-20) Creatinine 0.9 mg/dL (0.6-1.0) 0.7 mg/dL (0.6-1.0) Estimated GFR (Cockcroft-Gault) 59.0 78.8 BUN/Creatinine Ratio 21 (6-20) 17 (6-20) Glucose Level 81 mg/dL (70-99) 151 mg/dL (70-99) Calcium Level 8.5 mg/dL (8.5-10.1) 8.4 mg/dL (8.5-10.1) Total Bilirubin 0.5 mg/dL (0.2-1.0) 0.5 mg/dL (0.2-1.0) Aspartate Amino Transf (AST/SGOT) 21 U/L (15-37) 19 U/L (15-37) Alanine Aminotransferase (ALT/SGPT) 14 U/L (14-59) 8 U/L (14-59) Alkaline Phosphatase 175 U/L (46-116) 166 U/L (46-116) Total Protein 6.5 g/dL (6.4-8.2) 6.4 g/dL (6.4-8.2) Albumin 2.7 g/dL (3.4-5.0) 2.5 g/dL (3.4-5.0) Albumin/Globulin Ratio 0.7 (1.0-1.7) 0.6 (1.0-1.7) Laboratory Tests Test 08/24/20 06:10 White Blood Count 11.6 x10^3/uL (4.0-11.0) Red Blood Count 4.32 x10^6/uL (3.50-5.40) Hemoglobin 13.0 g/dL (12.0-15.5) Hematocrit 38.7 % (36.0-47.0) Mean Corpuscular Volume 90 fL (79-100) Mean Corpuscular Hemoglobin 30 pg (25-35) Mean Corpuscular Hemoglobin Concent 34 g/dL (31-37) Red Cell Distribution Width 13.4 % (11.5-14.5) Platelet Count 364 x10^3/uL (140-400) Sodium Level 139 mmol/L (136-145) Potassium Level 3.9 mmol/L (3.5-5.1) Chloride Level 99 mmol/L (98-107) Carbon Dioxide Level 38 mmol/L (21-32) Anion Gap 2 (6-14) Blood Urea Nitrogen 12 mg/dL (7-20) Creatinine 0.7 mg/dL (0.6-1.0) Estimated GFR (Cockcroft-Gault) 78.8 BUN/Creatinine Ratio 17 (6-20) Glucose Level 151 mg/dL (70-99) Calcium Level 8.4 mg/dL (8.5-10.1) Total Bilirubin 0.5 mg/dL (0.2-1.0) Aspartate Amino Transf (AST/SGOT) 19 U/L (15-37) Alanine Aminotransferase (ALT/SGPT) 8 U/L (14-59) Alkaline Phosphatase 166 U/L (46-116) Total Protein 6.4 g/dL (6.4-8.2) Albumin 2.5 g/dL (3.4-5.0) Albumin/Globulin Ratio 0.6 (1.0-1.7) Problem List await SBFT today Justicifation of Admission Dx: Justifications for Admission: Justification of Admission Dx: Yes CHF: Hemodynamic Instability Comminuty Aquired Pneumonia: Dehydration Chronic Renal Failure: Intravenous Infusions Sepsis: Dehydration TWILA ORTEGA MD 08/24/20 0854: SURGICAL PROGRESS NOTE Assessment/Plan Agree with Dias assessment and plan. No acute changes awaiting small bowel follow-through results DANTE VALDIVIA LIEN SEARCHER Aug 24, 2020 08:45 TWILA ORTEGA MD Aug 24, 2020 08:54
[2020-08-24] MEDS: RALOXIFENE 60 MG TABLET. PO SCH (09:00)
[2020-08-24] MEDS: TRIAMCINOLONE ACETONIDE 0.1% TOPICAL OINTMENT 15GM TUBE. TP SCH ×2 (09:00→20:23)
[2020-08-24] MEDS: VITAMIN B COMPLEX TABLET. PO SCH (09:00)
[2020-08-24] MEDS: CHOLECALCIFEROL (VITAMIN D3) 1,000 UNIT TABLET PO SCH (09:00)
[2020-08-24] MEDS: METOPROLOL TART IMMED RELEASE 50 MG TABLET. PO SCH ×2 (09:00→20:23)
[2020-08-24] MEDS: FUROSEMIDE 80 MG TABLET. PO SCH (09:00)
[2020-08-24] MEDS: POTASSIUM CHLORIDE 40 MEQ in IV DEXTROSE 5% 1,000 ML IV SCH ×2 (10:37→20:28)
[2020-08-24] MEDS ORDERED: IOHEXOL 300 MG/ML 100ML VIAL. PO ONE (11:00)
[2020-08-24] MEDS ORDERED: CONTRAST GIVEN. MC PRN (11:15)
[2020-08-24 11:27] LABS: BILIRUBIN,URINE NEGATIVE (NEG); CLARITY,URINE CLOUDY; COLOR,URINE YELLOW; NITRITE,URINE NEGATIVE (NEG); PROTEIN,URINE 30 mg/dL (NEG-TRACE)
[2020-08-24 11:47] LABS: BACTERIA,URINE MANY /HPF (0-FEW); RBC,URINE OCC /HPF (0-2); WBC,URINE 20-40 /HPF (0-4)
[2020-08-24 11:48] LABS: HYALINE CASTS, URINE FEW /HPF
--- NOTE | 2020-08-24 11:58 | NUR ---
SW following. Discussed with RN, pt from home with son, uses oxygen at home, NPO. NG still in place. Pt having a SBFT today. PT/OT being ordered. SW will continue to follow.
--- NOTE | 2020-08-24 13:15 | NUR ---
patient states she no longer uses kenalog
[2020-08-24] MEDS: ONDANSETRON PF 4 MG/2 ML VIAL. IVP PRN ×3 (14:37→23:44)
[2020-08-24 15:00] VITALS: BP 137/69
[2020-08-24] MEDS: METOPROLOL IV PUSH 5 MG/5 ML VIAL. IVP PRN (15:29)
--- NOTE | 2020-08-24 17:01 | NUR ---
patient vomiting around NG tube copious amounts of brown foul smelling liquid. approx 500cc's. 700 cc's in canister for entire shift. pg to surgery. Dr. Linton returned call and no new orders at this time.
--- NOTE | 2020-08-24 17:26 | RAD ---
SMALL BOWEL SERIES 08/24/2020. Reason for study: Small bowel obstruction. Comparison studies: CT abdomen/pelvis 10/04/2019, abdominal radiograph 08/22/2020, CT abdomen/pelvis 12/22/2020. Technique: Preliminary admissions counselor film of the abdomen was obtained. Then following ingestion of water-solu ble contrast, serial images of the abdomen were obtained to assess progress of contrast throughout th e small bowel. Findings: There is delayed transit of contrast through the small bowel. Fold pattern of the jejunum a nd ileum is maintained. Small bowel loops measure up to 4.2 cm. By the termination of examination, co ntrast is not identified within the right colon suggesting small bowel obstruction. Secondary to recu rrent emesis, examination was terminated. IMPRESSION: Findings suggest small bowel obstruction, likely within the right midabdomen within the p roximal ileum. Etiology remains indeterminate. Follow-up radiographs may be of benefit. Electronically signed by: Lizzy Maza MD (08/24/2020 5:23 PM) [id number]
[2020-08-24 19:00] VITALS: BP 110/70
[2020-08-24 23:00] VITALS: BP 150/77
--- NOTE | 2020-08-25 00:25 | PN ---
DATE: 08/24/2020 SUBJECTIVE: The patient continued to complain of abdominal distention and also has no bowel movement or passed any gas. She has an NG tube to intermittent suction. OBJECTIVE: GENERAL: On examining her, she looked well and was clearly in no apparent respiratory distress. No pallor, jaundice, cyanosis or thyromegaly. No jugular venous distention. No lower limb edema. VITAL SIGNS: Her heart rate was 103, blood pressure was 141/66, temperature was 97.9, respiratory rate was 18 and oxygen saturation was 97%. HEAD, EYES, EARS, NOSE, AND THROAT: Normocephalic, atraumatic. NECK: Supple. HEART: Showed normal first and second heart sounds, no gallop or murmur. CHEST: Clear to auscultation. No crepitation or rhonchi. ABDOMEN: Distended, soft, nontender. Bowel sounds are sluggish. NEUROLOGIC: She is grossly intact. Her intake was 1250, output was 500. LABORATORY DATA: This morning showed a serum sodium 139, potassium 3.9, chloride 99, bicarbonate 38, anion gap of 2, BUN of 12, creatinine 0.7. Estimated GFR was 78 mL per minute. Her glucose 151, calcium was 8.4. Total bilirubin, AST, ALT, alkaline phosphatase were normal. Total protein 6.4, albumin 2.5. Her white cell count was 11,600, hemoglobin 13, hematocrit 39, MCV 90, and platelet count 364,000. ASSESSMENT: This is an 89-year-old, female patient with: 1. Bowel obstruction, for which she is now n.p.o. She is on IV fluid and NG tube to intermittent suction. 2. She has a mass in the left upper hilum, could be primary or secondary. The patient decided not to pursue any further investigation for lung finding for the time being. She has multiple other medical problems including: A. Hypertension. B. Hypothyroidism. C. Chronic obstructive pulmonary disease. D. Atrial fibrillation. E. Congestive heart failure. F. Cachexia with underlying dementia. G. Hypokalemia, resolved. Her potassium is up to 3.9 mEq per liter. The patient is now scheduled for small bowel series. DEONTE DR: Xavi TID: [id number]
[2020-08-25 03:00] VITALS: BP 140/81
[2020-08-25] MEDS: METOPROLOL IV PUSH 5 MG/5 ML VIAL. IVP PRN ×2 (03:57→10:22)
[2020-08-25] MEDS: LEVOTHYROXINE 50 MCG TABLET PO SCH (06:00)
[2020-08-25] MEDS: POTASSIUM CHLORIDE 40 MEQ in IV DEXTROSE 5% 1,000 ML IV SCH (06:00)
[2020-08-25 06:57] LABS: BLOOD UREA NITROGEN 16 mg/dL (7-20); CALCIUM 9.3 mg/dL (8.5-10.1); CARBON DIOXIDE > 45 mmol/L (21-32); CHLORIDE 94 mmol/L (98-107); CREATININE 0.9 mg/dL (0.6-1.0); GLUCOSE 144 mg/dL (70-99); POTASSIUM 3.8 mmol/L (3.5-5.1); SODIUM 139 mmol/L (136-145)
[2020-08-25 07:00] VITALS: BP 130/62
[2020-08-25] MEDS: RALOXIFENE 60 MG TABLET. PO SCH (09:00)
[2020-08-25] MEDS: VITAMIN B COMPLEX TABLET. PO SCH (09:00)
[2020-08-25] MEDS: METOPROLOL TART IMMED RELEASE 50 MG TABLET. PO SCH (09:00)
[2020-08-25] MEDS: CHOLECALCIFEROL (VITAMIN D3) 1,000 UNIT TABLET PO SCH (09:00)
[2020-08-25] MEDS: FUROSEMIDE 80 MG TABLET. PO SCH (09:00)
[2020-08-25] MEDS: TRIAMCINOLONE ACETONIDE 0.1% TOPICAL OINTMENT 15GM TUBE. TP SCH ×2 (09:00→21:00)
--- NOTE | 2020-08-25 10:50 | NUR ---
SW following. Discussed with RN, pt from home with son, 2L, NPO. Pt still has NG tube. Imaging yesterday showed the obstruction was not improving. SW awaiting further plan of care. SW will continue to follow.
[2020-08-25 11:00] VITALS: BP 110/66
--- NOTE | 2020-08-25 12:51 | PDOC ---
SURGICAL PROGRESS NOTE DATE: 08/25/20 TIME: 12:50 Subjective no bowel function family present Vital Signs Vital Signs Date Time Temp Pulse Resp B/P (MAP) Pulse Ox O2 Delivery O2 Flow Rate FiO2 08/25/20 10:22 101 130/62 08/25/20 07:00 98.6 18 92 Room Air 98.6 08/25/20 03:00 2.0 I&O Intake and Output 08/25/20 07:00 Intake Total 2640 ml Output Total 2050 ml Balance 590 ml IV Total 2040 ml Other 600 ml Gastric Drainage Total 1250 ml Emesis 800 ml # Voids 3 General: Alert, Oriented X3, Cooperative HEENT: Other (NG in place) Abdomen: Soft, No tenderness Labs Laboratory Tests Test 08/24/20 06:10 08/24/20 10:40 08/25/20 06:25 White Blood Count 11.6 x10^3/uL (4.0-11.0) Red Blood Count 4.32 x10^6/uL (3.50-5.40) Hemoglobin 13.0 g/dL (12.0-15.5) Hematocrit 38.7 % (36.0-47.0) Mean Corpuscular Volume 90 fL (79-100) Mean Corpuscular Hemoglobin 30 pg (25-35) Mean Corpuscular Hemoglobin Concent 34 g/dL (31-37) Red Cell Distribution Width 13.4 % (11.5-14.5) Platelet Count 364 x10^3/uL (140-400) Sodium Level 139 mmol/L (136-145) 139 mmol/L (136-145) Potassium Level 3.9 mmol/L (3.5-5.1) 3.8 mmol/L (3.5-5.1) Chloride Level 99 mmol/L (98-107) 94 mmol/L (98-107) Carbon Dioxide Level 38 mmol/L (21-32) > 45 mmol/L (21-32) Anion Gap 2 (6-14) (6-14) Blood Urea Nitrogen 12 mg/dL (7-20) 16 mg/dL (7-20) Creatinine 0.7 mg/dL (0.6-1.0) 0.9 mg/dL (0.6-1.0) Estimated GFR (Cockcroft-Gault) 78.8 59.0 BUN/Creatinine Ratio 17 (6-20) Glucose Level 151 mg/dL (70-99) 144 mg/dL (70-99) Calcium Level 8.4 mg/dL (8.5-10.1) 9.3 mg/dL (8.5-10.1) Total Bilirubin 0.5 mg/dL (0.2-1.0) Aspartate Amino Transf (AST/SGOT) 19 U/L (15-37) Alanine Aminotransferase (ALT/SGPT) 8 U/L (14-59) Alkaline Phosphatase 166 U/L (46-116) Total Protein 6.4 g/dL (6.4-8.2) Albumin 2.5 g/dL (3.4-5.0) Albumin/Globulin Ratio 0.6 (1.0-1.7) Urine Collection Type Unknown Urine Color Yellow Urine Clarity Cloudy Urine pH 8.0 (<5.0-8.0) Urine Specific [place] 1.015 (1.000-1.030) Urine Protein 30 mg/dL (NEG-TRACE) Urine Glucose (UA) Negative mg/dL (NEG) Urine Ketones (Stick) 15 mg/dL (NEG) Urine Blood Negative (NEG) Urine Nitrite Negative (NEG) Urine Bilirubin Negative (NEG) Urine Urobilinogen Dipstick 2.0 mg/dL (0.2 mg/dL) Urine Leukocyte Esterase Moderate (NEG) Urine RBC Occ /HPF (0-2) Urine WBC 20-40 /HPF (0-4) Urine Squamous Epithelial Cells Mod /LPF Urine Bacteria Many /HPF (0-FEW) Urine Hyaline Casts Few /HPF Laboratory Tests Test 08/25/20 06:25 Sodium Level 139 mmol/L (136-145) Potassium Level 3.8 mmol/L (3.5-5.1) Chloride Level 94 mmol/L (98-107) Carbon Dioxide Level > 45 mmol/L (21-32) Anion Gap (6-14) Blood Urea Nitrogen 16 mg/dL (7-20) Creatinine 0.9 mg/dL (0.6-1.0) Estimated GFR (Cockcroft-Gault) 59.0 Glucose Level 144 mg/dL (70-99) Calcium Level 9.3 mg/dL (8.5-10.1) Assessment/Plan not improving d/w pt and family, NG to suction over weekend if not improved will plan for OR friday will ask primary to start PPN for nutritional needs, will continue NPO at this time Justicifation of Admission Dx: Justifications for Admission: Justification of Admission Dx: Yes CHF: Hemodynamic Instability Comminuty Aquired Pneumonia: Dehydration Chronic Renal Failure: Intravenous Infusions Sepsis: Dehydration DANTE VALDIVIA VIROLOGY TEACHER Aug 25, 2020 12:51
--- NOTE | 2020-08-25 14:22 | PN ---
DATE: 08/25/2020 SUBJECTIVE: The patient is resting, slightly propped up in bed, in no apparent distress, awake, alert. On questioning her, denied any abdominal pain. Denied any further episodes of nausea and vomiting. She apparently continued to vomit up until midnight last night. PHYSICAL EXAMINATION: GENERAL: When I examined her this morning, she looked well, pale, somewhat cachectic, but not jaundiced, cyanosed or thyromegaly. No jugular venous distention. No limb edema. VITAL SIGNS: Her heart rate was 101, blood pressure was 130/62, temperature was 98.6, respiratory rate was 18 and oxygen saturation was 92% on room air. HEAD, EYES, EARS, NOSE AND THROAT: Normocephalic, atraumatic. NECK: Supple. HEART: Normal first and second heart sounds. No gallop, rub or murmur. CHEST: Clear to auscultation. No crepitation or rhonchi. ABDOMEN: Distended, soft, nontender. No guarding or rigidity. No organomegaly. All hernial orifice intact. Bowel sounds are sluggish. NEUROLOGIC: She was grossly intact. Her intake was 1600, output was 2600. LABORATORY DATA: As of this morning, her white cell count was 11,600; hemoglobin 13; hematocrit 39; MCV 90 and platelet count 364,000. Her chemistry showed a serum sodium of 139, potassium 3.8, chloride 94, bicarbonate 45, anion gap 0, BUN of 16, creatinine 0.9. Estimated GFR was 59 mL per minute. Her glucose 144, calcium was 9.3. ASSESSMENT: 1. Bowel obstruction, for which she is n.p.o. She is on IV fluids, NG tube to intermittent suction. Her small bowel follow-through showed that the findings suggest small bowel obstruction, likely within the right mid abdomen within the proximal ileum, etiology remains indeterminate. Followup radiographs may be of benefit. 2. She has a mass in her left upper hilum, could be primary or secondary. The patient decided not to pursue any further investigation for the time being. 3. The patient has multiple other medical problems including: A. Hypertension. B. Hypothyroidism. C. Chronic obstructive pulmonary disease. D. Atrial fibrillation. E. Congestive heart failure. F. Cachexia with underlying dementia. G. Hypokalemia, it has resolved. Her potassium is now 3.8. Apparently, the patient and family are considering surgery. Awaiting discussion with surgical team. KAITLYN DR: Xavi TID: [id number]
[2020-08-25] MEDS: AMINO AC 3%/ELECTROLYTE/GLYCER 1,000 ML IV SCH (14:40)
[2020-08-25 15:00] VITALS: BP 124/43
--- NOTE | 2020-08-25 15:09 | PDOC2 ---
TANNER BIANCHI ECHOCARDIOGRAPH TECH 08/25/20 1509: CARDIAC CONSULT DATE OF CONSULT Date of Consult DATE: 08/25/20 TIME: 15:08 REASON FOR CONSULT Reason for Consult: preop cardiac eval REFERRING PHYSICIAN Referring Physician: Jorge SOURCE Source: Chart review, Patient HISTORY OF PRESENT ILLNESS HISTORY OF PRESENT ILLNESS This is an 89 yo female admitted for complains of abdominal pain with nausea and vomiting. I asked her why she is at the hospital and stated that she does not known but aware of where she is and time. She is not currently in pain and NGT is in place. She has hx of dementia and lives with her son. She apparently was noted recently with PAFIB and was treated at [facility] but no referral in our group was noted. She has left lung mas with abnormal CT suggesting malignancy with hx of colon CA and presently she is cachectic. Noted hx of CAD per chart review but no specifics and she denies it. Denies any chest pain, SOA. Consult is for preop cardiac eval. PAST MEDICAL HISTORY Cardiovascular: AFIB, CAD, CHF, HTN Pulmonary: COPD, Other (pulmonary fibrosis) CENTRAL NERVOUS SYSTEM: Dementia Heme/Onc: Anemia NOS Musculoskeletal: Osteoarthritis Endocrine: Hypothyroidism Dermatology: Other (bartholin cyst) PAST SURGICAL HISTORY Past Surgical History: Colon Resection FAMILY HISTORY Family History: Family History Unknown SOCIAL HISTORY Smoke: Quit ALCOHOL: none Drugs: None Lives: with Family CURRENT MEDICATIONS CURRENT MEDICATIONS Current Medications Medications (Trade) Dose Ordered Sig/Elier Route PRN Reason Start Time Stop Time Status Last Admin Dose Admin Amino Acids/ Glycerin/ Electrolytes 1,000 ml @ 80 mls/hr [id number] IV 08/25/20 14:15 08/25/20 14:40 ALLERGIES ALLERGIES: Coded Allergies: Penicillins (Verified Allergy, Intermediate, 09/28/19) Sulfa (Sulfonamide Antibiotics) (Verified Allergy, Intermediate, 09/28/19) clarithromycin (Verified Allergy, Intermediate, 09/28/19) morphine (Verified Allergy, Intermediate, 09/28/19) ROS Review of System limited, poor historian PHYSICAL EXAM General: Alert, Oriented X3, Cooperative, No acute distress HEENT: Atraumatic, Mucous membr. moist/pink Lungs: Other (diminished bases) Heart: Regular rate (SR/ST with PACs), Normal S1, Normal S2, No murmurs Abdomen: Soft, Other (abd distended, NGT in place with billous drain) Extremities: No cyanosis, Other (trace to 1+ bilateral LE edema) Skin: No breakdown, No significant lesion Neuro: Normal speech Psych/Mental Status: Mental status NL, Other (flat affect, poor historian) MUSCULOSKELETAL: Osteoarthritic changes both hands VITALS/I&O VITALS/I&O: Vital Signs Date Time Temp Pulse Resp B/P (MAP) Pulse Ox O2 Delivery O2 Flow Rate FiO2 08/25/20 10:22 101 130/62 08/25/20 07:00 98.6 18 92 Room Air 98.6 08/25/20 03:00 2.0 l I & O 08/24/20 08/24/20 08/25/20 15:00 23:00 07:00 Intake Total 1620 ml 1020 ml Output Total 650 ml 1400 ml Balance 970 ml -380 ml LABS Lab: Laboratory Tests Test 08/25/20 06:25 Sodium Level 139 mmol/L (136-145) Potassium Level 3.8 mmol/L (3.5-5.1) Chloride Level 94 mmol/L (98-107) L Carbon Dioxide Level > 45 mmol/L (21-32) H Anion Gap (6-14) Blood Urea Nitrogen 16 mg/dL (7-20) Creatinine 0.9 mg/dL (0.6-1.0) Estimated GFR (Cockcroft-Gault) 59.0 Glucose Level 144 mg/dL (70-99) H Calcium Level 9.3 mg/dL (8.5-10.1) Laboratory Tests 08/25/20 06:25 ASSESSMENT/PLAN ASSESSMENT/PLAN 1. Small bowel obstruction with cholelithiasis with hx of colon CA and resection 2. 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 COPD with hx of pulmonary fibrosis 4. CAD: noted per chart review, unclear details 5. PAFIB: noted from prior admission at [facility] no cardiology referral was noted treated by PCP> maintaining SR/ST with PACs 6. Chronic CHF with possible diastolic dysfunction 7. Dementia 8. CAD? unclear details, pt denies 9. Cahexia/malnutrition Recommendations TTE Presently NPO. Will place on lopressor IV Antbiotics ongoing with NTG to LIS. 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 The chart was reviewed. The case was discussed. Agree with the plan of care. TANNER BIANCHI APRN Aug 25, 2020 15:09 LAURA HERNANDEZ MD Aug 25, 2020 16:48
[2020-08-25] MEDS ORDERED: METOPROLOL IV PUSH 5 MG/5 ML VIAL. IVP PRN (16:30)
[2020-08-25] MEDS: METOPROLOL IV PUSH 5 MG/5 ML VIAL. IVP SCH (17:44)
--- NOTE | 2020-08-25 18:14 | CARD ---
MR#: [id number] Date of Study: 08/25/2020 Ordering Physician: TANNER BIANCHI, Referring Physician: ATNNER BIANCHI Tech: [facility] APPROVED REPORT EXAM: Two-dimensional and M-mode echocardiogram with Doppler and color Doppler. Other Information Quality : FairHR: 96bpm Rhythm : TachycardiaTechnically limited study due to smoking. INDICATION Atrial Fibrillation Sick sinus syndrome RISK FACTORS Hypertension COPD, Dementia 2D DIMENSIONS Left Atrium(2D)2.4 (1.6-4.0cm)IVSd1.1 (0.7-1.1cm) Aortic Root(2D)3.2 (2.0-3.7cm)LVDd3.3 (3.9-5.9cm) LVOT Diameter1.9 (1.8-2.4cm)PWd1.0 (0.7-1.1cm) LVDs2.0 (2.5-4.0cm)FS (%) 40.7 % SV33.2 mlLVEF(%)72.7 (>50%) Aortic Valve AoV Peak Javed.113.9cm/sAoV VTI18.0cm AO Peak GR.5.2mmHgLVOT VTI 11.90cm AO Mean GR.3mmHg Mitral Valve MV E Hroeuant21.7cm/sMV E Peak Gr.10mmHg MV DECEL [id number] A Bbznykiz231.8cm/s MV E Mean Gr.3mmHgE/A Ratio0.8 TDI Lateral E' P. V6.11cm/sMedial E' P. V5.92cm/s E/Lateral E'13.5E/Medial E'14.0 Tricuspid Valve TR P. [id number]/sTR Peak Gr.24mmHg LEFT VENTRICLE The left ventricle is normal size. There is normal left ventricular wall thickness. The left ventricu lar systolic function is normal and the ejection fraction is within normal range. EF 55% There is zia ssly normal LV segmental wall motion. Tissue Doppler imaging reveals mild left ventricular diastolic dysfunction. RIGHT VENTRICLE The right ventricle is normal size. There is normal right ventricular wall thickness. The right ventr icular systolic function is normal. ATRIA The left atrium size is normal. The right atrium size is normal. The interatrial septum is intact wit h no evidence for an atrial septal defect or patent foramen ovale as noted on 2-D or Doppler imaging. AORTIC VALVE The aortic valve is moderately calcified. The aortic valve opens well. Doppler and Color Flow reveale d no significant aortic regurgitation. There is no significant aortic valvular stenosis. There is no aortic valvular vegetation. MITRAL VALVE The mitral valve is calcified but opens well. Mitral annular calcification is moderate to severe. The re is no evidence of mitral valve prolapse. There is no mitral valve stenosis. Doppler and Color-flow revealed mild mitral regurgitation. TRICUSPID VALVE The tricuspid valve is normal in structure and function. Doppler and Color Flow revealed mild tricusp id regurgitation. RVSP 25 mm Hg. There is no tricuspid valve prolapse or vegetation. There is no tric uspid valve stenosis. PULMONIC VALVE Not well seen Doppler and Color Flow revealed no pulmonic valvular regurgitation. There is no pulmoni c valvular stenosis. GREAT VESSELS The aortic root is normal in size. Pulmonary artery not well seen The IVC is normal in size and colla pses >50% with inspiration. PERICARDIAL EFFUSION There is no pleural effusion. There is no evidence of significant pericardial effusion. Critical Notification Critical Value: No <Conclusion> The left ventricular systolic function is normal and the ejection fraction is within normal range. EF 55% There is grossly normal LV segmental wall motion. Signed by : Navdeep Maldonado, Electronically Approved : 08/25/2020 18:13:50
[2020-08-25 19:40] VITALS: BP 133/51
[2020-08-25 23:15] VITALS: BP_SYST 60
[2020-08-26] MEDS: METOPROLOL IV PUSH 5 MG/5 ML VIAL. IVP SCH ×5 (00:01→23:02)
[2020-08-26] MEDS: LEVOTHYROXINE 50 MCG TABLET PO SCH (02:24)
[2020-08-26] MEDS: AMINO AC 3%/ELECTROLYTE/GLYCER 1,000 ML IV SCH ×2 (02:53→17:49)
[2020-08-26 03:11] VITALS: BP 137/66
[2020-08-26 07:00] VITALS: BP 110/59
[2020-08-26 07:53] LABS: HEMATOCRIT 38.9 % (36.0-47.0); HEMOGLOBIN 12.8 g/dL (12.0-15.5); RED BLOOD COUNT 4.29 x10^6/uL (3.50-5.40); RED CELL DISTRIBUTION WIDTH 13.6 % (11.5-14.5); WHITE BLOOD COUNT 12.9 x10^3/uL (4.0-11.0)
[2020-08-26 08:20] LABS: ALBUMIN 2.3 g/dL (3.4-5.0); ALBUMIN/GLOBULIN RATIO 0.6 (1.0-1.7); CALCIUM 8.6 mg/dL (8.5-10.1); CREATININE 0.7 mg/dL (0.6-1.0); GFR 78.8; POTASSIUM 3.9 mmol/L (3.5-5.1); TOTAL BILIRUBIN 0.4 mg/dL (0.2-1.0); TOTAL PROTEIN 6.2 g/dL (6.4-8.2)
[2020-08-26] MEDS: RALOXIFENE 60 MG TABLET. PO SCH (09:00)
[2020-08-26] MEDS: FUROSEMIDE 80 MG TABLET. PO SCH (09:00)
[2020-08-26] MEDS: VITAMIN B COMPLEX TABLET. PO SCH (09:00)
[2020-08-26] MEDS: CHOLECALCIFEROL (VITAMIN D3) 1,000 UNIT TABLET PO SCH (09:00)
[2020-08-26] MEDS: TRIAMCINOLONE ACETONIDE 0.1% TOPICAL OINTMENT 15GM TUBE. TP SCH ×2 (09:00→19:33)
--- NOTE | 2020-08-26 09:07 | PDOC ---
DANTE VALDIVIA FINISHER HAND 08/26/20 0907: SURGICAL PROGRESS NOTE DATE: 08/26/20 TIME: 09:06 Subjective dry mouth pain about the same no flatus Vital Signs Vital Signs Date Time Temp Pulse Resp B/P (MAP) Pulse Ox O2 Delivery O2 Flow Rate FiO2 08/26/20 05:27 94 137/66 08/26/20 03:11 97.7 16 95 Room Air 97.7 08/25/20 23:15 2.0 I&O Intake and Output0 08/26/20 07:00 Intake Total 1600 ml Output Total 2500 ml Balance -900 ml Intake Oral 0 ml IV Total 1200 ml Other 400 ml Gastric Drainage Total 2500 ml # Voids 5 General: Alert, Cooperative HEENT: Other (ng bilious ) Abdomen: Soft, Other (ttp upper abdomen ) Labs Laboratory Tests Test 08/24/20 10:40 08/25/20 06:25 08/26/20 07:00 Urine Collection Type Unknown Urine Color Yellow Urine Clarity Cloudy Urine pH 8.0 (<5.0-8.0) Urine Specific [place] 1.015 (1.000-1.030) Urine Protein 30 mg/dL (NEG-TRACE) Urine Glucose (UA) Negative mg/dL (NEG) Urine Ketones (Stick) 15 mg/dL (NEG) Urine Blood Negative (NEG) Urine Nitrite Negative (NEG) Urine Bilirubin Negative (NEG) Urine Urobilinogen Dipstick 2.0 mg/dL (0.2 mg/dL) Urine Leukocyte Esterase Moderate (NEG) Urine RBC Occ /HPF (0-2) Urine WBC 20-40 /HPF (0-4) Urine Squamous Epithelial Cells Mod /LPF Urine Bacteria Many /HPF (0-FEW) Urine Hyaline Casts Few /HPF Sodium Level 139 mmol/L (136-145) 134 mmol/L (136-145) Potassium Level 3.8 mmol/L (3.5-5.1) 3.9 mmol/L (3.5-5.1) Chloride Level 94 mmol/L (98-107) 94 mmol/L (98-107) Carbon Dioxide Level > 45 mmol/L (21-32) 37 mmol/L (21-32) Anion Gap (6-14) 3 (6-14) Blood Urea Nitrogen 16 mg/dL (7-20) 20 mg/dL (7-20) Creatinine 0.9 mg/dL (0.6-1.0) 0.7 mg/dL (0.6-1.0) Estimated GFR (Cockcroft-Gault) 59.0 78.8 Glucose Level 144 mg/dL (70-99) 115 mg/dL (70-99) Calcium Level 9.3 mg/dL (8.5-10.1) 8.6 mg/dL (8.5-10.1) White Blood Count 12.9 x10^3/uL (4.0-11.0) Red Blood Count 4.29 x10^6/uL (3.50-5.40) Hemoglobin 12.8 g/dL (12.0-15.5) Hematocrit 38.9 % (36.0-47.0) Mean Corpuscular Volume 91 fL (79-100) Mean Corpuscular Hemoglobin 30 pg (25-35) Mean Corpuscular Hemoglobin Concent 33 g/dL (31-37) Red Cell Distribution Width 13.6 % (11.5-14.5) Platelet Count 339 x10^3/uL (140-400) BUN/Creatinine Ratio 29 (6-20) Total Bilirubin 0.4 mg/dL (0.2-1.0) Aspartate Amino Transf (AST/SGOT) 13 U/L (15-37) Alanine Aminotransferase (ALT/SGPT) 9 U/L (14-59) Alkaline Phosphatase 141 U/L (46-116) Total Protein 6.2 g/dL (6.4-8.2) Albumin 2.3 g/dL (3.4-5.0) Albumin/Globulin Ratio 0.6 (1.0-1.7) Laboratory Tests Test 08/26/20 07:00 White Blood Count 12.9 x10^3/uL (4.0-11.0) Red Blood Count 4.29 x10^6/uL (3.50-5.40) Hemoglobin 12.8 g/dL (12.0-15.5) Hematocrit 38.9 % (36.0-47.0) Mean Corpuscular Volume 91 fL (79-100) Mean Corpuscular Hemoglobin 30 pg (25-35) Mean Corpuscular Hemoglobin Concent 33 g/dL (31-37) Red Cell Distribution Width 13.6 % (11.5-14.5) Platelet Count 339 x10^3/uL (140-400) Sodium Level 134 mmol/L (136-145) Potassium Level 3.9 mmol/L (3.5-5.1) Chloride Level 94 mmol/L (98-107) Carbon Dioxide Level 37 mmol/L (21-32) Anion Gap 3 (6-14) Blood Urea Nitrogen 20 mg/dL (7-20) Creatinine 0.7 mg/dL (0.6-1.0) Estimated GFR (Cockcroft-Gault) 78.8 BUN/Creatinine Ratio 29 (6-20) Glucose Level 115 mg/dL (70-99) Calcium Level 8.6 mg/dL (8.5-10.1) Total Bilirubin 0.4 mg/dL (0.2-1.0) Aspartate Amino Transf (AST/SGOT) 13 U/L (15-37) Alanine Aminotransferase (ALT/SGPT) 9 U/L (14-59) Alkaline Phosphatase 141 U/L (46-116) Total Protein 6.2 g/dL (6.4-8.2) Albumin 2.3 g/dL (3.4-5.0) Albumin/Globulin Ratio 0.6 (1.0-1.7) Assessment/Plan NG, bowel rest Justicifation of Admission Dx: Justifications for Admission: Justification of Admission Dx: Yes CHF: Hemodynamic Instability Comminuty Aquired Pneumonia: Dehydration Chronic Renal Failure: Intravenous Infusions Sepsis: Dehydration VALARIE DE LA TORRE MD 08/26/20 1326: SURGICAL PROGRESS NOTE Assessment/Plan Pt seen and examined. Agree with Ms. Valdivia's note Pt without new c/o, appears fatigue abd soft, ND, mild TTP epigastric cont NGT and supportive care, poor surgical candidate with multiple comorbidities. will recheck KUB in AM DANTE VALDIVIA APRN Aug 26, 2020 09:07 VALARIE DE LA TORRE MD Aug 26, 2020 13:26
--- NOTE | 2020-08-26 10:52 | PN ---
DATE: 08/26/2020 SUBJECTIVE: The patient is resting, propped up, complaining of shortness of breath. Denied any chest pain. PHYSICAL EXAMINATION: GENERAL: When I examined her, she was pale, somewhat cachectic, but no jaundice, cyanosis or thyromegaly. No jugular venous distention. No limb edema. VITAL SIGNS: Her heart rate was 93, blood pressure was 110/60, temperature was 97.9, respiratory rate was 18 and oxygen saturation was 98% on 2 liters of oxygen. HEAD, EYES, EARS, NOSE AND THROAT: Normocephalic, atraumatic. She has an NG tube to the right nostril to intermittent suction. NECK: Supple. HEART: Showed normal first and second heart sounds, no gallop or murmur. CHEST: Showed central trachea, equal bilateral chest expansion, air entry, vesicular breath sounds, bilateral basal crepitation. I could not appreciate any rhonchi. ABDOMEN: Distended, soft, sluggish bowel sounds. NEUROLOGIC: She is awake, alert, responding appropriately. All cranial nerves intact. She moves extremities without difficulty. Her intake over the last 24 hours was 2640, output was 2050. LABORATORY DATA: This morning showed a white cell count 12,900, hemoglobin 12.8, hematocrit 38.9, MCV 91 and platelet count of 339,000. Serum sodium 134, potassium 3.9, chloride 94, bicarbonate 37, anion gap of 3, BUN 20, creatinine 0.7. Estimated GFR was 78 mL per minute. Her glucose 150. Her calcium was 8.6. Total bilirubin, AST, ALT, alkaline phosphatase were all normal. Total protein 6.2, albumin 2.3. ASSESSMENT: 1. Bowel obstruction for which she is n.p.o. She is on IV fluid and NG tube to intermittent suction. Her small bowel follow through showed a finding suggestive of small-bowel obstruction likely within the right mid abdomen within the proximal ileum, etiology remains undetermined. 2. She has a mass in her left upper hilum, could be primary or secondary. The patient decided not to pursue any further investigation for the time being. 3. The patient has multiple other medical problems including: A. Hypertension. B. Hypothyroidism. C. Chronic obstructive pulmonary disease. D. Atrial fibrillation. E. Congestive heart failure. F. Cachexia with underlying dementia. G. Hypokalemia, it has resolved. Her potassium is now 3.8. The patient was seen by the technology recruiter and her echocardiogram showed that the left ventricular systolic function is normal and ejection fraction is 55%. There is grossly normal left ventricular segmental wall motion. PLAN: My plan is to arrange for a chest x-ray and probably she might require IV Lasix as she is n.p.o. CHELSIE DR: Xavi TID: [id number]
[2020-08-26 11:00] VITALS: BP 122/59
--- NOTE | 2020-08-26 11:33 | RAD ---
EXAMINATION: Chest radiograph. VIEWS: Single view COMPARISON: 10/04/2019 INDICATION:89 years, Female, shortness of breathe. FINDINGS: Normal cardiomediastinal silhouette. Hypoinflated lungs, may reflect pulmonary emphysema. Left suprah ilar opacity, new since September 2019. Trace right pleural effusion. No pneumothorax. No acute osseous process. Enteric tube tip is off image, presumably in the stomach. IMPRESSION: 1. Left suprahilar opacity, new since prior exam. Differential includes pulmonary scarring/fibrosis, pneumonia or neoplasm. Recommend further evaluation with CT chest. 2. Trace right pleural effusion. Electronically signed by: Cathy To MD (08/26/2020 11:31 AM) [id number]
[2020-08-26] MEDS: FUROSEMIDE 40 MG/4 ML VIAL. IVP SCH (11:48)
[2020-08-26 15:00] VITALS: BP 119/44
[2020-08-26 19:49] VITALS: BP 130/65
[2020-08-26 23:33] VITALS: BP 131/67
[2020-08-27 03:59] VITALS: BP 121/54
[2020-08-27] MEDS: LEVOTHYROXINE 50 MCG TABLET PO SCH (05:10)
[2020-08-27] MEDS: METOPROLOL IV PUSH 5 MG/5 ML VIAL. IVP SCH ×3 (05:14→18:21)
[2020-08-27] MEDS: AMINO AC 3%/ELECTROLYTE/GLYCER 1,000 ML IV SCH (05:14)
[2020-08-27 07:00] VITALS: BP 125/59
[2020-08-27 07:41] LABS: HEMATOCRIT 39.5 % (36.0-47.0); RED BLOOD COUNT 4.4 x10^6/uL (3.50-5.40); RED CELL DISTRIBUTION WIDTH 13.5 % (11.5-14.5)
[2020-08-27 08:02] LABS: ALBUMIN 2.2 g/dL (3.4-5.0); ALBUMIN/GLOBULIN RATIO 0.6 (1.0-1.7); CALCIUM 8.6 mg/dL (8.5-10.1); CREATININE 0.6 mg/dL (0.6-1.0); GFR 94.1; POTASSIUM 3.7 mmol/L (3.5-5.1); TOTAL BILIRUBIN 0.3 mg/dL (0.2-1.0); TOTAL PROTEIN 6.2 g/dL (6.4-8.2)
[2020-08-27] MEDS: RALOXIFENE 60 MG TABLET. PO SCH (09:00)
[2020-08-27] MEDS: VITAMIN B COMPLEX TABLET. PO SCH (09:00)
[2020-08-27] MEDS: TRIAMCINOLONE ACETONIDE 0.1% TOPICAL OINTMENT 15GM TUBE. TP SCH ×2 (09:00→20:01)
[2020-08-27] MEDS: CHOLECALCIFEROL (VITAMIN D3) 1,000 UNIT TABLET PO SCH (09:00)
--- NOTE | 2020-08-27 09:21 | PDOC ---
DANTE VALDIVIA PROVIDER RELATIONS CONSULTANT 08/27/20 0921: SURGICAL PROGRESS NOTE DATE: 08/27/20 TIME: 09:20 Subjective no changes no bowel function Vital Signs Vital Signs Date Time Temp Pulse Resp B/P (MAP) Pulse Ox O2 Delivery O2 Flow Rate FiO2 08/27/20 08:30 Nasal Cannula 2.0 08/27/20 07:00 97.8 95 20 125/59 (81) 98 97.8 I&O Intake and Output 08/27/20 07:00 Intake Total 1700 ml Output Total 250 ml Balance 1450 ml Intake Oral 0 ml IV Total 1700 ml Gastric Drainage Total 250 ml General: Cooperative, Other (ill) HEENT: Other (ng in place) Abdomen: Soft, Other (mild ttp upper abdomen ) Labs Laboratory Tests Test 08/26/20 07:00 08/27/20 06:25 White Blood Count 12.9 x10^3/uL (4.0-11.0) 12.0 x10^3/uL (4.0-11.0) Red Blood Count 4.29 x10^6/uL (3.50-5.40) 4.40 x10^6/uL (3.50-5.40) Hemoglobin 12.8 g/dL (12.0-15.5) 13.0 g/dL (12.0-15.5) Hematocrit 38.9 % (36.0-47.0) 39.5 % (36.0-47.0) Mean Corpuscular Volume 91 fL (79-100) 90 fL (79-100) Mean Corpuscular Hemoglobin 30 pg (25-35) 30 pg (25-35) Mean Corpuscular Hemoglobin Concent 33 g/dL (31-37) 33 g/dL (31-37) Red Cell Distribution Width 13.6 % (11.5-14.5) 13.5 % (11.5-14.5) Platelet Count 339 x10^3/uL (140-400) 349 x10^3/uL (140-400) Sodium Level 134 mmol/L (136-145) 131 mmol/L (136-145) Potassium Level 3.9 mmol/L (3.5-5.1) 3.7 mmol/L (3.5-5.1) Chloride Level 94 mmol/L (98-107) 92 mmol/L (98-107) Carbon Dioxide Level 37 mmol/L (21-32) 37 mmol/L (21-32) Anion Gap 3 (6-14) 2 (6-14) Blood Urea Nitrogen 20 mg/dL (7-20) 22 mg/dL (7-20) Creatinine 0.7 mg/dL (0.6-1.0) 0.6 mg/dL (0.6-1.0) Estimated GFR (Cockcroft-Gault) 78.8 94.1 BUN/Creatinine Ratio 29 (6-20) 37 (6-20) Glucose Level 115 mg/dL (70-99) 107 mg/dL (70-99) Calcium Level 8.6 mg/dL (8.5-10.1) 8.6 mg/dL (8.5-10.1) Total Bilirubin 0.4 mg/dL (0.2-1.0) 0.3 mg/dL (0.2-1.0) Aspartate Amino Transf (AST/SGOT) 13 U/L (15-37) 15 U/L (15-37) Alanine Aminotransferase (ALT/SGPT) 9 U/L (14-59) 16 U/L (14-59) Alkaline Phosphatase 141 U/L (46-116) 140 U/L (46-116) Total Protein 6.2 g/dL (6.4-8.2) 6.2 g/dL (6.4-8.2) Albumin 2.3 g/dL (3.4-5.0) 2.2 g/dL (3.4-5.0) Albumin/Globulin Ratio 0.6 (1.0-1.7) 0.6 (1.0-1.7) MY-Gff-W-Type Natriuretic Peptide 569 pg/mL (0-449) Laboratory Tests Test 08/27/20 06:25 White Blood Count 12.0 x10^3/uL (4.0-11.0) Red Blood Count 4.40 x10^6/uL (3.50-5.40) Hemoglobin 13.0 g/dL (12.0-15.5) Hematocrit 39.5 % (36.0-47.0) Mean Corpuscular Volume 90 fL (79-100) Mean Corpuscular Hemoglobin 30 pg (25-35) Mean Corpuscular Hemoglobin Concent 33 g/dL (31-37) Red Cell Distribution Width 13.5 % (11.5-14.5) Platelet Count 349 x10^3/uL (140-400) Sodium Level 131 mmol/L (136-145) Potassium Level 3.7 mmol/L (3.5-5.1) Chloride Level 92 mmol/L (98-107) Carbon Dioxide Level 37 mmol/L (21-32) Anion Gap 2 (6-14) Blood Urea Nitrogen 22 mg/dL (7-20) Creatinine 0.6 mg/dL (0.6-1.0) Estimated GFR (Cockcroft-Gault) 94.1 BUN/Creatinine Ratio 37 (6-20) Glucose Level 107 mg/dL (70-99) Calcium Level 8.6 mg/dL (8.5-10.1) Total Bilirubin 0.3 mg/dL (0.2-1.0) Aspartate Amino Transf (AST/SGOT) 15 U/L (15-37) Alanine Aminotransferase (ALT/SGPT) 16 U/L (14-59) Alkaline Phosphatase 140 U/L (46-116) LW-Tte-Y-Type Natriuretic Peptide 569 pg/mL (0-449) Total Protein 6.2 g/dL (6.4-8.2) Albumin 2.2 g/dL (3.4-5.0) Albumin/Globulin Ratio 0.6 (1.0-1.7) Assessment/Plan plan for OR tomorrow Justicifation of Admission Dx: Justifications for Admission: Justification of Admission Dx: Yes CHF: Hemodynamic Instability Comminuty Aquired Pneumonia: Dehydration Chronic Renal Failure: Intravenous Infusions Sepsis: Dehydration VALARIE DE LA TORRE MD 08/27/20 1456: SURGICAL PROGRESS NOTE Assessment/Plan Pt seen and examined. Agree with Ms. Valdivia's note Pt appears sleepy, but without c/o abd soft, Nd, NTTP nursing notes some stools KUB with some improvement. will plan OR in AM but may not be needed if continued improvement pt is poor surgical candidate. DANTE VALDIVIA APRN Aug 27, 2020 09:21 VALARIE DE LA TORRE MD Aug 27, 2020 14:56
--- NOTE | 2020-08-27 10:46 | RAD ---
Exam Date: 08/27/2020 9:24 AM XR ABDOMEN 2V Indication: Reason: SBO / Spl. Instructions: / History: . COMPARISON: August 22, 2020 FINDINGS/ IMPRESSION: Supine and upright views are submitted. Borderline distended loops of small bowel are seen up to 2.9 cm in diameter. Oral contrast, air, and fecal matter is seen in the colon and rectum. Findings may represent mild ileus versus partial smal l bowel obstruction. Overall, the degree of small bowel distention is improved compared to the prior exam. Electronically signed by: Bhargav Alicea MD (08/27/2020 10:44 AM) [facility]
[2020-08-27] MEDS: FUROSEMIDE 40 MG/4 ML VIAL. IVP SCH (10:48)
[2020-08-27 11:00] VITALS: BP 109/46
[2020-08-27] MEDS ORDERED: POTASSIUM CL 40MEQ D5-0.45NACL 1,000 ML IV SCH (11:00)
--- NOTE | 2020-08-27 11:15 | NUR ---
Patient had some liquid stool and is still leaking liquid stool. Will continue to monitor.
--- NOTE | 2020-08-27 13:05 | PN ---
DATE: 08/27/2020 SUBJECTIVE: The patient is resting, slightly propped up in bed, in no apparent distress. She is awake, alert. On questioning her, she continued to complain of shortness of breath. Denied any abdominal pain. She thinks she might have passed gas last night; however, she has no bowel movement. PHYSICAL EXAMINATION: GENERAL: When I examined her, she was pale, but no jaundice, cyanosis or thyromegaly. No jugular venous distention. No limb edema. VITAL SIGNS: Her heart rate was 95, blood pressure was 125/59, temperature was 97.8, respiratory rate 20, and oxygen saturation was 98% on 2 liters of oxygen. HEAD, EYES, EARS, NOSE AND THROAT: Normocephalic, atraumatic. NECK: Supple. HEART: Normal first and second heart sounds, no gallop or murmur. CHEST: Clear to auscultation, no crepitation or rhonchi. ABDOMEN: Less distended, soft, nontender. No guarding or rigidity. No organomegaly. Bowel sounds are normal. NEUROLOGIC: She was grossly intact. Her intake was 1600, output was 2500. LABORATORY DATA: As of this morning, her white cell count was 12,000, hemoglobin 13, hematocrit 39, MCV 90 and platelet count 349,000. Her chemistry showed a serum sodium 131, potassium 3.7, chloride 92, bicarbonate 37, anion gap of 2, BUN 22, creatinine 0.6. Estimated GFR was 94 mL per minute. Her glucose was 107, calcium was 8.6. Total bilirubin, AST, ALT were normal. Alkaline phosphatase slightly elevated. Her total protein was 6.2, albumin was 2.2. ASSESSMENT: 1. Bowel obstruction, for which she is n.p.o. She is on IV fluid and NG tube to intermittent suction. Her small bowel follow through showed findings suggestive of small-bowel obstruction likely within the right mid abdomen within the proximal ileum, etiology remains undetermined. Her x-ray this morning showed that the contrast is in the descending colon. 2. She has a mass in her left upper hilum that could be primary or secondary. The patient decided not to pursue any further investigation for the time being. 3. The patient has multiple other medical problems including: A. Hypertension. B. Hypothyroidism. C. Chronic obstructive pulmonary disease. D. Atrial fibrillation. E. Congestive heart failure. F. Cachexia with underlying dementia. G. Hypokalemia, resolved. Her potassium is now 3.7, however, she has hyponatremia with the sodium down to 131. PLAN: My plan is to switch her back to normal saline with some potassium. RAHEEL/KWESI DR: Xavi TID: [id number]
[2020-08-27 15:00] VITALS: BP 114/57
[2020-08-27 19:00] VITALS: BP 126/58
[2020-08-27] MEDS: fentaNYL PF VIAL 100 MCG/2 ML VIAL IVP PRN (20:03)
[2020-08-27 23:09] VITALS: BP 111/45
[2020-08-27] MEDS ORDERED: POTASSIUM CHLORIDE 40 MEQ in IV NORMAL SALINE 1000ML BAG 1,000 ML IV SCH (23:30)
[2020-08-28] MEDS: POTASSIUM CL 40MEQ IN 0.9%NACL 1,000 ML IV SCH ×2 (00:05→13:02)
[2020-08-28] MEDS: METOPROLOL IV PUSH 5 MG/5 ML VIAL. IVP SCH ×4 (00:09→18:19)
[2020-08-28] MEDS ORDERED: ACETAMINOPHEN 650 MG SUPP.RECT. PR PRN (02:15)
[2020-08-28] MEDS: fentaNYL PF VIAL 100 MCG/2 ML VIAL IVP PRN (02:35)
[2020-08-28 03:11] VITALS: BP 123/45
[2020-08-28] MEDS: LEVOTHYROXINE 50 MCG TABLET PO SCH (06:00)
[2020-08-28 06:27] VITALS: BP 102/39
[2020-08-28 07:38] LABS: HEMATOCRIT 39.5 % (36.0-47.0); RED BLOOD COUNT 4.37 x10^6/uL (3.50-5.40); RED CELL DISTRIBUTION WIDTH 13.7 % (11.5-14.5); WHITE BLOOD COUNT 11.6 x10^3/uL (4.0-11.0)
--- NOTE | 2020-08-28 07:47 | PDOC ---
PROGRESS NOTES Date of Service DATE: 08/28/20 TIME: 07:45 Subjective Subjective pt resting, appears fatigued; unsure if she's had stools, denies pain Objective Objective Vital Signs Date Time Temp Pulse Resp B/P (MAP) Pulse Ox O2 Delivery O2 Flow Rate FiO2 08/28/20 06:27 97.9 93 16 102/39 (60) 95 Nasal Cannula 3.0 97.9 Intake and Output 08/28/20 07:00 Intake Total 440 ml Output Total 1400 ml Balance -960 ml Intake Oral 0 ml IV Total 440 ml Gastric Drainage Total 1400 ml # Voids 5 # Bowel Movements 3 Physical Exam Abdomen: Soft, No tenderness Heart: Regular rate Extremities: No clubbing, No cyanosis General: Alert, Other (fatigued) Neuro: Normal speech Assessment Assessment SBO Plan Plan of Care Three stools recorded yesterday, KUB yesterday improved, contrast in left colon; will recheck films today, if improved plan to DC NG tube. If obstruction seems persistent can take to OR, however pt appears very weak, high risk candidate Comment Review of Relevant I have reviewed the following items kun (where applicable) has been applied. Labs Laboratory Tests Test 08/27/20 06:25 08/28/20 02:50 08/28/20 06:50 White Blood Count 12.0 x10^3/uL (4.0-11.0) 11.6 x10^3/uL (4.0-11.0) Red Blood Count 4.40 x10^6/uL (3.50-5.40) 4.37 x10^6/uL (3.50-5.40) Hemoglobin 13.0 g/dL (12.0-15.5) 13.0 g/dL (12.0-15.5) Hematocrit 39.5 % (36.0-47.0) 39.5 % (36.0-47.0) Mean Corpuscular Volume 90 fL (79-100) 90 fL (79-100) Mean Corpuscular Hemoglobin 30 pg (25-35) 30 pg (25-35) Mean Corpuscular Hemoglobin Concent 33 g/dL (31-37) 33 g/dL (31-37) Red Cell Distribution Width 13.5 % (11.5-14.5) 13.7 % (11.5-14.5) Platelet Count 349 x10^3/uL (140-400) 347 x10^3/uL (140-400) Sodium Level 131 mmol/L (136-145) Potassium Level 3.7 mmol/L (3.5-5.1) Chloride Level 92 mmol/L (98-107) Carbon Dioxide Level 37 mmol/L (21-32) Anion Gap 2 (6-14) Blood Urea Nitrogen 22 mg/dL (7-20) Creatinine 0.6 mg/dL (0.6-1.0) Estimated GFR (Cockcroft-Gault) 94.1 BUN/Creatinine Ratio 37 (6-20) Glucose Level 107 mg/dL (70-99) Calcium Level 8.6 mg/dL (8.5-10.1) Total Bilirubin 0.3 mg/dL (0.2-1.0) Aspartate Amino Transf (AST/SGOT) 15 U/L (15-37) Alanine Aminotransferase (ALT/SGPT) 16 U/L (14-59) Alkaline Phosphatase 140 U/L (46-116) AG-Upp-Q-Type Natriuretic Peptide 569 pg/mL (0-449) Total Protein 6.2 g/dL (6.4-8.2) Albumin 2.2 g/dL (3.4-5.0) Albumin/Globulin Ratio 0.6 (1.0-1.7) Lactic Acid Level 0.8 mmol/L (0.4-2.0) Laboratory Tests Test 08/28/20 02:50 08/28/20 06:50 Lactic Acid Level 0.8 mmol/L (0.4-2.0) White Blood Count 11.6 x10^3/uL (4.0-11.0) Red Blood Count 4.37 x10^6/uL (3.50-5.40) Hemoglobin 13.0 g/dL (12.0-15.5) Hematocrit 39.5 % (36.0-47.0) Mean Corpuscular Volume 90 fL (79-100) Mean Corpuscular Hemoglobin 30 pg (25-35) Mean Corpuscular Hemoglobin Concent 33 g/dL (31-37) Red Cell Distribution Width 13.7 % (11.5-14.5) Platelet Count 347 x10^3/uL (140-400) Microbiology 08/24/20 Urine Culture - Final, Complete Medications Current Medications Sodium Chloride 1,000 ml @ 100 mls/hr Q10H IV Last administered on 08/23/20at 10:01; Start 08/21/20 at 07:00; Stop 08/23/20 at 12:45; Status DC Fentanyl Citrate (Fentanyl 2ml Vial) 50 mcg PRN Q3HRS PRN IVP SEVERE PAIN 7-10 Last administered on 08/28/20at 02:35; Start 08/21/20 at 06:45 Ondansetron HCl (Zofran) 4 mg PRN Q4HRS PRN IVP NAUSEA/VOMITING 1ST CHOICE Last administered on 08/24/20at 23:44; Start 08/21/20 at 06:45 Acetaminophen (Tylenol) 650 mg PRN Q4HRS PRN PO FEVER > 100.5'F; Start 08/21/20 at 09:45 Albuterol Sulfate (Ventolin Neb Soln) 2.5 mg PRN Q4HRS PRN NEB SHORTNESS OF BREATH; Start 08/21/20 at 09:45 Vitamin D (Vitamin D3) 1,000 unit DAILY PO ; Start 08/21/20 at 10:00 Furosemide (Lasix) 80 mg DAILY PO ; Start 08/21/20 at 10:00; Stop 08/26/20 at 10:28; Status DC Levothyroxine Sodium (Synthroid) 50 mcg DAILY06 PO ; Start 08/21/20 at 10:30 Metoprolol Tartrate (Lopressor) 50 mg BID PO Last administered on 08/21/20at 14:33; Start 08/21/20 at 10:00; Stop 08/25/20 at 16:25; Status DC Raloxifene HCl (Evista) 60 mg DAILY PO ; Start 08/21/20 at 10:00 Triamcinolone Acetonide (Kenalog 0.1%) 1 gregg BID TP ; Start 08/21/20 at 10:00 Vitamin B Complex (Joseph B) 1 tab DAILY PO ; Start 08/21/20 at 10:00 Phytonadione (Vitamin K Ampule) 10 mg 1X ONCE SQ ; Start 08/21/20 at 10:00; Stop 08/21/20 at 10:01; Status DC Lidocaine HCl (Glydo (Lidocaine) Jelly) 1 gregg 1X ONCE MM Last administered on 08/22/20at 10:50; Start 08/22/20 at 11:00; Stop 08/22/20 at 11:01; Status DC Barium Sulfate (Liquid E-Z Paque) 355 ml 1X ONCE PO ; Start 08/22/20 at 14:30; Stop 08/22/20 at 14:31; Status DC Metoprolol Tartrate (Lopressor Vial) 5 mg PRN Q4HRS PRN IVP TACHYCARDIA Last administered on 08/25/20at 10:22; Start 08/22/20 at 16:30; Stop 08/26/20 at 12:23; Status DC Potassium Chloride 40 meq/ Dextrose 1,020 ml @ 100 mls/hr [id number] IV Last administered on 08/25/20at 06:00; Start 08/23/20 at 13:00; Stop 08/25/20 at 14:10; Status DC Saliva Substitute (Biotene Moisturizing Mouth) 2 spray PRN Q15MIN PRN PO DRY MOUTH; Start 08/24/20 at 07:30 Iohexol (Omnipaque 300 Mg/ml) 400 ml 1X ONCE PO Last administered on 08/24/20at 11:30; Start 08/24/20 at 11:00; Stop 08/24/20 at 11:01; Status DC Info (CONTRAST GIVEN -- Rx MONITORING) 1 each PRN DAILY PRN MC SEE COMMENTS; Start 08/24/20 at 11:15; Stop 08/26/20 at 11:14; Status DC Metronidazole 100 ml @ 100 mls/hr 1X PREOP PRN IV PRIOR TO PROCEDURE; Start 08/28/20 at 06:00; Stop 08/28/20 at 18:00 Levofloxacin/ Dextrose 100 ml @ 100 mls/hr 1X PREOP PRN IV PRIOR TO PROCEDURE; Start 08/28/20 at 06:00; Stop 08/28/20 at 18:00 Amino Acids/ Glycerin/ Electrolytes 1,000 ml @ 80 mls/hr [id number] IV Last administered on 08/27/20at 05:14; Start 08/25/20 at 14:15; Stop 08/27/20 at 09:45; Status DC Metoprolol Tartrate (Lopressor Vial) 2.5 mg Q6HRS IVP Last administered on 08/28/20at 00:09; Start 08/25/20 at 18:00 Metoprolol Tartrate (Lopressor Vial) 5 mg PRN Q6HRS PRN IVP TACHYCARDIA; Start 08/25/20 at 16:30 Furosemide (Lasix) 40 mg DAILY IVP Last administered on 08/27/20at 10:48; Start 08/26/20 at 11:00 Potassium Chloride/Dextrose/ Sod Cl 1,000 ml @ 80 mls/hr [id number] IV Last administered on 08/27/20at 10:48; Start 08/27/20 at 11:00; Stop 08/27/20 at 23:30; Status DC Potassium Chloride 40 meq/ Sodium Chloride 1,020 ml @ 80 mls/hr [id number] IV ; Start 08/27/20 at 23:30; Status UNV Potassium Chloride/Sodium Chloride 1,000 ml @ 80 mls/hr [id number] IV Last administered on 08/28/20at 00:05; Start 08/27/20 at 23:45 Acetaminophen (Tylenol Supp) 650 mg PRN Q6HRS PRN SD MILD PAIN / TEMP > 100.3'F Last administered on 08/28/20at 02:23; Start 08/28/20 at 02:15 Active Scripts Active Proair Hfa (Albuterol Sulfate) 8.5 Gm Hfa.aer.ad 2.5 Mg NEB PRN Q4HRS PRN 30 Days Reported Anoro Ellipta 62.5-25 Mcg Inh (Umeclidinium Brm/Vilanterol Tr) 1 Each Disk.w.dev 1 Puff INH DAILY K-Tab ER (Potassium Chloride) 20 Meq Tablet.er 20 Meq PO BID Tolterodine Tartrate Er (Tolterodine Tartrate) 2 Mg Cap.er.24h 1 Cap PO DAILY Furosemide 80 Mg Tablet 1 Tab PO DAILY Metoprolol Tartrate 50 Mg Tablet 1 Tab PO BID Tylenol (Acetaminophen) 325 Mg Tablet 650 Mg PO Q4HRS PRN Triamcinolone Acetonide 0.1% Oint (Triamcinolone Acetonide) 15 Gm Oint...g. 1 Gregg TP BID MIX WITH EUCERIN DIRECTED BY PHYSICIAN B Complex (Vitamin B Complex) 1 Each Tablet 1 Each PO [place] 3 1,000 Mg Softgel ([place]-3 Fatty Acids/Fish Oil) 1 Each Capsule 1 Each PO Vitamin E (Vitamin E Acid Succinate) 100 Unit Tablet 100 Unit PO Lysine 500 Mg Tablet 500 Mg PO Vitamin D3 (Cholecalciferol (Vitamin D3)) 1,000 Unit Tablet 1,000 Unit PO Centrum Complete Multivit Tab (Multivitamin/Iron/Folic Acid) 1 Each Tablet 1 Each PO Caltrate 600 + D Tablet (Calcium Carbonate/Vitamin D3) 1 Each Tablet 1 Each PO Evista (Raloxifene Hcl) 60 Mg Tablet 60 Mg PO DAILY Hydrocodone-Apap 5-325 (Hydrocodone Bit/Acetaminophen) 1 Each Tablet 1-2 Tab PO Q4-6HRS Levothyroxine Sodium 50 Mcg Tablet 50 Mcg PO DAILYAC Vitals/I & O Vital Sign - Last 24 Hours 08/27/20 08/27/20 08/27/20 08/27/20 08:30 11:00 11:58 15:00 Temp 97.9 97.9 97.9 97.9 Pulse 91 95 121 Resp 24 16 B/P (MAP) 109/46 (67) 125/59 114/57 (76) Pulse Ox 98 99 O2 Delivery Nasal Cannula Nasal Cannula Nasal Cannula O2 Flow Rate 2.0 2.0 2.0 08/27/20 08/27/20 08/27/20 08/27/20 18:21 19:00 20:00 20:03 Temp 97.6 97.6 Pulse 121 94 Resp 20 18 B/P (MAP) 114/57 126/58 (80) Pulse Ox 99 99 O2 Delivery Nasal Cannula Nasal Cannula Nasal Cannula O2 Flow Rate 2.0 2.0 2.0 08/27/20 08/27/20 08/28/20 08/28/20 20:33 23:09 00:09 02:35 Temp 97.8 97.8 Pulse 94 92 Resp 18 18 18 B/P (MAP) 111/45 (67) 105/53 Pulse Ox 100 100 100 O2 Delivery Nasal Cannula Nasal Cannula Nasal Cannula O2 Flow Rate 2.0 2.0 2.0 08/28/20 08/28/20 08/28/20 08/28/20 03:05 03:11 06:00 06:27 Temp 97.7 97.9 97.7 97.9 Pulse 92 93 93 Resp 18 18 16 B/P (MAP) 123/45 (71) 102/39 102/39 (60) Pulse Ox 97 97 95 O2 Delivery Nasal Cannula Nasal Cannula Nasal Cannula O2 Flow Rate 2.0 2.0 3.0 Intake and Output 08/27/20 08/27/20 08/28/20 15:00 23:00 07:00 Intake Total 440 ml 0 ml 0 ml Output Total 600 ml 800 ml Balance 440 ml -600 ml -800 ml Justifications for Admission Other Justification Nutrition Consultation Dietary Evaluation: Recommendations by RD: Dietary education by RD, PPN/TPN Comments: REC PPN for short term non oral nutrition at this time Expected Outcomes/Goals: to meet >75% est nutr needs po vs nutrition support Malnutrition Findings: Body Fat Depletion (Non Severe: Mod to Severe Weight Status: Appropriate NANDA MILLER MD Aug 28, 2020 07:47
[2020-08-28 08:20] LABS: ALBUMIN 2.2 g/dL (3.4-5.0); ALBUMIN/GLOBULIN RATIO 0.6 (1.0-1.7); ALK PHOS 121 U/L (46-116); ALT (SGPT) 12 U/L (14-59); AST (SGOT) 20 U/L (15-37); BLOOD UREA NITROGEN 19 mg/dL (7-20); BUN/CREATININE RATIO 24 (6-20); CALCIUM 8.7 mg/dL (8.5-10.1); CARBON DIOXIDE 40 mmol/L (21-32); CHLORIDE 96 mmol/L (98-107); CREATININE 0.8 mg/dL (0.6-1.0); GFR 67.5; GLUCOSE 91 mg/dL (70-99); POTASSIUM 4.5 mmol/L (3.5-5.1); SODIUM 136 mmol/L (136-145); TOTAL BILIRUBIN 0.3 mg/dL (0.2-1.0); TOTAL PROTEIN 6.1 g/dL (6.4-8.2)
[2020-08-28] MEDS: FUROSEMIDE 40 MG/4 ML VIAL. IVP SCH (08:41)
--- NOTE | 2020-08-28 08:48 | RAD ---
EXAM: Abdomen series. HISTORY: Small bowel obstruction. COMPARISON: 08/27/2020 FINDINGS: A frontal view of the chest and frontal upright and supine views of the abdomen are obtaine d. 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 There is emphysema wi th biapical pleural parenchymal scarring. The heart is normal in size. There is a nasogastric tube wi thin the stomach. There are calcified granulomas. There has been transit of contrast into the colon. There is colonic diverticulosis. The previously demonstrated distended air-filled loops of small kristi l are no longer seen. There is no evidence of free air. There is a left hip arthroplasty. There are c hronic appearing vertebral compression fractures and there is bone demineralization. IMPRESSION: 1. Transit of contrast into the colon. The previously demonstrated distended loops of bowel are no lo nger seen. 2. Colonic diverticulosis. 3. Left suprahilar mass, better characterized on the CT performed 08/21/2020. 4. Nasogastric tube within the stomach. Electronically signed by: Saskia Mccracken MD (08/28/2020 8:45 AM) [id number]
[2020-08-28] MEDS: VITAMIN B COMPLEX TABLET. PO SCH (09:00)
[2020-08-28] MEDS: TRIAMCINOLONE ACETONIDE 0.1% TOPICAL OINTMENT 15GM TUBE. TP SCH ×2 (09:00→21:05)
[2020-08-28] MEDS: CHOLECALCIFEROL (VITAMIN D3) 1,000 UNIT TABLET PO SCH (09:00)
[2020-08-28] MEDS: RALOXIFENE 60 MG TABLET. PO SCH (09:00)
[2020-08-28 11:00] VITALS: BP 119/47
--- NOTE | 2020-08-28 14:30 | NUR ---
SW following. Discussed with RN, pt from home with son, 3L, advanced to clear liquid diet today. Therapy recommending SNF. SW met with pt and pt's son at bedside - they would like referral faxed to [place]. SW phoned and faxed referral, awaiting acceptance decision. Pt does not need a COVID test to go to [place]. SW will continue to follow.
[2020-08-28 15:00] VITALS: BP 126/68
--- NOTE | 2020-08-28 17:56 | PN ---
DATE: 08/28/2020 SUBJECTIVE: The patient is resting, slightly propped up in bed, in no apparent respiratory distress. She is awake, alert, seemed to be somewhat short of breath. Denied any abdominal pain. Denied any nausea, vomiting. She said she did pass gas. Her acute abdomen series done this morning showed transit of contrast into the colon. The previously demonstrated distended loops of the bowels are no longer seen. She has chronic colonic diverticulosis and left suprahilar mass better characterized on CT performed in 08/21. She had nasogastric tube within the stomach. She was seen by Dr. Partida and they plan to start her on a clear liquid diet and remove the NG tube. PHYSICAL EXAMINATION: GENERAL: When I examined her, she was pale, somewhat cachectic, but not jaundiced or cyanosed. No thyromegaly. No jugular venous distention. No limb edema. VITAL SIGNS: Her heart rate was 93, blood pressure was 102/39, temperature was 97.9, respiratory rate was 16 and oxygen saturation was 95% on 3 liters of oxygen. HEAD, EYES, EARS, NOSE, AND THROAT: Normocephalic, atraumatic. NECK: Supple. HEART: Showed normal first and second heart sounds. No gallop, rub or murmur. CHEST: Clear to auscultation. No crepitation or rhonchi. ABDOMEN: Distended, soft, nontender. NEUROLOGIC: She was awake, alert, responding appropriately. All cranial nerves intact. She moves extremities without difficulty. Her intake was 1700, output was 250. LABORATORY DATA: As of this morning, her white cell count was 11,600, hemoglobin 13, hematocrit 39, MCV 90 and platelet count 347,000. Her serum sodium was 136, potassium 4.5, chloride 96, bicarbonate 40, anion gap of 0, BUN 19, creatinine 0.8. Estimated GFR was 67 mL per minute. Her glucose was 91, calcium was 8.7. Total bilirubin, AST, ALT, alkaline phosphatase were normal. Total protein 6.1, albumin was 2.2. ASSESSMENT: 1. Small-bowel obstruction, resolving. Her acute abdomen series showed transit of contrast into the colon and the dilated small bowel loops are no longer available. Her NG tube will be removed and will be started on a clear liquid diet. 2. She has a mass in her left upper hilum that could be primary or secondary. The patient decided not to pursue any further investigation for the time being. 3. The patient has multiple other medical problems including, A. Hypertension. B. Hypothyroidism. C. Chronic obstructive pulmonary disease. D. Atrial fibrillation, rate controlled. E. Congestive heart failure. F. Cachexia with underlying dementia. G. Hypokalemia and hyponatremia have resolved. PLAN: To continue with IV fluid for the time being. Continue with clear liquid diet, advanced obviously as tolerated. We will start the process of physical and occupational therapy and she will eventually require a [facility] facility for rehab. RAHEEL/ANNETTE/LEILA DR: Xavi TID: [id number]
[2020-08-28 19:00] VITALS: BP 135/53
--- NOTE | 2020-08-28 19:35 | NUR ---
Nurse's Note: Patient's NG tube removed this morning at 1000, no complications noted. She was started on clear liquid diet, tolerated well. No nausea, vomiting , and abdominal pain reported.
[2020-08-28 23:00] VITALS: BP 120/38
[2020-08-29] MEDS: METOPROLOL IV PUSH 5 MG/5 ML VIAL. IVP SCH ×4 (00:46→17:27)
[2020-08-29] MEDS: POTASSIUM CL 40MEQ IN 0.9%NACL 1,000 ML IV SCH (00:51)
[2020-08-29] MEDS: LEVOTHYROXINE 50 MCG TABLET PO SCH (06:00)
[2020-08-29 07:00] VITALS: BP 145/61
[2020-08-29 07:42] LABS: CALCIUM 8.8 mg/dL (8.5-10.1); CREATININE 0.7 mg/dL (0.6-1.0); GFR 78.8; POTASSIUM 5.1 mmol/L (3.5-5.1)
[2020-08-29] MEDS: FUROSEMIDE 40 MG/4 ML VIAL. IVP SCH (08:41)
[2020-08-29] MEDS: VITAMIN B COMPLEX TABLET. PO SCH (08:41)
[2020-08-29] MEDS: TRIAMCINOLONE ACETONIDE 0.1% TOPICAL OINTMENT 15GM TUBE. TP SCH ×2 (08:41→21:23)
[2020-08-29] MEDS: CHOLECALCIFEROL (VITAMIN D3) 1,000 UNIT TABLET PO SCH (08:41)
[2020-08-29] MEDS: RALOXIFENE 60 MG TABLET. PO SCH (08:41)
--- NOTE | 2020-08-29 09:45 | PDOC ---
CARDIO Progress Notes Date and Time Date of Service 08/29/20 Time of Evaluation 1340 Subjective Subjective: No Chest Pain, No Palpitations, Other Vitals Vitals Vital Signs Date Time Temp Pulse Resp B/P (MAP) Pulse Ox O2 Delivery O2 Flow Rate FiO2 08/29/20 08:40 96 120/38 08/29/20 07:00 98.1 18 98 Nasal Cannula 3.0 98.1 Weight Weight [ ] Input and Output Intake and Output Intake and Output 08/29/20 07:00 Intake Total 0 ml Output Total 300 ml Balance -300 ml Intake Oral 0 ml Output Urine Total 0 ml Gastric Drainage Total 300 ml # Voids 1 # Bowel Movements 1 Laboratory Labs Laboratory Tests Test 08/29/20 06:45 Sodium Level 137 mmol/L (136-145) Potassium Level 5.1 mmol/L (3.5-5.1) Chloride Level 102 mmol/L (98-107) Carbon Dioxide Level 32 mmol/L (21-32) Anion Gap 3 (6-14) Blood Urea Nitrogen 15 mg/dL (7-20) Creatinine 0.7 mg/dL (0.6-1.0) Estimated GFR (Cockcroft-Gault) 78.8 Glucose Level 77 mg/dL (70-99) Calcium Level 8.8 mg/dL (8.5-10.1) Microbiology Micro Microbiology 08/24/20 Urine Culture - Final, Complete Physical Exam HEENT: Neck Supple W Full Motion Chest: Symmetric LUNGS: Other Heart: RRR (SR) Abdomen: Other Extremities: No Edema Neurology: alert, follow commands Assessment Assessment 1. Small bowel obstruction with cholelithiasis with hx of colon CA and resection; KUB with improvement. NGT out 2. 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 COPD with hx of pulmonary fibrosis 4. CAD: noted per chart review, unclear details 5. PAFIB: noted from prior admission at [facility]. maintaining SR/ST with PACs. No clear evidence of AFIB on tele 6. Chronic CHF with diastolic dysfunction; Echo with preserved LV systolic function. Appears compensated 7. Dementia 8. Cahexia/malnutrition Recommendations Continue metoprolol for rate control. Convert to PO when tolerating oral well. Lasix therapy ASA Probable poor candidate for long-term OAC Follow GS recommendations Supportive care from a CV standpoint Justicifation of Admission Dx: Justifications for Admission: Justification of Admission Dx: Yes CHF: Hemodynamic Instability Comminuty Aquired Pneumonia: Dehydration Chronic Renal Failure: Intravenous Infusions Sepsis: Dehydration MICHELLE VENEGAS APRN Aug 29, 2020 09:45
--- NOTE | 2020-08-29 10:15 | PDOC ---
SURGICAL PROGRESS NOTE DATE: 08/29/20 TIME: 10:14 Subjective having stools tolerating clears Vital Signs Vital Signs Date Time Temp Pulse Resp B/P (MAP) Pulse Ox O2 Delivery O2 Flow Rate FiO2 08/29/20 08:40 96 120/38 08/29/20 07:00 98.1 18 98 Nasal Cannula 3.0 98.1 I&O Intake and Output 08/29/20 07:00 Intake Total 0 ml Output Total 300 ml Balance -300 ml Intake Oral 0 ml Output Urine Total 0 ml Gastric Drainage Total 300 ml # Voids 1 # Bowel Movements 1 General: Cooperative, No acute distress Abdomen: Soft Labs Laboratory Tests Test 08/28/20 02:50 08/28/20 06:50 08/29/20 06:45 Lactic Acid Level 0.8 mmol/L (0.4-2.0) White Blood Count 11.6 x10^3/uL (4.0-11.0) Red Blood Count 4.37 x10^6/uL (3.50-5.40) Hemoglobin 13.0 g/dL (12.0-15.5) Hematocrit 39.5 % (36.0-47.0) Mean Corpuscular Volume 90 fL (79-100) Mean Corpuscular Hemoglobin 30 pg (25-35) Mean Corpuscular Hemoglobin Concent 33 g/dL (31-37) Red Cell Distribution Width 13.7 % (11.5-14.5) Platelet Count 347 x10^3/uL (140-400) Sodium Level 136 mmol/L (136-145) 137 mmol/L (136-145) Potassium Level 4.5 mmol/L (3.5-5.1) 5.1 mmol/L (3.5-5.1) Chloride Level 96 mmol/L (98-107) 102 mmol/L (98-107) Carbon Dioxide Level 40 mmol/L (21-32) 32 mmol/L (21-32) Anion Gap (6-14) 3 (6-14) Blood Urea Nitrogen 19 mg/dL (7-20) 15 mg/dL (7-20) Creatinine 0.8 mg/dL (0.6-1.0) 0.7 mg/dL (0.6-1.0) Estimated GFR (Cockcroft-Gault) 67.5 78.8 BUN/Creatinine Ratio 24 (6-20) Glucose Level 91 mg/dL (70-99) 77 mg/dL (70-99) Calcium Level 8.7 mg/dL (8.5-10.1) 8.8 mg/dL (8.5-10.1) Total Bilirubin 0.3 mg/dL (0.2-1.0) Aspartate Amino Transf (AST/SGOT) 20 U/L (15-37) Alanine Aminotransferase (ALT/SGPT) 12 U/L (14-59) Alkaline Phosphatase 121 U/L (46-116) Total Protein 6.1 g/dL (6.4-8.2) Albumin 2.2 g/dL (3.4-5.0) Albumin/Globulin Ratio 0.6 (1.0-1.7) Laboratory Tests Test 08/29/20 06:45 Sodium Level 137 mmol/L (136-145) Potassium Level 5.1 mmol/L (3.5-5.1) Chloride Level 102 mmol/L (98-107) Carbon Dioxide Level 32 mmol/L (21-32) Anion Gap 3 (6-14) Blood Urea Nitrogen 15 mg/dL (7-20) Creatinine 0.7 mg/dL (0.6-1.0) Estimated GFR (Cockcroft-Gault) 78.8 Glucose Level 77 mg/dL (70-99) Calcium Level 8.8 mg/dL (8.5-10.1) Assessment/Plan advance diet Justicifation of Admission Dx: Justifications for Admission: Justification of Admission Dx: Yes CHF: Hemodynamic Instability Comminuty Aquired Pneumonia: Dehydration Chronic Renal Failure: Intravenous Infusions Sepsis: Dehydration DANTE VALDIVIA [employer]ICAL CHEMIST Aug 29, 2020 10:14
[2020-08-29] MEDS: VITAMIN E 200 UNIT CAPSULE. PO SCH (10:32)
[2020-08-29] MEDS: OMEGA-3 FATTY ACIDS/FISH OIL 1,000 MG CAPSULE. PO SCH (10:32)
[2020-08-29] MEDS: CALCIUM CARB/VIT D3 500/200 TABLET. PO SCH ×2 (10:32→17:26)
[2020-08-29] MEDS: PRENATAL MULTIVITAMIN TABLET. PO SCH (10:32)
[2020-08-29 11:00] VITALS: BP 139/60
--- NOTE | 2020-08-29 11:08 | NUR ---
SW following. Discussed with RN, no acceptance decision from [facility] as of yet. Per Dr. Patel possible discharge tomorrow. Awaiting acceptance decision. SW will continue to follow.
--- NOTE | 2020-08-29 11:45 | PN ---
DATE: 08/29/2020 SUBJECTIVE: The patient is resting, slightly propped up in her recliner in no apparent respiratory distress. Her NG tube is out. She is tolerating her liquid diet. On questioning her, denied any complaint. In particular, denied any pain, nausea or vomiting. She has a bowel movement and is passing gas. PHYSICAL EXAMINATION: GENERAL: When I examined her, she was pale, but no jaundiced or cyanosed. No thyromegaly. No jugular venous distention. No limb edema. VITAL SIGNS: Her heart rate was 96, blood pressure was 120/38, temperature was 98.1, respiratory rate was 18, and oxygen saturation was 98% on 3 liters of oxygen. HEAD, EYES, EARS, NOSE, AND THROAT: Normocephalic, atraumatic. NECK: Supple. HEART: Showed normal first and second heart sounds. No gallop, rub or murmur. CHEST: Clear to auscultation. No crepitation or rhonchi. ABDOMEN: Slightly distended, soft, nontender. NEUROLOGIC: She is awake, alert, responding appropriately. All cranial nerves intact. She moves extremities without difficulty. Her intake was 1440, output was 1400. LABORATORY DATA: This morning showed a serum sodium 137, potassium 5.1, chloride 102, bicarbonate 32, anion gap of 3, BUN 15, creatinine 0.7, estimated GFR was 79 mL per minute, her glucose 77 and calcium was 8.8. ASSESSMENT: 1. Small-bowel obstruction, resolved. Her acute abdomen series showed transit of contrast into the colon, dilated small bowels are no longer visible. Her nasogastric tube was removed and she was started on clear liquid that she is tolerating. 2. She has a mass in her left upper hilum that could be primary or secondary. The patient decided not to pursue this any further. 3. The patient has multiple other medical problems including: A. Hypertension. B. Hypothyroidism. C. Chronic obstructive pulmonary disease. D. Atrial fibrillation, rate controlled. E. Congestive heart failure. F. Cachexia with underlying dementia. G. Hypokalemia and hyponatremia, resolved. In fact, her potassium is up at 5.1. PLAN: Discontinue IV fluid. Continue with clear liquid and advance diet as tolerated as per surgical team. Continue with physical and occupational therapy. If she remains stable tomorrow, she probably needs to be discharged to a long-term facility. Her family wanted her to go to [facility]. RAHEEL/RALPH DR: Xavi TID: [id number]
[2020-08-29 15:00] VITALS: BP 139/61
[2020-08-29 19:00] VITALS: BP 99/65
[2020-08-29] MEDS: fentaNYL PF VIAL 100 MCG/2 ML VIAL IVP PRN (21:23)
[2020-08-29 23:00] VITALS: BP 121/51
[2020-08-30] MEDS: METOPROLOL IV PUSH 5 MG/5 ML VIAL. IVP SCH ×3 (00:50→12:31)
[2020-08-30 03:00] VITALS: BP 120/45
[2020-08-30] MEDS: LEVOTHYROXINE 50 MCG TABLET PO SCH (06:44)
[2020-08-30 07:27] LABS: CALCIUM 8.9 mg/dL (8.5-10.1); CREATININE 0.7 mg/dL (0.6-1.0); GFR 78.8; POTASSIUM 4.1 mmol/L (3.5-5.1)
[2020-08-30 07:30] VITALS: BP 117/60
[2020-08-30] MEDS: RALOXIFENE 60 MG TABLET. PO SCH (07:57)
[2020-08-30] MEDS: VITAMIN B COMPLEX TABLET. PO SCH (07:57)
[2020-08-30] MEDS: VITAMIN E 200 UNIT CAPSULE. PO SCH (07:57)
[2020-08-30] MEDS: CALCIUM CARB/VIT D3 500/200 TABLET. PO SCH (07:57)
[2020-08-30] MEDS: CHOLECALCIFEROL (VITAMIN D3) 1,000 UNIT TABLET PO SCH (07:57)
[2020-08-30] MEDS: PRENATAL MULTIVITAMIN TABLET. PO SCH (07:57)
[2020-08-30] MEDS: OMEGA-3 FATTY ACIDS/FISH OIL 1,000 MG CAPSULE. PO SCH (07:57)
[2020-08-30] MEDS: FUROSEMIDE 40 MG/4 ML VIAL. IVP SCH (07:58)
[2020-08-30] MEDS: TRIAMCINOLONE ACETONIDE 0.1% TOPICAL OINTMENT 15GM TUBE. TP SCH (07:58)
[2020-08-30] MEDS ORDERED: ASPIRIN ENTERIC COATED 81 MG TABLET.DR. PO SCH (08:00)
--- NOTE | 2020-08-30 10:51 | SNU/HH DC ---
DISCHARGE ORDERS DISCHARGE INFORMATION: DISCHARGE DATE: Aug 30, 2020 FINAL DIAGNOSIS small bowel obstruction resolved left llung neoplasm chronic diastolic CHF Debility and weakness CONDITION ON DISCHARGE: Stable CODE STATUS: Code Status: Full PRISON: SNF STAY <30 DAYS: Yes POST DISCHARGE ORDERS: ACTIVITY ORDERS: Resume previous activity, Activity as tolerated WEIGHT BEARING STATUS: No restrictions DIET AFTER DISCHARGE: Cardiac TREATMENT/EQUIPMENT ORDERS: RESPIRATORY EQUIPMENT NEEDED: Oxygen Physical Therapy For: Evalulation/Treatment Occupational Therapy For: Evaluation/Treatment DISCHARGE MEDICATIONS: Home Meds Active Scripts Albuterol Sulfate (Proair Hfa) 8.5 Gm Hfa.aer.ad, 2.5 MG NEB PRN Q4HRS PRN for SHORTNESS OF BREATH for 30 Days, #1 INHALER Prov:ZULEIKA MORGAN MD 10/06/19 Reported Medications Umeclidinium Brm/Vilanterol Tr (ANORO ELLIPTA 62.5-25 MCG INH) 1 Each Disk.w.dev, 1 PUFF INH DAILY for copd 08/21/20 Potassium Chloride (K-Tab ER) 20 Meq Tablet.er, 20 MEQ PO BID for supplement 08/21/20 Tolterodine Tartrate (TOLTERODINE TARTRATE ER) 2 Mg Cap.er.24h, 1 CAP PO DAILY for overactive bladder 08/21/20 Furosemide (FUROSEMIDE) 80 Mg Tablet, 1 TAB PO DAILY for chf 08/21/20 Metoprolol Tartrate (METOPROLOL TARTRATE) 50 Mg Tablet, 1 TAB PO BID for htn 08/21/20 Acetaminophen (TYLENOL) 325 Mg Tablet, 650 MG PO Q4HRS PRN for FEVER > 100.5'F, TAB 09/23/19 Triamcinolone Acetonide (TRIAMCINOLONE ACETONIDE 0.1% OINT) 15 Gm Oint...g., 1 DILSHAD TP BID for WOUND CARE, #1 TUBE MIX WITH EUCERIN DIRECTED BY PHYSICIAN 02/02/16 Vitamin B Complex (B COMPLEX) 1 Each Tablet, 1 EACH PO 08/29/14 Patterson-3 Fatty Acids/Fish Oil (OMEGA 3 1,000 MG SOFTGEL) 1 Each Capsule, 1 EACH PO 08/29/14 Vitamin E Acid Succinate (VITAMIN E) 100 Unit Tablet, 100 UNIT PO 08/29/14 Lysine (LYSINE) 500 Mg Tablet, 500 MG PO 08/29/14 Cholecalciferol (Vitamin D3) (VITAMIN D3) 1,000 Unit Tablet, 1000 UNIT PO 08/29/14 Multivitamin/Iron/Folic Acid (CENTRUM COMPLETE MULTIVIT TAB) 1 Each Tablet, 1 EACH PO 08/29/14 Calcium Carbonate/Vitamin D3 (CALTRATE 600 + D TABLET) 1 Each Tablet, 1 EACH PO 08/29/14 Raloxifene Hcl (EVISTA) 60 Mg Tablet, 60 MG PO DAILY, TAB 08/29/14 Hydrocodone Bit/Acetaminophen (HYDROCODONE-APAP 5-325 ) 1 Each Tablet, 1-2 TAB PO Q4-6HRS, #40 TAB 08/29/14 Levothyroxine Sodium (LEVOTHYROXINE SODIUM) 50 Mcg Tablet, 50 MCG PO DAILYAC for THYROID SUPPLEMENT, #30 TAB 0 Refills 08/29/14 KIYA AVILA MD Aug 30, 2020 10:51
--- NOTE | 2020-08-30 11:17 | NUR ---
SHIRA following. Discussed with RN, discharge orders faxed to [place], awaiting transportation time from [place]. RN notified. SHIRA will continue to follow. Addendum: 08/30/20 at 1310 by ROBEL SILVA Transportation arranged for 1530. RN notified. Medicare letter completed - pt and family still agreeable.
[2020-08-30 11:30] VITALS: BP 107/51
[2020-08-30 15:36] VITALS: BP 120/54
== END 2020-08-30 16:55 | DRG 388 ==
LOC: 6 SOUTH 05:30
PROVIDERS: ADMIT Internal Medicine; ATTEND Internal Medicine
PROC: 0D9670Z Drainage of Stomach with Drainage Device, Via Natural or Artificial Opening (ICD-10-PCS; principal; 2020-08-21)
DX: K56.609 Unspecified intestinal obstruction, unspecified as to partial versus complete obstruction (principal); J96.01 Acute respiratory failure with hypoxia; E46 Unspecified protein-calorie malnutrition; E87.1 Hypo-osmolality and hyponatremia; I50.42 Chronic combined systolic (congestive) and diastolic (congestive) heart failure; R64 Cachexia; E03.9 Hypothyroidism, unspecified; Z68.23 Body mass index [BMI] 23.0-23.9, adult; E87.6 Hypokalemia; F03.90 Unspecified dementia, unspecified severity, without behavioral disturbance, psychotic disturbance, mood disturbance, and anxiety; I25.10 Atherosclerotic heart disease of native coronary artery without angina pectoris; I48.0 Paroxysmal atrial fibrillation; K57.30 Diverticulosis of large intestine without perforation or abscess without bleeding; Z82.49 Family history of ischemic heart disease and other diseases of the circulatory system; J84.10 Pulmonary fibrosis, unspecified; Z82.3 Family history of stroke; Z85.038 Personal history of other malignant neoplasm of large intestine; Z87.891 Personal history of nicotine dependence; Z90.49 Acquired absence of other specified parts of digestive tract; Z96.642 Presence of left artificial hip joint; Z98.41 Cataract extraction status, right eye; Z98.42 Cataract extraction status, left eye; F32.9 Major depressive disorder, single episode, unspecified; M19.90 Unspecified osteoarthritis, unspecified site; Z88.0 Allergy status to penicillin; Z88.1 Allergy status to other antibiotic agents; Z88.5 Allergy status to narcotic agent; Z88.2 Allergy status to sulfonamides; Z88.7 Allergy status to serum and vaccine; Z88.8 Allergy status to other drugs, medicaments and biological substances; R91.8 Other nonspecific abnormal finding of lung field; J44.9 Chronic obstructive pulmonary disease, unspecified; K80.20 Calculus of gallbladder without cholecystitis without obstruction
CPT/HCPCS: 36415; 43752; 71045; 74021; 74022; 74250; 80048; 80053; 81001; 83605; 83880; 85027; 85610; 87077; 87086; 93306; J1940; J2405; J3010; J3480; J3490; J7030; J7060; Q9967; 97116-GP; 97530-GO; 97530-GP; 97535-GO; G0378